=== PATIENT | male | born 1945 | race Asian ===

== ENCOUNTER → 2020-05-06 12:26 | Outpatient (BNVA) | payer MEDICARE, OTHER, SELFPAY | PROVIDERS: PCP Internal Medicine; Referring Provider Internal Medicine; Visit Provider Internal Medicine | DX: I25.10 Atherosclerotic heart disease of native coronary artery without angina pectoris (principal); I65.22 Occlusion and stenosis of left carotid artery; I10 Essential (primary) hypertension; Z45.018 Encounter for adjustment and management of other part of cardiac pacemaker; Z79.899 Other long term (current) drug therapy; Z86.79 Personal history of other diseases of the circulatory system; Z86.73 Personal history of transient ischemic attack (TIA), and cerebral infarction without residual deficits | CPT/HCPCS: 93005; 99212 ==

== ENCOUNTER 2020-05-08 10:26 | Outpatient (REF) | payer MEDICARE, OTHER, SELFPAY ==
--- NOTE | 2020-05-08 | US_ITS ---
EXAMINATION: US EXTRACRANIAL CAROTID DUPLEX, BILATERAL CLINICAL INFORMATION: This is a 74-year-old male with history of hypertension, CVA, left carotid endarterectomy. COMPARISON: Comparison is made to a study dated 09/27/2019 which demonstrated bilateral 0-49% internal carotid artery stenoses. TECHNIQUE: Real-time ultrasound and Doppler techniques (integrating B-mode 2-D vascular images, Doppler spectral analysis and color-flow Doppler imaging) were utilized to interrogate the extracranial carotid arteries, the vertebral arteries and proximal subclavian arteries bilaterally. The degree of stenosis is determined by criteria similar to NASCET. FINDINGS: Right Side: 1. There is minimal atherosclerotic plaque seen in the bifurcation/proximal ICA region. 2. The common carotid artery PSV proximally is 71 cm/s and distally T5 cm/s. 3. The proximal internal carotid artery velocities are 69 cm/s systolic and 25 cm/s diastolic. 4. The proximal external carotid artery PSV is 81 cm/s. 5. The vertebral artery shows antegrade flow. 6. The subclavian artery waveforms are normal. Left Side: 1. There is normal atherosclerotic plaque seen in the bifurcation/proximal ICA region. 2. The common carotid artery PSV proximally is 79 cm/s and distally 79 cm/s. 3. The proximal internal carotid artery velocities are 70 cm/s systolic and 22 cm/s diastolic. 4. The proximal external carotid artery PSV is 83 cm/s. 5. The vertebral artery shows antegrade flow. 6. The subclavian artery waveforms are normal. US/US carotid duplex BI IMPRESSION: 1. RIGHT: Minimal, non-hemodynamically significant stenosis of the proximal right internal carotid artery corresponding to a 0-49% stenosis by velocity criteria. 2. LEFT: Minimal, non-hemodynamically significant stenosis of the proximal left internal carotid artery corresponding to a 0-49% stenosis by velocity criteria. 3. There is no change in the category severity of disease when compared to the previous study dated 09/27/2019. The carotid endarterectomy site appears patent..
== END 2020-05-08 10:27 | disposition home or self-care (01) ==
LOC: HO.US 10:26
PROVIDERS: PCP Internal Medicine; Visit Provider Surgery Vascular Surgery
DX: I63.232 Cerebral infarction due to unspecified occlusion or stenosis of left carotid arteries (principal)
CPT/HCPCS: 93880

== ENCOUNTER → 2020-05-23 08:58 | Outpatient (BNVA) | payer MEDICARE, OTHER, SELFPAY | PROVIDERS: PCP Internal Medicine; Referring Provider Internal Medicine; Visit Provider Surgery Vascular Surgery | DX: I65.23 Occlusion and stenosis of bilateral carotid arteries (principal) | CPT/HCPCS: 99212 ==

== ENCOUNTER → 2020-10-08 14:57 | Outpatient (REF) | payer MEDICARE, OTHER, SELFPAY ==
--- NOTE | 2020-10-08 15:05 | CA_ITS ---
Transthoracic Echocardiogram Patient (Last, First, Middle): Emeka Dalal, Gender: Male Date of : 1945 Age: 74 Procedure Date: 10/08/2020 Procedure Type: Transthoracic Echocardiogram Location: OP Height: 170.18 cm Weight: 65.77 kg BSA: 1.76 m2 Heart Rate: bpm BP: 125 / 80 mmHg Packager Or Packer And Weigher: Referring MD: Zhou Ritter MD Farm Operations Technical Director: Marquez Fagan MD Symptoms: I25.10 - Atherosclerotic heart disease of [place] coronary artery without angina pectoris Study Quality: Good ECG Rhythm: Sinus Conclusions: - 1. Normal LV systolic function with grade 1 diastolic dysfunction 2. Normal cardiac valvular Doppler 3. Normal RV systolic pressure 4. No pericardial effusion Findings Left Ventricle Normal left ventricular size, thickness, and systolic function. The visually estimated ejection fraction is between 60-65%. Spectral Doppler is indicative of an impaired relaxation filling pattern. E/E prime ratio is <8, consistent with normal filling pressures. Evidence suggests grade I (mild) diastolic dysfunction. Right Ventricle Normal right ventricular cavity size and systolic function. There is a pacemaker wire seen in the right ventricle. Atria The left atrium is normal in size. There is no evidence of interatrial shunt. The right atrium is normal in size. A pacemaker wire is identified in the right atrium. Aortic Valve The aortic valve structure and function is likely normal. There is no aortic valve stenosis. There is no aortic valve regurgitation. Mitral Valve Normal mitral valve structure and function. There is trace mitral valve regurgitation. There is no mitral valve stenosis. Pulmonic Valve The pulmonic valve was not well visualized. Tricuspid Valve Likely normal tricuspid valve structure and function. There is trace tricuspid valve regurgitation. The right ventricular systolic pressure is normal. The right ventricular systolic pressure is 21 mmHg. Normal right atrial pressure. There is no evidence of pulmonary hypertension. Great Vessels All visible segments of the aorta are normal in size. The pulmonary artery was not well visualized. Venous The inferior vena cava is normal in size and collapses greater than 50% with inspiration. Pericardium/Pleural There is no evidence of pericardial effusion. Prior Study Comparison No significant change compared to prior study. Measurements 2D Linear Measurements IVSd: 0.80 0.6-0.9/0.6-1.0 cm LVIDd: 3.50 3.9-5.3/4.2-5.9 cm LVIDd Index: 1.99 2.4-3.2/2.2-3.1 cm/m2 LVIDs: 2.33 2.0-3.6 cm LVPWd: 0.78 0.7-1.1 cm Ao Root: 3.40 2.1-3.5 cm LA Diam: 3.20 2.7-3.8/3.0-4.0 cm LAIDs Index: 1.82 1.5-2.3 cm/m2 LV Mass: 181.18 67-162/88-224 g LV Mass Index: 102.94 43-95/49-115 g/m2 LVOT Diam: 2.10 3.0+(-)1.3 cm Mitral Valve MV Pk E: 0.58 MV PK A: 0.73 MV Decel Time: 186.00 E/A: 0.80 E'Lateral: 9.79 E'Medial: 5.66 E/E' Med: 10.30 E/E' Lat: 6.00 PHT: 54.00 MVA PHT: 4.07 Decel Prowers: 3.14 Aortic Valve AoV Pk Andre: 1.18 AoV Mn Andre: 0.70 AoV VTI: 0.27 AoV Pk Grad: 6.00 Aov Mn Grad: 3.00 SHERRY Cont.VTI: 2.50 LVOT LVOT Pk Andre: 0.83 LVOT Mn Andre: 0.48 LVOT VTI: 0.20 LVOT Pk Grad: 3.00 LVOT Mn Grad: 1.00 LVOT Diam: 2.10 LVOT Area: 3.46 Diastolic Function MV Pk E: 0.58 MV Pk A: 0.73 E/A: 0.80 E'Medial: 5.66 E/E' Med: 10.30 E' Laterial: 9.79 E/E' Lat: 6.00 Tricuspid Valve TR Pk Andre: 2.13 TR Pk Grad: 18.00 RA Press: 3.00 RVSP: 21.00 Great Vessels Aorta Ao Root-2D: 3.40 2.0-3.7 cm Ao Asc: 3.50 2.1-3.4 cm Pulmonary Valve PV Pk Andre: 0.90 Peak PV Grad: 3.00 Updated in Other Vendor System with Status of Final Marquez Fagan MD electronically signed on 10/09/2020 2:46:02 PM with status of Final
== END ==
LOC: HO.CARD 14:57
PROVIDERS: Visit Provider Internal Medicine
DX: I25.10 Atherosclerotic heart disease of native coronary artery without angina pectoris (principal)
CPT/HCPCS: 93306

== ENCOUNTER 2021-04-14 11:27 | Outpatient (REF) | payer MEDICARE, OTHER, SELFPAY ==
--- NOTE | ~2021-04-14 | US_ITS ---
EXAMINATION: US EXTRACRANIAL CAROTID DUPLEX, BILATERAL CLINICAL INFORMATION: Carotid stenosis. Left endarterectomy 2019. COMPARISON: 05/08/2020 TECHNIQUE: Real-time ultrasound and Doppler techniques (integrating B-mode 2-D vascular images, Doppler spectral analysis and color-flow Doppler imaging) were utilized to interrogate the extracranial carotid arteries, the vertebral arteries and proximal subclavian arteries bilaterally. The degree of stenosis is determined by criteria similar to NASCET. FINDINGS: Right Side: 1. There is calcified atherosclerotic plaque seen in the bifurcation/proximal ICA region. 2. The common carotid artery PSV proximally is 83 cm/s and distally 55 cm/s. 3. The proximal internal carotid artery velocities are 65 cm/s systolic and 19 cm/s diastolic. 4. The proximal external carotid artery PSV is 51 cm/s. 5. The vertebral artery shows antegrade flow. 6. The subclavian artery waveforms are normal. Left Side: 1. There is minimal atherosclerotic plaque seen in the bifurcation/proximal ICA region. Carotid endarterectomy changes demonstrated. 2. The common carotid artery PSV proximally is 70 cm/s and distally 69 cm/s. 3. The proximal internal carotid artery velocities are 60 cm/s systolic and 14 cm/s diastolic. 4. The proximal external carotid artery PSV is 52 cm/s. 5. The vertebral artery shows antegrade flow. 6. The subclavian artery waveforms are normal. US/US carotid duplex BI IMPRESSION: 1. RIGHT: Minimal, non-hemodynamically significant stenosis of the proximal right internal carotid artery corresponding to a 0-49% stenosis by velocity criteria. 2. LEFT: Carotid endarterectomy. Minimal, non-hemodynamically significant stenosis of the proximal left internal carotid artery corresponding to a 0-49% stenosis by velocity criteria. 3. There is no change in the category severity of disease when compared to the previous study dated 05/08/2020.
== END 2021-04-14 11:28 | disposition home or self-care (01) ==
LOC: HO.US 11:27
PROVIDERS: Visit Provider Surgery Vascular Surgery
DX: I65.23 Occlusion and stenosis of bilateral carotid arteries (principal)
CPT/HCPCS: 93880

== ENCOUNTER → 2021-06-05 09:26 | Outpatient (BNVA) | payer MEDICARE, OTHER, SELFPAY | PROVIDERS: PCP Internal Medicine; Visit Provider Surgery Vascular Surgery | DX: I65.23 Occlusion and stenosis of bilateral carotid arteries (principal) | CPT/HCPCS: 99212 ==

== ENCOUNTER 2022-05-13 10:08 | Outpatient (REF) | payer MEDICARE, OTHER, SELFPAY ==
--- NOTE | ~2022-05-13 | US_ITS ---
EXAMINATION: US EXTRACRANIAL CAROTID DUPLEX, BILATERAL CLINICAL INFORMATION: Carotid artery stenosis COMPARISON: Carotid duplex on 04/14/2021 TECHNIQUE: Real-time ultrasound and Doppler techniques (integrating B-mode 2-D vascular images, Doppler spectral analysis and color-flow Doppler imaging) were utilized to interrogate the extracranial carotid arteries, the vertebral arteries and proximal subclavian arteries bilaterally. The degree of stenosis is determined by criteria similar to NASCET. FINDINGS: Right Side: 1. There is mild atherosclerotic plaque seen in the bifurcation/proximal ICA region. 2. The common carotid artery PSV proximally is 105 cm/s and distally 76 cm/s. 3. The proximal internal carotid artery velocities are 73 cm/s systolic and 20 cm/s diastolic. 4. The proximal external carotid artery PSV is 73 cm/s. 5. The vertebral artery shows antegrade flow. 6. The subclavian artery waveforms are normal. Left Side: 1. There is mild atherosclerotic plaque seen in the bifurcation/proximal ICA region. 2. The common carotid artery PSV proximally is 83 cm/s and distally 83 cm/s. 3. The proximal internal carotid artery velocities are 19 cm/s systolic and 71 cm/s diastolic. 4. The proximal external carotid artery PSV is 71 cm/s. 5. The vertebral artery shows antegrade flow. 6. The subclavian artery waveforms are normal. US/US carotid duplex BI IMPRESSION: 1. RIGHT: Minimal, non-hemodynamically significant stenosis of the proximal right internal carotid artery corresponding to a 0-49% stenosis by velocity criteria. 2. LEFT: Minimal, non-hemodynamically significant stenosis of the proximal left internal carotid artery corresponding to a 0-49% stenosis by velocity criteria.
== END 2022-05-13 10:09 | disposition home or self-care (01) ==
LOC: HO.US 10:08
PROVIDERS: Visit Provider Surgery Vascular Surgery
DX: I65.23 Occlusion and stenosis of bilateral carotid arteries (principal)
CPT/HCPCS: 93880

== ENCOUNTER → 2022-06-23 13:45 | Outpatient (BNVA) | payer MEDICARE, OTHER, SELFPAY | PROVIDERS: PCP Internal Medicine; Visit Provider Surgery Vascular Surgery | DX: I65.23 Occlusion and stenosis of bilateral carotid arteries (principal) | CPT/HCPCS: 99212 ==

== ENCOUNTER 2022-12-29 14:47 | Outpatient (AMB) | payer MEDICARE, OTHER, SELFPAY ==
[2022-12-29 14:47] VITALS: BMI 23.7
--- NOTE | 2022-12-29 14:47 | A.OFFVIS_ITS ---
Intake Vital Signs 12/29/22 14:47 Height 5 ft 6 in Weight 147 lb BMI 23.7 Intake Visit Reasons: Per daughter LE blockage? pt due in jun for f/u Intake Note: pt states bilateral LE tingling and large VV clusters, worried about blood flow due to penis being engorged at all times. Accompanied by: son in law Allergies No Known Allergies [No Known Allergies*] Allergy (Verified 12/29/22 14:53) HPI Per daughter LE blockage? pt due in jun for f/u HPI Details very pleasant 76-year-old gentleman presents for follow-up regarding his lower extremities. He actually follows me for carotid disease that he had undergone nearly 3 years ago with me. He most recently is complaining of numbness and tingling in the lower extremity. An actually of note he is son-in-law pointed out that he has recurrent bouts of pre of his Um as well. He notes that it is a constant tingling of the lower extremities. He does not note any changes with ambulation or rest. He is currently being maintained on a baby aspirin and high-dose statin. Upon further discussion with him he does admit to some lower back pain issues. [facility] Medical History Atherosclerotic cardiovascular disease Essential hypertension Ischemic stroke Normally functioning cardiac pacemaker present Sick sinus syndrome Stenosis of left carotid artery Surgical History History of cardiac catheterization (~2016) History of left-sided carotid endarterectomy (~05/15/19) History of permanent cardiac pacemaker placement (~05/12/19) Family History Father No problems noted. Mother No problems noted. Review of Systems Const All systems reviewed & are unremarkable except as noted in HPI and below Reports no additional complaints ENT Reports Normal hearing present Card Denies chest pain, Denies chest pain at rest, Denies chest pain with activity and Denies pedal edema Resp Denies cough GI Denies abdominal pain Musc Denies abnormal gait, Denies muscle cramps and Denies radiating pain into limb Skin/Breast Denies skin ulcer and Denies wounds Neuro Reports Normal hearing present and Denies abnormal gait Psych Reports no additional complaints Physical Exam Vital Signs: BMI result Body Mass Index 23.7 Const General: cooperative, healthy appearing and comfortable Orientation/consciousness: oriented to person, oriented to place and oriented to time HEENT Head: Yes normal to inspection Neck Neck: Yes normal visual inspection Carotids: no bruits Chest Chest palpation & inspection: normal inspection of the chest Resp Effort & Inspection: normal respiratory effort and able to speak in complete sentences Auscultation: clear to auscultation bilaterally, no crackles, no rales, no rhonchi and no wheezes Cardio Other: Bilateral palpable DP and PT pulses. Rate: regular rate Rhythm: regular rhythm Heart sounds: S1 normal heart sound present and S2 normal heart sound present Bruits: no carotid bruits Peripheral pulses: Peripheral pulses 2+ throughout GI Inspection: Yes normal to inspection Skin Wounds: no wounds Hair: normal Neuro General: oriented to person, oriented to place and oriented to time Cranial nerves: Yes CN's II-XII intact bilaterally and Yes Normal hearing present Cognition (Neuro): normal cognition Motor exam (neuro): 5/5 motor strength present throughout Extrem Other: venous exam: No significant superficial varicosities or spider telangiectasias, minimal edema General: No clubbing, No cyanosis and No edema Psych Appearance: grossly normal Mental Status: mental status grossly normal Speech and movement: Normal speech and movement present Assessment & Plan Assessment & Plan (1) Leg pain, bilateral: Code(s): M79.604 - Pain in right leg; M79.605 - Pain in left leg Plan: in short unclear etiology of lower extremity pain. It does not appear to be vascular in nature as he does have palpable bilateral DP and PT pulses. There may be an neurologic component to this. He does complain of numbness and tingling of the bilateral lower extremities. In addition he does have back pain issues. A bigger concern is these recurrent bouts of preop his Um that have been occurring for him. I will try to reach out to the primary care team. He may benefit from an urgent neurologic evaluation. Once again he will continue to follow us for his carotid disease. Thank you for allowing us to assist in his care. If there are any questions or concerns please do not hesitate to contact us. (2) Carotid stenosis, bilateral: Comment: 05/15/2019 - left carotid endarterectomy Code(s): I65.23 - Occlusion and stenosis of bilateral carotid arteries Coding Level of Care Code Est Pt Level 4 (36888) Diagnoses Leg pain, bilateral M79.604; M79.605 Carotid stenosis, bilateral I65.23
== END 2022-12-29 15:14 | disposition home or self-care (01) ==
PROVIDERS: PCP Internal Medicine; Visit Provider Surgery Vascular Surgery
DX: M79.604 Pain in right leg (principal); M79.605 Pain in left leg; I65.23 Occlusion and stenosis of bilateral carotid arteries; N48.30 Priapism, unspecified
CPT/HCPCS: 99214

== ENCOUNTER → 2022-12-29 14:47 | Outpatient (BNVA) | payer MEDICARE, OTHER, SELFPAY | PROVIDERS: PCP Internal Medicine; Visit Provider Surgery Vascular Surgery | DX: M79.604 Pain in right leg (principal); M79.605 Pain in left leg; I65.23 Occlusion and stenosis of bilateral carotid arteries | CPT/HCPCS: 99212 ==

== ENCOUNTER → 2023-01-05 23:59 | Outpatient (BNV) | payer MEDICARE, OTHER, SELFPAY ==
--- NOTE | 2023-01-07 15:57 | MHC.OFFVIS ---
Intake Intake Visit Reasons: Remote Device Check- [facility] Allergies No Known Allergies [No Known Allergies*] Allergy (Verified 12/29/22 14:53) FOR[facility]LY [facility], [facility]–1983 Medical History Atherosclerotic cardiovascular disease Essential hypertension Ischemic stroke Normally functioning cardiac pacemaker present Sick sinus syndrome Stenosis of left carotid artery Surgical History History of cardiac catheterization (~2016) History of left-sided carotid endarterectomy (~05/15/19) History of permanent cardiac pacemaker placement (~05/12/19) Family History Father No problems noted. Mother No problems noted. Office Procedures Cardiac Device Check Cardiac Device Check Details: Date of service- 01/05/2023 ; Battery life >6 years; normal lead parameters; AP 42%; EXCAVATING SUPERVISOR <1%; no significant arrhythmias. Overall normal device function. [id number] Cardiac Device Interrogation, pacemaker Procedure code (CPT) selection complete Assessment & Plan Assessment & Plan (1) Sick sinus syndrome: Code(s): I49.5 - Sick sinus syndrome Coding Level of Care Code Procedure Only Diagnoses Sick sinus syndrome I49.5 CPT Codes Cardiac Device Check - Cardiac Device 12: [id number] Cardiac Device Interrogation, pacemaker ([id number])
== END ==
PROVIDERS: PCP Internal Medicine; Visit Provider Internal Medicine
DX: I49.5 Sick sinus syndrome (principal); Z95.0 Presence of cardiac pacemaker
CPT/HCPCS: 93294

== ENCOUNTER → 2023-04-06 23:59 | Outpatient (BNV) | payer MEDICARE, OTHER, SELFPAY ==
--- NOTE | 2023-04-10 18:59 | A.OFFVIS_ITS ---
Intake Intake Visit Reasons: Remote Device Check- [facility] Allergies No Known Allergies [No Known Allergies*] Allergy (Verified 12/29/22 14:53) [facility] Medical History Atherosclerotic cardiovascular disease Essential hypertension Ischemic stroke Normally functioning cardiac pacemaker present Sick sinus syndrome Stenosis of left carotid artery Surgical History History of cardiac catheterization (~2016) History of left-sided carotid endarterectomy (~05/15/19) History of permanent cardiac pacemaker placement (~05/12/19) Family History Father No problems noted. Mother No problems noted. Office Procedures Cardiac Device Check Cardiac Device Check Details: Date of service- 04/06/2023 ; Battery life >6 years; normal lead parameters; AP 47%; BILLET EXAMINER <1%; no significant arrhythmias. Overall normal device function. [id number] Cardiac Device Interrogation, pacemaker Procedure code (CPT) selection complete Assessment & Plan Assessment & Plan (1) Sick sinus syndrome: Code(s): I49.5 - Sick sinus syndrome Plan x Coding Level of Care Code Procedure Only Diagnoses Sick sinus syndrome I49.5 CPT Codes Cardiac Device Check - Cardiac Device 12: [id number] Cardiac Device Interrogation, pacemaker ([id number])
== END ==
PROVIDERS: PCP Internal Medicine; Visit Provider Internal Medicine
DX: I49.5 Sick sinus syndrome (principal); Z95.0 Presence of cardiac pacemaker
CPT/HCPCS: 93294

== ENCOUNTER 2023-06-03 09:55 | Outpatient (REF) | payer MEDICARE, OTHER, SELFPAY ==
--- NOTE | ~2023-06-03 | US_ITS ---
EXAMINATION: US EXTRACRANIAL CAROTID DUPLEX, BILATERAL CLINICAL INFORMATION: Carotid stenosis. Former smoker. Hypertension. COMPARISON: Carotid ultrasound 05/13/2022 TECHNIQUE: Real-time ultrasound and Doppler techniques (integrating B-mode 2-D vascular images, Doppler spectral analysis and color-flow Doppler imaging) were utilized to interrogate the extracranial carotid arteries, the vertebral arteries and proximal subclavian arteries bilaterally. The degree of stenosis is determined by criteria similar to NASCET. FINDINGS: Right Side: 1. There is mild atherosclerotic plaque seen in the bifurcation/proximal ICA region. 2. The common carotid artery PSV proximally is 73 cm/s and distally 64 cm/s. 3. The proximal internal carotid artery velocities are 70 cm/s systolic and 24 cm/s diastolic. 4. The proximal external carotid artery PSV is 68 cm/s. 5. The vertebral artery shows antegrade flow. 6. The subclavian artery waveforms are normal. Left Side: 1. There is mild atherosclerotic plaque seen in the bifurcation/proximal ICA region. 2. The common carotid artery PSV proximally is 61 cm/s and distally 60 cm/s. 3. The proximal internal carotid artery velocities are 48 cm/s systolic and 19 cm/s diastolic. 4. The proximal external carotid artery PSV is 63 cm/s. 5. The vertebral artery shows antegrade flow. 6. The subclavian artery waveforms are normal. US/US carotid duplex BI IMPRESSION: 1. RIGHT: Minimal, non-hemodynamically significant stenosis of the proximal right internal carotid artery corresponding to a 0-49% stenosis by velocity criteria. 2. LEFT: Minimal, non-hemodynamically significant stenosis of the proximal left internal carotid artery corresponding to a 0-49% stenosis by velocity criteria. 3. There is no change in the category severity of disease when compared to the previous study dated 05/13/2022.
== END 2023-06-03 09:56 | disposition home or self-care (01) ==
LOC: HO.US 09:55
PROVIDERS: PCP Internal Medicine; Visit Provider Surgery Vascular Surgery
DX: I65.23 Occlusion and stenosis of bilateral carotid arteries (principal)
CPT/HCPCS: 93880

== ENCOUNTER → 2023-07-06 23:59 | Outpatient (BNV) | payer MEDICARE, OTHER, SELFPAY ==
--- NOTE | 2023-07-06 18:45 | MHC.OFFVIS ---
Intake Intake Visit Reasons: Remote Device Check- [facility] Allergies No Known Allergies [No Known Allergies*] Allergy (Verified 12/29/22 14:53) [facility] Medical History Atherosclerotic cardiovascular disease Essential hypertension Ischemic stroke Normally functioning cardiac pacemaker present Sick sinus syndrome Stenosis of left carotid artery Surgical History History of cardiac catheterization (~2016) History of left-sided carotid endarterectomy (~05/15/19) History of permanent cardiac pacemaker placement (~05/12/19) Family History Father No problems noted. Mother No problems noted. Office Procedures Cardiac Device Check Cardiac Device Check Details: Date of service- 07/06/2023 ; Battery life >6 years; normal lead parameters; AP 51%; PATTERN MECHANIC <1%; no significant arrhythmias. Overall normal device function. [id number] Cardiac Device Interrogation, pacemaker Procedure code (CPT) selection complete Assessment & Plan Assessment & Plan (1) Sick sinus syndrome: Code(s): I49.5 - Sick sinus syndrome (2) Ischemic stroke: Code(s): I63.9 - Cerebral infarction, unspecified Plan x Coding Level of Care Code Procedure Only Diagnoses Sick sinus syndrome I49.5 Ischemic stroke I63.9 CPT Codes Cardiac Device Check - Cardiac Device 12: [id number] Cardiac Device Interrogation, pacemaker ([id number])
== END ==
PROVIDERS: PCP Internal Medicine; Visit Provider Internal Medicine
DX: I49.5 Sick sinus syndrome (principal); Z95.0 Presence of cardiac pacemaker
CPT/HCPCS: 93294

== ENCOUNTER 2023-07-07 10:13 | Outpatient (AMB) | payer MEDICARE, OTHER, SELFPAY ==
[2023-07-07 10:20] VITALS: BMI 23.7
--- NOTE | 2023-07-07 10:20 | MHC.OFFVIS ---
Intake Vital Signs 07/07/23 10:20 Height 5 ft 6 in Weight 147 lb BMI 23.7 Intake Visit Reasons: Follow Up 06/03 Carotid US Intake Note: Patient presents for follow up carotid ultrasound on 06/03/23. States he's is having some issues with blurriness but believes it might be due to old age. Has ringing in his ears that he wanted to mention. Patient also mentioned having pain in his legs. He has visible rope like veins on his right leg. Accompanied by: Grand Child Allergies No Known Allergies [No Known Allergies*] Allergy (Verified 07/07/23 10:24) HPI Follow Up 06/03 Carotid US HPI Details Very pleasant 77-year-old gentleman presents for evaluation regarding carotid stenosis. He had undergone carotid endarterectomy with us nearly 4 years prior. He has gone on to retire and has been doing fairly well. Has grandson at bedside who reports that he stays fairly active. He his only complaint is some leg discomfort and some numbness on occasion. He now presents for routine follow-up. [facility] Medical History Essential hypertension Ischemic stroke Stenosis of left carotid artery Atherosclerotic cardiovascular disease Sick sinus syndrome Normally functioning cardiac pacemaker present Surgical History History of permanent cardiac pacemaker placement (~05/12/19) History of left-sided carotid endarterectomy (~05/15/19) History of cardiac catheterization (~2016) Family History Father No problems noted. Mother No problems noted. Review of Systems Const All systems reviewed & are unremarkable except as noted in HPI and below Reports no additional complaints ENT Reports Normal hearing present Card Denies chest pain, Denies chest pain at rest, Denies chest pain with activity and Denies pedal edema Resp Denies cough GI Denies abdominal pain Musc Denies abnormal gait, Denies muscle cramps and Denies radiating pain into limb Skin/Breast Denies skin ulcer and Denies wounds Neuro Reports Normal hearing present and Denies abnormal gait Psych Reports no additional complaints Physical Exam Vital Signs: BMI result Body Mass Index 23.7 Const General: cooperative, healthy appearing and comfortable Orientation/consciousness: oriented to person, oriented to place and oriented to time HEENT Head: Yes normal to inspection Neck Neck: Yes normal visual inspection Carotids: no bruits Chest Chest palpation & inspection: normal inspection of the chest Resp Effort & Inspection: normal respiratory effort and able to speak in complete sentences Auscultation: clear to auscultation bilaterally, no crackles, no rales, no rhonchi and no wheezes Cardio Rate: regular rate Rhythm: regular rhythm Heart sounds: S1 normal heart sound present and S2 normal heart sound present Bruits: no carotid bruits Peripheral pulses: Peripheral pulses 2+ throughout GI Inspection: Yes normal to inspection Skin Wounds: no wounds Hair: normal Neuro General: oriented to person, oriented to place and oriented to time Cranial nerves: Yes CN's II-XII intact bilaterally and Yes Normal hearing present Cognition (Neuro): normal cognition Motor exam (neuro): 5/5 motor strength present throughout Extrem Other: venous exam: No significant superficial varicosities or spider telangiectasias, minimal edema General: No clubbing, No cyanosis and No edema Psych Appearance: grossly normal Mental Status: mental status grossly normal Speech and movement: Normal speech and movement present Results Reviewed Results Reviewed: Carotid testing dated 06/03/2023 demonstrates bilateral 0-49% stenosis. Assessment & Plan Assessment & Plan (1) Carotid stenosis, bilateral: Comment: 05/15/2019 - left carotid endarterectomy Code(s): I65.23 - Occlusion and stenosis of bilateral carotid arteries Plan: In short patient has asymptomatic carotid disease. We have reviewed signs and symptoms of a stroke. We also discussed risk factor modification inclusive a healthy diet low in cholesterol. The patient will follow up with us with surveillance ultrasound of the carotids 1 year. Should there be any changes or signs or symptoms of a stroke we will be happy to see them back sooner. Thank you for allowing us to participate in this patient's care. If there are any questions or concerns please do not hesitate to contact us. (2) Leg pain, bilateral: Code(s): M79.604 - Pain in right leg; M79.605 - Pain in left leg Plan: Patient has some leg discomfort which I believe is more neurogenic in nature. Does have a few varicosities on the right posterior calf which I do believe a relatively asymptomatic. In addition he does have palpable arterial pulses. I did discuss the importance of ambulation and should it worsen possible use of nonsteroidal anti-inflammatories. He did report that it did improve with that on occasion and he has done well with physical therapy in the past. Once again we will follow up with him on a once a year basis regarding his carotids. Thank you for allowing us to assist in his care. Orders: Orders US carotid duplex BI 1 Year I65.23 - Occlusion and stenosis of bilateral carotid arteries Coding Level of Care Code Est Pt Level 4 (90234) Diagnoses Carotid stenosis, bilateral I65.23 Leg pain, bilateral M79.604; M79.605
== END 2023-07-07 10:39 | disposition home or self-care (01) ==
PROVIDERS: PCP Internal Medicine; Visit Provider Surgery Vascular Surgery
DX: I65.23 Occlusion and stenosis of bilateral carotid arteries (principal); M79.604 Pain in right leg; M79.605 Pain in left leg
CPT/HCPCS: 99213

== ENCOUNTER → 2023-07-07 10:13 | Outpatient (BNVA) | payer MEDICARE, OTHER, SELFPAY | PROVIDERS: PCP Internal Medicine; Visit Provider Surgery Vascular Surgery | DX: I65.23 Occlusion and stenosis of bilateral carotid arteries (principal); M79.604 Pain in right leg; M79.605 Pain in left leg | CPT/HCPCS: 99212 ==

== ENCOUNTER → 2023-10-05 23:59 | Outpatient (BNV) | payer MEDICARE, OTHER, SELFPAY ==
--- NOTE | 2023-10-10 10:57 | MHC.OFFVIS ---
Intake Visit Reasons: Remote device check- [facility] Allergies No Known Allergies [No Known Allergies*] Allergy (Verified 07/07/23 10:24) [facility] Medical History Essential hypertension Ischemic stroke Stenosis of left carotid artery Atherosclerotic cardiovascular disease Sick sinus syndrome Normally functioning cardiac pacemaker present Surgical History History of permanent cardiac pacemaker placement (~05/12/19) History of left-sided carotid endarterectomy (~05/15/19) History of cardiac catheterization (~2016) Family History Father No problems noted. Mother No problems noted. Office Procedures Cardiac Device Check Cardiac Device Check Details: Date of service- 10/05/2023 ; Battery life >6 years; normal lead parameters; AP 39%; STOCK PREPARATION OPERATOR <1%; no significant arrhythmias. Overall normal device function. [id number] Cardiac Device Interrogation, pacemaker Procedure code (CPT) selection complete Assessment & Plan Assessment & Plan (1) Sick sinus syndrome: Code(s): I49.5 - Sick sinus syndrome Category: Medical Plan x Coding Level of Care Code Procedure Only Diagnoses Sick sinus syndrome I49.5 CPT Codes Cardiac Device Check - Cardiac Device 12: [id number] Cardiac Device Interrogation, pacemaker ([id number])
== END ==
PROVIDERS: PCP Internal Medicine; Visit Provider Internal Medicine
DX: I49.5 Sick sinus syndrome (principal); Z95.0 Presence of cardiac pacemaker
CPT/HCPCS: 93294

== ENCOUNTER → 2024-01-04 23:59 | Outpatient (BNV) | payer MEDICARE, OTHER, SELFPAY ==
--- NOTE | 2024-01-09 13:42 | MHC.OFFVIS ---
Intake Visit Reasons: Remote device check- [facility] Allergies No Known Allergies [No Known Allergies*] Allergy (Verified 07/07/23 10:24) [facility] Medical History Essential hypertension Ischemic stroke Stenosis of left carotid artery Atherosclerotic cardiovascular disease Sick sinus syndrome Normally functioning cardiac pacemaker present Surgical History History of permanent cardiac pacemaker placement (~05/12/19) History of left-sided carotid endarterectomy (~05/15/19) History of cardiac catheterization (~2016) Family History Father No problems noted. Mother No problems noted. Office Procedures Cardiac Device Check Cardiac Device Check Details: Date of service- 01/04/2024 ; Battery life >6 years; normal lead parameters; AP 39%; DIAMOND SANDER <1%; NSVT, very brief. Overall normal device function. [id number] Cardiac Device Interrogation, pacemaker Procedure code (CPT) selection complete Assessment & Plan Assessment & Plan (1) Sick sinus syndrome: Code(s): I49.5 - Sick sinus syndrome Category: Medical Plan x Coding Level of Care Code Procedure Only Diagnoses Sick sinus syndrome I49.5 CPT Codes Cardiac Device Check - Cardiac Device 12: [id number] Cardiac Device Interrogation, pacemaker ([id number])
== END ==
PROVIDERS: PCP Internal Medicine; Visit Provider Internal Medicine
DX: I49.5 Sick sinus syndrome (principal); Z95.0 Presence of cardiac pacemaker
CPT/HCPCS: 93294

== ENCOUNTER 2024-03-09 14:07 | Outpatient (AMB) | payer MEDICARE, OTHER, SELFPAY ==
[2024-03-09 14:19] VITALS: BMI 23.7
--- NOTE | 2024-03-09 14:19 | A.OFFVIS_ITS ---
Vital Signs 03/09/24 14:19 Height 5 ft 6 in Weight 147 lb BMI 23.7 Intake Visit Reasons: leg swelling Intake Note: follow up for LE issues, normally seen annually for carotid arteries. Pt has concern of bilateral foot/toe numbness. Pt states he has worse numbness when ambulating but still has it when at rest. He has shooting pain and numbness from buttocks to feet. Accompanied by: Daughter Allergies No Known Allergies [No Known Allergies*] Allergy (Verified 03/09/24 14:25) HPI HPI leg swelling: Details: Very pleasant 70-year-old gentleman presents for evaluation regarding lower extremity pain and discomfort. He had originally seen us for carotid stenosis and we had done a carotid endarterectomy on him nearly 4 years prior. He was concerned about lower extremity tone numbness. He was concerned that he had a lack of circulation in his feet. He now presents to us for vascular evaluation regarding that. Upon further discussion it was noted that he is not a diabetic but does have persistent back pain. [facility] Medical History Essential hypertension Ischemic stroke Stenosis of left carotid artery Atherosclerotic cardiovascular disease Sick sinus syndrome Normally functioning cardiac pacemaker present Surgical History History of permanent cardiac pacemaker placement (~05/12/19) History of left-sided carotid endarterectomy (~05/15/19) History of cardiac catheterization (~2016) Family History Father No problems noted. Mother No problems noted. Review of Systems Const All systems reviewed & are unremarkable except as noted in HPI and below Reports no additional complaints ENT Reports Normal hearing present Card Denies chest pain, Denies chest pain at rest, Denies chest pain with activity and Denies pedal edema Resp Denies cough GI Denies abdominal pain Musc Denies abnormal gait, Denies muscle cramps and Denies radiating pain into limb Skin/Breast Denies skin ulcer and Denies wounds Neuro Reports Normal hearing present and Denies abnormal gait Psych Reports no additional complaints Physical Exam Vital Signs: BMI result Body Mass Index 23.7 Const General: cooperative, healthy appearing and comfortable Orientation/consciousness: oriented to person, oriented to place and oriented to time HEENT Head: Yes normal to inspection Neck Neck: Yes normal visual inspection Carotids: no bruits Chest Chest palpation & inspection: normal inspection of the chest Resp Effort & Inspection: normal respiratory effort and able to speak in complete sentences Auscultation: clear to auscultation bilaterally, no crackles, no rales, no rhonchi and no wheezes Cardio Rate: regular rate Rhythm: regular rhythm Heart sounds: S1 normal heart sound present and S2 normal heart sound present Bruits: no carotid bruits Peripheral pulses: Peripheral pulses 2+ throughout GI Inspection: Yes normal to inspection Skin Wounds: no wounds Hair: normal Neuro General: oriented to person, oriented to place and oriented to time Cranial nerves: Yes CN's II-XII intact bilaterally and Yes Normal hearing present Cognition (Neuro): normal cognition Motor exam (neuro): 5/5 motor strength present throughout Extrem Other: venous exam: No significant superficial varicosities or spider itzel ngiectasias, minimal edema General: No clubbing, No cyanosis and No edema Psych Appearance: grossly normal Mental Status: mental status grossly normal Speech and movement: Normal speech and movement present Assessment & Plan Assessment & Plan (1) Carotid stenosis, bilateral: Comment: 05/15/2019 - left carotid endarterectomy Code(s): I65.23 - Occlusion and stenosis of bilateral carotid arteries Category: Medical Plan: Stable in terms of his carotid disease. He will keep his prior follow-up. Please note a longitudinal relationship has been created with the patient and we have been following and surveillance this chronic condition. (2) Leg pain, bilateral: Code(s): M79.604 - Pain in right leg; M79.605 - Pain in left leg Category: Medical Plan: In terms of his leg pain it does not appear to be vascular in nature. I did ensure that he had palpable pulses. He has no significant swelling or tenderness to suggest venous disease. The concern is his lower back pain. Unfortunately he has been unable to get an MRI due to his prior history of a pacemaker. I suggested evaluation by pain management to suggest other imaging modalities and possible treatment. He was in agreement and would like to schedule evaluation with them. We will place the consult. Once again he will follow up with us for his routine carotid follow-up. Thank you for allowing us to assist in his care. Coding Level of Care Code Est Pt Level 4 (79156) Complex EM visit Add On G2211 Diagnoses Carotid stenosis, bilateral I65.23 Leg pain, bilateral M79.604; M79.605
== END 2024-03-09 15:10 | disposition home or self-care (01) ==
LOC: HO.HVS 14:08
PROVIDERS: PCP Internal Medicine; Visit Provider Surgery Vascular Surgery
DX: I65.23 Occlusion and stenosis of bilateral carotid arteries (principal); M79.604 Pain in right leg; M79.605 Pain in left leg
CPT/HCPCS: 99214; G2211

== ENCOUNTER → 2024-03-09 14:07 | Outpatient (BNVA) | payer MEDICARE, OTHER, SELFPAY | PROVIDERS: PCP Internal Medicine; Visit Provider Surgery Vascular Surgery | DX: M79.604 Pain in right leg (principal); M79.605 Pain in left leg; I65.23 Occlusion and stenosis of bilateral carotid arteries | CPT/HCPCS: 99212 ==

== ENCOUNTER 2024-03-17 14:17 | Outpatient (AMB) | payer MEDICARE, OTHER, SELFPAY ==
[2024-03-17 14:24] VITALS: BP 176/84; PULSE 69; O2SAT 96; BMI 22.9
--- NOTE | 2024-03-17 14:24 | MHC.OFFVIS ---
Vital Signs 03/17/24 14:24 Height 5 ft 6 in Weight 142 lb BMI 22.9 BP 176/84 H Blood Pressure Location Lt brachial Position Sitting Pulse 69 Pulse Source Pulse Oximeter Pulse Oximetry (%) 96 Oxygen Delivery Method Room Air Intake Visit Reasons: Bilateral Leg Pain Allergies No Known Allergies [No Known Allergies*] Allergy (Verified 03/17/24 14:25) Medication List - Last Reconciled 03/17/24 by Luz Elena Mayberry aspirin 81 mg PO DAILY atorvastatin 80 mg PO DAILY fluticasone propionate 220 mcg/actuation inhalation fluticasone propionate 50 mcg/actuation sprays intranasal losartan 100 mg PO DAILY metformin 500 mg PO DAILY metoprolol succinate ER 50 mg PO DAILY naproxen 500 mg PO BID tadalafil 20 mg PO DAILY PRN HPI Comments Details: Patient presents the office today for evaluation management of his chronic lower back and bilateral leg pain. Patient was accompanied by his daughter. They were offered a license medical staff specialist via iPad but declined and requested to have his daughter assist. Reports he has been suffering with this pain for greater than 1 year, worsening over the last few months. Endorses midline lower back pain with radiation down both legs to the feet. Positive numbness to both feet. Denies shooting, stabbing, electrical pain down either lower extremity Pain is worse with walking and physical activity. He denies improvement of his pain with forward flexion. Denies any recent imaging Completed physical therapy < 1 year ago without improvement of his symptoms Previously prescribed gabapentin, discontinued September of 2023. They are not aware of why it was discontinued. They can not detail if he had reaction or if it was even beneficial. Currently taking naproxen with minimal improvement Denies red flag symptoms including new loss of bowel, bladder or saddle anesthesia Pain today is rated as a 3/10, constant worse during the day. In terms of muscle damage condition is described as aching, throbbing, numbness Pain is negatively impacting patient's enjoyment of life, general activity, work, mood, walking Denies current use of anticoagulants Patient does have known defibrillator, MRI compatible Denies current use of nicotine, tobacco, alcohol or illicit substances [facility] Medical History Essential hypertension Ischemic stroke Stenosis of left carotid artery Atherosclerotic cardiovascular disease Sick sinus syndrome Normally functioning cardiac pacemaker present Surgical History History of permanent cardiac pacemaker placement (~05/12/19) History of left-sided carotid endarterectomy (~05/15/19) History of cardiac catheterization (~2016) Family History Father No problems noted. Mother No problems noted. Review of Systems Const All systems reviewed & are unremarkable except as noted in HPI and below Physical Exam Vital Signs: Last Vital Signs Pulse 69 03/17/24 14:24 BP 176/84 H 03/17/24 14:24 Pulse Ox 96 03/17/24 14:24 Oxygen Delivery Method Room Air 03/17/24 14:24 BMI result Body Mass Index 22.9 General: awake, alert, oriented. Answers questions appropriately. Fully engaged in examination. Skin: warm, dry, intact HEENT: Normocephalic. Hearing intact. Cardiac: External chest normal in appearance. Respiratory: No cough, audible wheezing or stridor. Abdomen: without gross distension. MS: No obvious swelling or deformities. Able to stand on bilateral tiptoes and bilateral heels.? Able to transition from sit to stand unassisted. Ambulates with bilaterally normal heel strike and toe off SLR negative bilaterally Tenderness over midline lumbar vertebrae and lumbar paraspinal muscles Full lumbar range of motion Bilateral lower extremity strength 5/5 Valsalva negative Neurological: Oriented to person, place, time and situation. Thought process intact. No gait abnormalities appreciated. Psychiatric: Appropriate mood and affect. Good judgment and insight. Assessment & Plan Assessment & Plan (1) Leg pain, bilateral: Code(s): M79.604 - Pain in right leg; M79.605 - Pain in left leg Category: Medical (2) Paresthesia of both feet: Code(s): R20.2 - Paresthesia of skin Category: Medical (3) Lower back pain: Code(s): M54.50 - Low back pain, unspecified Category: Medical (4) Lumbar spondylosis: Code(s): M47.816 - Spondylosis without myelopathy or radiculopathy, lumbar region Category: Medical Plan Patient presented to the office today for evaluation management of his chronic lower back pain History, physical exam and provocative testing consistent with lumbar spondylosis and spinal stenosis with neurogenic claudication MRI ordered for evaluation X-ray ordered for evaluation EMG ordered for evaluation All questions and concerns were answered, patient agrees with the plan. Follow up after testing, sooner if needed Orders: Orders MR lumbar spine wo con Today M48.062 - Spinal stenosis, lumbar region with neurogenic claudication NE electromyogram (EMG) Today R20.2 - Paresthesia of skin XR lumbar spine 4V min Today M54.50 - Low back pain, unspecified Coding Level of Care Code New Pt Level 4 (95998) Complex EM visit Add On G2211 Diagnoses Leg pain, bilateral M79.604; M79.605 Paresthesia of both feet R20.2 Lower back pain M54.50 Lumbar spondylosis M47.816
== END 2024-03-17 14:51 | disposition home or self-care (01) ==
PROVIDERS: PCP Internal Medicine; Referring Provider Surgery Vascular Surgery; Visit Provider Registered Nurse Emergency
DX: M79.604 Pain in right leg (principal); M79.605 Pain in left leg; R20.2 Paresthesia of skin; M54.50 Low back pain, unspecified; M47.816 Spondylosis without myelopathy or radiculopathy, lumbar region
CPT/HCPCS: 99204; G2211

== ENCOUNTER → 2024-03-17 14:17 | Outpatient (BNVA) | payer MEDICARE, OTHER, SELFPAY | PROVIDERS: PCP Internal Medicine; Referring Provider Surgery Vascular Surgery; Visit Provider Registered Nurse Emergency | DX: M79.604 Pain in right leg (principal); M79.605 Pain in left leg; M54.50 Low back pain, unspecified; M47.816 Spondylosis without myelopathy or radiculopathy, lumbar region; R20.2 Paresthesia of skin | CPT/HCPCS: 99202 ==

== ENCOUNTER 2024-03-20 15:19 | Outpatient (AMB) | payer MEDICARE, OTHER, SELFPAY ==
--- NOTE | 2024-03-20 13:23 | A.OFFVIS_ITS ---
Vital Signs 03/20/24 15:23 Height 5 ft 6 in Weight 142 lb 3.17 oz BMI 22.9 BP 150/86 H Blood Pressure Location Lt brachial Position Sitting Pulse 60 Pulse Source Pulse Oximeter Pulse Oximetry (%) 96 Oxygen Delivery Method Room Air Intake Visit Reasons: Cough Director Of Business Development Required: Yes Director Of Business Development Language: Fijian - Traditional Director Of Business Development Name: [id number] [facility]ju Allergies No Known Allergies [No Known Allergies*] Allergy (Verified 03/20/24 15:27) HPI HPI Cough: Details: Emeka is a pleasant 78 year old male, former smoker, with approximately 15 pyh quit 30 years ago with underlying asthma, HTN, DMII and SSS s/p pacer. He was referred by PCP for pulmonary evaluation for chronic cough. He reports dry cough has been present since 2019 and more recently has become productive with whitish yellow sputum. He denies fevers, chills or sick contacts. He denies chest congestion, wheezing, dyspnea or chest tightness. He has trialed OTC nasal sprays as well as antihistamines without effect. He reports previously being diagnosed with asthma, never requiring intubation, with no effect using inhalers. He denies seasonal allergies or any other allergic symptoms. Although he does report persistent throat clearing and post nasal drip. He denies trialing prednisone or antibiotics. He denies any triggering symptoms. He denies changes with eating or drinking. He denies any reflux symptoms. He denies any recent traveling. He denies any occupational exposures. [facility] Medical History Essential hypertension Ischemic stroke Stenosis of left carotid artery Atherosclerotic cardiovascular disease Sick sinus syndrome Normally functioning cardiac pacemaker present Surgical History History of permanent cardiac pacemaker placement (~05/12/19) History of left-sided carotid endarterectomy (~05/15/19) History of cardiac catheterization (~2016) Family History Father No problems noted. Mother No problems noted. Social History (Updated 03/20/24 @ 15:27 by Darby Georges CMA) Patient Tobacco Use Status: Former Tobacco user Tobacco use type: Cigarette Review of Systems Const Denies chills, Denies excessive sweating, Denies fever(s), Denies headache(s) and Denies night sweats Eyes Denies dry eyes, Denies irritation and Denies itchy eyes ENT Reports Normal hearing present and Denies headache(s) Card Denies chest pain, Denies chest pain at rest, Denies chest pain with activity, Denies claudication, Denies leg edema, Denies dyspnea, Denies dyspnea on exertion, Denies orthopnea and Denies paroxysmal nocturnal dyspnea Resp Denies chest congestion, Denies excessive phlegm production, Denies pain on inspiration, Denies pain with cough, Denies dyspnea, Denies dyspnea on exertion, Denies stridor and Denies wheezing Musc Denies myalgias Neuro Reports Normal hearing present and Denies headache(s) Endo Denies excessive sweating Des/Lymph Denies lymphadenopathy Aller/Immun Denies itchy eyes, Denies seasonal rhinorrhea and Denies wheezing Physical Exam Vital Signs: Last Vital Signs Pulse 60 03/20/24 15:23 BP 150/86 H 03/20/24 15:23 Pulse Ox 96 03/20/24 15:23 Oxygen Delivery Method Room Air 03/20/24 15:23 BMI result Body Mass Index 22.9 Const General: cooperative, healthy appearing, comfortable, no acute distress, well developed and alert Orientation/consciousness: patient oriented x3 Limitations: no limitations HEENT Head: Yes normal to inspection, Yes normocephalic and Yes atraumatic Ears: hearing grossly normal bilaterally and external ears normal Eyes General: appearance normal, both eyes and all related structures Eyelids: Yes eyelids normal Sclerae: sclerae normal EOM: EOMs intact bilaterally Neck Neck: Yes normal visual inspection and Yes no lymphadenopathy Lymphatic: no lymphadenopathy noted Chest Chest palpation & inspection: normal inspection of the chest Resp Effort & Inspection: normal respiratory effort, able to speak in complete sentences, no audible wheezes, no cough, no stridor, not tachypneic, no tripod positioning and no use of accessory muscles Auscultation: crackles on the right at the base Cardio Jugular venous distension: no JVD Rate: regular rate Rhythm: regular rhythm Skin Other: warm, dry General skin exam: no rashes or lesions noted Neuro General: patient oriented x3 Cranial nerves: Yes Normal hearing present Cognition (Neuro): normal cognition Gait exam (Neuro): Normal gait present Extrem General: Yes normal to inspection, Yes capillary refill normal, Yes no clubbing, cyanosis or edema and Yes no pedal edema Psych Appearance: grossly normal and well kempt Speech and movement: Normal speech and movement present and Clear speech present Affect: normal affect Attitude: cooperative Thought process: Normal thought process present Thought content: Normal thought content present Insight: Good insight present (Psych) Judgement: Good judgement present (Psych) Assessment & Plan Assessment & Plan (1) Chronic cough: Code(s): R05.3 - Chronic cough Category: Medical (2) Asthma: Code(s): J45.909 - Unspecified asthma, uncomplicated Category: Medical Plan Unclear etiology of underlying cough. Discussed empirical treatment with antibiotics however he would like to hold off until CXR today, given inspiratory RLL crackles. Will send for PFT. All questions were answered and patient is in agreement of plan. Will have close follow up. Orders: Orders XR chest 2V Today R05.3 - Chronic cough Coding Level of Care Code New Pt Level 4 (09594) Diagnoses Chronic cough R05.3 Asthma J45.909
[2024-03-20 15:23] VITALS: BP 150/86; PULSE 60; O2SAT 96; BMI 22.9
== END 2024-03-20 15:59 | disposition home or self-care (01) ==
PROVIDERS: PCP Internal Medicine; Referring Provider Internal Medicine; Visit Provider Nurse Practitioner Family
DX: R05.3 Chronic cough (principal); J45.909 Unspecified asthma, uncomplicated
CPT/HCPCS: 99204

== ENCOUNTER 2024-03-20 15:19 | Outpatient (REF) | payer MEDICARE, OTHER, SELFPAY ==
--- NOTE | ~2024-03-20 | XR_ITS ---
EXAMINATION: XR CHEST CLINICAL INFORMATION: R05.3 - Chronic cough COMPARISON: X-ray 05/12/2019 TECHNIQUE: 2 views of the chest were obtained. FINDINGS: Left pectoral pacemaker with leads extending to the right atrium and right ventricle, stable. Stable cardiomediastinal silhouette. Lungs are symmetrically expanded. No evidence of focal consolidation, effusion. Mild prominence of the central pulmonary arteries without overt pulmonary edema. Overlapping osseous structures limiting evaluation of the medial aspect of bilateral upper lungs. No pneumothorax is seen. No acute osseous abnormality. XR/XR chest 2V IMPRESSION: Mild prominence of the central pulmonary vasculature without overt pulmonary edema.. Study is assigned for dictation on Mar 21, 2024 Electronically signed by: Kieran Bradford MD 03/21/2024 08:59 AM [facility]
== END 2024-03-20 15:20 | disposition home or self-care (01) ==
LOC: HO.XRAY 15:19
PROVIDERS: PCP Internal Medicine; Referring Provider Internal Medicine; Visit Provider Nurse Practitioner Family
DX: R05.3 Chronic cough (principal); J45.909 Unspecified asthma, uncomplicated; Z95.0 Presence of cardiac pacemaker
CPT/HCPCS: 71046; 99202

== ENCOUNTER → 2024-04-04 23:59 | Outpatient (BNV) | payer MEDICARE, OTHER, SELFPAY ==
--- NOTE | 2024-04-05 19:26 | MHC.OFFVIS ---
Intake Visit Reasons: Remote device check- [facility] Allergies No Known Allergies [No Known Allergies*] Allergy (Verified 03/20/24 15:27) [facility] Medical History Essential hypertension Ischemic stroke Stenosis of left carotid artery Atherosclerotic cardiovascular disease Sick sinus syndrome Normally functioning cardiac pacemaker present Surgical History History of permanent cardiac pacemaker placement (~05/12/19) History of left-sided carotid endarterectomy (~05/15/19) History of cardiac catheterization (~2016) Family History Father No problems noted. Mother No problems noted. Social History (Updated 03/20/24 @ 15:27 by Darby Georges [facility]) Patient Tobacco Use Status: Former Tobacco user Tobacco use type: Cigarette Office Procedures Cardiac Device Check Cardiac Device Check Details: Date of service- 04/04/2024 ; Battery life >5 years; normal lead parameters; AP 40%; POST CLOSER <1 %; no significant arrhythmias. Overall normal device function. [id number] Cardiac Device Interrogation, pacemaker Procedure code (CPT) selection complete Assessment & Plan Assessment & Plan (1) Normally functioning cardiac pacemaker present: Code(s): Z95.0 - Presence of cardiac pacemaker Category: Medical (2) Sick sinus syndrome: Code(s): I49.5 - Sick sinus syndrome Category: Medical Plan x Coding Level of Care Code Procedure Only Diagnoses Normally functioning cardiac pacemaker present Z95.0 Sick sinus syndrome I49.5 CPT Codes Cardiac Device Check - Cardiac Device 12: [id number] Cardiac Device Interrogation, pacemaker ([id number])
== END ==
PROVIDERS: PCP Internal Medicine; Visit Provider Internal Medicine
DX: I49.5 Sick sinus syndrome (principal); Z95.0 Presence of cardiac pacemaker
CPT/HCPCS: 93294

== ENCOUNTER 2024-04-10 13:01 | Outpatient (REF) | payer MEDICARE, OTHER, SELFPAY ==
[2024-04-10 13:52] LABS: MANUAL DIFF FLAG NO
[2024-04-10 14:30] LABS: Basophils Absolute Auto 0.1 X10*3/uL (0.0-0.2); Basophils Percent Auto 0.8 % (0-2); Eosinophils Absolute Auto 0.2 X10*3/uL (0.0-0.4); Eosinophils Percent Auto 2.9 % (0-4); Hematocrit 44.3 % (42.0-52.0); Hemoglobin 14.8 g/dl (14.0-18.0); Imm Gran Abs Auto 0.02 X10*3/uL (0.00-0.03); Imm Gran Pct Auto 0.3 % (0.0-0.4); Lymphocytes Absolute Auto 1.8 X10*3/uL (1.2-4.9); Mean Corpuscular HGB Conc 33.4 g/dl (31.0-36.0); Mean Corpuscular Volume 92.9 fL (80.0-98.0); Mean Platelet Volume 10.4 fL (9.4-12.4); Monocytes Absolute Auto 0.8 X10*3/uL (0.1-1.2); Monocytes Percent Auto 11.7 % (2-11); Neutrophils Absolute Auto 4.3 x10*3/uL (2.0-8.3); Neutrophils Percent Auto 59.3 % (45-73); Platelet Count 174 X10*3/uL (160-400); Red Blood Count 4.77 X10*6/uL (4.60-5.80); Red Cell Distribution Width 12.4 % (11.0-16.0); White Blood Count 7.2 X10*3/uL (4.8-10.8)
[2024-04-12 15:22] LABS: Class Alternaria alternata 0; Class Aspergillus fumigatus 0; Class Bermuda Grass 0/1; Class Birch 5; Class Cat Dander 0/1; Class Cladosporium herbarum 0; Class Cockroach 0; Class Common Ragweed 0/1; Class Cottonwood 0; Class Derm. pterony 3; Class Dermatophagoides farinae 3; Class Dog Dander 0/1; Class Elm 0/1; Class Maple Box Elder 0; Class Mountain Cedar 0; Class Mouse Urine Protein 0; Class Mugwort 0; Class Oak 3; Class Penicillium crysogenum 0; Class Rough Pigweed 0; Class Sheep Sorrel 0; Class Sycamore 0/1; Class Timothy Grass 3; Class Walnut Tree 0/1; Class White Ash 0/1; Class White Mulberry 0; D001 IgE D pteronyssinus 3.65 kU/L; D002 - IgE D farinae 5.51 kU/L; E001 - IgE Cat Dander 0.12 kU/L; E005 - IgE Dog Dander 0.21 kU/L; E072-IgE Mouse Urine <0.10 kU/L; G002 IgE Bermuda Grass 0.11 kU/L; I006-IgE Cockroach, German <0.10 kU/L; Immunoglobulin E 539 kU/L (<OR=114); M001 IgE Penicillium chrysogen <0.10 kU/L; M002 - IgE Cladosporium herbar <0.10 kU/L; M003 - IgE Aspergillus fumigat <0.10 kU/L; M006 - IgE Alternaria alternat <0.10 kU/L; T001 IgE Maple/Box Elder <0.10 kU/L; T006 - IgE Cedar, Mountain <0.10 kU/L; T008 IgE Elm, American 0.31 kU/L; T010 - IgE Walnut 0.13 kU/L; T011 - IgE Maple Leaf Sycamore 0.23 kU/L; T014 - IgE Cottonwood <0.10 kU/L; T015 - IgE Ash, White 0.18 kU/L; T070 - IgE White Mulberry <0.10 kU/L; W001 - IgE Ragweed, Short 0.22 kU/L; W006 - IgE Mugwort <0.10 kU/L; W014 IgE Pigweed, Common <0.10 kU/L; W018 IgE Sheep Sorrel <0.10 kU/L
== END 2024-04-10 13:02 | disposition home or self-care (01) ==
LOC: HO.LAB 13:01
PROVIDERS: PCP Internal Medicine; Visit Provider Nurse Practitioner Family
DX: Z91.09 Other allergy status, other than to drugs and biological substances (principal)
CPT/HCPCS: 36415; 82785; 85025; 86003; 99212

== ENCOUNTER 2024-04-10 13:01 | Outpatient (AMB) | payer MEDICARE, OTHER, SELFPAY ==
--- NOTE | 2024-04-10 12:46 | MHC.OFFVIS ---
Vital Signs 04/10/24 13:04 Height 5 ft 6 in Weight 144 lb 6.444 oz BMI 23.3 BP 180/86 H Blood Pressure Location Lt brachial Position Sitting Pulse 60 Pulse Source Pulse Oximeter Pulse Oximetry (%) 96 Oxygen Delivery Method Room Air Intake Visit Reasons: cough Allergies No Known Allergies [No Known Allergies*] Allergy (Verified 04/10/24 13:06) HPI HPI cough: Details: Emeka is a pleasant 78 year old male, former smoker, with approximately 15 pyh quit 30 years ago with underlying asthma, HTN, DMII and SSS s/p pacer. He was initially referred by PCP for pulmonary evaluation for chronic cough. He reports dry cough has been present since 2019 and more recently has become productive with whitish yellow sputum with associated intermittent dyspnea on exertion. He denies fevers, chills or sick contacts. He denies chest congestion. He has trialed OTC nasal sprays as well as antihistamines without effect. He was sent for PFT and chest CT, awaiting these to be scheduled. [facility] Medical History Essential hypertension Ischemic stroke Stenosis of left carotid artery Atherosclerotic cardiovascular disease Sick sinus syndrome Normally functioning cardiac pacemaker present Surgical History History of permanent cardiac pacemaker placement (~05/12/19) History of left-sided carotid endarterectomy (~05/15/19) History of cardiac catheterization (~2016) Family History Father No problems noted. Mother No problems noted. Social History Patient Tobacco Use Status: Former Tobacco user Tobacco use type: Cigarette Review of Systems Const Denies chills, Denies excessive sweating, Denies fever(s), Denies headache(s) and Denies night sweats Eyes Denies dry eyes, Denies irritation and Denies itchy eyes ENT Reports Normal hearing present and Denies headache(s) Card Denies chest pain, Denies chest pain at rest, Denies chest pain with activity, Denies claudication, Denies leg edema, Denies dyspnea, Denies dyspnea on exertion, Denies orthopnea and Denies paroxysmal nocturnal dyspnea Resp Denies chest congestion, Denies excessive phlegm production, Denies pain on inspiration, Denies pain with cough, Denies dyspnea, Denies dyspnea on exertion, Denies stridor and Denies wheezing Musc Denies myalgias Neuro Reports Normal hearing present and Denies headache(s) Endo Denies excessive sweating Des/Lymph Denies lymphadenopathy Aller/Immun Denies itchy eyes, Denies seasonal rhinorrhea and Denies wheezing Physical Exam Vital Signs: Last Vital Signs Pulse 60 04/10/24 13:04 BP 180/86 H 04/10/24 13:04 Pulse Ox 96 04/10/24 13:04 Oxygen Delivery Method Room Air 04/10/24 13:04 BMI result Body Mass Index 23.3 Const General: cooperative, healthy appearing, comfortable, no acute distress, well developed and alert Orientation/consciousness: patient oriented x3 Limitations: no limitations HEENT Head: Yes normal to inspection, Yes normocephalic and Yes atraumatic Ears: hearing grossly normal bilaterally and external ears normal Eyes General: appearance normal, both eyes and all related structures Eyelids: Yes eyelids normal Sclerae: sclerae normal EOM: EOMs intact bilaterally Neck Neck: Yes normal visual inspection and Yes no lymphadenopathy Lymphatic: no lymphadenopathy noted Chest Chest palpation & inspection: normal inspection of the chest Resp Effort & Inspection: normal respiratory effort, able to speak in complete sentences, no audible wheezes, no cough, no stridor, not tachypneic, no tripod positioning and no use of accessory muscles Auscultation: crackles on the right at the base Cardio Jugular venous distension: no JVD Rate: regular rate Rhythm: regular rhythm Skin Other: warm, dry General skin exam: no rashes or lesions noted Neuro General: patient oriented x3 Cranial nerves: Yes Normal hearing present Cognition (Neuro): normal cognition Gait exam (Neuro): Normal gait present Extrem General: Yes normal to inspection, Yes capillary refill normal, Yes no clubbing, cyanosis or edema and Yes no pedal edema Psych Appearance: grossly normal and well kempt Speech and movement: Normal speech and movement present and Clear speech present Affect: normal affect Attitude: cooperative Thought process: Normal thought process present Thought content: Normal thought content present Insight: Good insight present (Psych) Judgement: Good judgement present (Psych) Assessment & Plan Assessment & Plan (1) Chronic cough: Code(s): R05.3 - Chronic cough Category: Medical (2) Asthma: Code(s): J45.909 - Unspecified asthma, uncomplicated Category: Medical Plan Unclear etiology of underlying cough, patient scheduled for PFT, CT and RAST. Discussed empirical treatment with ICS/LABA as he does have a history of asthma. Discussed importance of good oral hygiene to prevent thrush. BP elevated, encouraged to discuss with PCP/cardiology. All questions were answered and patient is in agreement of plan. Will follow up in 6-8 weeks. Orders: Orders Complete Blood Count Auto Diff Today Z91.09 - Other allergy status, other than to drugs and biological substances Immunoglobulin E Today Z91.09 - Other allergy status, other than to drugs and biological substances Resp Allergy Profile Region I Today Z91.09 - Other allergy status, other than to drugs and biological substances Medications: New fluticasone furoate-vilanterol 100-25 mcg/dose (Breo Ellipta) 1 inh inhalation DAILY 60 ea 3RF Coding Level of Care Code Est Pt Level 4 (38283) Diagnoses Chronic cough R05.3 Asthma J45.909
[2024-04-10 13:04] VITALS: BP 180/86; PULSE 60; O2SAT 96; BMI 23.3
== END 2024-04-10 13:35 | disposition home or self-care (01) ==
PROVIDERS: PCP Internal Medicine; Visit Provider Nurse Practitioner Family
DX: R05.3 Chronic cough (principal); J45.909 Unspecified asthma, uncomplicated
CPT/HCPCS: 99214

== ENCOUNTER 2024-04-19 13:58 | Outpatient (REF) | payer MEDICARE, OTHER, SELFPAY ==
--- NOTE | 2024-04-19 14:02 | EMG_ITS ---
Chief complaint: At least 2 years of lower back pain with numbness down his legs, history of pacemaker and diabetes Reason for referral: Evaluate for radiculopathy versus neuropathy Referred by: Danielle Lopez NP Procedure done: Bilateral lower extremity NCS/EMG Precautions and/or limitations: Pacemaker The limb temperature was monitored continuously and remained between 32-36 degrees C during the performance of the NCS. Nerve Conduction Studies Anti Sensory Summary Table ?Stim Site NR Onset (ms) Norm Onset (ms) Peak (ms) Norm Peak (ms) O-P Amp (?V) Norm O-P Amp Site1 Site2 Delta-0 (ms) Dist (cm) Andre (m/s) Norm Andre (m/s) Left Sural Anti Sensory (Lat Mall) Calf ? 1.7 2.8 <4.0 6.5 >5.0 Calf Lat Mall 1.7 14.0 82 Right Sural Anti Sensory (Lat Mall) Calf ? 2.2 3.2 <4.0 7.3 >5.0 Calf Lat Mall 2.2 14.0 64 Motor Summary Table ?Stim Site NR Onset (ms) Norm Onset (ms) O-P Amp (mV) Norm O-P Amp iAmp (mV) Amp (1st) (%) Site1 Site2 Delta-0 (ms) Dist (cm) Andre (m/s) Norm Andre (m/s) Right Peroneal Motor (Ext Dig Brev) Ankle ? 4.0 <4.0 5.9 >2.5 6.6 100.0 Ankle Ext Dig Brev 4.0 0.0 B Fib ? 11.1 5.5 6.3 93.2 B Fib Ankle 7.1 30.0 42 >40 Poplt ? 12.0 5.6 6.5 94.9 Poplt B Fib 0.9 6.0 67 >40 Left Tibial Motor (Abd Manriquez Brev) Ankle ? 4.5 <5 11.5 >2.5 16.5 100.0 Ankle Abd Manriquez Brev 4.5 0.0 Knee ? 14.5 3.9 5.5 33.9 Knee Ankle 10.0 40.0 40 >40 Right Tibial Motor (Abd Manriquez Brev) Ankle ? 4.3 <5 10.4 >2.5 14.8 100.0 Ankle Abd Manriquez Brev 4.3 0.0 Knee ? 12.3 0.7 0.8 6.7 Knee Ankle 8.0 42.0 53 >40 EMG ?Side Muscle Nerve Root Ins Act Fibs Psw Amp Dur Poly Recrt Int Pat Comment Right AbdHallucis MedPlantar S1-2 Nml Nml Nml Nml Nml 0 Nml Complete Right AntTibialis Dp Br Peron L4-5 Nml Nml Nml Incr Incr 0 Reduced Complete Right PostTibialis Tibial L5, S1 Nml Nml Nml Nml Nml 0 Nml Complete Right MedGastroc Tibial S1-2 Incr 1+ 1+ Incr Incr 0 Nml Complete Right VastusMed Femoral L2-4 Nml Nml Nml Nml Nml 0 Nml Complete Left AbdHallucis MedPlantar S1-2 Nml Nml Nml Nml Nml 0 Nml Complete Left AntTibialis Dp Br Peron L4-5 Nml Nml Nml Incr Incr 0 Nml Complete Left PostTibialis Tibial L5, S1 Nml Nml Nml Nml Nml 0 Nml Complete Left MedGastroc Tibial S1-2 Nml Nml Nml Nml Nml 0 Nml Complete Left VastusMed Femoral L2-4 Nml Nml Nml Nml Nml 0 Nml Complete Paraspinal EMG ?Side Muscle Nerve Root Ins Act Fibs Psw Comment Right Lumbar Upper Rami Nml Nml Nml Right Lumbar Mid Rami Nml Nml Nml Right Lumbar Lower Rami Nml Nml Nml Left Lumbar Upper Rami Nml Nml Nml Left Lumbar Mid Rami Nml Nml Nml Left Lumbar Lower Rami Nml Nml Nml FINDINGS: Tibial nerves appear to show a drop in amplitude proximally but it is because I cannot increase stimulation above 50 milliamps due to pacemaker. Otherwise, all nerves tested were within normal. Concentric needle EMG was performed in selected muscles of the bilateral lower extremity and lumbar paraspinals. Study revealed signs of electric abnormalities as shown in the table above. Right medial gastrocnemius showed increased insertional activity, PSWs, fibrillations and increased duration and amplitude. Right tibialis anterior showed increased duration and amplitude, and reduced recruitment. Left tibialis anterior showed increased duration and amplitude. No denervation seen in paraspinals. IMPRESSION: 1. This is an abnormal study. 2. There are electrodiagnostic findings suggestive for L5-S1 radiculopathy, subacute/chronic. 3. There is no electrodiagnostic evidence for peroneal neuropathy, tibial neuropathy. lumbosacral plexopathy, or peripheral neuropathy. Thank you for your kind referral. Jovita Fuchs MD, ARLIN Board Certified, [place] Board [employer] and Rehabilitation (ABPMR) Board Certified, [place] Board of Electrodiagnostic Medicine (ABEM) CODIN [id number] x 2 MTDD
== END 2024-04-19 13:59 | disposition home or self-care (01) ==
LOC: HO.NEURO 13:58
PROVIDERS: PCP Internal Medicine; Visit Provider Registered Nurse Emergency
DX: R20.2 Paresthesia of skin (principal)
CPT/HCPCS: 95886; 95909

== ENCOUNTER → 2024-04-19 14:02 | Outpatient (BNV) | payer MEDICARE, OTHER, SELFPAY | PROVIDERS: PCP Internal Medicine; Visit Provider Physical Medicine & Rehabilitation | DX: M54.16 Radiculopathy, lumbar region (principal) | CPT/HCPCS: 95886; 95909 ==

== ENCOUNTER 2024-04-20 10:06 | Outpatient (REF) | payer MEDICARE, OTHER, SELFPAY | END 2024-04-20 10:07 | disposition home or self-care (01) | LOC: HO.MRI 10:06 | PROVIDERS: PCP Internal Medicine; Visit Provider Registered Nurse Emergency | DX: M48.062 Spinal stenosis, lumbar region with neurogenic claudication (principal) | CPT/HCPCS: 72148 ==

== ENCOUNTER 2024-05-18 10:35 | Outpatient (REF) | payer MEDICARE, OTHER, SELFPAY ==
--- NOTE | 2024-05-18 10:38 | PFT_ITS ---
Flows: FEV1: 57 % of predicted at 1.45 L FVC: 94 % of predicted at 3.20 L FEV1/FVC: 45 % Bronchodilator response: Present Volumes: Unable to perform lung volumes measurements secondary to technical difficulty. Diffusion capacity: Mild decreased Impression: Moderate obstructive ventilatory defect with positive bronchodilator response. Unable to perform lung volumes measurements secondary to technical difficulty. Decreased diffusion capacity suggests emphysema. MTDD
== END 2024-05-18 10:36 | disposition home or self-care (01) ==
LOC: HO.RESP 10:35
PROVIDERS: PCP Internal Medicine; Visit Provider Nurse Practitioner Family
DX: J45.909 Unspecified asthma, uncomplicated (principal)
CPT/HCPCS: 94010; 94640; 94727; 94729

== ENCOUNTER → 2024-05-18 10:38 | Outpatient (BNV) | payer MEDICARE, OTHER, SELFPAY | PROVIDERS: PCP Internal Medicine; Visit Provider Internal Medicine Pulmonary Disease | DX: J45.909 Unspecified asthma, uncomplicated (principal) | CPT/HCPCS: 94060; 94729 ==

== ENCOUNTER 2024-05-19 13:52 | Outpatient (REF) | payer MEDICARE, OTHER, SELFPAY ==
--- NOTE | ~2024-05-19 | CT_ITS ---
EXAMINATION: CT CHEST WITHOUT IV CONTRAST INDICATION: R93.89 - Abnormal findings on diagnostic imaging of other specified body... COMPARISON: Correlation is made with a chest x-ray dated 03/20/2024. TECHNIQUE: Helical CT scan of the chest was performed without intravenous contrast. Coronal and sagittal reformatted images were generated and reviewed. This CT exam was performed with one or more of the following dose reduction techniques: automated exposure control, adjustment of the mA and/or kV according to patient size, use of iterative reconstruction technique. DLP: 144 mGy-cm CHEST: THYROID: The thyroid is unremarkable. LUNGS:There is moderate respiratory motion artifact. There is mild emphysema. No definite pulmonary nodules or airspace opacities are identified. MEDIASTINUM: There are subcentimeter mediastinal lymph nodes. ARSENIO: Evaluation of the hilar regions is limited by lack of intravenous contrast material. CARDIOVASCULATURE: The heart is normal in size. There is no pericardial effusion. The thoracic aorta is normal in caliber. A pacemaker is seen in place. DEGREE OF CORONARY CALCIFICATION: moderate PLEURA: There is no pleural effusion. No pneumothorax. MAIN AIRWAYS: The mainstem bronchi and proximal branches are patent. AXILLA: There is no axillary lymphadenopathy. BONES AND SOFT TISSUES: Unremarkable UPPER ABDOMEN: The visualized portions of the liver, spleen, and adrenals have an unremarkable appearance. CT/CT chest wo IV con IMPRESSION: Moderate respiratory motion artifact. Mild emphysema. No definite pulmonary nodules are identified. Electronically signed by: Magen Redding MD 05/22/2024 07:57 AM [facility]
== END 2024-05-19 13:53 | disposition home or self-care (01) ==
LOC: HO.CT 13:52
PROVIDERS: PCP Internal Medicine; Visit Provider Nurse Practitioner Family
DX: R93.89 Abnormal findings on diagnostic imaging of other specified body structures (principal)
CPT/HCPCS: 71250

== ENCOUNTER → 2024-05-19 13:54 | Outpatient (BNV) | payer MEDICARE, OTHER, SELFPAY | PROVIDERS: PCP Internal Medicine; Visit Provider Radiology Diagnostic Radiology | DX: R93.89 Abnormal findings on diagnostic imaging of other specified body structures (principal) | CPT/HCPCS: 71250 ==

== ENCOUNTER 2024-05-30 10:51 | Outpatient (AMB) | payer MEDICARE, OTHER, SELFPAY ==
--- NOTE | 2024-05-30 11:11 | A.OFFVIS_ITS ---
Vital Signs 05/30/24 11:13 Height 5 ft 6 in Weight 142 lb BMI 22.9 BP 130/62 Blood Pressure Location Rt brachial Position Sitting Pulse 82 Pulse Source Pulse Oximeter Pulse Oximetry (%) 93 Oxygen Delivery Method Room Air Intake Visit Reasons: asthma Medical Coordinator Pesticide Use Required: Yes Medical Coordinator Pesticide Use Services: Medical Coordinator Pesticide Use Offered & Declined Medical Coordinator Pesticide Use Name: Pt daughter interpreted Information Interpreted: non-clinical & clinical Allergies No Known Allergies [No Known Allergies*] Allergy (Verified 05/30/24 11:12) Medication List - Last Reconciled 05/30/24 by Carolina Bailon, [employer]PER albuterol sulfate 90 mcg/actuation 2 puffs inhalation Q6H PRN aspirin 81 mg PO DAILY atorvastatin 80 mg PO DAILY fluticasone furoate-vilanterol 100-25 mcg/dose (Breo Ellipta) 1 inh inhalation DAILY fluticasone propion-salmeterol 115-21 mcg/actuation (Advair HFA) 2 puffs inhalation Q12H fluticasone propionate 50 mcg/actuation sprays intranasal losartan 100 mg PO DAILY metformin 500 mg PO DAILY metoprolol succinate ER 50 mg PO DAILY naproxen 500 mg PO BID tadalafil 20 mg PO DAILY PRN HPI HPI asthma: Details: Emeka is a pleasant 78 year old male, former smoker, with approximately 15 pyh quit 30 years ago with underlying asthma COPD overlap, HTN, DMII and SSS s/p pacer. He was initially referred by PCP for pulmonary evaluation for chronic cough. Today he is accompanied by his daughter. He reports cough has been more productive over the last few days with yellow sputum and worsening dyspnea. He was recently seen at [facility] ED for symptoms and treated with prednisone as well as albuterol MDI. At the last visit, he was started on Breo 100mcg with suboptimal effect. Today he presents to review PFT, chest CT and RAST. [facility], [facility] Medical History Essential hypertension Ischemic stroke Stenosis of left carotid artery Atherosclerotic cardiovascular disease Sick sinus syndrome Normally functioning cardiac pacemaker present Surgical History History of permanent cardiac pacemaker placement (~05/12/19) History of left-sided carotid endarterectomy (~05/15/19) History of cardiac catheterization (~2017) Family History Father No problems noted. Mother No problems noted. Social History Patient Tobacco Use Status: Former Tobacco user Tobacco use type: Cigarette Review of Systems Const Denies chills, Denies excessive sweating, Denies fever(s), Denies headache(s) and Denies night sweats Eyes Denies dry eyes, Denies irritation and Denies itchy eyes ENT Reports Normal hearing present, Denies headache(s), Denies nasal congestion, Denies nasal discharge, Denies post nasal drip and Denies sore throat Card Denies chest pain, Denies chest pain at rest, Denies chest pain with activity, Denies claudication, Denies leg edema, Denies orthopnea and Denies paroxysmal nocturnal dyspnea Resp Denies chest congestion, Denies cough, Denies excessive phlegm production, Denies pain on inspiration, Denies pain with cough and Denies stridor Musc Denies myalgias Neuro Reports Normal hearing present and Denies headache(s) Endo Denies excessive sweating Des/Lymph Denies lymphadenopathy Aller/Immun Denies itchy eyes and Denies seasonal rhinorrhea Physical Exam Vital Signs: Last Vital Signs Pulse 82 05/30/24 11:13 BP 130/62 05/30/24 11:13 Pulse Ox 93 05/30/24 11:13 Oxygen Delivery Method Room Air 05/30/24 11:13 BMI result Body Mass Index 22.9 Neuro Cranial nerves: Yes Normal hearing present Assessment & Plan Assessment & Plan (1) Chronic cough: Code(s): R05.3 - Chronic cough Category: Medical (2) Asthma-COPD overlap syndrome: Code(s): J44.89 - Other specified chronic obstructive pulmonary disease Category: Medical (3) Environmental allergies: Code(s): Z91.09 - Other allergy status, other than to drugs and biological substances Category: Medical Plan Will treat bronchitic symptoms with azithromycin. Reviewed PFT which revealed moderate obstructive ventilatory defect with positive bronchodilator response. Unable to perform lung volumes measurements secondary to technical difficulty. Decreased diffusion capacity suggests emphysema, which is consistent with chest CT. RAST revealed multiple allergens discussed trialing antihistamine. He reports subtoptimal effect with Breo 100 mcg, will increase to 200 mcg. Discussed importance of good oral hygiene to prevent thrush. All questions were answered and patient is in agreement of plan. Will follow up in 6-8 weeks. Medications: New azithromycin For 250 mg dose pack: take 500 mg today (day 1), then 250 mg for 4 days (days 2-5) PO 6 tabs 0RF fluticasone furoate-vilanterol 200-25 mcg/dose (Breo Ellipta) 1 inh inhalation DAILY 60 ea 3RF Discontinued fluticasone furoate-vilanterol 100-25 mcg/dose (Breo Ellipta) Discontinued Reason: Patient Completed Course 1 inh inhalation DAILY 60 ea 3RF fluticasone propion-salmeterol 115-21 mcg/actuation (Advair HFA) Discontinued Reason: Patient Completed Course 2 puffs inhalation Q12H 12 grams 6RF Coding Level of Care Code Est Pt Level 4 (45143) Diagnoses Chronic cough R05.3 Asthma-COPD overlap syndrome J44.89 Environmental allergies Z91.09
[2024-05-30 11:13] VITALS: BP 130/62; PULSE 82; O2SAT 93; BMI 22.9
--- OUTSIDE RECORDS SUMMARY | 2024-05-30 12:00 | XMS_ITS | Continuity of Care Document ---
Demographics Address [address] [place] [address] Home Phone Mobile Phone Preferred Language zh Marital Status Cheondoism Affiliation Unknown Race Ethnic Group Not or Lati no Author Organization [facility], , [facility] [place] Address [address] [place] [address] [place] [address] Care Team Providers Care Powerhouse Electrician Name Role Phone YARELIS HUERTA Primary Care Provider [phone] [facility] OTHER [facility] Orthopedic Surgeon [facility] O rthopedic Surgeon Assessment No assessment recorded. Plan of Treatment Reminders Order Date Submit Date Provider Last Modified By Organization Details Last Modified Time Details Appointments None recorded. Lab influenza virus A + B + SARS-CoV- 2 (COVID19) Ag panel, rapid IA, upper respirato ry specimen 2024 025 [facility], [address] [facility], [place], [address], 5 11:13:07 Referral None recorded. Procedures None recorded. Surgeries None recorded. Imaging None recorded. Medication Orders None recorded. Patient TargetsNo targets recorded. Patient InstructionsNo instructions recorded. Reason for Referral None Reported. Problems Name Problem SNOMED Code Status Onset Date Resolution Date Notes Provider Name and Address Organization Details Recorded Time Mixed hyperlipi demia 331547763 Active per 06/20/12 OV notes Not Available [facility] 2 08:12:09 Benign essential hypertens ion 6344472 Active per 06/20/12 OV notes Not Available [facility] 2 08:12:09 Sinus node dysfuncti on 78021920 Active 2016 PPM 2017, 37 sec pauses with presyncope Not Available [facility] 2 08:12:09 Hyperglyc emia 32029969 Active 2017 Not Available [facility] 2 08:12:09 Type 2 diabetes mellitus without complicat ion 990151791 Active 2017 Not Available [facility] 08:12:09 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 Advised claritin and humidifica tion at night. Not Available [facility] 2 08:12:09 Spinal stenosis of lumbar region 08259015 Active [address] L3 to L5 Yarelis Heurta MD [address] [place] [address], [phone] , [facility] 3 19:49:32 Problem Notes None recorded. Procedures Surgical History Date Name Laterality Status Provider Name and Address Organization Details Recorded Time 02/25/20 24 Medicare Wellness Visit completed Barbara Gamez [facility] 02/25/2024 10:07:42 01/24/20 Wound Care completed Yarelis Huerta MD [address] [place] [address], [phone], [facility] 01/24/2024 10:54:24 04/05/20 23 95625: PT Eval Low Complexity completed Romulo Clarke DPT [address] [place] [address], [phone], [facility] 04/05/2023 13:33:46 04/05/20 Treatment and Advice completed Romulo Clarke DPT [address] [place] [address], [phone], [facility] 04/10/2023 11:22:55 02/23/20 23 Medicare Wellness Visit completed Barbara Gamez [facility] 02/22/2023 15:04:12 07/09/19 23 Knee (Right) Injection completed Yarelis Huerta MD [address] [place] [address], [phone], [facility] 07/08/2022 12:18:19 11/25/19 22 Wound Care completed ISIDRA NIC FIGUEROA DNP [address] [place] [address], [phone], [facility] 11/24/2021 15:34:43 09/13/19 22 Shoulder (Left) Injection completed Yarelis Huerta MD [address] [place] [address], [phone], [facility] 09/12/2021 17:39:07 08/14/19 22 Medicare Wellness Visit completed Barbara Gamez [facility] 08/13/2021 10:07:08 08/14/19 22 Alcohol use screening completed Barbara Gamez [facility] 08/13/2021 10:07:08 03/20/20 20 Medicare Wellness Visit completed Barbara Gamez [facility] 03/20/2020 14:14:00 03/20/20 20 prevention-cardiov ascular risk reduction counseling completed Barbara Gamez [facility] 03/20/2020 14:14:00 03/20/20 20 prevention-annual alcohol misuse screening completed Barbara Gamez [facility] 03/20/2020 14:14:00 04/27/20 19 Transitional care completed MARY Tinoco [address] [place] [address], [phone], [facility] 04/27/2019 12:27:47 11/29/19 16 Corticosteroid Injection completed Kendy Garcia MD [address] [place] [address], [phone], [facility] 11/29/2015 15:56:48 11/29/19 16 Aspiration Major Joint/Bursa completed Kendy Garcia MD [address] [place] [address], [phone], [facility] 11/29/2015 15:54:32 11/13/19 16 Shoulder (Right) Injection completed Kendy Garcia MD [address] [place] [address], [phone], [facility] 11/13/2015 15:56:26 Imaging Results None recorded. Procedure Notes None recorded. Medical Equipment None Reported. Allergies Allergen ID Allergen Name Allergen Category Reaction Reaction Severity Criticality Documentation Date Start Date Code Code System Note Provider Name and Address Organization Details Recorded Time 42517 Product containin g penicilli n and antibioti c (product) medicatio n rash Not available Not available 09/29/2011 07860 05 SNOMED Shiloh Nuñez CMA null, [facility] 3 09:21:20 Medications Name Sig Start Date Stop Date Status Note LastModified by Organization Details LastModified Time losartan 50 mg tablet TAKE 1 TABLET BY MOUTH EVERY DAY 07/02 completed increase d to 100 MG Not Available Not Available Not Available amoxicill in 500 mg capsule 01/23 completed Not Available Not Available Not Available atorvasta tin 40 mg tablet Take 1 tablet every day by oral route. 04/27 completed Not Available Not Available Not Available atorvasta tin 80 mg tablet Take 1 tablet every day by oral route for 90 days. active Not Available Not Available No t Available lisinopri l 20 mg-hydroc hlorothia zide 12.5 mg tablet Take 1 tablet every day by oral route. active Not Available Not Available No t Available azithromy chau 250 mg tablet Take 2 tablets (500 mg) by oral route once daily for 1 day then 1 tablet (250 mg) by oral route once daily for 4 days 03/27 completed Not Available Not Available Not Available metoprolo l succinate ER 50 mg tablet,ex tended release 24 hr Take 1 tablet every day by oral route. 02/06 completed Not Available Not Available Not Available Claritin 10 mg tablet Take 1 tablet every day by oral route for 30 days. 01/21 completed not taken 01/21/21t t Not Available Not Available Not Available lisinopri l 20 mg tablet Take 2 tablets every day by oral route. 10/18 completed Rx by Benson jon MD Cardiolo gist Not Available Not Available Not Available prednison e 20 mg tablet one tablet twice a day for four days then one a day 03/27 completed Not Available Not Available Not Available promethaz ine 6.25 mg-codein e 10 mg/5 mL syrup TAKE ONE TEASPOON FUL BY MOUTH EVERY 6 HOURS FOR 7 DAYS 03/20 completed Not Available Not Available Not Available bacitraci n 500 unit/gram topical ointment Apply 1 g twice a day by topical route as directed for 14 days. 02/22 completed Not Available Not Available Not Available clopidogr el 75 mg tablet Take 1 tablet every day by oral route. 10/29 completed Not Available Not Available Not Available bacitraci n zinc 500 unit/gram topical ointment APPLY ABOUT 1 GRAM TWICE A DAY DIRECTED FOR 14 DAYS 02/06 completed Not Available Not Available Not Available aspirin 81 mg tablet,de layed release Take 1 tablet every day by oral route for 365 days. 2023 active Not Available Not Available Not Avai lable sildenafi l 100 mg tablet Take 1 tablet every day by oral route for 12 days. 02/22 completed Not Available Not Available Not Available triamcino lone acetonide 0.1 % topical cream APPLY A THIN LAYER TO THE AFFECTED AREA(S) BY TOPICAL ROUTE 2 TIMES PER DAY 11/24 completed not using anymore 09/12/21t t Not Available Not Available Not Available simvastat in 40 mg tablet TAKE ONE TABLET BY MOUTH EVERY DAY 2012 active Not Available Not Available Not Avai lable hydrocort isone 2.5 % topical cream with perineal applicato r APPLY SPARINGL Y TO AFFECTED AREA 2 TO 4 TIMES A DAY 02/22 completed Not Available Not Available Not Available lorazepam 0.5 mg tablet 01/23 completed Not Available Not Available Not Available amlodipin e 10 mg tablet Take 1 tablet every day by oral route for 90 days. 2014 active Not Available Not Available Not Avai lable diphenhyd ramine 25 mg capsule Take 1 capsule every 4 hours by oral route as needed. 02/06 completed not taken 5/13/22t t Not Available Not Available Not Available clotrimaz ole-betam ethasone 1 %-0.05 % topical cream Apply to the affected and surround ing areas of skin by topical route 2 times per day morning and evening for 2 weeks 2011 active Not Available Not Available Not Avai lable diclofena c sodium 75 mg tablet,de layed release Take 1 tablet twice a day by oral route for 30 days. 02/22 completed Not Available Not Available Not Available Levaquin 500 mg tablet Take 1 tablet every 24 hours by oral route for 14 days. 05/24 completed Not Available Not Available Not Available gabapenti n 100 mg capsule 01/23 completed Not Available Not Available Not Available ibuprofen 600 mg tablet one tablet 3 times a day as need for low back pain (mandari n please) 01/21 completed Not Available Not Available Not Available losartan 100 mg tablet Take 1 tablet every day by oral route for 90 days. active Not Available Not Available No t Available fluticaso ne propionat e 250 mcg/actua tion blister powder for inhalatio n Inhale 1 puff twice a day by inhalati on route for 30 days. 02/26 completed Not Available Not Available Not Available fluticaso ne propionat e 50 mcg/actua tion nasal spray,siobhan pension Stevenson 2 sprays every day by intranas al route as directed . 02/22 completed Not Available Not Available Not Available naproxen 500 mg tablet Take 1 tablet twice a day by oral route as needed. 02/22 completed Not Available Not Available Not Available amoxicill in 875 mg-potass ium clavulana te 125 mg tablet Take 1 tablet every 12 hours by oral route for 7 days. 02/24 completed Not Available Not Available Not Available metformin ER 750 mg tablet,ex tended release 24 hr Take 1 tablet every day by oral route. active Not Available Not Available No t Available tadalafil 20 mg tablet Take 1 tablet every day by oral route as needed. 2023 active Not Available Not Available Not Avai lable Flovent HFA 220 mcg/actua tion aerosol inhaler Inhale 1 puff twice a day by inhalati on route for 30 days. 04/15 completed not taken 01/21/21t t Not Available Not Available Not Available chlorhexi dine gluconate 0.12 % mouthwash 08/15 completed Not Available Not Available Not Available lisinopri l 40 mg take one tab a day for leg 02/[address] Benson jon Not Available Not Available Not Available ProAir HFA 90 mcg/actua tion aerosol inhaler Inhale 2 puffs every 4 hours by inhalati on route as needed for 30 days. 01/21 completed not using 01/21/21t t Not Available Not Available Not Available Advair HFA 115 mcg-21 mcg/actua tion aerosol inhaler active Not Available Not Available Not Available guaifenes in ER 600 mg tablet, extended release 12 hr Take 1 tablet twice a day by oral route as needed. 02/22 completed Not Available Not Available Not Available baclofen 5 mg tablet 01/23 completed Not Available Not Available Not Available Vitals Date Recorded Body height Provider Name an d Address Organization Details Last Updated DateTime 05/22/2024 167.64 cm Barbara Gamez [facility] 05/22/2024 10:45:19 Date Recorded Body mass index (BMI) Body weight Provider Name and Address Organization Details Last Updated DateTime 05/22/2024 22.3 kg/m2 [address] [facility] 05/22/2024 10:45:25 Date Recorded Heart rate Provider Name an d Address Organization Details Last Updated DateTime 05/22/2024 101 /min Barbara Gamez [facility] 05/22/2024 10:48:50 Date Recorded Oxygen saturation Oxygen saturation in Arterial blood by Pulse oximetry Provider Name and Address Organization Details Last Updated DateTime 05/22/2024 94 % 94 % Barbara Gamez [facility] 05/22/2024 10:48:58 Date Recorded Systolic blood pressure Diastolic blood pressure Provider Name and Address Organization Details Last Updated DateTime 05/22/2024 180 mm[Hg] 110 mm[Hg] Barbara Gamez [facility] 05/22/2024 10:48:47 Social History Question Answer Notes LastModified by Organizat ion Details LastModified Time Tobacco Smoking Status Former Smoker quit 20 years ago; 02/17[facility] 10:05:46 What Is Your Level Of Alcohol Consumption? Moderate 1 Daily 02/17/22 MAYI [email or web address] Information not available 02/17/2022 Do You Wear A Helmet When Biking? Yes Information not available 11/13/2015 What Is Your Level Of Caffeine Consumption? Moderate 1-2 Tea [email or web address] Information not available 03/20/2020 How Much Tobacco Do You Chew? None Information not available 11/13/2015 Are You Currently Employed? No Retired 2021 [email or web address] Information not available 08/13/2021 What Type Of Diet Are You Following? REGULAR Information not available 11/13/2015 Have There Been Any Changes To Your Family Or Social Situation? No [email or web address] Information not available 08/13/2021 How Many Days In The Past Year Have You Had A Heavy Drinking Consumption (4+ Female, 5+ Male)? 0 Information not available 05/10/2012 Are There Any Guns Present In Your Home? No Information not available 11/13/2015 Do You Use Insect Repellent Routinely? No [email or web address] Information not available 08/13/2021 Live Alone Or With Others? With Others Information not available 11/13/2015 Does The Patient Have Difficulty Speaking [place]? Yes Information not available 11/13/2015 Does The Patient Have Difficulty Reading [place]? Yes Information not available 11/13/2015 Patient Has Health Care Proxy Signed And In Chart No Information not available 11/09/2011 CCM Consent Discussion 03/24/2022 [email or web address] Information not available 03/31/2022 Marital Status Informati on not available 11/13/2015 Mosquito Repellent Used Routinely No Information not available 11/13/2015 What Was The Date Of Your Most Recent Tobacco Screening? 02/17/2022 02/17/22 MAYI [email or web address] Information not available 02/17/2022 How Many Children Do You Have? 3 Information not available 08/13/2021 What Is Your Current Pack Years? 10packyears [email or web address] Information not available 11/19/2023 What Is Your Relationship Status? [email or web address] Information not available 08/13/2021 Do You Use Your Seat Belt Or Car Seat Routinely? Yes [email or web address] Information not available 02/25/2024 Seat Belts Used Routinely Yes Information not available 11/13/2015 Are You Sexually Active? Yes Information not available 11/13/2015 Smoke Alarm In Home Yes Information not available 11/13/2015 Do You Have Smoke And Carbon Monoxide Detectors In Your Home? Yes [email or web address] Information not available 08/13/2021 Are You Passively Exposed To Smoke? No [email or web address] Information not available 08/13/2021 General Stress Level Low Information not available 11/13/2015 Do You Use Sunscreen Routinely? No Information not available 11/13/2015 Do You Or Have You Ever Used Any Other Forms Of Tobacco Or Nicotine? No [email or web address] Information not available 02/17/2022 Sex: Male Functional Status Question Answer Note LastModified by Organizat ion Details LastModified Time What is your exercise level? Moderate daily walks [email or web address] Information not available 02/22/2023 Mental Status None recorded. Family History Nothing Reported Notes:M and Father lived to mid 80's. Medical History Condition Response Hyperlipidemia Y Hypertension Y Immunizations Vaccine Type Date Status Note Provider Nam e and Address Organization Details Recorded Time Influenza, split virus, trivalent, preservative 2 completed Not Available [facility] 05/20/2019 02:18:35 Influenza, high-dose, trivalent, PF 5 completed Not Available [facility] 05/20/2019 02:25:04 Influenza, high-dose, trivalent, PF 7 completed Not Available [facility] 05/20/2019 02:32:27 Influenza, high-dose, trivalent, PF 7 completed Not Available [facility] 05/20/2019 02:33:35 Pneumococcal conjugate PCV 13 7 completed Not Available [facility] 05/20/2019 02:22:05 Influenza, high-dose, trivalent, PF 8 completed Not Available [facility] 05/20/2019 02:23:29 Influenza, high-dose, trivalent, PF 9 completed Not Available [facility] 05/20/2019 02:24:34 pneumococcal polysaccharide PPV23 9 completed Not Available [facility] 05/20/2019 02:27:07 Tdap 9 completed Not Available [facility] 05/20/2019 02:26:03 Influenza, high-dose, quadrivalent, PF 1 completed Barbara Gamez CMA null, [facility] 04/15/2021 10:31:20 Influenza, split virus, quadrivalent, preservative 0 completed Thais Johnson DNP [address] [place] [address], [phone], [facility] 03/20/2020 14:39:44 Influenza, high-dose, quadrivalent, PF 2 completed Yarelis Huerta MD [address] [place] [address], [phone], [facility] 02/06/2022 10:43:37 Influenza, high-dose, quadrivalent, PF 3 completed Chaya Small NP [address] [place] [address], [phone], [facility] 03/12/2023 17:07:35 Influenza, high-dose, trivalent, PF 4 completed Yarelis Huerta MD [address] [place] [address], [phone], [facility] 02/25/2024 13:18:10 COVID-19, mRNA, LNP-S, PF, 100 mcg/0.5mL dose or 50 mcg/0.25mL dose 1 completed Barbara Gamez CMA null, [facility] 03/07/2021 14:58:06 COVID-19, mRNA, LNP-S, PF, 100 mcg/0.5mL dose or 50 mcg/0.25mL dose 2 completed Barbara Gamez CMA [facility], [facility] 08/15/2021 08:35:08 Past Encounters Encounter ID Performer Location Encounter Start Date Encounter Closed Date Diagnosis/Indication Diagnosis SNOMED-CT Code Diagnosis ICD10 Code Diagnosis Note [id number] Yarelis Huerta MD , [facility] [place] [address] [place] [address] 05/22/2024 10:31:35 05/22/2024 11:42:12 Dyspnea 466300589 R06.00 c.o chest painin resp distress in office at resthe is working hard to breatherr =20L with rhonchiski n clammy and diaphoreti [facility] called for transport to [facility] 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
--- OUTSIDE RECORDS SUMMARY | 2024-05-30 12:00 | XMS_ITS | Data Portability ---
Demographics Address [address] [place] [address] Home Phone Mobile Phone Preferred Language zh Marital Status Adventist Affiliation Unknown Race Ethnic Group Not or Lati no Author Organization [facility], [facility] Address [address] [place] [address] Care Team Providers Care Pest Control Service Sales Agent Name Role Phone YARELIS HUERTA Primary Care Provider [facility] OTHER [facility] Orthopedic Surgeon [facility] O rthopedic Surgeon Assessment Encounter Date Assessment Date Assessment LastModified by Organization Details LastModified Time 04/05/2023 04/05/2023 A: Pt is a 77 year old M referred to outpatient physical therapy secondary to R hip pain from sustained squat. Pt presents with hip weakness that could have contributed to hip pain from sustained position. Pain has since resolved and PT educated pt and pt's grandson on contributing factors to R hip pain with squatting position. Pt and pt's grandson agreeable to PT Eval only after education and HEP handout. No further skilled PT needed at this time. [email or web address] Not available 04/10/2023 11:25:04 02/25/2024 02/25/2024 We completed your Medicare Wellness exam today. This was an opportunity to assess your overall well being including your ability to care for yourself, your mobility, memory, mental health, as well as your safety. With advancing age, it is important to assign someone in your life as your Health Care Proxy (HCP). This person should know what is important to you and what your wishes are for medical procedures if you cannot communicate your wishes yourself (severe illness, unconsciousness ). Influenza Vaccine : Flu shot yearly. Tetanus Vaccine : Every 10 years. The following vaccines are available from your pharmacy: Pneumonia Vaccine : PCV20: once after age 65. Shingles Vaccine : 2 shots after age 50. Covid Vaccine : Make sure you have received the most up to date covid vaccine. now getting symptoms from his spinal stenosis, right buttocks down to toes PPM may 2019 [place] [facility] [place]ee, who had been following him annually since CEA, but pt wished to excliude vascuar claudication as cause for his tingling cold foot after standing a while. is likely SS but i am compplying with pt and dtr request also to spine center at [facility] at their request as [facility] not addressing his concerns. Begin metformin A1c 7.2 [facility] Not available 02/25/2024 13:21:30 Plan of Treatment Reminders Order Date Submit Date Provider Last Modified By Organization Details Last Modified Time Details Appointments None recorde d. Lab influen za virus A + B + SARS-Co V-2 (COVID1 9) Ag panel, rapid IA, upper respira tory specime n 2024 025 [facility], [address] [place], [address], 5 11:13:07 Referral physica l medicin e and rehabil itation referra l - 08/16/19 24 lumbar pain radiate s down left gluteal areanee ds mandari n interpr etercar di hx of spinal stenosi sknown to PSS for hip injecti on in past l gabriele Bradyica Katlin who speaks indonesian phone [phone] 2023 024 [facility], [address] [place], [address], 4 13:54:28 vascula r surgeon referra l - known to you from Carotid endarte rectomy , last seen 2022run sam sole ses is his numbnes s sensati on of both feet as he walksis due to his documen valery severe sinal stenosi sCould this be vascula rcaroti d doppler s ordered 025 at [facility] with CC to Gerard 2023 024 [email or web address] Garcia Gee MD, [address] [place] [address] Dr,, ZOILA Rodgers, [address], 09:30:59 Procedures None recorde d. Surgeries None recorde d. Imaging None recorde d. Medication Orders atorvas tatin 80 mg tablet 2023 [facility], [address] [place], [address], 15:00:45 aspirin 81 mg tablet, delayed release 2023 [facility], [address] [place], [address], 4 15:00:45 losarta n 100 mg tablet 2023 [facility], [address] [place], [address], 15:00:46 Augment in 875 mg-125 mg tablet 2023 [facility], [address] [place], [address], 10:13:16 tadalaf il 20 mg tablet 2023 [facility], [address] [place], [address], 10:59:51 metform in ER 750 mg tablet, extende d release 24 hr 2023 [facility], [address] [place], [address], 13:24:22 Patient TargetsNo targets recorded. Patient Instructions Encounter Date Encounter Id Patient Instructions Last Modified By Organization Details Last Modified Time 08/16/2023 [id number] high blood pressure: care instructions [email or web address] Not available 08/16/2023 15:00:42 learning about high blood pressure [email or web address] Not available 08/16/2023 15:00:42 02/25/2024 [id number] high blood pressure: care instructions [email or web address] Not available 02/25/2024 13:24:20 learning about high blood pressure [email or web address] Not available 02/25/2024 13:24:20 Reason for Referral Physical Medicine And Rehabi litation Referral for Lumbar radiculopathy 08/16/2023 lumbar pain radiates down left gluteal areaneeds mandarin interpretercarries hx of spinal stenosisknown to PSS for hip injection in pastcall daughter Mily Dalal who speaks englishphone Referring Physician: Yarelis Huerta [facility], Encounter Date: 08/16/2023 Vascular Surgeon Referral fo r Intermittent claudication known to you from Carotid endarterectomy, last seen 2022running hypotheses is his numbness sensation of both feet as he walksis due to his documented severe sinal stenosisCould this be vascularcarotid dopplers ordered 02/24/2025 at [facility] with CC to Gerard Referring Physician: Yarelis Huerta [facility], Encounter Date: 02/25/2024 Results Created Date Observation Date Name Description Value Unit Range Abnormal Flag Note LastModifiedBy Organization Detail LastModifiedTime 08/12/19 24 08/12/2023 HGB A1C hemoglobin A1C 6.9 % 4.8-6. 0 high Goal: <7% in Patie nts with Diabe justin An A1c betwe en 5.7-6 .4% is ident ified as pre-d iabet es and sugge sts risk for progr essio n to diabe justin Two a1c value s of 6.5% or highe r is consi stent with a diagn osis of diabe justin but may need furth er confi rmati on Not Available [address], [address], 08/12/2023 12:48:18 08/12/19 24 08/12/2023 HGB A1C estimated average glucose 151.3 mg/dL Not Available [address], [address], 08/12/2023 12:48:18 08/12/19 24 08/12/2023 BASIC METAB OLIC PANEL glucose 119 mg/dL 70-100 high Not Available [address], [address], 08/12/2023 14:05:17 08/12/19 24 08/12/2023 BASIC METAB OLIC PANEL BUN 22 mg/dL 7-18 high Not Available [address], [address], 08/12/2023 14:05:17 08/12/19 24 08/12/2023 BASIC METAB OLIC PANEL creatinine 1.1 mg/dL 0.8-1. 3 Not Available [address], [address], 08/12/2023 14:05:17 08/12/19 24 08/12/2023 BASIC METAB OLIC PANEL B/C 20.0 ratio Not Available [address], [address], 08/12/2023 14:05:17 08/12/19 24 08/12/2023 BASIC METAB OLIC PANEL GFR >=60ML /MIN mL/mi n normal >=60m L/min - Dorene l or midly reduc ed <60mL /min- Decre ased kidne y funct ion <15mL /min - Kidne y failu re [facility] calcu lates estim ated Glome rular Filtr ation Rate (eGFR ) using the Chron ic Kidne y Disea se Epide miolo gy Colla borat ion (CKD- EPI) Equat ion (Salazar r et. al 2020) as recom lina d by the Natio nal Kidne y Found ation . eGFR is based on age, serum creat inine , and sex. CKD-E PI does not calcu late eGFR by race, does not apply to child teo (age <18 years ), and shoul d not be used in pregn augie. Not Available [address] [place], [address], 08/12/2023 14:05:17 08/12/19 24 08/12/2023 BASIC METAB OLIC PANEL sodium 141 mmol/ L 136-14 5 Not Available [address], [address], 08/12/2023 14:05:17 08/12/19 24 08/12/2023 BASIC METAB OLIC PANEL potassium 4.2 mmol/ L 3.5-5. 1 Not Available [address], [address], 08/12/2023 14:05:17 08/12/19 24 08/12/2023 BASIC METAB OLIC PANEL chloride 104 mmol/ L 96-107 Not Available [address], [address], 08/12/2023 14:05:17 08/12/19 24 08/12/2023 BASIC METAB OLIC PANEL anion gap 13.3 5.0-15 .0 Not Available [address], [address], 08/12/2023 14:05:17 08/12/19 24 08/12/2023 BASIC METAB OLIC PANEL CO2 24 mmol/ L 21-32 Not Available [address], [address], 08/12/2023 14:05:17 08/12/19 24 08/12/2023 BASIC METAB OLIC PANEL calcium 9.1 mg/dL 8.5-10 .3 Not Available [address], [address], 08/12/2023 14:05:17 08/12/19 24 08/12/2023 LIPID PANEL cholesterol 176 mg/dL <200 mg/dl Gisella able 200-2 39 mg/dl Borde rline High >240 mg/dl High Not Available [address], [address], 08/12/2023 14:05:18 08/12/19 24 08/12/2023 LIPID PANEL triglyceride s 159 mg/dL <150 mg/dL Dorene l 150-1 99 mg/dL Borde rline High 200-4 99 mg/dL High >500 mg/dL Very High Not Available [address], [address], 08/12/2023 14:05:18 08/12/19 24 08/12/2023 LIPID PANEL direct HDL 82 mg/dL <40 mg/dl - Major Risk for CHD >60 mg/dl - Negat kyle Risk for CHD Not Available [address], [address], 08/12/2023 14:05:18 08/12/19 24 08/12/2023 LDL - CALCU LATED LDL - calculated 62.2 RISK CATEG ORY LDL GOAL _ CHD or CHD Risk Equiv alent s <100 mg/dl (10-y ear risk >20%) 2+ Risk Facto rs <130 mg/dl (10-y ear risk <= 20%) 0-1 Risk Facto r? <160 mg/dl ? Almos t all peopl e with 0-1 risk facto r have a 10 year risk <10%, thus 10 year risk asses ment in peopl e with 0-1 risk facto r is not nik almeida. Not Available [address], [address], 08/12/2023 14:05:19 08/12/19 24 08/12/2023 MICRO ALBUM IN/CR EATIN INE RATIO PANEL , URINE microalbumin 21.4 mg/L 1.3-20 .0 high Not Available [address], [address], 08/12/2023 14:45:45 08/12/19 24 08/12/2023 MICRO ALBUM IN/CR EATIN INE RATIO PANEL , URINE creatinine urine 68.4 mg/dL 30.0-1 25.0 Not Available [address], [address], 08/12/2023 14:45:45 08/12/1908/12/2023 MICRO ALBUM IN/CR EATIN INE RATIO PANEL , URINE microalb/cre at ratio 31.3 mg/g_ creat 0.0-29 .0 high Not Available [address], [address], 08/12/2023 14:45:45 02/18/2002/18/2024 HGB A1C hemoglobin A1C 7.2 % 4.8-6. 0 high Goal: <7% in Patie nts with Diabe justin An A1c betwe en 5.7-6 .4% is ident ified as pre-d iabet es and sugge sts risk for progr essio n to diabe justin Two a1c value s of 6.5% or highe r is consi stent with a diagn osis of diabe justin but may need furth er confi rmati on Not Available [address], [address], 02/18/2024 12:02:02 02/18/2002/18/2024 HGB A1C estimated average glucose 159.9 mg/dL Not Available [address], [address], 02/18/2024 12:02:02 02/18/2002/21/2024 BASIC METAB OLIC PANEL glucose 135 mg/dL 70-100 high Not Available [address], [address], 02/21/2024 12:12:50 02/18/2002/21/2024 BASIC METAB OLIC PANEL BUN 23 mg/dL 7-18 high Not Available [address], [address], 02/21/2024 12:12:50 02/18/20 24 02/21/2024 BASIC METAB OLIC PANEL creatinine 1.1 mg/dL 0.8-1. 3 Not Available [address], [address], 02/21/2024 12:12:50 02/18/2002/21/2024 BASIC METAB OLIC PANEL B/C 20.9 ratio Not Available [address], [address], 02/21/2024 12:12:50 02/18/20 24 02/21/2024 BASIC METAB OLIC PANEL GFR >=60ML /MIN mL/mi n normal >=60m L/min - Dorene l or midly reduc ed <60mL /min- Decre ased kidne y funct ion <15mL /min - Kidne y failu re [facility] calcu lates estim ated Glome rular Filtr ation Rate (eGFR ) using the Chron ic Kidne y Disea se Epide miolo gy Colla borat ion (CKD- EPI) Equat ion (Salazar r et. al 2020) as recom lina d by the Natio nal Kidne y Found ation . eGFR is based on age, serum creat inine , and sex. CKD-E PI does not calcu late eGFR by race, does not apply to child teo (age <18 years ), and shoul d not be used in pregn augie. Not Available [address], [address], 02/21/2024 12:12:50 02/18/20 24 02/21/2024 BASIC METAB OLIC PANEL sodium 142 mmol/ L 136-14 5 Not Available [address], [address], 02/21/2024 12:12:50 02/18/20 24 02/21/2024 BASIC METAB OLIC PANEL potassium 4.3 mmol/ L 3.5-5. 1 Not Available [address], [address], 02/21/2024 12:12:50 02/18/2002/21/2024 BASIC METAB OLIC PANEL chloride 105 mmol/ L 96-107 Not Available [address], [address], 02/21/2024 12:12:50 02/18/2002/21/2024 BASIC METAB OLIC PANEL anion gap 9.5 5.0-15 .0 Not Available [address], [address], 02/21/2024 12:12:50 02/18/2002/21/2024 BASIC METAB OLIC PANEL CO2 28 mmol/ L 21-32 Not Available [address], [address], 02/21/2024 12:12:50 02/18/2002/21/2024 BASIC METAB OLIC PANEL calcium 9.4 mg/dL 8.5-10 .3 Not Available [address], [address], 02/21/2024 12:12:50 02/18/2002/21/2024 LIPID PANEL cholesterol 200 mg/dL <200 mg/dl Gisella able 200-2 39 mg/dl Borde rline High >240 mg/dl High Not Available [address], [address], 02/21/2024 12:12:52 02/18/2002/21/2024 LIPID PANEL triglyceride s 87 mg/dL <150 mg/dL Dorene l 150-1 99 mg/dL Borde rline High 200-4 99 mg/dL High >500 mg/dL Very High Not Available [address], [address], 02/21/2024 12:12:52 02/18/2002/21/2024 LIPID PANEL direct HDL 84 mg/dL <40 mg/dl - Major Risk for CHD >60 mg/dl - Negat kyle Risk for CHD Not Available [address], [address], 02/21/2024 12:12:52 02/18/20 24 02/21/2024 LDL - CALCU LATED LDL - calculated 99 RISK CATEG ORY LDL GOAL _ CHD or CHD Risk Equiv alent s <100 mg/dl (10-y ear risk >20%) 2+ Risk Facto rs <130 mg/dl (10-y ear risk <= 20%) 0-1 Risk Facto r? <160 mg/dl ? Almos t all peopl e with 0-1 risk facto r have a 10 year risk <10%, thus 10 year risk asses ment in peopl e with 0-1 risk facto r is not nik almeida. Not Available [address], [address], 02/21/2024 12:12:53 05/22/19 25 05/22/2024 POC FLU/S ARS flu A POC NEGATI VE Not Available [facility] [address] [place] [address], [address], 05/22/2024 11:09:14 05/22/19 25 05/22/2024 POC FLU/S ARS flu B POC NEGATI VE Not Available [facility] [address] [place] [address], [address], 05/22/2024 11:09:14 05/22/19 25 05/22/2024 POC FLU/S ARS sars POC NEGATI VE Not Available [facility] [address] [place], [address], 05/22/2024 11:09:14 03/15/20 23 03/15/2023 XR, hip + pelvi s, unila teral , 2 or 3 view CLINIC AL HISTOR Y: Right hip pain for 3 days. TECHNI QUE: Two views of the right hip are obtain ed. An AP view of the pelvis is added. COMPAR NICKOLAS: None. FINDIN GS: No fractu re of the bony pelvis is seen. The sacroi liac joints are unrema rkable . RIGHT HIP: There is no fractu re, sublux ation, or disloc ation. There is preser vation of the hip joint space. There is a faint calcif icatio n adjace nt to the greate r trocha nter. LEFT HIP: There is no fractu re, sublux ation, or disloc ation. There is preser vation of the hip joint space. IMPRES KEELY: No acute bone abnorm ality. No signif icant degene rative diseas e. Possib le right trocha nteric bursit is. Readin g Physic enrike: Regla Edwards ms [facility] ([facility]) [address], [place], [address], 08/16/2023 14:51:11 03/02/20 24 03/01/2024 US carot id duple x (bila teral ) US CAROTI D DUPLEX COMPLE TE (BILAT ERAL) Referr ing clinic enrike's provid ed indica tion for this examin ation in Epic: Outsid e Radiol ogy Order; hx caroti d endart erecto my TECHNI QUE: A duplex ultras ound evalua tion of the common caroti d, operations intern al caroti d, custodian athletic equipment al caroti d, verteb ral, and subcla vian arteri es was perfor med using he scale, color duplex and spectr al Dopple r analys is. COMPAR NICKOLAS: Caroti d ultras ound of 2018 FINDIN GS: Exam Qualit y: Techni neli limite d exam demons trates : RIGHT Common Caroti d Artery (cm/s) : Proxim al Systol ic: 87 Proxim al Diasto lic: 9 Distal Systol ic: 74 Distal Diasto lic: 13 [employer]ed Circuit Boards Beveler al Caroti d Artery (cm/s) : Proxim al Systol ic: 94 Proxim al Diasto lic: 14 Mid Systol ic: 85 Mid Diasto lic: 16 Distal Systol ic: 68 Distal Diasto lic: 15 Pediatric Dental Assistant al Caroti d Artery (cm/s) : Systol ic: 128 Diasto lic: 8 Verteb ral Artery (cm/s) : Systol ic: 47 Diasto lic: 9 Subcla vian Artery (cm/s) : Not done ICA/CC A Ratio: 1.14 ICA Stenos is: Less than 50% ICA Plaque : Calcif ied LEFT Common Caroti d Artery (cm/s) : Proxim al Systol ic: 71 Proxim al Diasto lic: 12 Distal Systol ic: 72 Distal Diasto lic: 11 [employer]ed [employer] Beveler al Caroti d Artery (cm/s) : Proxim al Systol ic: 78 Proxim al Diasto lic: 8 Mid Systol ic: 79 Mid Diasto lic: 13 Distal Systol ic: 76 Distal Diasto lic: 20 Pediatric Dental Assistant al Caroti d Artery (cm/s) : Systol ic: 88 Diasto lic: 6 Verteb ral Artery (cm/s) : Systol ic: 59 Diasto lic: 13 Subcla vian Artery (cm/s) : Not done ICA/CC A Ratio: 1.18 ICA Stenos is: Normal ICA Plaque : None Visual ized Abbrev iation s: CCA = Common Caroti d Artery . ICA = Printed Circuit Boards Beveler al Caroti d Artery . ECA = Pediatric Dental Assistant al Caroti d Artery . Vert = Verteb ral Artery . ICA/CC A Ratio = jaye l ICA PSV divide d by the distal CCA PSV. 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 Right: Dopple r flow veloci ties and wavefo rm contou rs demons trate no hemody namica lly signif icant elevat ion throug hout the operations intern al caroti d artery . No plaque is visual ized in the common caroti d artery . Unrema rkable custodian athletic equipment al caroti d artery . Koffi grade flow is noted in the verteb ral artery . The subcla vian artery was not interr ogated . Left: Dopple r flow veloci ties and wavefo rm contou rs are within normal limits throug hout the operations intern al caroti d artery , no plaque is visual ized. There is mild plaque visual ized in the common caroti d artery . Unrema rkable custodian athletic equipment al caroti d artery . Koffi grade flow is noted in the verteb ral artery . The subcla vian artery was not interr ogated . IMPRES SIONS: Compar ed to the prior caroti d ultras ound of 2018. 1. <50% stenos is noted in the right operations intern al caroti d artery . 2. No stenos is in the left operations intern al caroti d artery . 3. No stenos is is noted in the common caroti d arteri es bilate rally. 4. Unrema rkable custodian athletic equipment al caroti d arteri es bilate rally. 5. Antegr andrew flow in the bilate ral cervic al verteb ral arteri es. 6. The bilate ral subcla vian arteri es were not interr ogated STENOS IS: [employer]ed [employer] Beveler al caroti d artery stenos is by duplex ultras onogra phy has been valida valery by compar ing findin gs with angiog raphic stenos is. NASCET method s were used, where the most severe stenos is repres ents the numera tor, and the normal operations intern al caroti d artery diamet er distal to the stenos is where the chiang are parall el repres ents the denomi nator. Electr onical ly Signed by: Dr. Jacky bazzi on 2023 7:34 PM Interp reted by: Jacky Martinez MD Signed by: Jacky Martinez MD CC Recipi ents: Apolinar Dela Cruz MD - Fax Final result PS. Lt Endart erecto my approx 5 years ago per patien t Rt Caroti d: modera te amount of calcif ied plaque Px ICA. Lt Caroti d: minima l plaque YARELIS VÁZQUEZ MAN YARELIS VÁZQUEZ MAN YARELIS VÁZQUEZ MAN [facility] [address] [place] [address], [address], 05/18/2024 13:31:13 03/02/20 24 03/01/2024 US, jarvis pettit id arter y No observ ation record ed. [address], [address], 05/18/2024 13:31:13 Result Notes None recorded. Problems Name Problem SNOMED Code Status Onset Date Resolution Date Notes Provider Name and Address Organization Details Recorded Time Mixed hyperlipi demia 044547762 Active per 06/20/12 OV notes Not Available [facility] 2 08:12:09 Benign essential hypertens ion 2637936 Active per 06/20/12 OV notes Not Available [facility] 2 08:12:09 Sinus node dysfuncti on 17885184 Active 2016 PPM 2017, 37 sec pauses with presyncope Not Available [facility] 2 08:12:09 Hyperglyc emia 69207930 Active 2017 Not Available [facility] 2 08:12:09 Type 2 diabetes mellitus without complicat ion 500593851 Active 2017 Not Available [facility] 2 08:12:09 Transient cerebral ischemia 035851582 Active 201804/19/19 due to left carptid stenosis Not Available [facility] 2 08:12:09 Carotid endartere ctomy Active [address] Dela Cruz Not Available [facility] 2 08:12:09 Coronary arteriosc lerosis 88698281 Active 2019 [facility] Not Available [facility] 2 08:12:09 Benign prostatic hyperplas ia 717235490 Active 2019 Not Available [facility] 2 08:12:09 Cough 70475930 Active 2019 Chronic, resumed Flonase. Advised claritin and humidifica tion at night. Not Available [facility] 08:12:09 Spinal stenosis of lumbar region 77641381 Active [address] L3 to L5 Yarelis Huerta MD [address] [place] [address], [phone] , [facility] 3 19:49:32 Problem Notes None recorded. Procedures Surgical History Date Name Laterality Status Provider Name and Address Organization Details Recorded Time 02/25/20 Medicare Wellness Visit completed Barbara Gamez [facility] 02/25/2024 10:07:42 01/24/20 Wound Care completed Yarelis Huerta MD [address] [place] [address], [phone], [facility] 01/24/2024 10:54:24 04/05/20 23 [id number]: PT Eval Low Complexity completed Romulo Clarke, REYNAT [address] [place], [address], [facility] 04/05/2023 13:33:46 04/05/20 23 Treatment and Advice completed Romulo Clarke DPT [address] [place], [address], [facility] 04/10/2023 11:22:55 02/23/20 23 Medicare Wellness Visit completed Barbara Gamez [facility] 02/22/2023 15:04:12 07/09/19 23 Knee (Right) Injection completed Yarelis Huerta MD [address] [place] [address], [phone], [facility] 07/08/2022 12:18:19 11/25/19 22 Wound Care completed ISIDRA FIGUEROA DNP [address] [place] [address], [phone], [facility] 11/24/2021 15:34:43 09/13/19 22 Shoulder (Left) Injection completed Yarelis Huerta MD [address] [place] [address], [phone], [facility] 09/12/2021 17:39:07 08/14/19 22 Medicare Wellness Visit completed Barbara Gamez [facility] 08/13/2021 10:07:08 08/14/19 22 Alcohol use screening completed Barbara Gamez [facility] 08/13/2021 10:07:08 03/20/20 20 Medicare Wellness Visit completed Barbara Gamez [facility] 03/20/2020 14:14:00 03/20/20 20 prevention-cardiov ascular risk reduction counseling completed Barbara Gamez [facility] 03/20/2020 14:14:00 03/20/20 20 prevention-annual alcohol misuse screening completed Barbara Gamez [facility] 03/20/2020 14:14:00 04/27/20 19 Transitional care completed MARY Tinoco [address] [place], [address], [facility] 04/27/2019 12:27:47 11/29/19 16 Corticosteroid Injection completed Kendy Garcia MD [address] [place] [address], [phone], [facility] 11/29/2015 15:56:48 11/29/19 16 Aspiration Major Joint/Bursa completed Kendy Garcia MD [address] [place] [address], [phone], [facility] 11/29/2015 15:54:32 11/13/19 16 Shoulder (Right) Injection completed Kendy Garcia MD [address] [place] [address], [phone], [facility] 11/13/2015 15:56:26 Imaging Results Imaging Date Name Status LastModified by Organiz ation Details LastModified Time 03/15/2023 XR, hip + pelvis, unilateral, 2 or 3 view completed [facility]) [address], [place], [address], 08/16/2023 14:51:11 03/01/2024 US carotid duplex (bilateral) completed [facility] [address] [place] [address], [address], 05/18/2024 13:31:13 03/01/2024 US, duplex, carotid artery completed [address], [address], 05/18/2024 13:31:13 Procedure Notes None recorded. Medical Equipment None Reported. Allergies Allergen ID Allergen Name Allergen Category Reaction Reaction Severity Criticality Documentation Date Start Date Code Code System Note Provider Name and Address Organization Details Recorded Time 65515 Product containin g penicilli n and antibioti c (product) medicatio n rash Not available Not available 09/29/2011 00258 05 SNOMED Shiloh Nuñez CMA null, [facility] 3 09:21:20 Medications Name Sig Start [...] PER DAY 11/24 completed not using anymore 09/12/21 t Not Available Not Available Not Available [...] route as needed. 02/06 completed not taken 09/12/21 t Not Available Not Available Not Available [...] day as need for low back pain (mandyazmin mascorro please) 01/21 completed Not Available Not Available [...] e 50 mcg/actua tion nasal spray,siobhan pension [place] 2 sprays every day by intranas al [...] d Address Organization Details Last Updated DateTime 08/16/2023 167.64 cm Barbara Gamez [facility] 08/16/2023 14:26:05 Date Recorded Body mass index (BMI) Body weight Provider Name and Address Organization Details Last Updated DateTime 08/16/2023 22.9 kg/m2 98996.82 g Barbara Gamez [facility] 08/16/2023 14:26:11 Date Recorded Oxygen saturation Oxygen saturation in Arterial blood by Pulse oximetry Provider Name and Address Organization Details Last Updated DateTime 08/16/2023 98 % 98 % Barbara Gamez [facility] 08/16/2023 14:27:49 Date Recorded Heart rate Provider Name an d Address Organization Details Last Updated DateTime 08/16/2023 70 /min Barbara Gamez [facility] 08/16/2023 14:27:53 Date Recorded Body height Provider Name an d Address Organization Details Last Updated DateTime 01/24/2024 167.64 cm Barbara Gamez [facility] 01/24/2024 10:23:24 Date Recorded Body mass index (BMI) Body weight Provider Name and Address Organization Details Last Updated DateTime 01/24/2024 22.5 kg/m2 92406.04 christen Barbara Gamez [facility] 01/24/2024 10:23:35 Date Recorded Body height Provider Name an d Address Organization Details Last Updated DateTime 02/25/2024 167.64 cm Barbara Gamez [facility] 02/25/2024 10:12:46 Date Recorded Body mass index (BMI) Body weight Provider Name and Address Organization Details Last Updated DateTime 02/25/2024 22.9 kg/m2 45188.82 christen Barbara Gamez [facility] 02/25/2024 10:12:51 Date Recorded Heart rate Provider Name an d Address Organization Details Last Updated DateTime 02/25/2024 54 /min Barbara Gamez [facility] 02/25/2024 10:18:45 Date Recorded Oxygen saturation Oxygen saturation in Arterial blood by Pulse oximetry Provider Name and Address Organization Details Last Updated DateTime 02/25/2024 95 % 95 % Barbara Gamez [facility] 02/25/2024 10:18:51 Date Recorded Body height Provider Name an d Address Organization Details Last Updated DateTime 05/22/2024 167.64 cm Barbara Gamez [facility] 05/22/2024 10:45:19 Date Recorded Body mass index (BMI) Body weight Provider Name and Address Organization Details Last Updated DateTime 05/22/2024 22.3 kg/m2 74026.45 g Barbara Gamez [facility] 05/22/2024 10:45:25 Date Recorded Heart rate Provider Name an d Address Organization Details Last Updated DateTime 05/22/2024 101 /min Barbara Gamez [facility] 05/22/2024 10:48:50 Date Recorded Oxygen saturation Oxygen saturation in Arterial blood by Pulse oximetry Provider Name and Address Organization Details Last Updated DateTime 05/22/2024 94 % 94 % Barbara Gamez [facility] 05/22/2024 10:48:58 Date Recorded Systolic blood pressure Diastolic blood pressure Provider Name and Address Organization Details Last Updated DateTime 08/16/2023 124 mm[Hg] 78 mm[Hg] Barbara Gamez [facility] 08/16/2023 14:27:47 Date Recorded Systolic blood pressure Diastolic blood pressure Provider Name and Address Organization Details Last Updated DateTime 01/24/2024 122 mm[Hg] 74 mm[Hg] Barbara Gamez [facility] 01/24/2024 10:28:17 Date Recorded Systolic blood pressure Diastolic blood pressure Provider Name and Address Organization Details Last Updated DateTime 02/25/2024 166 mm[Hg] 94 mm[Hg] Barbara Gamez [facility] 02/25/2024 10:17:35 Date Recorded Systolic blood pressure Diastolic blood pressure Provider Name and Address Organization Details Last Updated DateTime 05/22/2024 180 mm[Hg] 110 mm[Hg] Barbara Gamez [facility] 05/22/2024 10:48:47 Social History Question Answer Notes LastModified by Organizat ion Details LastModified Time Tobacco Smoking Status Former Smoker quit 20 years ago; 02/17/22 ZOILA Smith [facility] 02/17/2022 10:05:46 What Is Your Level Of Alcohol Consumption? Moderate 1 Daily 02/17/22 MAYI [email or web address] Information not available 02/17/2022 Do You Wear A Helmet When Biking? Yes Information not available 11/13/2015 What Is Your Level Of Caffeine Consumption? Moderate 1-2 Tea [email or web address] Information not available 03/20/2020 How Much Tobacco Do You Chew? None Information not available 11/13/2015 Are You Currently Employed? No Retired 2021 [email or web address] Information not available 08/13/2021 What Type Of Diet Are You Following? REGULAR Information not available 11/13/2015 Have There Been Any Changes To Your Family Or Social Situation? No [email or web address] Information not available 08/13/2021 How Many Days In The Past Year Have You Had A Heavy Drinking Consumption (4+ Female, 5+ Male)? 0 Information not available 05/10/2012 Are There Any Guns Present In Your Home? No Information not available 11/13/2015 Do You Use Insect Repellent Routinely? No [email or web address] Information not available 08/13/2021 Live Alone Or With Others? With Others Information not available 11/13/2015 Does The Patient Have Difficulty Speaking Northern Irish? Yes Information not available 11/13/2015 Does The Patient Have Difficulty Reading Northern Irish? Yes Information not available 11/13/2015 Patient Has Health Care Proxy Signed And In Chart No Information not available 11/09/2011 CCM Consent Discussion 03/24/2022 [email or web address] Information not available 03/31/2022 Marital Status Informati on not available 11/13/2015 Mosquito Repellent Used Routinely No Information not available 11/13/2015 What Was The Date Of Your Most Recent Tobacco Screening? 02/17/2022 02/17/22 MAYI [email or web address] Information not available 02/17/2022 How Many Children Do You Have? 3 [email or web address] Information not available 08/13/2021 What Is Your Current Pack Years? 10packyears [email or web address] Information not available 11/19/2023 What Is Your Relationship Status? [email or web address] Information not available 08/13/2021 Do You Use Your Seat Belt Or Car Seat Routinely? Yes [email or web address] Information not available 02/25/2024 Seat Belts Used Routinely Yes Information not available 11/13/2015 Are You Sexually Active? Yes Information not available 11/13/2015 Smoke Alarm In Home Yes Information not available 11/13/2015 Do You Have Smoke And Carbon Monoxide Detectors In Your Home? Yes [email or web address] Information not available 08/13/2021 Are You Passively Exposed To Smoke? No Information not available 08/13/2021 General Stress Level Low Information not available 11/13/2015 Do You Use Sunscreen Routinely? No Information not available 11/13/2015 Do You Or Have You Ever Used Any Other Forms Of Tobacco Or Nicotine? No [email or web address] Information not available 02/17/2022 Sex: Male Functional Status Question Answer Note LastModified by Organizat ion Details LastModified Time What is your exercise level? Moderate daily walks Information not available 02/22/2023 Mental Status None recorded. Family History Nothing Reported Notes:M and Father lived to mid 80's. Medical History Condition Response Hyperlipidemia Y Hypertension Y Immunizations Vaccine Type Date Status Note Provider Nam e and Address Organization Details Recorded Time Influenza, split virus, trivalent, preservative 2 completed Not Available [facility] 05/20/2019 02:18:35 Influenza, high-dose, trivalent, PF 5 completed Not Available [facility] 05/20/2019 02:25:04 Influenza, high-dose, trivalent, PF 7 completed Not Available [facility] 05/20/2019 02:32:27 Influenza, high-dose, trivalent, PF 7 completed Not Available [facility] 05/20/2019 02:33:35 Pneumococcal conjugate PCV 13 7 completed Not Available [facility] 05/20/2019 02:22:05 Influenza, high-dose, trivalent, PF 8 completed Not Available [facility] 05/20/2019 02:23:29 Influenza, high-dose, trivalent, PF 9 completed Not Available [facility] 05/20/2019 02:24:34 pneumococcal polysaccharide PPV23 9 completed Not Available [facility] 05/20/2019 02:27:07 Tdap 9 completed Not Available [facility] 05/20/2019 02:26:03 Influenza, high-dose, quadrivalent, PF 1 completed VERONICA Davalos, [facility] 04/15/2021 10:31:20 Influenza, split virus, quadrivalent, preservative 0 completed Thais Johnson DNP [address] [place] [address], [phone], [facility] 03/20/2020 14:39:44 Influenza, high-dose, quadrivalent, PF 2 completed Yarelis Huerta MD [address] [place] [address], [phone], [facility] 02/06/2022 10:43:37 Influenza, high-dose, quadrivalent, PF 3 completed Chaya Small NP [address] [place] [address], [phone], [facility] 03/12/2023 17:07:35 Influenza, high-dose, trivalent, PF 4 completed Yarelis Huerta MD [address] [place] [address], [phone], [facility] 02/25/2024 13:18:10 COVID-19, mRNA, LNP-S, PF, 100 mcg/0.5mL dose or 50 mcg/0.25mL dose 1 completed Barbara Gamez CMA null, [facility] 03/07/2021 14:58:06 COVID-19, mRNA, LNP-S, PF, 100 mcg/0.5mL dose or 50 mcg/0.25mL dose 2 completed Barbara Gamez CMA [facility], [facility] 08/15/2021 08:35:08 Past Encounters Encounter ID Performer Location Encounter Start Date Encounter Closed Date Diagnosis/Indication Diagnosis SNOMED-CT Code Diagnosis ICD10 Code Diagnosis Note [id number] [facility], OFFICE [address] [place] [address] [place] [id number] 09/29/2011 15:09:24 09/29/2011 16:19:[id number] [place] [address] 11/09/2011 15:08:07 11/10/2011 09:17:32 [id number] Lilly Chand LPN [address] [place] [address] 01/26/2012 14:11:21 01/27/2012 08:05:23 [id number] Yarelis Huerta MD [address] [place] [address] 02/15/2012 08:56:43 02/15/2012 09:36:33 [id number] Nicole Enciso [address] [place] [address] 05/10/2012 13:23:04 05/11/2012 09:33:22 [id number] Yarelis Huerta MD [facility] OFFICE [address] [place] [address] [place] [id number] 06/10/2012 08:37:22 06/10/2012 09:52:12 [id number] Benson Garcia DPM Podiatry, [address] [place] [id number] 07/05/2012 14:39:49 07/06/2012 16:03:00 [id number] Yarelis Huerta MD [facility], OFFICE [address] [place] [address] [place] [id number] 03/13/2015 15:23:42 03/13/2015 16:09:37 Mixed hyperlipidemia 759239516 E78.2 03/2015 at goal below 100 on simvastati n 40. at goal on lipitor 80 pt wishes FLP Benign ess ential hypertension 2219109 I10 03/2015 at goal on lisinopril 20 only. remains at goal (<140/90)o n two medication s HCTZ VICKY. Understand s what meds are for. plan to continue indefinite ly Bp checks twice annually. remains at goal on two medication s HCTZ VICKY Plantar fasciitis 20271203 003 M72.2 due to pes planus has failed home treatment he had purchased a nonsense compressio n bandage i printed out a photo of the VBI Vaccines night splint for him to purchase recommende d podiatry input as well resolved due to pes planus written instructio ns from upto date, verbal translatio n as well as written Dr Hernadez instructio ns to pharmacist given Acute uppe r respiratory infection 69534155 J06.9 bothersome cough with bronchitis Educated patient that URI is a viral illness of the upper airways. It is not bacterial and does not benefit from antibiotic s. Average duration of URI is 7-10 days but in a recent trial, treatment at 7-10 days of illness with antibiotic s, intranasal steroids, or placebo did not alter natural history at 3 weeks. Recommende d symptomati c treatments including NSAIDS, semi-uprig ht sleep position, antihistam viry at HS, limited course of nasal sympathomi metics and/or cough syrups, and nasal saline rinses with soft squeeze bottle or Neti pot. Return for fevers > 101 for 3 days, worsening sinus pain, or failure to resolve in 2-4 weeks. Low back pain 540165870 M54.5 resolved. upper lumbar lower thoracic pain upon arising prob djd. rec iboprofen agreed to check liver enzymes renal fn per pr request, resonabkle as on lipitor high dose. denies h/o liver dz, hepatitis. 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 Dermatophy tosis of the perianal area 984577359 B35.4 resolved w topicals [id number] Candice LUNDY, [facility], OFFICE [address] [place], [place] [id number] 04/09/2015 15:11:16 04/13/2015 09:50:23 Dermatophytosis of the perianal area 082959266 B35.4 resolved w topicals Mixed hyperlipidemia 267 209913 E78.2 03/2015 at goal below 100 on simvastati n 40. at goal on lipitor 80 pt wishes FLP Impotence of organic origin 035551299 N52.9 prior- pt wishes refill viagra presents empty bottle to me. Benign ess ential hypertension 2173965 I10 04/2015 still not at goal, pt frustrated with lisinopril and rather than increase dose, agreed with bed rubber to change to norvasc 10mg rto 2-3 weeks 03/2015 at goal on lisinopril 20 only. remains at goal (<140/90)o n two medication s HCTZ VICKY. Understand s what meds are for. plan to continue indefinite ly Bp checks twice annually. remains at goal on two medication s HCTZ VICKY Low back pain 927080860 M54.5 resolved. upper lumbar lower thoracic pain upon arising prob djd. rec iboprofen agreed to check liver enzymes renal fn per pr request, resonabkle as on lipitor high dose. denies h/o liver dz, hepatitis. Plantar fasciitis 800457 003 M72.2 due to pes planus has failed home treatment he had purchased a nonsense compressio n bandage i printed out a photo of the VBI Vaccines night splint for him to purchase recommende d podiatry input as well resolved due to pes planus written instructio ns from upto date, verbal translatio n as well as written Dr Hernadez instructio ns to pharmacist given Acute uppe r respiratory infection 70032141 J06.9 bothersome cough with bronchitis Educated patient that URI is a viral illness of the upper airways. It is not bacterial and does not benefit from antibiotic s. Average duration of URI is 7-10 days but in a recent trial, treatment at 7-10 days of illness with antibiotic s, intranasal steroids, or placebo did not alter natural history at 3 weeks. Recommende d symptomati c treatments including NSAIDS, semi-uprig ht sleep position, antihistam viry at HS, limited course of nasal sympathomi metics and/or cough syrups, and nasal saline rinses with soft squeeze bottle or Neti pot. Return for fevers > 101 for 3 days, worsening sinus pain, or failure to resolve in 2-4 weeks. Active or passive immunization 521175803 Z23 [id number] , [facility], OFFICE [address] [place] [address] 06/07/2015 11:23:24 06/07/2015 14:53:24 Benign essential hypertension 0229393 I10 Chest pain 39291119 R07. 9 [id number] Yarelis Huerta MD , [facility], OFFICE [address] [place] [address] 07/08/2015 15:07:45 07/08/2015 16:20:01 Skin problem 011356245 R23.9 Benign ess ential hypertension 5806349 I10 07/2015 at goal on VICKY. AT PT'S REQUEST WILL CHANGE BACK TO LISINOPRIL . EKG NL. I THINK AN ETT IS INDICATED. I AM NOT READY TO BLAME AMLODIPINE FOR CHEST PRESSURE. DISCUSSED WITH PT VIA TRANLATOR. MORE THEN 50% OF THIS APPT WAS USED COUNSELING RE: NATURE OF ISSUE AND COORDINATI ON OF CARE. [id number] Kendy Garcia MD , [facility], OFFICE [address] [place] [address] 11/13/2015 15:11:07 11/13/2015 15:50:59 Shoulder joint pain 755091206 M25.519 intractabl e, steroidal intraartic ular injection was performed, see procedure note, FU in two wks Increased blood pressure 71312202 R03.0 w Hx HTN, on meds, after was rechecked by me at the end of the encounter, it was normal, poss pt was in pain and/or was someways anxious , counseled to monitor his BP and report if still elevated [id number] Yarelis Huerta MD , [facility], OFFICE [address] [place] [id number] 11/18/2015 14:21:02 11/18/2015 15:40:33 Adult health examination 538855666 Z00.00 see Risk Assessment and Lifestyle Change Counseling section above Counseling 297526065 Z71 .9 Benign ess ential hypertension 4369020 I10 Blood pressure at goal Screening for malignant neoplasm of colon 335998595 Z12.11 due per pt 2018 Impotence 057041788 N52. 9 Impaired f asting glycemia 288422503 R73.01 below 126 for years [id number] Yarelis Huerta MD , [facility], OFFICE [address] [place] [address] 11/26/2015 08:43:52 11/26/2015 15:55:55 Low blood pressure 82305144 I95.9 symptomaat iciatrogen ic this summeragre ed to DC lisinopril , he has proven intolerant of antihypert ensives and we will merely follow his BP which really has always been within recommende d uopper limit for age group 150/90, 148/90 havinmg been his highest BP recorded. he will f/u if orthostati c symptoms of brief lightheade dness head pressure vision loss upon arising persists. [id number] Kendy Garcia MD , [facility], OFFICE [address] [place] [address] 11/29/2015 11:20:54 12/02/2015 12:00:50 Olecranon bursitis 758431728 M70.21 uncertain etiology, aspiration and then steroidal injection was performed, see procedure note [id number] Yarelis Huerta MD , [facility], OFFICE [address] [place] [address] 12/04/2015 14:10:58 12/04/2015 15:03:15 Headache 42430579 R51 4 times a day gets head gutierrez lasting few seconds.Pt disincline d to believe that this is not significan t. referral printed for pts grandson to be able to schedule appt Cough 63806257 R05 cough x many weeks, unclear if upper or lower mucuswill image and referi believe this is a habitual cough from minor environmen [facility] printed for pts grandson to be able to schedule appt [id number] Naz Lyons , [facility], OFFICE [address] [place] [address] 05/20/2016 08:53:44 05/20/2016 10:01:11 Headache 38911866 R51 historical .4 times a day gets head gutierrez lasting few seconds.Pt disincline d to believe that this is not significan t. referral printed for pts grandson to be able to schedule appt Cough 25252377 R05 pt states he has asthmai will add proair to fluticason e.he is not forthcomin g with symptoms, looking for 'strong medicine'h e will need formal testing .cough x many weeks, unclear if upper or lower mucuswill image and referi believe this is a habitual cough from minor environmen vinod exposurere ferral printed for pts grandson to be able to schedule appt Olecranon bursitis 02337 0002 M70.21 nearly resolved. summer 2015.uncer tain etiology, aspiration and then steroidal injection was performed, see procedure note Low blood pressure 95008 003 I95.9 summer 2015.sympt omaticiatr ogenic this summeragre ed to DC lisinopril , he has proven intolerant of antihypert ensives and we will merely follow his BP which really has always been within recommende d uopper limit for age group 150/90, 148/90 havinmg been his highest BP recorded. he will f/u if orthostati c symptoms of brief lightheade dness head pressure vision loss upon arising persists. Benign ess ential hypertension 6519977 I10 usually at goal off medstoday 05/20/15 it is aberrantly elevatedhe blows out a rapid excuse, got poor sleepagree d to rto 2 weeks recheckhe has been a frustratin g case and i am reluctant to restart med Impotence 290599350 N52. 9 Impaired f asting glycemia 120441978 R73.01 below 126 for years Active or passive immunization 010212795 Z23 [id number] Yarelis Huerta MD , [facility], OFFICE [address] [place], [place] [address] 06/03/2016 07:45:10 06/03/2016 08:22:32 Headache 12054168 R51 historical .4 times a day gets head gutierrez lasting few seconds.Pt disincline d to believe that this is not significan t. referral printed for pts grandson to be able to schedule appt 12/2015 [facility] Cough 80868838 R05 pt states he has asthma, likely RADi will add proair to fluticason e.he is not forthcomin g with symptoms, looking for 'strong medicine'h e will need formal testing .cough x many weeks, unclear if upper or lower mucuswill image and referi believe this is a habitual cough from minor environmen vinod exposurere ferral printed for pts grandson to be able to schedule appt Olecranon bursitis 56359 0002 M70.21 nearly resolved. summer 2015.uncer tain etiology, aspiration and then steroidal injection was performed, see procedure note Low blood pressure 83145 003 I95.9 summer 2015.sympt omaticiatr ogenic this summeragre ed to DC lisinopril , he has proven intolerant of antihypert ensives and we will merely follow his BP which lies within new within upper limit for age group 150/90, 148/90 havinmg been his highest BP recorded. he will f/u if orthostati c symptoms of brief lightheade dness head pressure vision loss upon arising persists. Benign ess ential hypertension 4432170 I10 06/03/16 remains at goal off any antihypert ensive, which he had not tolerated in the past, granted that he may run elevated at times, overall he is better off Treatment. usually at goal off medstoday 05/20/16 it is aberrantly elevatedhe blows out a rapid excuse, got poor sleepagree d to rto 2 weeks recheckhe has been a frustratin g case and i am reluctant to restart med Benign essential hypertensi on - 11/2015 at goal on lisinopril . Plan routine followup. 04/2015 still not at goal, pt frustrated with lisinopril and rather than increase dose, agreed with bed rubber to change to norvasc 10mg rto 2-3 weeks 03/2015 at goal on lisinopril 20 only. 2014 remains at goal (<140/90)o n two medication s HCTZ VICKY. Understand s what meds are for. plan to continue indefinite ly Bp checks twice annually. remains at goal on two medication s HCTZ VICKY Impotence 611231289 N52. 9 Impaired f asting glycemia 813668890 R73.01 below 126 for years Mixed hyperlipidemia 267 360277 E78.2 lipidemia - 11/2015 LDL is just fine 128, at goal, off medication which he is disincline d to take.. Diet only. 03/2015 at goal below 100 on simvastati n 40. at goal below LDL 100, on lipitor 80 pt wishes FLP [id number] RABIA Calero, [facility], OFFICE [address] [place] [address] 12/08/2016 16:10:52 12/08/2016 17:00:47 Syncope and collapse 588616811 R55 5 days ago arose from chair, got up to grab door and passed out.has been generally feeling unwell.he is bradycardi c, PPM?(had negative nuclear 09/2015)rep orts sub sequent presyncope , has to lean on wall to prevent collapse during these events Headache 04226616 R51 historical .4 times a day gets head gutierrez lasting few seconds.Pt disincline d to believe that this is not significan t. referral printed for pts grandson to be able to schedule appt Cough 12289419 R05 05/2016 pt states he has asthmai will add proair to fluticason e.he is not forthcomin g with symptoms, looking for 'strong medicine'h e will need formal testing .cough x many weeks, unclear if upper or lower mucuswill image and referi believe this is a habitual cough from minor environmen vinod exposurere ferral printed for pts grandson to be able to schedule appt Olecranon bursitis 33566 0002 M70.21 nearly resolved. summer 2015.uncer tain etiology, aspiration and then steroidal injection was performed, see procedure note Low blood pressure 48785 003 I95.9 summer 2015.sympt omaticiatr ogenic this summeragre ed to DC lisinopril , he has proven intolerant of antihypert ensives and we will merely follow his BP which really has always been within recommende d uopper limit for age group 150/90, 148/90 havinmg been his highest BP recorded. he will f/u if orthostati c symptoms of brief lightheade dness head pressure vision loss upon arising persists. Benign ess ential hypertension 2470094 I10 usually at goal off medstoday 05/20/15 it is aberrantly elevatedhe blows out a rapid excuse, got poor sleepagree d to rto 2 weeks recheckhe has been a frustratin g case and i am reluctant to restart med Impotence [id number] N52. 9 Impaired f asting glycemia 150903583 R73.01 below 126 for years [id number] Yarelis Huerta MD , [facility] [place], OFFICE [address] [place] [address] 02/26/2017 09:46:39 02/26/2017 11:23:21 Adult health examination 949068175 Z00.00 see Risk Assessment and Lifestyle Change Counseling section above Counseling [id number] Z71 .9 Active or passive immunization 886240505 Z23 Headache 63406606 R51 historical .4 times a day gets head gutierrez lasting few seconds.Pt disincline d to believe that this is not significan t. referral printed for pts ct to be able to schedule appt Cough 67539029 R05 05/2016 pt states he has asthmai will add proair to fluticason e.he is not forthcomin g with symptoms, looking for 'strong medicine'h e will need formal testing .cough x many weeks, unclear if upper or lower mucuswill image and referi believe this is a habitual cough from minor environmen [facility] printed for pts grandson to be able to schedule appt Olecranon bursitis 83778 0002 M70.21 nearly resolved. summer 2015.uncmiladis palomo etiology, aspiration and then steroidal injection was performed, see procedure note Benign ess ential hypertension 5294861 I10 appears his intoleranc e of BP med was likely sinus pausescard iology restarted lisinopril 02/10/2017 .... meds again stopped , see low BP (abpve). Benign essential hypertensi on - 11/2015 at goal on lisinopril . Plan routine followup. usually at goal off meds today 05/20/15 it is aberrantly elevated he blows out a rapid excuse, got poor sleep agreed to rto 2 weeks recheck he has been a frustratin g case and i am reluctant to restart med 04/2015 still not at goal, pt frustrated with lisinopril and rather than increase dose, agreed with bed rubber to change to norvasc 10mg rto 2-3 weeks 03/2015 at goal on lisinopril 20 only. remains at goal (<140/90)o n two medication s HCTZ VICKY. Understand s what meds are for. plan to continue indefinite ly Bp checks twice annually. remains at goal on two medication s HCTZ VICKY Impotence 859401244 N52. 9 Impaired f asting glycemia 540027876 R73.01 below 126 for years Mixed hyperlipidemia 267 741133 E78.2 lipidemia - 11/2015 LDL is just fine 128, at goal, off medication which he is disincline d to take.. Diet only. 03/2015 at goal below 100 on simvastati n 40. at goal below LDL 100, on lipitor 80 pt wishes FLP Sick sinus syndrome 3608 3008 I49.5 02/26/17.fatimah mcclure and his dtr phoned cardiology to decline PPM.with bed rubber i showed him the 30 day event monitor tracings-e xplaining each of the 7 documented near 4 second pausesInfo rming him of his risk of or injury to another if he drives, crosses street or anything dangerous. He again declined pacemaker. 30 minutes spent face to face with pt 5 days ago arose from chair, got up to grab door and passed out.has been generally feeling unwell.he is bradycardi c, PPM?(had negative nuclear 09/2015)rep orts sub sequent presyncope , has to lean on wall to prevent collapse during these events Lightheadedness 70535025 8 R42 summer 2015.sympt omaticiatr ogenic this summeragre ed to DC lisinopril , he has proven intolerant of antihypert ensives and we will merely follow his BP which really has always been within recommende d uopper limit for age group 150/90, 148/90 havinmg been his highest BP recorded. he will f/u if orthostati c symptoms of brief lightheade dness head pressure vision loss upon arising persists. Coronary arteriosclerosis in red devil artery 4599868945 107 I25.10 cath by AYE JAUREGUI and hamp [id number] showed 50% ladappropr iate meds added [id number] Yarelis Huerta MD , [facility], OFFICE [address] [place] [address] 04/27/2017 09:21:10 04/27/2017 09:48:03 Scrotal mass 63437278 N50.9 appears to be indirect LIHwill UShe is told thru bed rubber that surgery may be necessary. told name of hamilton verdugo.see n with [id number] Yarelis Huerta MD , [facility], OFFICE [address] [place] [address] 05/24/2017 07:39:15 05/24/2017 08:30:35 Headache 85520941 R51 historical .4 times a day gets head gutierrez lasting few seconds.Pt disincline d to believe that this is not significan t. referral printed for pts grandson to be able to schedule appt Cough 75888138 R05 resolved. 05/2016 pt states he has asthmai will add proair to fluticason e.he is not forthcomin g with symptoms, looking for 'strong medicine'h e will need formal testing .cough x many weeks, unclear if upper or lower mucuswill image and referi believe this is a habitual cough from minor environmen [facility] f[facility] printed for pts grandson to be able to schedule appt Olecranon bursitis 07512 0002 M70.21 nearly resolved. summer 2015.uncmiladis palomo etiology, aspiration and then steroidal injection was performed, see procedure note Benign ess ential hypertension 7480268 I10 BP at goal off med. [employer]. appears his intoleranc e of BP med was likely sinus pausescard iology restarted lisinopril 02/10/2017 .... meds again stopped , see low BP (abpve). Benign essential hypertensi on - 11/2015 at goal on lisinopril . Plan routine followup. usually at goal off meds today 05/20/15 it is aberrantly elevated he blows out a rapid excuse, got poor sleep agreed to rto 2 weeks recheck he has been a frustratin g case and i am reluctant to restart med 04/2015 still not at goal, pt frustrated with lisinopril and rather than increase dose, agreed with bed rubber to change to norvasc 10mg rto 2-3 weeks 03/2015 at goal on lisinopril 20 only. remains at goal (<140/90)o n two medication s HCTZ VICKY. Understand s what meds are for. plan to continue indefinite ly Bp checks twice annually. remains at goal on two medication s HCTZ VICKY Impotence 905480882 N52. 9 Impaired f asting glycemia 268095960 R73.01 below 126 for years Mixed hyperlipidemia 267 818741 E78.2 lipidemia - 11/2015 LDL is just fine 128, at goal, off medication which he is disincline d to take.. Diet only. 03/2015 at goal below 100 on simvastati n 40. at goal below LDL 100, on lipitor 80 pt wishes FLP Sick sinus syndrome 3608 3008 I49.5 declines symptoms.1 /2018. 02/26/17.h e and his dtr phoned cardiology to decline PPM.with bed rubber i showed him the 30 day event monitor tracings-e xplaining each of the 7 documented near 4 second pausesInfo rming him of his risk of or injury to another if he drives, crosses street or anything dangerous. He again declined pacemaker. 30 minutes spent face to face with pt 5 days ago arose from chair, got up to grab door and passed out.has been generally feeling unwell.he is bradycardi c, PPM?(had negative nuclear 09/2015)rep orts sub sequent presyncope , has to lean on wall to prevent collapse during these events Lightheadedness 97452369 8 R42 see above.summ er 2016.sympt omaticiatr ogenic this summeragre ed to DC lisinopril , he has proven intolerant of antihypert ensives and we will merely follow his BP which really has always been within recommende d uopper limit for age group 150/90, 148/90 havinmg been his highest BP recorded. he will f/u if orthostati c symptoms of brief lightheade dness head pressure vision loss upon arising persists. Coronary arteriosclerosis in red devil artery 4146283067 107 I25.10 cath by AYE JAUREGUI and hamp [id number] showed 50% ladappropr iate meds added Hyperglycemia 47850210 R 73.9 A1c of 7.his diet is low sugarwill recheck labs today 05/2017DM discussed with pt. [id number] , [facility], OFFICE [address] [place] [address] 10/18/2017 08:03:46 10/18/2017 09:04:24 Headache 53682322 R51 historical .4 times a day gets head gutierrez lasting few seconds.Pt disincline d to believe that this is not significan t. referral printed for pts ct to be able to schedule appt Cough 37180065 R05 resolved. 05/2016 pt states he has asthmai will add proair to fluticason e.he is not forthcomin g with symptoms, looking for 'strong medicine'h e will need formal testing .cough x many weeks, unclear if upper or lower mucuswill image and referi believe this is a habitual cough from minor environmen [facility] ferrtn printed for pts grandson to be able to schedule appt Olecranon bursitis 87009 0002 M70.21 nearly resolved. summer 2015.lizett palomo etiology, aspiration and then steroidal injection was performed, see procedure note Benign ess ential hypertension 5336974 I10 BP at goal, based on home reported pressureso ff med on own., none since 2017again mentions usual excuse of poor sleep last night as cause for initial high BP here monitor twice a year appears his intoleranc e of BP med was likely sinus pausescard iology restarted lisinopril 02/10/2017 .... meds again stopped , see low BP (abpve). Benign essential hypertensi on - 11/2015 at goal on lisinopril . Plan routine followup. usually at goal off meds today 05/20/15 it is aberrantly elevated he blows out a rapid excuse, got poor sleep agreed to rto 2 weeks recheck he has been a frustratin g case and i am reluctant to restart med 04/2015 still not at goal, pt frustrated with lisinopril and rather than increase dose, agreed with bed rubber to change to norvasc 10mg rto 2-3 weeks 03/2015 at goal on lisinopril 20 only. remains at goal (<140/90)o n two medication s HCTZ VICKY. Understand s what meds are for. plan to continue indefinite ly Bp checks twice annually. remains at goal on two medication s HCTZ VICKY Impotence 353077049 N52. 9 Mixed hyperlipidemia 267 736605 E78.2 LDL is at goal and he is following guideline of being on high dose statin (ator 40). lipidemia - 11/2015 LDL is just fine 128, at goal, off medication which he is disincline d to take.. Diet only. 03/2015 at goal below 100 on simvastati n 40. at goal below LDL 100, on lipitor 80 pt wishes FLP Sick sinus syndrome 3608 3008 I49.5 through bed rubber (video) declines symptoms..ther e is nothing more we can do for his safety- due to cultural fixed notions he has 02/26/17.h e and his dtr phoned cardiology to decline PPM.with bed rubber i showed him the 30 day event monitor tracings-e xplaining each of the 7 documented near 4 second pausesInfo rming him of his risk of or injury to another if he drives, crosses street or anything dangerous. He again declined pacemaker. 30 minutes spent face to face with pt Effie. 02/12/17 event monitor- 3 to 3.7 second apuses, PPM planned 5 days ago arose from chair, got up to grab door and passed out.has been generally feeling unwell.he is bradycardi c, PPM?(had negative nuclear 09/2015)rep orts sub sequent presyncope , has to lean on wall to prevent collapse during these events Lightheadedness 13526775 8 R42 pt through bed rubber denies symptoms, 10/2017. see above.summ er 2015.sympt omaticiatr ogenic this summeragre ed to DC lisinopril , he has proven intolerant of antihypert ensives and we will merely follow his BP which really has always been within recommende d uopper limit for age group 150/90, 148/90 havinmg been his highest BP recorded. he will f/u if orthostati c symptoms of brief lightheade dness head pressure vision loss upon arising persists. Coronary arteriosclerosis in red devil artery 6181620281 107 I25.10 assymptoma ticmed management is maximized with high dose statin (ator 40) and baby ASA cath by AYE JAUREGUI and hamp [id number] showed 50% ladappropr iate meds added Hyperglycemia 37287102 R 73.9 see dm below Type 2 alanis betes mellitus without complication 999951041 E11.9 10/2017 NEEDS EYE EXAM DM well controlled with diet only. Diabetes duscussed with pt through video bed rubber , who offers that patients feeling that if he is not given a pill he doesnt have illness. Reguardles s of his understand ing it makes no difference in applicatio n as he is on proper diet and A1c is at goal. A1c of 7., fell to 6.7 his diet is low sugar will recheck labs today 05/2017 DM discussed with pt. had shown only IFG max 113 for years [id number] Sabine Ventura MD , [facility], OFFICE [address] [place], [place] [address] 11/04/2017 09:51:08 11/04/2017 12:13:23 Sacroiliac joint pain 228143550 M53.3 This man bent over to pick something up 3 days ago and had back pain. He continues to have pain at the sacroiliac joints. He says both sides are just as bad but when I examined him I think the left side is worse. Usually this condition is not a serious problem and it goes away after time.Plan: acetaminop hen 500 mg, take 2 pills 3 times a day. this is the top dose.Walki ng often helps this, including walking slight inclines (hills).Wo rk-no work next 2 days ( out all this week) Essential hypertension 38548187 I10 Elevated blood pressure not well controlled . Quite a few of his readings have been over 140/90. I did not notice this until he was gone.Plan: I will have staff notify him that we need to keep an eye on his blood pressure and schedule him for BP clinic. [id number] Yarelis Huerta MD , [facility], OFFICE [address] [place] [address] 11/08/2017 11:12:16 11/08/2017 12:25:25 Sacroiliac joint pain 310013042 M53.3 here with grandson wong rizvipain locus has shifted to L5 S1 area he ambulates fine but reasonably is asking for few more days off. cont nsaids and we will reassess wednesday the . U mass restrictio ns completed no lift 10 bend squat etc. This man bent over to pick something up 3 days ago and had back pain. He continues to have pain at the sacroiliac joints. He says both sides are just as bad but when I examined him I think the left side is worse. Usually this condition is not a serious problem and it goes away after time.Plan: acetaminop hen 500 mg, take 2 pills 3 times a day. this is the top dose.Walki ng often helps this, including walking slight inclines (hills).Wo rk-no work next 2 days ( out all this week) Essential hypertension 41486817 I10 Elevated blood pressure not well controlled . Quite a few of his readings have been over 140/90. I did not notice this until he was gone.Plan: I will have staff notify him that we need to keep an eye on his blood pressure and schedule him for BP clinic. [id number] MD NIKKIE Daniel, [facility], OFFICE [address] [place] [address] 11/15/2017 07:45:47 11/15/2017 09:18:15 Sacroiliac joint pain 892006691 M53.3 11/15/2017 he has returned to full activity at homeRTW note written , august RW11/16/ with grandson wong rizvipain locus has shifted to L5 S1 area he ambulates fine but reasonably is asking for few more days off. cont nsaids and we will reassess wednesday the . U mass restrictio ns completed no lift 10 bend squat etc. This man bent over to pick something up 3 days ago and had back pain. He continues to have pain at the sacroiliac joints. He says both sides are just as bad but when I examined him I think the left side is worse. Usually this condition is not a serious problem and it goes away after time.Plan: acetaminop hen 500 mg, take 2 pills 3 times a day. this is the top dose.Walki ng often helps this, including walking slight inclines (hills).Wo rk-no work next 2 days ( out all this week) Essential hypertension 12629072 I10 11/15/20172 mildly elevated blood pressures, out of last 3 performed, past month.we discussed with pt and . dietary modificati on. she admits she may be putting too much salt in food. etoh appears minimal.fo llow Elevated blood pressure not well controlled . Quite a few of his readings have been over 140/90. I did not notice this until he was gone.Plan: I will have staff notify him that we need to keep an eye on his blood pressure and schedule him for BP clinic. [id number] Yarelis Huerta MD , [facility], OFFICE [address] [place] [address] 03/16/2018 10:21:42 03/16/2018 11:25:13 Active or passive immunization 735922836 Z23 Sacroiliac joint pain 6992321 M53.3 here with grandson wong velásquez.pain locus has shifted to L5 S1 area he ambulates fine but reasonably is asking for few more days off. cont nsaids and we will reassess wednesday the . U mass restrictio ns completed no lift 10 bend squat etc. This man bent over to pick something up 3 days ago and had back pain. He continues to have pain at the sacroiliac joints. He says both sides are just as bad but when I examined him I think the left side is worse. Usually this condition is not a serious problem and it goes away after time.Plan: acetaminop hen 500 mg, take 2 pills 3 times a day. this is the top dose.Walki ng often helps this, including walking slight inclines (hills).Wo rk-no work next 2 days ( out all this week) Headache 59223768 R51 historical .4 times a day gets head gutierrez lasting few seconds.Pt disincline d to believe that this is not significan t. referral printed for pts grandson to be able to schedule appt Cough 64452258 R05 resolved. 05/2016 pt states he has asthmai will add proair to fluticason e.he is not forthcomin g with symptoms, looking for 'strong medicine'h e will need formal testing .cough x many weeks, unclear if upper or lower mucuswill image and referi believe this is a habitual cough from minor environmen [facility] ferral printed for pts grandson to be able to schedule appt Olecranon bursitis 60220 0002 M70.21 resolved. summer 2015.lizett palomo etiology, aspiration and then steroidal injection was performed, see procedure note Benign ess ential hypertension 5465824 I10 BP at goal, w/o Rx Elevated blood pressure not well controlled . Quite a few of his readings have been over 140/90. I did not notice this until he was gone. at goal based on home reported pressureso ff med on own., none since 2017again mentions usual excuse of poor sleep last night as cause for initial high BP here monitor twice a year appears his intoleranc e of BP med was likely sinus pausescard iology restarted lisinopril 02/10/2017 .... meds again stopped , see low BP (abpve). Benign essential hypertensi on - 11/2015 at goal on lisinopril . Plan routine followup. usually at goal off meds today 05/20/15 it is aberrantly elevated he blows out a rapid excuse, got poor sleep agreed to rto 2 weeks recheck he has been a frustratin g case and i am reluctant to restart med 04/2015 still not at goal, pt frustrated with lisinopril and rather than increase dose, agreed with bed rubber to change to norvasc 10mg rto 2-3 weeks 03/2015 at goal on lisinopril 20 only. remains at goal (<140/90)o n two medication s HCTZ VICKY. Understand s what meds are for. plan to continue indefinite ly Bp checks twice annually. remains at goal on two medication s HCTZ VICKY Impotence 267266651 N52. 9 Mixed hyperlipidemia 267 394212 E78.2 LDL is at goal and he is following guideline of being on high dose statin (ator 40). lipidemia - 11/2015 LDL is just fine 128, at goal, off medication which he is disincline d to take.. Diet only. 03/2015 at goal below 100 on simvastati n 40. at goal below LDL 100, on lipitor 80 pt wishes FLP Sick sinus syndrome 3608 3008 I49.5 not clinically evident 03/2018. 07/2017 through bed rubber (video) declines symptoms..ther e is nothing more we can do for his safety- due to cultural fixed notions he has 02/26/17.h e and his dtr phoned cardiology to decline PPM.with bed rubber i showed him the 30 day event monitor tracings-e xplaining each of the 7 documented near 4 second pausesInfo rming him of his risk of or injury to another if he drives, crosses street or anything dangerous. He again declined pacemaker. 30 minutes spent face to face with pt Effie. 02/12/17 event monitor- 3 to 3.7 second apuses, PPM planned 5 days ago arose from chair, got up to grab door and passed out.has been generally feeling unwell.he is bradycardi c, PPM?(had negative nuclear 09/2015)rep orts sub sequent presyncope , has to lean on wall to prevent collapse during these events Lightheadedness 70714635 8 R42 pt through bed rubber denies symptoms, 10/2017, 03/2018 see above.summ er 2015.sympt omaticiatr ogenic this summeragre ed to DC lisinopril , he has proven intolerant of antihypert ensives and we will merely follow his BP which really has always been within recommende d uopper limit for age group 150/90, 148/90 havinmg been his highest BP recorded. he will f/u if orthostati c symptoms of brief lightheade dness head pressure vision loss upon arising persists. Coronary arteriosclerosis in red devil artery 7707187718 107 I25.10 assymptoma ticmed management is maximized with high dose statin (ator 40) and baby [id number] showed 50% ladappropr iate meds added Type 2 alanis betes mellitus without complication 986330844 E11.9 03/2018 order labs for august 2017.no labs this 6 month period although is standing q 6 mo 10/2017 NEEDS EYE EXAM DM well controlled with diet only. Diabetes duscussed with pt through video bed rubber , who offers that patient feels that if he is not given a pill he doesnt have illness. Reguardles s of his understand ing it makes no difference in applicatio n as he is on proper diet and A1c is at goal. A1c of 7., fell to 6.7 his diet is low sugar will recheck labs today 05/2017 DM discussed with pt. 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 [id number] Yarelis Huerta MD , [facility], OFFICE [address] [place], [place] [address] 05/31/2018 15:57:07 05/31/2018 18:00:35 Active or passive immunization 661751328 Z23 Benign ess ential hypertension 8924170 I10 slt high here very elevated at home, will resart BP med , change from lisinopril to losartan 50 90 x 3.BP at goal, w/o Rx Elevated blood pressure not well controlled . Quite a few of his readings have been over 140/90. I did not notice this until he was gone. at goal based on home reported pressureso ff med on own., none since 2017again mentions usual excuse of poor sleep last night as cause for initial high BP here monitor twice a year appears his intoleranc e of BP med was likely sinus pausescard iology restarted lisinopril 02/10/2017 .... meds again stopped , see low BP (abpve). Benign essential hypertensi on - 11/2015 at goal on lisinopril . Plan routine followup. usually at goal off meds today 05/20/15 it is aberrantly elevated he blows out a rapid excuse, got poor sleep agreed to rto 2 weeks recheck he has been a ángela g case and i am reluctant to restart med 04/2015 still not at goal, pt frustrated with lisinopril and rather than increase dose, agreed with bed rubber to change to norvasc 10mg rto 2-3 weeks 03/2015 at goal on lisinopril 20 only. remains at goal (<140/90)o n two medication s HCTZ VICKY. Understand s what meds are for. plan to continue indefinite ly Bp checks twice annually. remains at goal on two medication s HCTZ VICKY Type 2 alanis betes mellitus without complication 942776890 E11.9 03/2018 order labs for august 2017.no labs this 6 month period although is standing q 6 mo 10/2017 NEEDS EYE EXAM DM well controlled with diet only. Diabetes duscussed with pt through video bed rubber , who offers that patient feels that if he is not given a pill he doesnt have illness. [employer] s of his understand ing it makes no difference in applicatio n as he is on proper diet and A1c is at goal. A1c of 7., fell to 6.7 his diet is low sugar will recheck labs today 05/2017 DM discussed with pt. had shown only IFG max 113 for years Sacroiliac joint pain 20 4108822 M53.3 here with grandson wong velásquez.pain locus has shifted to L5 S1 area he ambulates fine but reasonably is asking for few more days off. cont nsaids and we will reassess wednesday the . U mass restrictio ns completed no lift 10 bend squat etc. This man bent over to pick something up 3 days ago and had back pain. He continues to have pain at the sacroiliac joints. He says both sides are just as bad but when I examined him I think the left side is worse. Usually this condition is not a serious problem and it goes away after time.Plan: acetaminop hen 500 mg, take 2 pills 3 times a day. this is the top dose.Walki ng often helps this, including walking slight inclines (hills).Wo rk-no work next 2 days ( out all this week) Headache [id number] R51 historical .4 times a day gets head gutierrez lasting few seconds.Pt disincline d to believe that this is not significan t. referral printed for pts grandson to be able to schedule appt Cough 05503594 R05 resolved. 05/2016 pt states he has asthmai will add proair to fluticason e.he is not forthcomin g with symptoms, looking for 'strong medicine'h e will need formal testing .cough x many weeks, unclear if upper or lower mucuswill image and referi believe this is a habitual cough from minor environmen vinod exposurere ferral printed for pts grandson to be able to schedule appt Olecranon bursitis 45930 0002 M70.21 resolved. summer 2015.uncmiladis palomo etiology, aspiration and then steroidal injection was performed, see procedure note Impotence [id number] N52. 9 Mixed hyperlipidemia 267 295478 E78.2 LDL is at goal and he is following guideline of being on high dose statin (ator 40). lipidemia - 11/2015 LDL is just fine 128, at goal, off medication which he is disincline d to take.. Diet only. 03/2015 at goal below 100 on simvastati n 40. at goal below LDL 100, on lipitor 80 pt wishes FLP Sick sinus syndrome 3608 3008 I49.5 not clinically evident 03/2018. 07/2017 through bed rubber (video) declines symptoms..ther e is nothing more we can do for his safety- due to cultural fixed notions he has 02/26/17.h ren and his dtr phoned cardiology to decline PPM.with bed rubber i showed him the 30 day event monitor tracings-e xplaining each of the 7 documented near 4 second pausesInfo rming him of his risk of or injury to another if he drives, crosses street or anything dangerous. He again declined pacemaker. 30 minutes spent face to face with pt Effie. 02/12/17 event monitor- 3 to 3.7 second apuses, PPM planned 5 days ago arose from chair, got up to grab door and passed out.has been generally feeling unwell.he is bradycardi c, PPM?(had negative nuclear 09/2015)rep orts sub sequent presyncope , has to lean on wall to prevent collapse during these events Lightheadedness 71043915 8 R42 pt through bed rubber denies symptoms, 10/2017, 03/2018 see above.summ er 2016.sympt omaticiatr ogenic this summeragre ed to DC lisinopril , he has proven intolerant of antihypert ensives and we will merely follow his BP which really has always been within recommende d uopper limit for age group 150/90, 148/90 havinmg been his highest BP recorded. he will f/u if orthostati c symptoms of brief lightheade dness head pressure vision loss upon arising persists. 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 [id number] Yarelis Huerta MD , [facility] [place], OFFICE [address] [place] [address] 07/01/2018 11:52:28 07/04/2018 12:00:31 Cough 72676820 R05 resolved. 05/2016 pt states he has asthmai will add proair to fluticason e.he is not forthcomin g with symptoms, looking for 'strong medicine'h e will need formal testing .cough x many weeks, unclear if upper or lower mucuswill image and referi believe this is a habitual cough from minor environmen [facility] printed for pts grandson to be able to schedule appt [id number] Yarelis Huerta MD , [facility], OFFICE [address] [place] [address] 09/14/2018 08:39:56 09/14/2018 16:40:06 Cough 71206445 R05 09/14/2018 past 2 dayscough and runny nosebegan as allergic sneeze r/w otc antihistam inehe ran out flovent, reminded to pickup refill from recent rxdue to loss BS LLL i am requesting cxr, adding pred and z pack.cough syrup per usual request, as is provoking chest wall paintransl ator helpful, used throughout labs reviewedth is is his usual pattern, seasonally off work 09/15, 09/16 note writtenthi s is his usual asthmatic bronchitis . 07/2018 pt states he has asthmai will add proair to fluticason e.he is not forthcomin g with symptoms, looking for 'strong medicine'h e will need formal testing .cough x many weeks, unclear if upper or lower mucuswill image and referi believe this is a habitual cough from minor environmen vinod exposurere ferral printed for pts grandson to be able to schedule appt [id number] Barbara Gamez, G[employer]ERY [employer]OST , [facility], OFFICE [address] [place], [place] [address] 03/27/2019 15:21:40 03/27/2019 16:26:59 Cough 25630065 R05 09/14/2018 past 2 dayscough and runny nosebegan as allergic sneeze r/w otc antihistam inehe ran out flovent, reminded to pickup refill from recent rxdue to loss BS LLL i am requesting cxr, adding pred and z pack.cough syrup per usual request, as is provoking chest wall paintransl ator helpful, used throughout labs reviewedth is is his usual pattern, seasonally off work 09/15, 09/16 note writtenthi s is his usual asthmatic bronchitis . 07/2018 pt states he has asthmai will add proair to fluticason e.he is not forthcomin g with symptoms, looking for 'strong medicine'h e will need formal testing .cough x many weeks, unclear if upper or lower mucuswill image and referi believe this is a habitual cough from minor environmen vinod exposurere ferral printed for pts grandson to be able to schedule appt Active or passive immunization [id number] Z23 Benign ess ential hypertension 7970790 I10 slt high here very elevated at home, will resart BP med , change from lisinopril to losartan 50 90 x 3.BP at goal, w/o Rx Elevated blood pressure not well controlled . Quite a few of his readings have been over 140/90. I did not notice this until he was gone. at goal based on home reported pressureso ff med on own., none since 2017again mentions usual excuse of poor sleep last night as cause for initial high BP here monitor twice a year appears his intoleranc e of BP med was likely sinus pausescard iology restarted lisinopril 02/10/2017 .... meds again stopped , see low BP (abpve). Benign essential hypertensi on - 11/2015 at goal on lisinopril . Plan routine followup. usually at goal off meds today 05/20/15 it is aberrantly elevated he blows out a rapid excuse, got poor sleep agreed to rto 2 weeks recheck he has been a ángela g case and i am reluctant to restart med 04/2015 still not at goal, pt frustrated with lisinopril and rather than increase dose, agreed with bed rubber to change to norvasc 10mg rto 2-3 weeks 03/2015 at goal on lisinopril 20 only. remains at goal (<140/90)o n two medication s HCTZ VICKY. Understand s what meds are for. plan to continue indefinite ly Bp checks twice annually. remains at goal on two medication s HCTZ VICKY Type 2 alanis betes mellitus without complication 585734857 E11.9 2 a1c's for 2019 are at goal* 03/2018 order labs for august 2017.no labs this 6 month period although is standing q 6 mo 10/2017 NEEDS EYE EXAM DM well controlled with diet only. Diabetes duscussed with pt through video bed rubber , who offers that patient feels that if he is not given a pill he doesnt have illness. Reguardles s of his understand ing it makes no difference in applicatio n as he is on proper diet and A1c is at goal. A1c of 7., fell to 6.7 his diet is low sugar will recheck labs today 05/2017 DM discussed with pt. had shown only IFG max 113 for years Sacroiliac joint pain 20 9853615 M53.3 here with grandson ashleycain velásquez.pain locus has shifted to L5 S1 area he ambulates fine but reasonably is asking for few more days off. cont nsaids and we will reassess wednesday the . U mass restrictio ns completed no lift 10 bend squat etc. This man bent over to pick something up 3 days ago and had back pain. He continues to have pain at the sacroiliac joints. He says both sides are just as bad but when I examined him I think the left side is worse. Usually this condition is not a serious problem and it goes away after time.Plan: acetaminop hen 500 mg, take 2 pills 3 times a day. this is the top dose.Walki ng often helps this, including walking slight inclines (hills).Wo rk-no work next 2 days ( out all this week) Headache 19293072 R51 historical .4 times a day gets head gutierrez lasting few seconds.Pt disincline d to believe that this is not significan t. referral printed for pts grandson to be able to schedule appt Olecranon bursitis 06985 0002 M70.21 resolved. summer 2015.lizett palomo etiology, aspiration and then steroidal injection was performed, see procedure note Impotence 698638310 N52. 9 Mixed hyperlipidemia 267 916920 E78.2 LDL he is following guideline of being on high dose statin (ator 40). lipidemia - 11/2015 LDL is just fine 128, at goal, off medication which he is disincline d to take.. Diet only. 03/2015 at goal below 100 on simvastati n 40. at goal below LDL 100, on lipitor 80 pt wishes FLP Sick sinus syndrome 3608 3008 I49.5 not clinically evident 03/2018. 07/2017 through bed rubber (video) declines symptoms..ther e is nothing more we can do for his safety- due to cultural fixed notions he has 02/26/17.h ren and his dtr phoned cardiology to decline PPM.with bed rubber i showed him the 30 day event monitor tracings-e xplaining each of the 7 documented near 4 second pausesInfo rming him of his risk of or injury to another if he drives, crosses street or anything dangerous. He again declined pacemaker. 30 minutes spent face to face with pt Effie. 02/12/17 event monitor- 3 to 3.7 second apuses, PPM planned 5 days ago arose from chair, got up to grab door and passed out.has been generally feeling unwell.he is bradycardi c, PPM?(had negative nuclear 09/2015)rep orts sub sequent presyncope , has to lean on wall to prevent collapse during these events Lightheadedness 13134413 8 R42 pt through bed rubber denies symptoms, 10/2017, 03/2018 see above.summ er 2015.sympt omaticiatr ogenic this summeragre ed to DC lisinopril , he has proven intolerant of antihypert ensives and we will merely follow his BP which really has always been within recommende d uopper limit for age group 150/90, 148/90 havinmg been his highest BP recorded. he will f/u if orthostati c symptoms of brief lightheade dness head pressure vision loss upon arising persists. Coronary arteriosclerosis in red devil artery 1330900748 107 I25.10 assymptoma ticmed management is maximized with high dose statin (ator 40) and baby ASA cath by AYE JAUREGUI and hamp [id number] showed 50% ladappropr iate meds added Impotence of organic origin 601287057 N52.9 03/2018 refilled.p rior- pt wishes refill viagra presents empty bottle to me. Low back pain 044601044 M54.5 resolved. upper lumbar lower thoracic pain upon arising prob djd. rec iboprofen agreed to check liver enzymes renal fn per pr request, resonabkle as on lipitor high dose. denies h/o liver dz, hepatitis. Plantar fasciitis 703535 003 M72.2 due to pes planus has failed home treatment he had purchased a nonsense compressio n bandage i printed out a photo of the [employer] night splint for him to purchase recommende d podiatry input as well resolved due to pes planus written instructio ns from upto date, verbal translatio n as well as written Dr Hernadez instructio ns to pharmacist given Dermatophytosis 59311367 B35.9 . Dermatophy tosis of the perianal area - resolved w topicals B35.4: Tinea corporis [id number] MARY Tinoco FP, [facility], OFFICE [address] [place] [address] 04/27/2019 08:46:15 04/27/2019 09:47:47 Benign essential hypertension 5478382 I10 Pt has not taken his BP medication since [facility] discharge. Pt will start as soon as he gets home. Informed Pt, Pt' daughter, Pt's grandson that BP goal is below 140/90. Pt's daughter and grandson will report they will monitor at home after he takes his medication and if above 140/90, they will schedule an appointmen t with BP clinic to follow-up or with PCP to follow-up. All questions were addressed. Pt understand s and agrees with treatment plan Active or passive immunization 722918115 Z23 Sinus node dysfunction 79252821 I49.8 Pt was discharged with 30 day monitor to look for asymptomat ic PAF. Discussed with Pt, Pt's daughter and grandson to schedule a follow-up with cardiologi st Dr. Zamarripa . All questions were addressed. Pt understand s and agrees with treatment plan Left carot id artery stenosis [id number] 39537 I65.22 Pt's son reports Pt has a CT scan tomorrow for the neck to determine how much it is blocked. MRA of neck showed an internal carotid narrowing of 50% eccentric plaque and pseudoaneu rysm. Pt's daughter and grandson and reports they already have an appointmen t with Dr. Dela Cruz for consultati on of left internal carotid endarterec tonya. History of cerebrovascular accident 824343065 Z86.73 physical examinatio n today was unremarkab le. MRI/MRA during hospitaliz ation showed a left parietal acute stroke. Based on the discharge note, the cause of the stroke could be due to the left carotid stenosis. Pt's son reports Pt has a CT scan tomorrow for the neck to determine how much it is blocked. MRA of neck showed an internal carotid narrowing of 50% eccentric plaque and pseudoaneu rysm. Pt's daughter and grandson and reports they already have an appointmen t with Dr. Dela Cruz for consultati on of left internal carotid endarterec tonya. Pt was started on clopidogre l in addition to aspirin and atorvastat in was increased to 80mg. Will continue both medication s. [id number] Yarelis Huerta MD , [facility], OFFICE [address] [place] [address] 03/20/2020 14:12:33 03/22/2020 11:14:55 Adult health examination 052377874 Z00.00 USPSTF guidelines reviewed and discussed with patient.FO B testImmuni zations UTD Counseling 355939061 Z71 .9 including cardiovasc ular risk reduction counseling Diet and exercise reviewed. Family and social interactio ns reviewed. Safety and injury prevention reviewed. Stress management reviewed. Depression screening 171 927363 Z13.89 depression screening tool administer ed, entered into emr, scored and discussed, time greater than 7.5 minutes Negatove depression screen Screening for alcohol abuse 347968317 Z13.39 An audit alcohol screening test was performed and scored. Patient was asked about alcohol use, advised about risks of alcohol, and personal risk was assessed. Discussed alcohol in moderatioo n Discussion including screening and scoring greater than 7.5 minutes Benign ess ential hypertension 6689264 I10 Continue Losartan as ordered. Pateint is compliant with medication sDiscussed healthy diet and exercise. Coronary arteriosclerosis 79328908 I25.10 Mixed hyperlipidemia 267 780541 E78.2 Heart healthy diet discussedE ncourgaed daily exercise. Transient cerebral ischemia 985454900 G45.9 Continue on AspirinPat ient no longer taking Plavix per most recent cardiology note Type 2 alanis betes mellitus without complication 522661774 E11.9 Discussed at length carbohydra te intake with patient. Doet and exercise controlled .Patient's A1c is 7.0No microalbum inuria. Sick sinus syndrome 3608 3008 I49.5 SP pacemaker Cough 42730256 R05 HydrationR inse mouth after inhaler use.Add claritin, follow up in one month for further evaluation [id number] Yasmin Chambers . MD LUNDY, [facility], OFFICE [address] [place] [address] 04/19/2020 09:28:00 04/19/2020 15:14:46 Mixed hyperlipidemia 584893767 E78.2 Heart healthy diet discussed Encouraged daily exercise. LDL 59. Continue Atorvastat in. Check LFT's Type 2 alanis betes mellitus without complication 319373696 E11.9 Discussed at length carbohydra te intake with patient. Diet and exercise controlled . Patient's A1c is 7.0 No microalbum inuria. Benign pro static hyperplasia 546442596 N40.1 Check PSA level. If elevated refer to urology. Follow up in one week to consider starting Flomax. Adequate fluid intake. Cough 01240326 R05 Pt presents with complaint of cough for several days. Pt doesn't have asthma and has no wheezing or signs of respirator y distress. Symptoms are most likely related to post nasal drip. Supportive measures reviewed including nasal saline and staying hydrated. Pt will follow up if symptoms worsen or if develops fever, increased sob, or increased sputum. [id number] Yarelis Huerta MD , [facility], OFFICE [address] [place] [address] 04/24/2020 08:49:26 04/25/2020 10:11:03 Insomnia 701614839 G47.00 asleep at 8, awakens at 2 and unable to return to sleep declines long acting sleep aid rec exercise 1 hr pre sleep Slowing of urinary stream 10579798 R39.12 04/2020 stop and start urine needs to void only 1-2 times at night no incontinen ce bph is mild, follow he reasonably declined medication Cough 33128130 R05 09/14/2018 past 2 dayscough and runny nosebegan as allergic sneeze r/w otc antihistam inehe ran out flovent, reminded to pickup refill from recent rxdue to loss BS LLL i am requesting cxr, adding pred and z pack.cough syrup per usual request, as is provoking chest wall paintransl ator helpful, used throughout labs reviewedth is is his usual pattern, seasonally off work 09/15, 09/16 note writtenthi s is his usual asthmatic bronchitis . 07/2018 pt states he has asthmai will add proair to fluticason e.he is not forthcomin g with symptoms, looking for 'strong medicine'h e will need formal testing .cough x many weeks, unclear if upper or lower mucuswill image and referi believe this is a habitual cough from minor environmen [facility] for pts grandson to be able to schedule appt Benign ess ential hypertension 3600776 I10 04/24/2020 pt very concerned that his home cuff reads high , as it usually does. Son states it is reading 200 mmHg They should not even use the innacurate home cuff. I am asking then to come in today to see any provider, to confirm the ongoing innacuracy of their cuff in hopes they will discard it. continue losartan 50 untill he comes in. . slt high here very elevated at home, will resart BP med , change from lisinopril to losartan 50 90 x 3. BP at goal, w/o Rx Elevated blood pressure not well controlled . Quite a few of his readings have been over 140/90. I did not notice this until he was gone. at goal based on home reported pressures off med on own., none since 2017 again mentions usual excuse of poor sleep last night as cause for initial high BP here monitor twice a year appears his intoleranc e of BP med was likely sinus pauses cardiology restarted lisinopril 02/10/2017 .... meds again stopped , see low BP (abpve) . Benign essential hypertensi on - 11/2015 at goal on lisinopril . Plan routine followup. usually at goal off meds today 05/20/15 it is aberrantly elevated he blows out a rapid excuse, got poor sleep agreed to rto 2 weeks recheck he has been a frustratin g case and i am reluctant to restart med 04/2015 still not at goal, pt frustrated with lisinopril and rather than increase dose, agreed with bed rubber to change to norvasc 10mg rto 2-3 weeks 03/2015 at goal on lisinopril 20 only. remains at goal (<140/90)o n two medication s HCTZ VICKY. Understand s what meds are for. plan to continue indefinite ly Bp checks twice annually. remains at goal on two medication s HCTZ VICKY Type 2 alanis betes mellitus without complication 393308967 E11.9 04/2020 at goal diet only 10/2017 NEEDS EYE EXAM DM well controlled with diet only. Diabetes discussed with pt through video bed rubber , who offers that patient feels that if he is not given a pill he doesnt have illness. Reguardles s of his understand ing it makes no difference in applicatio n as he is on proper diet and A1c is at goal. A1c of 7., fell to 6.7 his diet is low sugar will recheck labs today 05/2017 DM discussed with pt. had shown only IFG max 113 for years Sacroiliac joint pain 20 4528689 M53.3 historical ; here with grandson wong velásquez. pain locus has shifted to L5 S1 area he ambulates fine but reasonably is asking for few more days off. cont nsaids and we will reassess wednesday the . U mass restrictio ns completed no lift 10 bend squat etc. This man bent over to pick something up 3 days ago and had back pain. He continues to have pain at the sacroiliac joints. He says both sides are just as bad but when I examined him I think the left side is worse. Usually this condition is not a serious problem and it goes away after time. Plan: acetaminop hen 500 mg, take 2 pills 3 times a day. this is the top dose. Walking often helps this, including walking slight inclines (hills). Work-no work next 2 days ( out all this week) Headache 88132270 R51.9 historical .4 times a day gets head gutierrez lasting few seconds.Pt disincline d to believe that this is not significan t. referral printed for pts grandson to be able to schedule appt Olecranon bursitis 12844 0002 M70.21 resolved. summer 2015.uncmiladis palomo etiology, aspiration and then steroidal injection was performed, see procedure note Impotence 921073206 N52. 9 Mixed hyperlipidemia 267 272721 E78.2 LDL is at goal for diabetic. he is following guideline of being on high dose statin (ator 40). lipidemia - 11/2015 LDL is just fine 128, at goal, off medication which he is disincline d to take. . Diet only. 03/2015 at goal below 100 on simvastati n 40. at goal below LDL 100, on lipitor 80 pt wishes FLP Sick sinus syndrome 3608 3008 I49.5 not clinically evident 03/2018. 07/2017 through bed rubber (video) declines symptoms..ther e is nothing more we can do for his safety- due to cultural fixed notions he has 02/26/17.h e and his dtr phoned cardiology to decline PPM.with bed rubber i showed him the 30 day event monitor tracings-e xplaining each of the 7 documented near 4 second pausesInfo rming him of his risk of or injury to another if he drives, crosses street or anything dangerous. He again declined pacemaker. 30 minutes spent face to face with pt Effie. 02/12/17 event monitor- 3 to 3.7 second apuses, PPM planned 5 days ago arose from chair, got up to grab door and passed out.has been generally feeling unwell.he is bradycardi c, PPM?(had negative nuclear 09/2015)rep orts sub sequent presyncope , has to lean on wall to prevent collapse during these events Lightheadedness 46462337 8 R42 pt through bed rubber denies symptoms, 10/2017, 03/2018 see above.summ er 2015.sympt omaticiatr ogenic this summeragre ed to DC lisinopril , he has proven intolerant of antihypert ensives and we will merely follow his BP which really has always been within recommende d uopper limit for age group 150/90, 148/90 havinmg been his highest BP recorded. he will f/u if orthostati c symptoms of brief lightheade dness head pressure vision loss upon arising persists. Coronary arteriosclerosis in red devil artery 2280068464 107 I25.10 assymptoma ticmed management is maximized with high dose statin (ator 40) and baby ASA cath by AYE JAUREGUI and hamp [id number] showed 50% ladappropr iate meds added Impotence of organic origin 172523447 N52.9 03/2018 refilled.p rior- pt wishes refill viagra presents empty bottle to me. Low back pain 245675026 M54.5 resolved. upper lumbar lower thoracic pain upon arising prob djd. rec iboprofen agreed to check liver enzymes renal fn per pr request, resonabkle as on lipitor high dose. denies h/o liver dz, hepatitis. Plantar fasciitis 417478 003 M72.2 due to pes planus has failed home treatment he had purchased a nonsense compressio n bandage i printed out a photo of the [employer] night splint for him to purchase recommende d podiatry input as well resolved due to pes planus written instructio ns from upto date, verbal translatio n as well as written Dr Hernadez instructio ns to pharmacist given Dermatophytosis [id number] B35.9 . Dermatophy tosis of the perianal area - resolved w topicals B35.4: Tinea corporis Screening for malignant neoplasm of prostate 457455953 Z12.5 1.32 at age 74 is very low risk indeed [id number] Lilly Serrano LPN , [facility] [place], OFFICE [address] [place] [address] 04/24/2020 10:57:55 04/25/2020 10:11:37 [id number] Yarelis Huerta MD , [facility], OFFICE [address] [place] [address] 10/29/2020 13:20:10 10/29/2020 14:01:07 Benign essential hypertension 5452442 I10 BP at goal on current regimen, below 130continu e losartan 100 indefinite ly with routine monitoring * 04/24/2020 pt very concerned that his home cuff reads high , as it usually does. Son states it is reading 200 mmHg They should not even use the innacurate home cuff. I am asking then to come in today to see any provider, to confirm the ongoing innacuracy of their cuff in hopes they will discard it. continue losartan 50 untill he comes in. . slt high here very elevated at home, will restart BP med , change from lisinopril to losartan 50 90 x 3. BP at goal, w/o Rx Elevated blood pressure not well controlled . Quite a few of his readings have been over 140/90. I did not notice this until he was gone. mildly elevated blood pressures, out of last 3 performed, past month.we discussed with pt and . dietary modificati on. she admits she may be putting too much salt in food. etoh appears minimal.fo llow Elevated blood pressure not well controlled . Quite a few of his readings have been over 140/90. I did not notice this until he was gone.Plan: I will have staff notify him that we need to keep an eye on his blood pressure and schedule him for BP clinic.* at goal based on home reported pressures off med on own., none since 2017 again mentions usual excuse of poor sleep last night as cause for initial high BP here monitor twice a year appears his intoleranc e of BP med was likely sinus pauses cardiology restarted lisinopril 02/10/2017 .... meds again stopped , see low BP (abpve) . Benign essential hypertensi on - 11/2015 at goal on lisinopril . Plan routine followup. usually at goal off meds today 05/20/15 it is aberrantly elevated he blows out a rapid excuse, got poor sleep agreed to rto 2 weeks recheck he has been a frustratin g case and i am reluctant to restart med 04/2015 still not at goal, pt frustrated with lisinopril and rather than increase dose, agreed with bed rubber to change to norvasc 10mg rto 2-3 weeks 03/2015 at goal on lisinopril 20 only. remains at goal (<140/90)o n two medication s HCTZ VICKY. Understand s what meds are for. plan to continue indefinite ly Bp checks twice annually. remains at goal on two medication s HCTZ VICKY Mixed hyperlipidemia 267 967951 E78.2 LDL is at goal for diabetic. on high dose statin (ator 40).LDL 56 lipidemia - 11/2015 LDL is just fine 128, at goal, off medication which he is disincline d to take. . Diet only. 03/2015 at goal below 100 on simvastati n 40. at goal below LDL 100, on lipitor 80 pt wishes FLP Insomnia 885634764 G47.0 0 asleep at 8, awakens at 2 and unable to return to sleep declines long acting sleep aid rec exercise 1 hr pre sleep Slowing of urinary stream 78464973 R39.12 04/2020 stop and start urine needs to void only 1-2 times at night no incontinen ce bph is mild, follow he reasonably declined medication Cough 48276286 R05 09/14/2018 past 2 dayscough and runny nosebegan as allergic sneeze r/w otc antihistam inehe ran out flovent, reminded to pickup refill from recent rxdue to loss BS LLL i am requesting cxr, adding pred and z pack.cough syrup per usual request, as is provoking chest wall paintransl ator helpful, used throughout labs reviewedth is is his usual pattern, seasonally off work 09/15, 09/16 note writtenthi s is his usual asthmatic bronchitis . 07/2018 pt states he has asthmai will add proair to fluticason e.he is not forthcomin g with symptoms, looking for 'strong medicine'h e will need formal testing .cough x many weeks, unclear if upper or lower mucuswill image and referi believe this is a habitual cough from minor environmen [facility] printed for pts grandson to be able to schedule appt Type 2 alanis samuel mellitus without complication [id number] E11.9 04/2020 at goal diet only6.8 =A1c 10/2017 NEEDS EYE EXAM DM well controlled with diet only. Diabetes discussed with pt through video bed rubber , who offers that patient feels that if he is not given a pill he doesnt have illness. Reguardles s of his understand ing it makes no difference in applicatio n as he is on proper diet and A1c is at goal. A1c of 7., fell to 6.7 his diet is low sugar will recheck labs today 05/2017 DM discussed with pt. had shown only IFG max 113 for years Sacroiliac joint pain 20 1500997 M53.3 historical ; here with grandson wong rizvi pain locus has shifted to L5 S1 area he ambulates fine but reasonably is asking for few more days off. cont nsaids and we will reassess wednesday the . U mass restrictio ns completed no lift 10 bend squat etc. This man bent over to pick something up 3 days ago and had back pain. He continues to have pain at the sacroiliac joints. He says both sides are just as bad but when I examined him I think the left side is worse. Usually this condition is not a serious problem and it goes away after time. Plan: acetaminop hen 500 mg, take 2 pills 3 times a day. this is the top dose. Walking often helps this, including walking slight inclines (hills). Work-no work next 2 days ( out all this week) Headache 90846785 R51.9 historical .4 times a day gets head gutierrez lasting few seconds.Pt disincline d to believe that this is not significan t. referral printed for pts grandson to be able to schedule appt Olecranon bursitis 72512 0002 M70.21 resolved. summer 2015.lizett palomo etiology, aspiration and then steroidal injection was performed, see procedure note Impotence 976589617 N52. 9 Sick sinus syndrome 3608 3008 I49.5 not clinically evident 03/2018. 07/2017 through bed rubber (video) declines symptoms..ther e is nothing more we can do for his safety- due to cultural fixed notions he has 02/26/17.h e and his dtr phoned cardiology to decline PPM.with bed rubber i showed him the 30 day event monitor tracings-e xplaining each of the 7 documented near 4 second pausesInfo rming him of his risk of or injury to another if he drives, crosses street or anything dangerous. He again declined pacemaker. 30 minutes spent face to face with pt Effie. 02/12/17 event monitor- 3 to 3.7 second apuses, PPM planned 5 days ago arose from chair, got up to grab door and passed out.has been generally feeling unwell.he is bradycardi c, PPM?(had negative nuclear 09/2015)rep orts sub sequent presyncope , has to lean on wall to prevent collapse during these events Lightheadedness 54023056 8 R42 pt through bed rubber denies symptoms, 10/2017, 03/2018 see above.summ er 2015.sympt omaticiatr ogenic this summeragre ed to DC lisinopril , he has proven intolerant of antihypert ensives and we will merely follow his BP which really has always been within recommende d uopper limit for age group 150/90, 148/90 havinmg been his highest BP recorded. he will f/u if orthostati c symptoms of brief lightheade dness head pressure vision loss upon arising persists. Coronary arteriosclerosis in red devil artery [id number] 107 I25.10 assymptoma ticmed management is maximized with high dose statin (ator 40) and baby ASA cath by AYE JAUREGUI and hamp [id number] showed 50% ladappropr iate meds added Impotence of organic origin 691446584 N52.9 03/2018 refilled.p rior- pt wishes refill viagra presents empty bottle to me. Low back pain 563359462 M54.5 resolved. upper lumbar lower thoracic pain upon arising prob djd. rec iboprofen agreed to check liver enzymes renal fn per pr request, resonabkle as on lipitor high dose. denies h/o liver dz, hepatitis. Plantar fasciitis 20271203 003 M72.2 due to pes planus has failed home treatment he had purchased a nonsense compressio n bandage i printed out a photo of the VBI Vaccines night splint for him to purchase recommende d podiatry input as well resolved due to pes planus written instructio ns from upto date, verbal translatio n as well as written Dr Hernadez instructio ns to pharmacist given Dermatophytosis 40984751 B35.9 . Dermatophy tosis of the perianal area - resolved w topicals B35.4: Tinea corporis Screening for malignant neoplasm of prostate 131011389 Z12.5 1.32 at age 74 is very low risk indeed [id number] ROCCO Humphreys , [facility], OFFICE [address] [place] [address] 01/21/2021 16:19:31 01/21/2021 16:59:33 Contact dermatitis due to plants, except food 16659925 L25.5 Patient with contact dermatitis from unknown plant, he suspects from pine tree brush he was removing, although cannot rule out poison mike or poison sumacThe rash is itchy. Will prescribe topical triamcinol one - apply thin layer twice daily for 2 weeks.Will also prescribe benadryl to be taken as needed for the itchFollow -up if needed for new/worsen ing symptomsIf no improvemen t with topical steroid, consider oral prednisone taper. Does not currently appearing to be spreading elsewhere on his body, but encouraged to follow-up if this occurs. Pain in right knee 39549 23917 82134 M25.561 Refill as-needed naproxen for right knee painStates no longer taking ibuprofen, removed from medication list Benign ess ential hypertension 5959424 I10 On losartan 100 mg dailyBP not at goal today <130/80In visible discomfort from his rash as aboveWill have him return to the office in 3-4 days for BP check with nursingLim it NSAIDs i.e. naproxen, ibuprofenC ontinue to limit caffeine. [id number] Fina Duncan NP , [facility], OFFICE [address] [place] [address] 04/02/2021 13:30:01 04/02/2021 14:15:29 Benign essential hypertension 4997031 I10 very highasympt omatichx if cvawill start amlodipine 5 mg in addition to losartan 100 mgclose f/u with RV next week Transient cerebral ischemia 308922858 G45.9 nd to carotid stenosis Cough 82582591 R05.9 x 10 yearsnever used flonase- has used flovent in pastwill try flonase, mucinexkee p well hydrated [id number] Yarelis Huerta MD , [facility], OFFICE [address] [place] [address] 04/15/2021 10:01:40 04/22/2021 20:21:24 Essential hypertension 73537624 I10 04/2021 add metop . SBP 200 then audible pulsations stop and restart at 145. RTO 2 weeks mildly elevated blood pressures, out of last 3 performed, past month.we discussed with pt and . dietary modificati on. she admits she may be putting too much salt in food. etoh appears minimal.fo llow Elevated blood pressure not well controlled . Quite a few of his readings have been over 140/90. I did not notice this until he was gone.Plan: I will have staff notify him that we need to keep an eye on his blood pressure and schedule him for BP clinic. Active or passive immunization 756158433 Z23 [id number] Yarelis Huerta MD , [facility], OFFICE [address] [place] [address] 08/13/2021 10:00:40 08/23/2021 12:34:34 Sinus node dysfunction 40650651 I49.8 Type 2 alanis betes mellitus without complication 829239901 E11.9 Remains at goal diet eayuW1f=9. 9 10/2017 NEEDS EYE EXAM DM well controlled with diet only. Diabetes discussed with pt through video bed rubber , who offers that patient feels that if he is not given a pill he doesnt have illness. Reguardles s of his understand ing it makes no difference in applicatio n as he is on proper diet and A1c is at goal. A1c of 7., fell to 6.7 his diet is low sugar will recheck labs today 05/2017 DM discussed with pt. had shown only IFG max 113 for years Adult heal th examination 855652734 Z00.00 well examsee Risk Assessment and Lifestyle Change Counseling section above Counseling 947627254 Z71 .9 including cardiovasc ular risk reduction counseling Depression screening 171 621301 Z13.31 depression screening tool administer ed, entered into emr, scored and discussed, time greater than 7.5 minutes Screening for alcohol abuse 328756305 Z13.39 Essential hypertension 17715961 I10 08/2021 unclear compliance with metop yet BP atgoal. metop ER 50 and losartan 1407204/2021 add metop . SBP 200 then audible pulsations stop and restart at 145. RTO 2 weeks mildly elevated blood pressures, out of last 3 performed, past month.we discussed with pt and . dietary modificati on. she admits she may be putting too much salt in food. etoh appears minimal.fo llow Elevated blood pressure not well controlled . Quite a few of his readings have been over 140/90. I did not notice this until he was gone.Plan: I will have staff notify him that we need to keep an eye on his blood pressure and schedule him for BP clinic. Insomnia 772880368 G47.0 0 asleep at 8, awakens at 2 and unable to return to sleep declines long acting sleep aid rec exercise 1 hr pre sleep Slowing of urinary stream 18616446 R39.12 04/2020 stop and start urine needs to void only 1-2 times at night no incontinen ce bph is mild, follow he reasonably declined medication Cough 59425548 R05.9 09/14/2018 past 2 dayscough and runny nosebegan as allergic sneeze r/w otc antihistam inehe ran out flovent, reminded to pickup refill from recent rxdue to loss BS LLL i am requesting cxr, adding pred and z pack.cough syrup per usual request, as is provoking chest wall paintransl ator helpful, used throughout labs reviewedth is is his usual pattern, seasonally off work 09/15, 09/16 note writtenthi s is his usual asthmatic bronchitis . 07/2018 pt states he has asthmai will add proair to fluticason e.he is not forthcomin g with symptoms, looking for 'strong medicine'h e will need formal testing .cough x many weeks, unclear if upper or lower mucuswill image and referi believe this is a habitual cough from minor environmen vinod exposurere ferral printed for pts grandson to be able to schedule appt Benign ess ential hypertension 0727402 I10 04/24/2020 pt very concerned that his home cuff reads high , as it usually does. Son states it is reading 200 mmHg They should not even use the innacurate home cuff. I am asking then to come in today to see any provider, to confirm the ongoing innacuracy of their cuff in hopes they will discard it. continue losartan 50 untill he comes in. . slt high here very elevated at home, will resart BP med , change from lisinopril to losartan 50 90 x 3. BP at goal, w/o Rx Elevated blood pressure not well controlled . Quite a few of his readings have been over 140/90. I did not notice this until he was gone. at goal based on home reported pressures off med on own., none since 2017 again mentions usual excuse of poor sleep last night as cause for initial high BP here monitor twice a year appears his intoleranc e of BP med was likely sinus pauses cardiology restarted lisinopril 02/10/2017 .... meds again stopped , see low BP (abpve) . Benign essential hypertensi on - 11/2015 at goal on lisinopril . Plan routine followup. usually at goal off meds today 05/20/15 it is aberrantly elevated he blows out a rapid excuse, got poor sleep agreed to rto 2 weeks recheck he has been a frustratin g case and i am reluctant to restart med 04/2015 still not at goal, pt frustrated with lisinopril and rather than increase dose, agreed with bed rubber to change to norvasc 10mg rto 2-3 weeks 03/2015 at goal on lisinopril 20 only. remains at goal (<140/90)o n two medication s HCTZ VICKY. Understand s what meds are for. plan to continue indefinite ly Bp checks twice annually. remains at goal on two medication s HCTZ VICKY Sacroiliac joint pain 20 1234020 M53.3 historical ; here with grandson ashleycain velásquez. pain locus has shifted to L5 S1 area he ambulates fine but reasonably is asking for few more days off. cont nsaids and we will reassess wednesday the . U mass restrictio ns completed no lift 10 bend squat etc. This man bent over to pick something up 3 days ago and had back pain. He continues to have pain at the sacroiliac joints. He says both sides are just as bad but when I examined him I think the left side is worse. Usually this condition is not a serious problem and it goes away after time. Plan: acetaminop hen 500 mg, take 2 pills 3 times a day. this is the top dose. Walking often helps this, including walking slight inclines (hills). Work-no work next 2 days ( out all this week) Headache 39951104 R51.9 historical .4 times a day gets head gutierrez lasting few seconds.Pt disincline d to believe that this is not significan t. referral printed for pts grandson to be able to schedule appt Olecranon bursitis 60695 0002 M70.21 resolved. summer 2015.uncer stacia etiology, aspiration and then steroidal injection was performed, see procedure note Impotence 806711941 N52. 9 Mixed hyperlipidemia 267 130143 E78.2 LDL is at goal for diabetic. he is following guideline of being on high dose statin (ator 40). lipidemia - 11/2015 LDL is just fine 128, at goal, off medication which he is disincline d to take. . Diet only. 03/2015 at goal below 100 on simvastati n 40. at goal below LDL 100, on lipitor 80 pt wishes FLP Sick sinus syndrome 3608 3008 I49.5 not clinically evident 03/2018. 07/2017 through bed rubber (video) declines symptoms..ther e is nothing more we can do for his safety- due to cultural fixed notions he has 02/26/17.h e and his dtr phoned cardiology to decline PPM.with bed rubber i showed him the 30 day event monitor tracings-e xplaining each of the 7 documented near 4 second pausesInfo rming him of his risk of or injury to another if he drives, crosses street or anything dangerous. He again declined pacemaker. 30 minutes spent face to face with pt Effie. 02/12/17 event monitor- 3 to 3.7 second apuses, PPM planned 5 days ago arose from chair, got up to grab door and passed out.has been generally feeling unwell.he is bradycardi c, PPM?(had negative nuclear 09/2015)rep orts sub sequent presyncope , has to lean on wall to prevent collapse during these events Lightheadedness 27771294 8 R42 pt through bed rubber denies symptoms, 10/2017, 03/2018 see above.summ er 2016.sympt omaticiatr ogenic this summeragre ed to DC lisinopril , he has proven intolerant of antihypert ensives and we will merely follow his BP which really has always been within recommende d uopper limit for age group 150/90, 148/90 havinmg been his highest BP recorded. he will f/u if orthostati c symptoms of brief lightheade dness head pressure vision loss upon arising persists. Coronary arteriosclerosis in red devil artery 4686371519 107 I25.10 assymptoma ticmed management is maximized with high dose statin (ator 40) and baby ASA cath by AYE JAUREGUI and hamp [id number] showed 50% ladappropr iate meds added Impotence of organic origin 769182009 N52.9 03/2018 refilled.p rior- pt wishes refill viagra presents empty bottle to me. Low back pain 796175609 M54.51 resolved. upper lumbar lower thoracic pain upon arising prob djd. rec iboprofen agreed to check liver enzymes renal fn per pr request, resonabkle as on lipitor high dose. denies h/o liver dz, hepatitis. Plantar fasciitis 20271203 003 M72.2 due to pes planus has failed home treatment he had purchased a nonsense compressio n bandage i printed out a photo of the VBI Vaccines night splint for him to purchase recommende d podiatry input as well resolved due to pes planus written instructio ns from upto date, verbal translatio n as well as written Dr Hernadez instructio ns to pharmacist given Dermatophytosis 96422561 B35.9 . Dermatophy tosis of the perianal area - resolved w topicals B35.4: Tinea corporis Screening for malignant neoplasm of prostate 416594843 Z12.5 1.32 at age 74 is very low risk indeed Urinary incontinence 165 348033 R32 he reports recent onset of urinary urgencynot responsive to my suggestion of chronic treatment for prostatism agreed to initial workup- wishes to be tested for uti, so ordered [id number] Yarelis Huerta MD , [facility], OFFICE [address] [place] [address] 09/12/2021 17:08:31 10/28/2021 07:43:39 Disorder of rotator cuff 634990321 M75.82 see recent intake noteinject ed today as plannedtol erated karolina to anticipate 4 day until relief so that he will then be able to RTW Benign ess ential hypertension 5349620 I10 volatile BP,states i didnt take my bp med toady.. it is 530PM 04/24/2020 pt very concerned that his home cuff reads high , as it usually does. Son states it is reading 200 mmHg They should not even use the innacurate home cuff. I am asking then to come in today to see any provider, to confirm the ongoing innacuracy of their cuff in hopes they will discard it. continue losartan 50 untill he comes in. . slt high here very elevated at home, will resart BP med , change from lisinopril to losartan 50 90 x 3. BP at goal, w/o Rx Elevated blood pressure not well controlled . Quite a few of his readings have been over 140/90. I did not notice this until he was gone. at goal based on home reported pressures off med on own., none since 2017 again mentions usual excuse of poor sleep last night as cause for initial high BP here monitor twice a year appears his intoleranc e of BP med was likely sinus pauses cardiology restarted lisinopril 02/10/2017 .... meds again stopped , see low BP (abpve) . Benign essential hypertensi on - 11/2015 at goal on lisinopril . Plan routine followup. usually at goal off meds today 05/20/15 it is aberrantly elevated he blows out a rapid excuse, got poor sleep agreed to rto 2 weeks recheck he has been a frustratin g case and i am reluctant to restart med 04/2015 still not at goal, pt frustrated with lisinopril and rather than increase dose, agreed with bed rubber to change to norvasc 10mg rto 2-3 weeks 03/2015 at goal on lisinopril 20 only. remains at goal (<140/90)o n two medication s HCTZ VICKY. Understand s what meds are for. plan to continue indefinite ly Bp checks twice annually. remains at goal on two medication s HCTZ VICKY [id number] AUGUST TOM PÉREZ DNP FP, [facility], OFFICE [address] [place] [address] [place] [address] 11/24/2021 14:47:18 11/24/2021 16:40:07 Animal bite of hand 410116794 S61.451A no concerns for infection- advised supportive care and watchful waiting- clean twice/kristian y, apply bacitracin and keep covered-re viewed signs concerning for infection and when to follow up-tetanus vaccine UTDdiscuss ed case with NS Benign ess ential hypertension 4167365 I10 BP not at goal-marija nue with losartan and metoprolol Sick sinus syndrome 3608 3008 I49.5 advised need for pacemakerh as declined this with CARDS [id number] Yarelis Huerta MD , [facility], OFFICE [address] [place], [place] [address] 02/06/2022 09:58:31 02/06/2022 10:54:40 Active or passive immunization 312480587 Z23 Disorder o f rotator cuff 464077097 M75.82 see recent intake noteinject ed today as plannedtol erated welltold to anticipate 4 day until relief so that he will then be able to RTW Benign ess ential hypertension 3554141 I10 128/72 here. at goal on losartan 100routine monitoring volatile BP,states i didnt take my bp med toady.. it is 530PM 08/2021 unclear compliance with metop yet BP atgoal. metop ER 50 and losartan 100 Elevated blood pressure not well controlled . Quite a few of his readings have been over 140/90. I did not notice this until he was gone.Plan: I will have staff notify him that we need to keep an eye on his blood pressure and schedule him for BP clinic. 04/2021 add metop . SBP 200 then audible pulsations stop and restart at 145. RTO 2 weeks 04/24/2020 pt very concerned that his home cuff reads high , as it usually does. Son states it is reading 200 mmHg They should not even use the innacurate home cuff. I am asking then to come in today to see any provider, to confirm the ongoing innacuracy of their cuff in hopes they will discard it. continue losartan 50 untill he comes in. mildly elevated blood pressures, out of last 3 performed, past month.we discussed with pt and . dietary modificati on. she admits she may be putting too much salt in food. etoh appears minimal.fo llow . slt high here very elevated at home, will resart BP med , change from lisinopril to losartan 50 90 x 3. BP at goal, w/o Rx Elevated blood pressure not well controlled . Quite a few of his readings have been over 140/90. I did not notice this until he was gone. at goal based on home reported pressures off med on own., none since 2017 again mentions usual excuse of poor sleep last night as cause for initial high BP here monitor twice a year appears his intoleranc e of BP med was likely sinus pauses cardiology restarted lisinopril 02/10/2017 .... meds again stopped , see low BP (abpve) . Benign essential hypertensi on - 11/2015 at goal on lisinopril . Plan routine followup. usually at goal off meds today 05/20/15 it is aberrantly elevated he blows out a rapid excuse, got poor sleep agreed to rto 2 weeks recheck he has been a frustratin g case and i am reluctant to restart med 04/2015 still not at goal, pt frustrated with lisinopril and rather than increase dose, agreed with bed rubber to change to norvasc 10mg rto 2-3 weeks 03/2015 at goal on lisinopril 20 only. remains at goal (<140/90)o n two medication s HCTZ VICKY. Understand s what meds are for. plan to continue indefinite ly Bp checks twice annually. remains at goal on two medication s HCTZ VICKY Sinus node dysfunction 15742489 I49.8 Type 2 alanis betes mellitus without complication 796973729 E11.9 Remains at goal diet vizvP2c=7. 9, 6.8 10/2017 NEEDS EYE EXAM DM well controlled with diet only. Diabetes discussed with pt through video bed rubber , who offers that patient feels that if he is not given a pill he doesnt have illness. Reguardles s of his understand ing it makes no difference in applicatio n as he is on proper diet and A1c is at goal. A1c of 7., fell to 6.7 his diet is low sugar will recheck labs today 05/2017 DM discussed with pt. had shown only IFG max 113 for years Counseling [id number] Z71 .9 including cardiovasc ular risk reduction counseling Insomnia 032072763 G47.0 0 asleep at 8, awakens at 2 and unable to return to sleep declines long acting sleep aid rec exercise 1 hr pre sleep Slowing of urinary stream 95346817 R39.12 04/2020 stop and start urine needs to void only 1-2 times at night no incontinen ce bph is mild, follow he reasonably declined medication Cough 00395283 R05.9 09/14/2018 past 2 dayscough and runny nosebegan as allergic sneeze r/w otc antihistam inehe ran out flovent, reminded to pickup refill from recent rxdue to loss BS LLL i am requesting cxr, adding pred and z pack.cough syrup per usual request, as is provoking chest wall paintransl ator helpful, used throughout labs reviewedth is is his usual pattern, seasonally off work 09/15, 09/16 note writtenthi s is his usual asthmatic bronchitis . 07/2018 pt states he has asthmai will add proair to fluticason e.he is not forthcomin g with symptoms, looking for 'strong medicine'h e will need formal testing .cough x many weeks, unclear if upper or lower mucuswill image and referi believe this is a habitual cough from minor environmen [facility] express ferrtn printed for pts grandson to be able to schedule appt Sacroiliac joint pain 20 5116667 M53.3 historical ; here with grandson wong velásquez. pain locus has shifted to L5 S1 area he ambulates fine but reasonably is asking for few more days off. cont nsaids and we will reassess wednesday the . U mass restrictio ns completed no lift 10 bend squat etc. This man bent over to pick something up 3 days ago and had back pain. He continues to have pain at the sacroiliac joints. He says both sides are just as bad but when I examined him I think the left side is worse. Usually this condition is not a serious problem and it goes away after time. Plan: acetaminop hen 500 mg, take 2 pills 3 times a day. this is the top dose. Walking often helps this, including walking slight inclines (hills). Work-no work next 2 days ( out all this week) Headache 77576921 R51.9 historical .4 times a day gets head gutierrez lasting few seconds.Pt disincline d to believe that this is not significan t. referral printed for pts grandson to be able to schedule appt Olecranon bursitis 18930 0002 M70.21 resolved. summer 2015.lizett palomo etiology, aspiration and then steroidal injection was performed, see procedure note Impotence [id number] N52. 9 Mixed hyperlipidemia 267 081612 E78.2 LDL is at goal for diabetic. he is following guideline of being on high dose statin (ator 40). lipidemia - 11/2015 LDL is just fine 128, at goal, off medication which he is disincline d to take. . Diet only. 03/2015 at goal below 100 on simvastati n 40. at goal below LDL 100, on lipitor 80 pt wishes FLP Sick sinus syndrome 3608 3008 I49.5 not clinically evident 03/2018. 07/2017 through bed rubber (video) declines symptoms..ther e is nothing more we can do for his safety- due to cultural fixed notions he has 02/26/17.h e and his dtr phoned cardiology to decline PPM.with bed rubber i showed him the 30 day event monitor tracings-e xplaining each of the 7 documented near 4 second pausesInfo rming him of his risk of or injury to another if he drives, crosses street or anything dangerous. He again declined pacemaker. 30 minutes spent face to face with pt Effie. 02/12/17 event monitor- 3 to 3.7 second apuses, PPM planned 5 days ago arose from chair, got up to grab door and passed out.has been generally feeling unwell.he is bradycardi c, PPM?(had negative nuclear 09/2015)rep orts sub sequent presyncope , has to lean on wall to prevent collapse during these events Lightheadedness [id number] 8 R42 pt through bed rubber denies symptoms, 10/2017, 03/2018 see above.summ er 2015.sympt omaticiatr ogenic this summeragre ed to DC lisinopril , he has proven intolerant of antihypert ensives and we will merely follow his BP which really has always been within recommende d uopper limit for age group 150/90, 148/90 havinmg been his highest BP recorded. he will f/u if orthostati c symptoms of brief lightheade dness head pressure vision loss upon arising persists. 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 Low back pain 749096183 M54.51 resolved. upper lumbar lower thoracic pain upon arising prob djd. rec iboprofen agreed to check liver enzymes renal fn per pr request, resonabkle as on lipitor high dose. denies h/o liver dz, hepatitis. Plantar fasciitis 20271203 003 M72.2 due to pes planus has failed home treatment he had purchased a nonsense compressio n bandage i printed out a photo of the VBI Vaccines night splint for him to purchase recommende d podiatry input as well resolved due to pes planus written instructio ns from upto date, verbal translatio n as well as written Dr Hernadez instructio ns to pharmacist given Dermatophytosis 71313401 B35.9 . Dermatophy tosis of the perianal area - resolved w topicals B35.4: Tinea corporis Screening for malignant neoplasm of prostate 390093188 Z12.5 1.32 at age 74 is very low risk indeed Urinary incontinence 165 051432 R32 by Hx Sciatica 94802033 M54.32 02/06/2022h e points to lower gluteal area bilaterall y left side and states through a bed rubber that it hurts there sitting and radiates at times (unclear) down left leg Choking ca used by phlegm in larynx 39747670 T17.390S 01/2022 guaifenesi n ER 600told through bed rubber that there is no cure , just mitigation Pain in right knee 23556 95513 38686 M25.561 01/2022 naproxen renewed for knee pain, to be taken prn [id number] AUGUST TOM PÉREZ DNP FP, [facility] [place], OFFICE [address] [place], [place] [address] 02/17/2022 09:51:29 02/17/2022 10:36:38 Benign essential hypertension 0385397 I10 BP not at goal < 130/80did take his medication s this morning-on losartan 100mg dailyBMP UTD NL-will have him f/u with PCP in next month for BP Hemorrhoids 38110962 K64 .9 1 external hemorrhoid to 11 o'clock position-- discussed treatment with hydorcorti sone topically 2-4x/day, reviewed R/B/A-- increase dietary fiber--flor id strainingR TO within 24 hours for worsening symptoms [id number] Yarelis Huerta MD , [facility] [place], OFFICE [address] [place], [place] [phone] 03/24/2022 10:11:32 03/24/2022 10:42:18 Disorder of rotator cuff 982244134 M75.82 see recent intake noteinject ed today as plannedtol erated welltold to anticipate 4 day until relief so that he will then be able to RTW Benign ess ential hypertension 4688824 I10 128/72 here. at goal on losartan 100routine monitoring volatile BP,states i didnt take my bp med toady.. it is 530PM 08/2021 unclear compliance with metop yet BP atgoal. metop ER 50 and losartan 100 Elevated blood pressure not well controlled . Quite a few of his readings have been over 140/90. I did not notice this until he was gone.Plan: I will have staff notify him that we need to keep an eye on his blood pressure and schedule him for BP clinic. 04/2021 add metop . SBP 200 then audible pulsations stop and restart at 145. RTO 2 weeks 04/24/2020 pt very concerned that his home cuff reads high , as it usually does. Son states it is reading 200 mmHg They should not even use the innacurate home cuff. I am asking then to come in today to see any provider, to confirm the ongoing innacuracy of their cuff in hopes they will discard it. continue losartan 50 untill he comes in. mildly elevated blood pressures, out of last 3 performed, past month.we discussed with pt and . dietary modificati on. she admits she may be putting too much salt in food. etoh appears minimal.fo llow . slt high here very elevated at home, will resart BP med , change from lisinopril to losartan 50 90 x 3. BP at goal, w/o Rx Elevated blood pressure not well controlled . Quite a few of his readings have been over 140/90. I did not notice this until he was gone. at goal based on home reported pressures off med on own., none since 2017 again mentions usual excuse of poor sleep last night as cause for initial high BP here monitor twice a year appears his intoleranc e of BP med was likely sinus pauses cardiology restarted lisinopril 02/10/2017 .... meds again stopped , see low BP (abpve) . Benign essential hypertensi on - 11/2015 at goal on lisinopril . Plan routine followup. usually at goal off meds today 05/20/15 it is aberrantly elevated he blows out a rapid excuse, got poor sleep agreed to rto 2 weeks recheck he has been a frustratin g case and i am reluctant to restart med 04/2015 still not at goal, pt frustrated with lisinopril and rather than increase dose, agreed with bed rubber to change to norvasc 10mg rto 2-3 weeks 03/2015 at goal on lisinopril 20 only. remains at goal (<140/90)o n two medication s HCTZ VICKY. Understand s what meds are for. plan to continue indefinite ly Bp checks twice annually. remains at goal on two medication s HCTZ VICKY Urinary incontinence 165 418227 R32 by Hx Sinus node dysfunction 70447585 I49.8 Type 2 alanis betes mellitus without complication 820324000 E11.9 Remains at goal diet wjnrL4i=2. 9, 6.8 10/2017 NEEDS EYE EXAM DM well controlled with diet only. Diabetes discussed with pt through video bed rubber , who offers that patient feels that if he is not given a pill he doesnt have illness. Reguardles s of his understand ing it makes no difference in applicatio n as he is on proper diet and A1c is at goal. A1c of 7., fell to 6.7 his diet is low sugar will recheck labs today 05/2017 DM discussed with pt. had shown only IFG max 113 for years Insomnia 565628383 G47.0 0 asleep at 8, awakens at 2 and unable to return to sleep declines long acting sleep aid rec exercise 1 hr pre sleep Slowing of urinary stream 49811021 R39.12 04/2020 stop and start urine needs to void only 1-2 times at night no incontinen ce bph is mild, follow he reasonably declined medication Sacroiliac joint pain 20 1785850 M53.3 historical ; here with grandson wong rizvi pain locus has shifted to L5 S1 area he ambulates fine but reasonably is asking for few more days off. cont nsaids and we will reassess wednesday the . U mass restrictio ns completed no lift 10 bend squat etc. This man bent over to pick something up 3 days ago and had back pain. He continues to have pain at the sacroiliac joints. He says both sides are just as bad but when I examined him I think the left side is worse. Usually this condition is not a serious problem and it goes away after time. Plan: acetaminop hen 500 mg, take 2 pills 3 times a day. this is the top dose. Walking often helps this, including walking slight inclines (hills). Work-no work next 2 days ( out all this week) Headache 45061605 R51.9 historical .4 times a day gets head gutierrez lasting few seconds.Pt disincline d to believe that this is not significan t. referral printed for pts grandson to be able to schedule appt Olecranon bursitis 51437 0002 M70.21 resolved. summer 2015.lizett palomo etiology, aspiration and then steroidal injection was performed, see procedure note Impotence 928693283 N52. 9 Mixed hyperlipidemia 267 169260 E78.2 LDL is at goal for diabetic. he is following guideline of being on high dose statin (ator 40). lipidemia - 11/2015 LDL is just fine 128, at goal, off medication which he is disincline d to take. . Diet only. 03/2015 at goal below 100 on simvastati n 40. at goal below LDL 100, on lipitor 80 pt wishes FLP Sick sinus syndrome 3608 3008 I49.5 not clinically evident 03/2018. 07/2017 through bed rubber (video) declines symptoms..ther e is nothing more we can do for his safety- due to cultural fixed notions he has 10/27/17.h ren and his dtr phoned cardiology to decline PPM.with bed rubber i showed him the 30 day event monitor tracings-e xplaining each of the 7 documented near 4 second pausesInfo rming him of his risk of or injury to another if he drives, crosses street or anything dangerous. He again declined pacemaker. 30 minutes spent face to face with pt Effie. 02/12/17 event monitor- 3 to 3.7 second apuses, PPM planned 5 days ago arose from chair, got up to grab door and passed out.has been generally feeling unwell.he is bradycardi c, PPM?(had negative nuclear 09/2015)rep orts sub sequent presyncope , has to lean on wall to prevent collapse during these events Lightheadedness 17559425 8 R42 pt through bed rubber denies symptoms, 10/2017, 03/2018 see above.summ er 2015.sympt omaticiatr ogenic this summeragre ed to DC lisinopril , he has proven intolerant of antihypert ensives and we will merely follow his BP which really has always been within recommende d uopper limit for age group 150/90, 148/90 havinmg been his highest BP recorded. he will f/u if orthostati c symptoms of brief lightheade dness head pressure vision loss upon arising persists. Coronary arteriosclerosis in red devil artery 2744321482 107 I25.10 assymptoma ticmed management is maximized with high dose statin (ator 40) and baby ASA cath by AYE JAUREGUI and hamp [id number] showed 50% ladappropr iate meds added Impotence of organic origin 398443731 N52.9 03/2018 refilled.p rior- pt wishes refill viagra presents empty bottle to me. Low back pain 703376697 M54.51 resolved. upper lumbar lower thoracic pain upon arising prob djd. rec iboprofen agreed to check liver enzymes renal fn per pr request, resonabkle as on lipitor high dose. denies h/o liver dz, hepatitis. Plantar fasciitis 20271203 003 M72.2 due to pes planus has failed home treatment he had purchased a nonsense compressio n bandage i printed out a photo of the VBI Vaccines night splint for him to purchase recommende d podiatry input as well resolved due to pes planus written instructio ns from upto date, verbal translatio n as well as written Dr Hernadez instructio ns to pharmacist given Dermatophytosis 12787759 B35.9 . Dermatophy tosis of the perianal area - resolved w topicals B35.4: Tinea corporis Screening for malignant neoplasm of prostate 935988722 Z12.5 1.32 at age 74 is very low risk indeed Sciatica 57412105 M54.32 02/06/2022h e points to lower gluteal area bilaterall y left side and states through a bed rubber that it hurts there sitting and radiates at times (unclear) down left leg Choking ca used by phlegm in larynx 89681599 T17.390S 01/2022 guaifenesi n ER 600told through bed rubber that there is no cure , just mitigation Pain in right knee 11651 92808 91110 M25.561 01/2022 naproxen renewed for knee pain, to be taken prn Gluteal tendinitis 31676 003 M76.02 ft er ambulating distances he feels a baseball size artea of pain in left gluteal areait is non radiatingn o othert triggers of this painrefer PSS Hemorrhoids 48930377 K64 .9 03/2022 bothersome despite topoical steroidher e with who tells me that he had surgery for his hemorrhoid in [place] 30 years ago and wants this againrefer francisco Santos Ricardo , told is in [facility] and they state so long as they have an address they will go by GPS [id number] Yarelis Huerta MD , [facility], OFFICE [address] [place] [address] 07/06/2022 14:09:20 07/07/2022 08:35:40 Pain of right knee joint 8178706267 30128 M25.561 seen with present and assistance of phone bed rubber past weekunable to walk due to painwarm and swollen no loss or painful RM, no fluid will image todaylikel y inject tomorrow- gout, oa flare or pseudogout [id number] Yarelis Huerta MD , [facility], [address] [place] [address] 07/08/2022 11:49:57 07/09/2022 09:04:20 Impotence of organic origin 594839469 N52.9 requesting BLUE pill 100 mg, points to penis, ths viagra renewed 07/2022*2017 refilled.p rior-pt wishes refill viagrapres ents empty bottle to me. 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 Patellofem oral osteoarthritis 749391508 M17.11 08/04/2022 refer ortho for recurrence - though less red warm and swollen reamains so to a much lesser degree and is a little painful and stiff barber in AM. Seen with benefit of Mandarin bed rubber 07/08/2022 diagnosed by imaging:De generative changes that are most pronounced in the patellofem oral compartmen t he has a modest peripatell ar effusion and some warmthinje cted today usual manner split dose medial and high lateralfol low expectantl y Mixed hyperlipidemia 267 971244 E78.2 LDL is at goal for diabetic. he is following guideline of being on high dose statin (ator 40). lipidemia - 11/2015 LDL is just fine 128, at goal, off medication which he is disincline d to take. . Diet only. 03/2015 at goal below 100 on simvastati n 40. at goal below LDL 100, on lipitor 80 pt wishes FLP Coronary arteriosclerosis in red devil artery 7069183089 107 I25.10 assymptoma ticmed management is maximized with high dose statin (ator 40) and baby ASA cath by AYE JAUREGUI and hamp [id number] showed 50% ladappropr iate meds added Sciatica 94984043 M54.32 02/06/2022h e points to lower gluteal area bilaterall y left side and states through a bed rubber that it hurts there sitting and radiates at times (unclear) down left leg diclofenac Benign ess ential hypertension 9388288 I10 128/72 here. at goal on losartan 100routine monitoring volatile BP,states i didnt take my bp med toady.. it is 530PM 08/2021 unclear compliance with metop yet BP atgoal. metop ER 50 and losartan 100 Elevated blood pressure not well controlled . Quite a few of his readings have been over 140/90. I did not notice this until he was gone.Plan: I will have staff notify him that we need to keep an eye on his blood pressure and schedule him for BP clinic. 04/2021 add metop . SBP 200 then audible pulsations stop and restart at 145. RTO 2 weeks 04/24/2020 pt very concerned that his home cuff reads high , as it usually does. Son states it is reading 200 mmHg They should not even use the innacurate home cuff. I am asking then to come in today to see any provider, to confirm the ongoing innacuracy of their cuff in hopes they will discard it. continue losartan 50 untill he comes in. mildly elevated blood pressures, out of last 3 performed, past month.we discussed with pt and . dietary modificati on. she admits she may be putting too much salt in food. etoh appears minimal.fo llow . slt high here very elevated at home, will resart BP med , change from lisinopril to losartan 50 90 x 3. BP at goal, w/o Rx Elevated blood pressure not well controlled . Quite a few of his readings have been over 140/90. I did not notice this until he was gone. at goal based on home reported pressures off med on own., none since 2017 again mentions usual excuse of poor sleep last night as cause for initial high BP here monitor twice a year appears his intoleranc e of BP med was likely sinus pauses cardiology restarted lisinopril 02/10/2017 .... meds again stopped , see low BP (abpve) . Benign essential hypertensi on - 11/2015 at goal on lisinopril . Plan routine followup. usually at goal off meds today 05/20/15 it is aberrantly elevated he blows out a rapid excuse, got poor sleep agreed to rto 2 weeks recheck he has been a frustratin g case and i am reluctant to restart med 04/2015 still not at goal, pt frustrated with lisinopril and rather than increase dose, agreed with bed rubber to change to norvasc 10mg rto 2-3 weeks 03/2015 at goal on lisinopril 20 only. remains at goal (<140/90)o n two medication s HCTZ VICKY. Understand s what meds are for. plan to continue indefinite ly Bp checks twice annually. remains at goal on two medication s HCTZ VICKY Pain in right knee 29384 17623 75022 M25.561 01/2022 naproxen renewed for knee pain, to be taken prn [id number] Yarelis Huerta MD , [facility] [place], OFFICE [address] [place] [address] 08/26/2022 10:45:00 08/28/2022 09:30:44 Impotence of organic origin 423948371 N52.9 requesting BLUE pill 100 mg, points to penis, ths viagra renewed 07/2022*2017 refilled.p jefry-pt wishes refill viagrapres ents empty bottle to me. Patellofem oral osteoarthritis 510543574 M17.11 08/26/2022 plans Hyaluronat e if approved, through Ortho *08/04/2022 refer ortho for recurrence - though less red warm and swollen reamains so to a much lesser degree and is a little painful and stiff barber in AM. Seen with benefit of Peter bed rubber 07/08/2022 diagnosed by imaging:De generative changes that are most pronounced in the patellofem oral compartmen t he has a modest peripatell ar effusion and some warmthinje cted today usual manner split dose medial and high lateralfol low expectantl y Mixed hyperlipidemia 267 090822 E78.2 LDL is at goal for diabetic. he is following guideline of being on high dose statin (ator 40). lipidemia - 11/2015 LDL is just fine 128, at goal, off medication which he is disincline d to take. . Diet only. 03/2015 at goal below 100 on simvastati n 40. at goal below LDL 100, on lipitor 80 pt wishes FLP Coronary arteriosclerosis in red devil artery 1215106432 107 I25.10 assymptoma ticmed management is maximized with high dose statin (ator 40) and baby ASA cath by AYE JAUREGUI and hamp [id number] showed 50% ladappropr iate meds added Sciatica 26496044 M54.32 plans epidural at PSS 08/2022walk ing has been limited by choice due to feared and induced painHad CT due to PPM presence*1 he points to lower gluteal area bilaterall y left side and states through a bed rubber that it hurts there sitting and radiates at times (unclear) down left leg diclofenac Benign ess ential hypertension [id number] I10 08/26/2022 140/86, follow * 128/72 here. at goal on losartan 100routine monitoring volatile BP,states i didnt take my bp med toady.. it is 530PM 08/2021 unclear compliance with metop yet BP atgoal. metop ER 50 and losartan 100 Elevated blood pressure not well controlled . Quite a few of his readings have been over 140/90. I did not notice this until he was gone.Plan: I will have staff notify him that we need to keep an eye on his blood pressure and schedule him for BP clinic. 04/2021 add metop . SBP 200 then audible pulsations stop and restart at 145. RTO 2 weeks 04/24/2020 pt very concerned that his home cuff reads high , as it usually does. Son states it is reading 200 mmHg They should not even use the innacurate home cuff. I am asking then to come in today to see any provider, to confirm the ongoing innacuracy of their cuff in hopes they will discard it. continue losartan 50 untill he comes in. mildly elevated blood pressures, out of last 3 performed, past month.we discussed with pt and . dietary modificati on. she admits she may be putting too much salt in food. etoh appears minimal.fo llow . slt high here very elevated at home, will resart BP med , change from lisinopril to losartan 50 90 x 3. BP at goal, w/o Rx Elevated blood pressure not well controlled . Quite a few of his readings have been over 140/90. I did not notice this until he was gone. at goal based on home reported pressures off med on own., none since 2017 again mentions usual excuse of poor sleep last night as cause for initial high BP here monitor twice a year appears his intoleranc e of BP med was likely sinus pauses cardiology restarted lisinopril 02/10/2017 .... meds again stopped , see low BP (abpve) . Benign essential hypertensi on - 11/2015 at goal on lisinopril . Plan routine followup. usually at goal off meds today 05/20/15 it is aberrantly elevated he blows out a rapid excuse, got poor sleep agreed to rto 2 weeks recheck he has been a frustratin g case and i am reluctant to restart med 04/2015 still not at goal, pt frustrated with lisinopril and rather than increase dose, agreed with bed rubber to change to norvasc 10mg rto 2-3 weeks 03/2015 at goal on lisinopril 20 only. remains at goal (<140/90)o n two medication s HCTZ VICKY. Understand s what meds are for. plan to continue indefinite ly Bp checks twice annually. remains at goal on two medication s HCTZ VICKY Pain in right knee 63488 41891 15178 M25.561 01/2022 naproxen renewed for knee pain, to be taken prn Choking ca used by phlegm in larynx [id number] T17.390S renewed at dtrs request 3dtr told that there is no cure , just mitigation *01/2022 guaifenesi n ER 600told through bed rubber that there is no cure , just mitigation Primary er ectile dysfunction 455207739 N52.9 Type 2 alanis betes mellitus without complication 165236424 E11.9 Remains at goal diet yqwyZ5s=2. 9, 6.8 10/2017 NEEDS EYE EXAM DM well controlled with diet only. Diabetes discussed with pt through video bed rubber , who offers that patient feels that if he is not given a pill he doesnt have illness. Reguanadir s of his understand ing it makes no difference in applicatio n as he is on proper diet and A1c is at goal. A1c of 7., fell to 6.7 his diet is low sugar will recheck labs today 05/2017 DM discussed with pt. had shown only IFG max 113 for years Sick sinus syndrome 3608 3008 I49.5 not clinically evident 03/2018. 07/2017 through bed rubber (video) declines symptoms..ther e is nothing more we can do for his safety- due to cultural fixed notions he has 02/26/17.h e and his dtr phoned cardiology to decline PPM.with bed rubber i showed him the 30 day event monitor tracings-e xplaining each of the 7 documented near 4 second pausesInfo rming him of his risk of or injury to another if he drives, crosses street or anything dangerous. He again declined pacemaker. 30 minutes spent face to face with pt Effie. 02/12/17 event monitor- 3 to 3.7 second apuses, PPM planned 5 days ago arose from chair, got up to grab door and passed out.has been generally feeling unwell.he is bradycardi c, PPM?(had negative nuclear 09/2015)rep orts sub sequent presyncope , has to lean on wall to prevent collapse during these events [id number] Yarelis Huerta MD , [facility], OFFICE [address] [place] [address] 02/22/2023 14:56:29 02/22/2023 16:30:00 Adult health examination [id number] Z00.00 well examsee Risk Assessment and Lifestyle Change Counseling section above Depression screening 171 653225 Z13.31 depression screening tool administer ed Screening for alcohol abuse 150900192 Z13.39 Alcohol use screening tool administer ed 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 he states it hurts all of the time, and barber if he touches it*08/27/19 plans Hyaluronat e if approved, through Ortho *08/04/2022 refer ortho for recurrence - though less red warm and swollen reamains so to a much lesser degree and is a little painful and stiff barber in AM. Seen with benefit of Mandarin bed rubber 07/08/2022 diagnosed by imaging:De generative changes that are most pronounced in the patellofem oral compartmen t he has a modest peripatell ar effusion and some warmthinje cted today usual manner split dose medial and high lateralfol low expectantl y Mixed hyperlipidemia 267 651688 E78.2 LDL is at goal for diabetic. he is following guideline of being on high dose statin (ator 40). lipidemia - 11/2015 LDL is just fine 128, at goal, off medication which he is disincline d to take. . Diet only. 03/2015 at goal below 100 on simvastati n 40. at goal below LDL 100, on lipitor 80 pt wishes FLP Coronary arteriosclerosis in red devil artery 0915398772 107 I25.10 assymptoma ticmed management is maximized with high dose statin (ator 40) and baby ASA cath by AYE JAUREGUI and hamp [id number] showed 50% ladappropr iate meds added Benign ess ential hypertension 5320778 I10 126/74 here. at goal on losartan 100 * 08/26/2022 140/86, follow * 128/72 here. at goal on losartan 100routine monitoring volatile BP,states i didnt take my bp med toady.. it is 530PM 08/2021 unclear compliance with metop yet BP atgoal. metop ER 50 and losartan 100 Elevated blood pressure not well controlled . Quite a few of his readings have been over 140/90. I did not notice this until he was gone.Plan: I will have staff notify him that we need to keep an eye on his blood pressure and schedule him for BP clinic. 04/2021 add metop . SBP 200 then audible pulsations stop and restart at 145. RTO 2 weeks 04/24/2020 pt very concerned that his home cuff reads high , as it usually does. Son states it is reading 200 mmHg They should not even use the innacurate home cuff. I am asking then to come in today to see any provider, to confirm the ongoing innacuracy of their cuff in hopes they will discard it. continue losartan 50 until he comes in. mildly elevated blood pressures, out of last 3 performed, past month.we discussed with pt and . dietary modificati on. she admits she may be putting too much salt in food. etoh appears minimal.fo llow . slt high here very elevated at home, will resart BP med , change from lisinopril to losartan 50 90 x 3. BP at goal, w/o Rx Elevated blood pressure not well controlled . Quite a few of his readings have been over 140/90. I did not notice this until he was gone. at goal based on home reported pressures off med on own., none since 2017 again mentions usual excuse of poor sleep last night as cause for initial high BP here monitor twice a year appears his intoleranc e of BP med was likely sinus pauses cardiology restarted lisinopril 02/10/2017 .... meds again stopped , see low BP (abpve) . Benign essential hypertensi on - 11/2015 at goal on lisinopril . Plan routine followup. usually at goal off meds today 05/20/15 it is aberrantly elevated he blows out a rapid excuse, got poor sleep agreed to rto 2 weeks recheck he has been a frustratin g case and i am reluctant to restart med 04/2015 still not at goal, pt frustrated with lisinopril and rather than increase dose, agreed with bed rubber to change to norvasc 10mg rto 2-3 weeks 03/2015 at goal on lisinopril 20 only. remains at goal (<140/90)o n two medication s Sciatica 56370425 M54.32 epidural at 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 Primary er ectile dysfunction 550016919 N52.9 Type 2 alanis samuel mellitus without complication 134841989 E11.9 Remains at goal diet only, follow 7.1 (jan 2023)A1c=6 .9, 6.8, 7.1 (above his prior 7.0 max) 10/2017 NEEDS EYE EXAM DM well controlled with diet only. Diabetes discussed with pt through video bed rubber , who offers that patient feels that if he is not given a pill he doesnt have illness. Reguardles s of his understand ing it makes no difference in applicatio n as he is on proper diet and A1c is at goal. A1c of 7., fell to 6.7 his diet is low sugar will recheck labs today 05/2017 DM discussed with pt. had shown only IFG max 113 for years Sick sinus syndrome 3608 3008 I49.5 PPM checks in [facility] nnot clinically evident 03/2018. 07/2017 through bed rubber (video) declines symptoms..ther e is nothing more we can do for his safety- due to cultural fixed notions he has 02/26/17.h ren and his dtr phoned cardiology to decline PPM.with bed rubber i showed him the 30 day event monitor tracings-e xplaining each of the 7 documented near 4 second pausesInfo rming him of his risk of or injury to another if he drives, crosses street or anything dangerous. He again declined pacemaker. 30 minutes spent face to face with pt Effie. 02/12/17 event monitor- 3 to 3.7 second apuses, PPM planned 5 days ago arose from chair, got up to grab door and passed out.has been generally feeling unwell.he is bradycardi c, PPM?(had negative nuclear 09/2015)rep orts sub sequent presyncope , has to lean on wall to prevent collapse during these events Screening for malignant neoplasm of prostate 244175748 Z12.5 1.32 at age 74 is very low risk indeed Diabetic r etinal eye exam not done 3864785001 103 Z53.9 [id number] Chaya Pineda er, [employer], [facility], [address]ICE [address] [place] [address] 03/12/2023 14:55:43 03/12/2023 17:15:55 Active or passive immunization 042798865 Z23 Pain in ri ght hip joint 3840533910 87918 M25.551 Acute pain to right hip while bending down hammering nails in a squatting position. Pain centralize d to that location, denies radiation, or palliative factors. Pain exacerbate d with walking, gait affected due to pain. Denies red flag symptoms. Pt does have spinal stenosis of lumbar with associated sciatica, pt endorses this is a new pain. No pain elicited to palpation, no pain with active/pas sive ROM, no crepitus noted, atalgic gait noted on exam. Pt stating he did not want to do PT as previously it had not helped with his other conditions .--X-ray of right hip to look for OA, or other etiology for pt's pain.--Aft er extensive discussion regarding the benefits of PT, pt agreeable to doing PT.--Sport s medicine referral for evaluation and possible injection. -- continue naproxen and tylenol for pain Spinal pranay nosis of lumbar region 46853142 M48.061 severe spinal stenosis L3 to L5 per CT 07/23/22-- referred to [facility]SS [id number] Romulo Clarke DPT Physical Therapy, [facility] [address] [facility] [place] [address] 04/05/2023 08:45:41 04/12/2023 16:56:26 Hip pain 46154787 M25.441 [id number] Yarelis Huerta MD , [facility], OFFICE [address] [place] [address] 08/16/2023 14:09:35 08/16/2023 15:20:29 Type 2 diabetes mellitus without complication 903994059 E11.9 Remains at goal diet only, stable at 7 for ahngyN0k=0 .9, 6.8, 7.1 (above his prior 7.0 max) 10/2017 NEEDS EYE EXAM DM well controlled with diet only. Diabetes discussed with pt through video bed rubber , who offers that patient feels that if he is not given a pill he doesnt have illness. Reguardles s of his understand ing it makes no difference in applicatio n as he is on proper diet and A1c is at goal. A1c of 7., fell to 6.7 his diet is low sugar will recheck labs today 05/2017 DM discussed with pt. had shown only IFG max 113 for years Transient cerebral ischemia 546852035 G45.9 Spinal pranay nosis of lumbar region 73846017 M48.061 Sinus node dysfunction 13236447 I49.8 Mixed hyperlipidemia 267 080881 E78.2 LDL is at goal for diabetic. he is following guideline of being on high dose statin (ator 40). lipidemia - 11/2015 LDL is just fine 128, at goal, off medication which he is disincline d to take. . Diet only. 03/2015 at goal below 100 on simvastati n 40. at goal below LDL 100, on lipitor 80 pt wishes FLP Coronary arteriosclerosis 98105580 I25.10 Benign pro static hyperplasia 573408167 N40.1 Benign ess ential hypertension 6835889 I10 126/74 here. at goal on losartan 100 * 08/26/2022 140/86, follow * 128/72 here. at goal on losartan 100routine monitoring volatile BP,states i didnt take my bp med toady.. it is 530PM 08/2021 unclear compliance with metop yet BP atgoal. metop ER 50 and losartan 100 Elevated blood pressure not well controlled . Quite a few of his readings have been over 140/90. I did not notice this until he was gone.Plan: I will have staff notify him that we need to keep an eye on his blood pressure and schedule him for BP clinic. 04/2021 add metop . SBP 200 then audible pulsations stop and restart at 145. RTO 2 weeks 04/24/2020 pt very concerned that his home cuff reads high , as it usually does. Son states it is reading 200 mmHg They should not even use the innacurate home cuff. I am asking then to come in today to see any provider, to confirm the ongoing innacuracy of their cuff in hopes they will discard it. continue losartan 50 until he comes in. mildly elevated blood pressures, out of last 3 performed, past month.we discussed with pt and . dietary modificati on. she admits she may be putting too much salt in food. etoh appears minimal.fo llow . slt high here very elevated at home, will resart BP med , change from lisinopril to losartan 50 90 x 3. BP at goal, w/o Rx Elevated blood pressure not well controlled . Quite a few of his readings have been over 140/90. I did not notice this until he was gone. at goal based on home reported pressures off med on own., none since 2017 again mentions usual excuse of poor sleep last night as cause for initial high BP here monitor twice a year appears his intoleranc e of BP med was likely sinus pauses cardiology restarted lisinopril 02/10/2017 .... meds again stopped , see low BP (abpve) . Benign essential hypertensi on - 11/2015 at goal on lisinopril . Plan routine followup. usually at goal off meds today 05/20/15 it is aberrantly elevated he blows out a rapid excuse, got poor sleep agreed to rto 2 weeks recheck he has been a frustratin g case and i am reluctant to restart med 04/2015 still not at goal, pt frustrated with lisinopril and rather than increase dose, agreed with bed rubber to change to norvasc 10mg rto 2-3 weeks 03/2015 at goal on lisinopril 20 only. 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 there is subtle blue stage hemorrhagc discolorat ion at the adjacent pulmlavage d by Vicki masc[facility] ounselled to observe for signs of infection, redness swelling discharge or pain and return to office should any of these occur [id number] Yarelis Huerta MD , [facility], OFFICE [address] [place] [address] 02/25/2024 10:02:37 02/25/2024 13:51:09 Adult health examination 193035637 Z00.00 well examsee Risk Assessment and Lifestyle Change Counseling section above Depression screening 171 140910 Z13.31 depression screening tool administer ed Screening for alcohol abuse 333133459 Z13.39 Alcohol use screening tool administer ed Active or passive immunization 910600631 Z23 Spinal pranay nosis of lumbar region 73094246 M48.061 at end of work day feel rle symptomsfo llowed [place] [facility], pt and d[facility] wish non surgical interventi on Intermitte nt claudication 59776266 I73.9 running hypotheses is his numbness sensation of both feet as he walksis due to his documented severe sinal stenosisCo uld this be vascular Primary er ectile dysfunction 274237152 N52.9 Sick sinus syndrome 3608 3008 I49.5 PPM May 2019- checks in [place], later [facility] 07/2017 through bed rubber (video) declines symptoms..ther e is nothing more we can do for his safety- due to cultural fixed notions he has 02/26/17.h e and his dtr phoned cardiology to decline PPM.with bed rubber i showed him the 30 day event monitor tracings-e xplaining each of the 7 documented near 4 second pausesInfo rming him of his risk of or injury to another if he drives, crosses street or anything dangerous. He again declined pacemaker. 30 minutes spent face to face with pt Effie. 02/12/17 event monitor- 3 to 3.7 second apuses, PPM planned 5 days ago arose from chair, got up to grab door and passed out.has been generally feeling unwell.he is bradycardi c, PPM?(had negative nuclear 09/2015)rep orts sub sequent presyncope , has to lean on wall to prevent collapse during these events Type 2 alanis bettaurus mellitus without complication 841420923 E11.9 02/25/24 trended above 7.0 Begin Metformin pre dinner. D/W daughter at time of visit'*Rem ains at goal diet only, stable at 7 for fqaabW0l=2 .9, 6.8, 7.1 (above his prior 7.0 max) 10/2017 NEEDS EYE EXAM DM well controlled with diet only. Diabetes discussed with pt through video bed rubber , who offers that patient feels that if he is not given a pill he doesnt have illness. Cornell s of his understand ing it makes no difference in applicatio n as he is on proper diet and A1c is at goal. A1c of 7., fell to 6.7 his diet is low sugar will recheck labs today 05/2017 DM discussed with pt. had shown only IFG max 113 for years Transient cerebral ischemia 698183114 G45.9 Sinus node dysfunction 70017278 I49.8 s/p PPM 2019 Coronary arteriosclerosis 03034716 I25.10 Benign ess ential hypertension 9924910 I10 126/74 here. at goal on losartan 100 * 08/26/2022 140/86, follow * 128/72 here. at goal on losartan 100routine monitoring volatile BP,states i didnt take my bp med toady.. it is 530PM 08/2021 unclear compliance with metop yet BP atgoal. metop ER 50 and losartan 100 Elevated blood pressure not well controlled . Quite a few of his readings have been over 140/90. I did not notice this until he was gone.Plan: I will have staff notify him that we need to keep an eye on his blood pressure and schedule him for BP clinic. 04/2021 add metop . SBP 200 then audible pulsations stop and restart at 145. RTO 2 weeks 04/24/2020 pt very concerned that his home cuff reads high , as it usually does. Son states it is reading 200 mmHg They should not even use the innacurate home cuff. I am asking then to come in today to see any provider, to confirm the ongoing innacuracy of their cuff in hopes they will discard it. continue losartan 50 until he comes in. mildly elevated blood pressures, out of last 3 performed, past month.we discussed with pt and . dietary modificati on. she admits she may be putting too much salt in food. etoh appears minimal.fo llow . slt high here very elevated at home, will resart BP med , change from lisinopril to losartan 50 90 x 3. BP at goal, w/o Rx Elevated blood pressure not well controlled . Quite a few of his readings have been over 140/90. I did not notice this until he was gone. at goal based on home reported pressures off med on own., none since 2017 again mentions usual excuse of poor sleep last night as cause for initial high BP here monitor twice a year appears his intoleranc e of BP med was likely sinus pauses cardiology restarted lisinopril 02/10/2017 .... meds again stopped , see low BP (abpve) . Benign essential hypertensi on - 11/2015 at goal on lisinopril . Plan routine followup. usually at goal off meds today 05/20/15 it is aberrantly elevated he blows out a rapid excuse, got poor sleep agreed to rto 2 weeks recheck he has been a frustratin g case and i am reluctant to restart med 04/2015 still not at goal, pt frustrated with lisinopril and rather than increase dose, agreed with bed rubber to change to norvasc 10mg rto 2-3 weeks 03/2015 at goal on lisinopril 20 only. remains at goal (<140/90)o n two medication s Benign pro static hyperplasia 621649708 N40.1 [id number] Yarelis Huerta MD , [facility], OFFICE [address] [place] [address] 05/22/2024 10:31:35 05/22/2024 11:42:12 Dyspnea 824898634 R06.00 c.o chest painin resp distress in office at resthe is working hard to breatherr =20L with rhonchiski n clammy and diaphoreti [facility] called for transport to [facility] with benefit of mandarin bed rubber .RN notified for [facility] expect note Health Concerns Section Related Observation LastModified by Organization Detai ls LastModified Time None Recorded Concern Status LastModified by Organization Details LastModified Time None Recorded Advance Directives Directive None Recorded Payers Encounter Date Sequence Insurance Name Policy Number Policy Landry Covered Member ID Landry Member ID Guarantor Name 04/05/2023 2 [facility] [id number] 01 Sunday C C Katlin [id number] Chuncheng Katlin 04/05/2023 1 [place] [employer] Chuncheng Katlin [id number] Chuncheng Katlin 08/16/2023 2 [facility] [id number] Sunday C C Katlin [id number] Chuncheng Katlin 08/16/2023 1 [place] [employer] Chuncheng Katlin [id number] Chuncheng Katlin 01/24/2024 2 [facility] [id number] Sunday C C Katlin [id number] Chuncheng Katlin 01/24/2024 1 [place]ATIONAL GOVERNMENT SERVICES Chuncheng Katlin [id number] Chuncheng Katlin 02/25/2024 2 [facility] [id number] Sunday C C Katlin [id number] Chuncheng Katlin 02/25/2024 1 [place] [employer] Chuncheng Katlin [id number] Chuncheng Katlin 05/22/2024 2 [facility] [id number] Sunday C C Katlin [id number] Chuncheng Katlin 05/22/2024 1 [place] [employer] Chuncheng [place] [id number] [place] Notes Date Note Type Note Provider Name and Address Organization Details Recorded Time 3 text/html Patient grandson is present as police service technician. Pt partially speaks indonesian and able to understand PT. Pt's grandson reports R hip pain beginning early March after performing nailing of deck boards in sustained squatting position. Pt's grandson this is the first physically demanding task the pt has done in a long time. Pt reports that pain has significantly reduced sine initial injury after abou4 days of walking. Pt and pt's grandson present for PT eval to learn methods to prevent re-injury. XR 03/15/23 hip: IMPRESSION: No acute bone abnormality. No significant degenerative disease. Possible right trochanteric bursitis.Patient Specific Functional Score:{{10* 20 30 40 50 60 70 80 90 100}} Percent limitation in walking.{{10* 20 30 40 50 6 0 70 80 90 100}} Percent limitation in being on floor. Romulo Clarke, DPT [address] [place] [address], [phone], [facility] 04/10/2023 11:25:28 4 text/html Physical Exam/MaleReported bypatient.PHAPatient is here for a Wellness Visit. He describes his health status as good. Patient's health is the same as last year.Risk Assessment and Lifestyle Change Counseling (Medicare)Reported bypatient.Coronary Artery Disease Risk Assessment:Personal history of diabetes;Personal history coronary artery disease Cognitive/Behavioral Risk Assessment:No personal history of mental illness; Do you or anyone else have concerns about your memory? no; Alcohol use counseled greater than 7.5 minutes; Tobacco use Safety Risk Assessment:Has grab bars in bathroom; Has rails on steps; No falls; No evidence of abuse/neglect; Do you feel safe in your current relationship?YES Functional Status:Patient does not have trouble hearing the television or radio when others do not.; Patient does not have to strain or struggle to hear/understand conversations; Patient does not need help with preparing meals, transportation, shopping, taking medicine, managing finances, or other activities of daily living.; Patient does not have visual loss that interferes with daily activities; Does not live alone; Patient was not unsteady and did not take longer than 30 seconds during the timed get up and go test.; Patient reports no falls in the past 6 months. Diet:Counseled about appropriate portion size; Counseled about eating a diet low in trans and saturated fats and high in fiber, fruits and vegetables; Counseled about appropriate calcium intake and good dietary sources of calcium.; Counseled about the importance of maintaining a positive calcium balance and taking 1000 iu Vitamin D daily.; Counseled about decreasing carbohydrates; Discussed the value of a Mediterranean diet , and eating more fruits and vegetables Exercise counseling:Discussed the importance of daily physical activity; Discussed the importance of weight bearing exercise Safety:Counseled about avoiding excessive and unsafe alcohol intake; Counseled about home safety including use of smoke detectors, CO detectors, keeping home water temperature less than 120; Counseled about use of seat belts; Counseled about fall risk from throw rugs and the need for hand rails on steps and in bathVMG HyperlipidemiaReported bypatient.Duration:chronic Control:well controlled; improved since last visit; LDL has been <100, goal is ; treated with diet; treated with medications; Patient understands medications are to lower cholesterol; simva 40 Compliance:compliant with diet;noncompliant with medications;noncompliant with follow-up visits Barriers to Careabsence of motivation; unseen 2012- 2014 Context:Nonsmoker; No ischemic heart disease; No peripheral vascular disease ([id number]); No diabetes; No carotid artery stenosis Associated Symptoms:normal liver function test; no muscle pain; no fatigue; no chest discomfort; no dyspnea; no change in exercise capacity Ability to Manage Self CareOn how confident the patient feels in ability to self manage condition the patient selects 10 with 10 being very confident and 1 being very low confidence; Patient feels very confident in ability to self manage conditionVMG HypertensionReported bypatient.Context:No ischemic heart disease; No kidney disease; No history of CVA; No congestive heart failure; No history of transient ischemic attacks; No peripheral vascular disease; No history of diabetes Control:BP Goal less than; Treated with diet and exercise; Treated with medications; Patient understands medications are to lower blood pressure Compliance:Compliant with diet; Compliant with exercise;Noncompliant with medications;Noncompliant with follow-up visits Barriers to Careabsence of motivation; unseen 2012- 2014 Self Care:not doing home bp monitoring Associated Symptoms:No chest pain; No shortness of breath; No edema; No fatigue; No palpitations; No decline in exercise capacity; No snoring Ability to Manage Self CareOn how confident the patient feels in ability to self manage condition the patient selects 10 with 10 being very confident and 1 being very low confidence; Patient feels very confident in ability to self manage condition 74 year old for annual wellness visit.Patient feels well except for persistant cough. He is not taking his Flovent.Daughter assists with translation during visit.Patient has well controlled hyperlipidemiaReviewed labs with patient On 11/01 he bent down to pick something up and felt a pull in his back. No real relief from Tylenol or Advil. This episode occurred at home. He said he had a back pain similar to this about a year ago but generally no back trouble.He points to the sacral area as the location of his pain. He denies any radiation of the pain into the buttock or lower extremities.This feels worse when he bends over or with prolonged sitting. He tried Tylenol and Advil, without much help and also both bothered his stomach. . On 11/01 he bent down to pick something up and felt a pull in his back. No real relief from Tylenol or Advil. This episode occurred at home. He said he had a back pain similar to this about a year ago but generally no back trouble.He points to the sacral area as the location of his pain. He denies any radiation of the pain into the buttock or lower extremities.This feels worse when he bends over or with prolonged sitting. He tried Tylenol and Advil, without much help and also both bothered his stomach. Yarelis Huerta MD [address] [place] [address], [phone], [facility] 08/16/2023 15:07:33 4 text/html Physical Exam/MaleReported bypatient.PHAPatient is here for a Wellness Visit. He describes his health status as good. Patient's health is the same as last year.Risk Assessment and Lifestyle Change Counseling (Medicare)Reported bypatient.Coronary Artery Disease Risk Assessment:Personal history of diabetes;Personal history coronary artery disease Cognitive/Behavioral Risk Assessment:No personal history of mental illness; Do you or anyone else have concerns about your memory? no; Alcohol use counseled greater than 7.5 minutes; Tobacco use Safety Risk Assessment:Has grab bars in bathroom; Has rails on steps; No falls; No evidence of abuse/neglect; Do you feel safe in your current relationship?YES Functional Status:Patient does not have trouble hearing the television or radio when others do not.; Patient does not have to strain or struggle to hear/understand conversations; Patient does not need help with preparing meals, transportation, shopping, taking medicine, managing finances, or other activities of daily living.; Patient does not have visual loss that interferes with daily activities; Does not live alone; Patient was not unsteady and did not take longer than 30 seconds during the timed get up and go test.; Patient reports no falls in the past 6 months. Diet:Counseled about appropriate portion size; Counseled about eating a diet low in trans and saturated fats and high in fiber, fruits and vegetables; Counseled about appropriate calcium intake and good dietary sources of calcium.; Counseled about the importance of maintaining a positive calcium balance and taking 1000 iu Vitamin D daily.; Counseled about decreasing carbohydrates; Discussed the value of a Mediterranean diet , and eating more fruits and vegetables Exercise counseling:Discussed the importance of daily physical activity; Discussed the importance of weight bearing exercise Safety:Counseled about avoiding excessive and unsafe alcohol intake; Counseled about home safety including use of smoke detectors, CO detectors, keeping home water temperature less than 120; Counseled about use of seat belts; Counseled about fall risk from throw rugs and the need for hand rails on steps and in bathVMG HyperlipidemiaReported bypatient.Duration:chronic Control:well controlled; improved since last visit; LDL has been <100, goal is ; treated with diet; treated with medications; Patient understands medications are to lower cholesterol; simva 40 Compliance:compliant with diet;noncompliant with medications;noncompliant with follow-up visits Barriers to Careabsence of motivation; unseen 2012- 2014 Context:Nonsmoker; No ischemic heart disease; No peripheral vascular disease ([id number]); No diabetes; No carotid artery stenosis Associated Symptoms:normal liver function test; no muscle pain; no fatigue; no chest discomfort; no dyspnea; no change in exercise capacity Ability to Manage Self CareOn how confident the patient feels in ability to self manage condition the patient selects 10 with 10 being very confident and 1 being very low confidence; Patient feels very confident in ability to self manage conditionVMG HypertensionReported bypatient.Context:No ischemic heart disease; No kidney disease; No history of CVA; No congestive heart failure; No history of transient ischemic attacks; No peripheral vascular disease; No history of diabetes Control:BP Goal less than; Treated with diet and exercise; Treated with medications; Patient understands medications are to lower blood pressure Compliance:Compliant with diet; Compliant with exercise;Noncompliant with medications;Noncompliant with follow-up visits Barriers to Careabsence of motivation; unseen 2012- 2014 Self Care:not doing home bp monitoring Associated Symptoms:No chest pain; No shortness of breath; No edema; No fatigue; No palpitations; No decline in exercise capacity; No snoring Ability to Manage Self CareOn how confident the patient feels in ability to self manage condition the patient selects 10 with 10 being very confident and 1 being very low confidence; Patient feels very confident in ability to self manage condition 74 year old for annual wellness visit.Patient feels well except for persistant cough. He is not taking his Flovent.Daughter assists with translation during visit.Patient has well controlled hyperlipidemiaReviewed labs with patient On 11/01 he bent down to pick something up and felt a pull in his back. No real relief from Tylenol or Advil. This episode occurred at home. He said he had a back pain similar to this about a year ago but generally no back trouble.He points to the sacral area as the location of his pain. He denies any radiation of the pain into the buttock or lower extremities.This feels worse when he bends over or with prolonged sitting. He tried Tylenol and Advil, without much help and also both bothered his stomach. . On 11/01 he bent down to pick something up and felt a pull in his back. No real relief from Tylenol or Advil. This episode occurred at home. He said he had a back pain similar to this about a year ago but generally no back trouble.He points to the sacral area as the location of his pain. He denies any radiation of the pain into the buttock or lower extremities.This feels worse when he bends over or with prolonged sitting. He tried Tylenol and Advil, without much help and also both bothered his stomach. Yarelis Huerta MD [address] [place] [address], [phone], [facility] 02/25/2024 13:24:40
== END 2024-05-30 12:03 | disposition home or self-care (01) ==
PROVIDERS: PCP Internal Medicine; Visit Provider Nurse Practitioner Family
DX: R05.3 Chronic cough (principal); J44.89 Other specified chronic obstructive pulmonary disease; Z91.09 Other allergy status, other than to drugs and biological substances
CPT/HCPCS: 99214

== ENCOUNTER → 2024-05-30 10:51 | Outpatient (BNVA) | payer MEDICARE, OTHER, SELFPAY | PROVIDERS: PCP Internal Medicine; Visit Provider Nurse Practitioner Family | DX: J44.89 Other specified chronic obstructive pulmonary disease (principal); R05.3 Chronic cough; Z91.09 Other allergy status, other than to drugs and biological substances; Z87.891 Personal history of nicotine dependence; Z95.0 Presence of cardiac pacemaker | CPT/HCPCS: 94640; 99212 ==

== ENCOUNTER 2024-06-27 10:01 | Outpatient (REF) | payer MEDICARE, OTHER, SELFPAY ==
--- NOTE | ~2024-06-27 | US_ITS ---
EXAMINATION: BILATERAL CAROTID ULTRASOUND WITH DOPPLER HISTORY: I65.23 - Occlusion and stenosis of bilateral carotid arteries COMPARISON: Comparison is made with the prior examination dated 06/03/2023. TECHNIQUE: Real time and Color and Spectral doppler ultrasonography of the carotid and vertebral arteries was performed in multiple planes. FINDINGS: There is a small amount of plaque at both carotid bifurcations. VERTEBRAL FLOW DIRECTION: Antegrade bilaterally. PEAK SYSTOLIC VELOCITIES (in cm/sec): RIGHT: CCA: Prox: 66.7 Dist: 67.6 ICA: Prox: 98.8 Mid: 90.0 Dist: 99.9 ICA/CCA Ratio: 1.48 ECA: 91.9 Peak ICA EDV: 30.2 LEFT: CCA: Prox: 74.2 Dist: 67.3 ICA: Prox: 65.0 Mid: 66.3 Dist: 91.1 ICA/CCA Ratio: 1.23 ECA: 90.0 Peak ICA EDV: 34.0 US/US carotid duplex BI IMPRESSION: Unremarkable carotid ultrasound. No significant stenosis. Electronically signed by: Magen Redding MD 06/27/2024 02:41 PM [facility]
--- OUTSIDE RECORDS SUMMARY | 2024-06-27 11:38 | XMS_ITS | Data Portability ---
Demographics Address [address] [place] [address] Home Phone Mobile Phone Preferred Language zh Marital Status Oriental Orthodox Affiliation Unknown Race Ethnic Group Not or Lati no Author Organization [facility], [facility] Address [address] [place] [address] Care Team Providers Care Er Manager Name Role Phone YARELIS HUERTA Primary Care Provider [phone] [facility] Orthopedic [...] to toes PPM may [address] [facility] Gee, who had been following him annually since [facility], but pt wished to excliude vascuar claudication as cause for his tingling cold foot after standing a while. is likely SS but i am compplying with pt and dtr request also to spine center at [facility] at their request as [facility] not addressing his concerns. Begin metformin A1c 7.2 [facility] Not available 02/25/2024 13:21:30 Plan of Treatment Reminders Order Date Submit Date Provider Last Modified By Organization Details Last Modified Time Details Appointments None recorde d. Lab influen za virus A + B + SARS-Co V-2 (COVID1 9) Ag panel, rapid IA, upper respira tory specime n 2024 [facility], [address] [facility], [place], [address], 5 11:13:07 Referral vascula r surgeon referra l - known to you from Carotid endarte rectomy , last seen 2022run sam sole ses is his numbnes s sensati on of both feet as he walksis due to his documen valery severe sinal stenosi sCould this be vascula rcaroti d doppler s ordered 025 at [facility] with CC to Gerard 2023 024 [email or web address] Garcia Gee MD, [address] [place] [address] Dr,, [place], [address], 4 09:30:59 physica l medicin e and rehabil itation refer l - 08/16/19 24 lumbar pain radiate s down left gluteal areanee ds mandari n interpr etercar di hx of spinal stenosi sknown to PSS for hip injecti on in past l gabriele Dalal who speaks nauruan phone [phone] 2023 024 [email or web address] [facility], [address] [place], [address], 13:54:28 Procedures None recorde d. Surgeries None recorde d. Imaging None recorde d. Medication Orders tadalaf il 20 mg tablet 2023 024 [facility], [address] [place], [address], 4 10:59:51 metform in ER 750 mg tablet, extende d release 24 hr 2023 024 [facility], [address] [place], [address], 13:24:22 Augment in 875 mg-125 mg tablet 2023 024 [facility], [address] [facility] [place], [address], 4 10:13:16 atorvas tatin 80 mg tablet 2023 024 [facility], [address] [place], [address], 4 15:00:45 aspirin 81 mg tablet, delayed release 2023 024 [facility], [address] [place], [address], 4 15:00:45 losarta n 100 mg tablet 2023 024 [facility], [address] [facility] [place], [address], 4 15:00:46 Patient TargetsNo targets recorded. Patient Instructions Encounter Date Encounter Id Patient Instructions Last Modified By Organization Details Last Modified Time 08/16/2023 [id number] high blood pressure: care instructions [email or web address] Not available 08/16/2023 15:00:42 learning about high blood pressure [email or web address] Not available 08/16/2023 15:00:42 02/25/2024 [id number] high blood pressure: care instructions [email or web address] Not available 02/25/2024 13:24:20 learning about high blood pressure rvigderman Not available 02/25/2024 13:24:20 Reason for Referral Physical Medicine And Rehabi litation Referral for Lumbar radiculopathy 08/16/2023 lumbar pain radiates down left gluteal areaneeds mandarin interpretercarries hx of spinal stenosisknown to PSS for hip injection in pastcall daughter Mily Dalal who speaks englishphone Referring Physician: Yarelis Huerta [facility], Encounter Date: 08/16/2023 Vascular Surgeon Referral fo r Intermittent claudication known to you from Carotid endarterectomy, last seen 2022running hypotheses is his numbness sensation of both feet as he walksis due to his documented severe sinal stenosisCould this be vascularcarotid dopplers ordered 02/24/2025 at [facility] with CC to Gerard Referring Physician: Yarelis Huerta [facility], Encounter Date: 02/25/2024 Results Created Date Observation [...] furth er confi rmati on Not Available [address], [address], 08/12/2023 12:48:18 08/12/19 24 08/12/2023 HGB A1C estimated average glucose 151.3 mg/dL Not Available [address], [address], 08/12/2023 12:48:18 08/12/19 24 08/12/2023 BASIC METAB OLIC PANEL glucose 119 mg/dL 70-100 high Not Available [address], [address], 08/12/2023 14:05:17 08/12/19 24 08/12/2023 BASIC METAB OLIC PANEL BUN 22 mg/dL 7-18 high Not Available [address], [address], 08/12/2023 14:05:17 08/12/19 24 08/12/2023 BASIC METAB OLIC PANEL creatinine 1.1 mg/dL 0.8-1. 3 Not Available [address], [address], 08/12/2023 14:05:17 08/12/19 24 08/12/2023 BASIC METAB OLIC PANEL B/C 20.0 ratio Not Available [address], [address], 08/12/2023 14:05:17 08/12/19 24 08/12/2023 BASIC METAB [...] be used in pregn augie. Not Available [address] [place], [address], 08/12/2023 14:05:17 08/12/19 24 08/12/2023 BASIC METAB OLIC PANEL sodium 141 mmol/ L 136-14 5 Not Available [address], [address], 08/12/2023 14:05:17 08/12/19 24 08/12/2023 BASIC METAB OLIC PANEL potassium 4.2 mmol/ L 3.5-5. 1 Not Available [address], [address], 08/12/2023 14:05:17 08/12/19 24 08/12/2023 BASIC METAB OLIC PANEL chloride 104 mmol/ L 96-107 Not Available [address], [address], 08/12/2023 14:05:17 08/12/19 24 08/12/2023 BASIC METAB OLIC PANEL anion gap 13.3 5.0-15 .0 Not Available [address], [address], 08/12/2023 14:05:17 08/12/19 24 08/12/2023 BASIC METAB OLIC PANEL CO2 24 mmol/ L 21-32 Not Available [address], [address], 08/12/2023 14:05:17 08/12/19 24 08/12/2023 BASIC METAB OLIC PANEL calcium 9.1 mg/dL 8.5-10 .3 Not Available [address], [address], 08/12/2023 14:05:17 08/12/19 24 08/12/2023 LIPID PANEL cholesterol 176 mg/dL <200 mg/dl Gisella able 200-2 39 mg/dl Borde rline High >240 mg/dl High Not Available [address], [address], 08/12/2023 14:05:18 08/12/19 24 08/12/2023 LIPID PANEL triglyceride s 159 mg/dL <150 mg/dL Dorene l 150-1 99 mg/dL Borde rline High 200-4 99 mg/dL High >500 mg/dL Very High Not Available [address], [address], 08/12/2023 14:05:18 08/12/19 24 08/12/2023 LIPID PANEL direct HDL 82 mg/dL <40 mg/dl - Major Risk for CHD >60 mg/dl - Negat kyle Risk for CHD Not Available [address], [address], 08/12/2023 14:05:18 08/12/19 24 08/12/2023 LDL - [...] r is not nik almeida. Not Available [address], [address], 08/12/2023 14:05:19 08/12/19 24 08/12/2023 MICRO ALBUM IN/CR EATIN INE RATIO PANEL , URINE microalbumin 21.4 mg/L 1.3-20 .0 high Not Available [address], [address], 08/12/2023 14:45:45 08/12/19 24 08/12/2023 MICRO ALBUM IN/CR EATIN INE RATIO PANEL , URINE creatinine urine 68.4 mg/dL 30.0-1 25.0 Not Available [address], [address], 08/12/2023 14:45:45 08/12/1908/12/2023 MICRO ALBUM IN/CR EATIN INE RATIO PANEL , URINE microalb/cre at ratio 31.3 mg/g_ creat 0.0-29 .0 high Not Available [address], [address], 08/12/2023 14:45:45 02/18/2002/18/2024 HGB A1C hemoglobin A1C [...] furth er confi rmati on Not Available [address], [address], 02/18/2024 12:02:02 02/18/2002/18/2024 HGB A1C estimated average glucose 159.9 mg/dL Not Available [address], [address], 02/18/2024 12:02:02 02/18/2002/21/2024 BASIC METAB OLIC PANEL glucose 135 mg/dL 70-100 high Not Available [address], [address], 02/21/2024 12:12:50 02/18/2002/21/2024 BASIC METAB OLIC PANEL BUN 23 mg/dL 7-18 high Not Available [address], [address], 02/21/2024 12:12:50 02/18/20 24 02/21/2024 BASIC METAB OLIC PANEL creatinine 1.1 mg/dL 0.8-1. 3 Not Available [address], [address], 02/21/2024 12:12:50 02/18/2002/21/2024 BASIC METAB OLIC PANEL B/C 20.9 ratio Not Available [address], [address], 02/21/2024 12:12:50 02/18/20 24 02/21/2024 BASIC METAB [...] be used in pregn augie. Not Available [address], [address], 02/21/2024 12:12:50 02/18/20 24 02/21/2024 BASIC METAB OLIC PANEL sodium 142 mmol/ L 136-14 5 Not Available [address], [address], 02/21/2024 12:12:50 02/18/20 24 02/21/2024 BASIC METAB OLIC PANEL potassium 4.3 mmol/ L 3.5-5. 1 Not Available [address], [address], 02/21/2024 12:12:50 02/18/2002/21/2024 BASIC METAB OLIC PANEL chloride 105 mmol/ L 96-107 Not Available [address], [address], 02/21/2024 12:12:50 02/18/2002/21/2024 BASIC METAB OLIC PANEL anion gap 9.5 5.0-15 .0 Not Available [address], [address], 02/21/2024 12:12:50 02/18/2002/21/2024 BASIC METAB OLIC PANEL CO2 28 mmol/ L 21-32 Not Available [address], [address], 02/21/2024 12:12:50 02/18/2002/21/2024 BASIC METAB OLIC PANEL calcium 9.4 mg/dL 8.5-10 .3 Not Available [address], [address], 02/21/2024 12:12:50 02/18/2002/21/2024 LIPID PANEL cholesterol 200 mg/dL <200 mg/dl Gieslla able 200-2 39 mg/dl Borde rline High >240 mg/dl High Not Available [address], [address], 02/21/2024 12:12:52 02/18/2002/21/2024 LIPID PANEL triglyceride s 87 mg/dL <150 mg/dL Dorene l 150-1 99 mg/dL Borde rline High 200-4 99 mg/dL High >500 mg/dL Very High Not Available [address], [address], 02/21/2024 12:12:52 02/18/2002/21/2024 LIPID PANEL direct HDL 84 mg/dL <40 mg/dl - Major Risk for CHD >60 mg/dl - Negat kyle Risk for CHD Not Available [address], [address], 02/21/2024 12:12:52 02/18/20 24 02/21/2024 LDL - [...] r is not nik almeida. Not Available [address], [address], 02/21/2024 12:12:53 05/22/19 25 05/22/2024 POC FLU/S ARS flu A POC NEGATI VE Not Available [facility] [address] [place] [address], [address], 05/22/2024 11:09:14 05/22/19 25 05/22/2024 POC FLU/S ARS flu B POC NEGATI VE Not Available [facility] [address] [place] [address], [address], 05/22/2024 11:09:14 05/22/19 25 05/22/2024 POC FLU/S ARS sars POC NEGATI VE Not Available [facility] [address] [place], [address], 05/22/2024 11:09:14 03/15/20 23 03/15/2023 XR, hip [...] Readin g Physic enrike: Regla Edwards ms [facility] ([facility]aging) [address], [place], [address], 08/16/2023 14:51:11 03/02/20 24 03/01/2024 US carot id duple x (bila teral ) US CAROTI D DUPLEX COMPLE TE (BILAT ERAL) Referr ing clinic enrike's provid ed indica tion for this examin ation in Epic: Outsid e Radiol ogy Order; hx caroti d endart erecto my TECHNI QUE: A duplex ultras ound evalua tion of the common caroti d, internet marketing executive al caroti d, certified optician al caroti d, verteb ral, and subcla [...] Systol ic: 74 Distal Diasto lic: 13 Glost Placer al Caroti d Artery (cm/s) : Proxim al Systol ic: 94 Proxim al Diasto lic: 14 Mid Systol ic: 85 Mid Diasto lic: 16 Distal Systol ic: 68 Distal Diasto lic: 15 Solar Mechanical Engineer al Caroti d Artery (cm/s) : Systol [...] Systol ic: 72 Distal Diasto lic: 11 Glost Placer al Caroti d Artery (cm/s) : Proxim al Systol ic: 78 Proxim al Diasto lic: 8 Mid Systol ic: 79 Mid Diasto lic: 13 Distal Systol ic: 76 Distal Diasto lic: 20 Solar Mechanical Engineer al Caroti d Artery (cm/s) : Systol ic: 88 Diasto lic: 6 Verteb ral Artery (cm/s) : Systol ic: 59 Diasto lic: 13 Subcla vian Artery (cm/s) : Not done ICA/CC A Ratio: 1.18 ICA Stenos is: Normal ICA Plaque : None Visual ized Abbrev iation s: CCA = Common Caroti d Artery . ICA = Glost Placer al Caroti d Artery . ECA = Solar Mechanical Engineer al Caroti d Artery . Vert = [...] signif icant elevat ion throug hout the internet marketing executive al caroti d artery . No plaque is visual ized in the common caroti d artery . Unrema rkable certified optician al caroti d artery . Koffi grade flow is noted in the verteb ral artery . The subcla vian artery was not interr ogated . Left: Dopple r flow veloci ties and wavefo rm contou rs are within normal limits throug hout the internet marketing executive al caroti d artery , no plaque is visual ized. There is mild plaque visual ized in the common caroti d artery . Unrema rkable certified optician al caroti d artery . Koffi grade flow is noted in the verteb ral artery . The subcla vian artery was not interr ogated . IMPRES SIONS: Compar ed to the prior caroti d ultras ound of 2018. 1. <50% stenos is noted in the right internet marketing executive al caroti d artery . 2. No stenos is in the left internet marketing executive al caroti d artery . 3. No stenos is is noted in the common caroti d arteri es bilate rally. 4. Unrema rkable certified optician al caroti d arteri es bilate rally. 5. Antegr andrew flow in the bilate ral cervic al verteb ral arteri es. 6. The bilate ral subcla vian arteri es were not interr ogated STENOS IS: Glost Placer al caroti d artery stenos is by duplex ultras onogra phy has been valida valery by compar ing findin gs with angiog raphic stenos is. NASCET method s were used, where the most severe stenos is repres ents the numera tor, and the normal internet marketing executive al caroti d artery diamet er distal [...] MAN YARELIS VÁZQUEZ MAN YARELIS VÁZQUEZ MAN [facility] [address] [place] [address], [address], 05/18/2024 13:31:13 03/02/20 24 03/01/2024 US, jarvis pettit id arter y No observ ation record ed. [address], [address], 05/18/2024 13:31:13 Result Notes None recorded. Problems Name Problem SNOMED Code Status Onset Date Resolution Date Notes Provider Name and Address Organization Details Recorded Time Mixed hyperlipi demia 023109899 Active per 06/20/12 OV notes Not Available [facility] 2 08:12:09 Benign essential hypertens ion 1772730 Active per 06/20/12 OV notes Not Available [facility] 2 08:12:09 Sinus node dysfuncti on 83752866 Active 2016 PPM 2017, 37 sec pauses with presyncope Not Available [facility] 2 08:12:09 Hyperglyc emia 60123681 Active 2017 Not Available [facility] 2 08:12:09 Type 2 diabetes mellitus without complicat ion 535518817 Active 2017 Not Available [facility] 2 08:12:09 Transient cerebral ischemia 926647027 Active 201804/19/19 due to left carptid stenosis Not Available [facility] 2 08:12:09 Carotid endartere ctomy Active [address] Dela Cruz Not Available [facility] 2 08:12:09 Coronary arteriosc lerosis 82896257 Active 2019 by cath [facility] Not Available [facility] 2 08:12:09 Benign prostatic hyperplas ia 657473793 Active 2019 Not Available [facility] 2 08:12:09 Cough 66005865 Active 2019 Chronic, resumed Flonase. Advised claritin and humidifica tion at night. Not Available [facility] 2 08:12:09 Spinal stenosis of lumbar region 62159837 Active [address] L3 to L5 Yarelis Huerta MD [address] [place] [address], [phone] , [facility] 3 19:49:32 Problem Notes None recorded. Procedures Surgical History Date Name Laterality Status Provider Name and Address Organization Details Recorded Time 02/25/20 Medicare Wellness Visit completed Barbara Gamez [facility] 02/25/2024 10:07:42 01/24/20 Wound Care completed Yarelis Huerta MD [address] [place] [address], [phone], [facility] 01/24/2024 10:54:24 04/05/20 23 [address]: PT Eval Low Complexity completed Romulo Clarke, REYNAT [address] [place], [address], [facility] 04/05/2023 13:33:46 04/05/20 23 Treatment and Advice completed Romulo Clarke DPT [address] [place], [address], [facility] 04/10/2023 11:22:55 02/23/20 23 Medicare Wellness Visit completed Barbara Gamez [facility] 02/22/2023 15:04:12 07/09/19 23 Knee (Right) Injection completed Yarelis Huerta MD [address] [place] [address], [phone], [facility] 07/08/2022 12:18:19 11/25/19 22 Wound Care completed ISIDRA FIGUEROA DNP [address] [place] [address], [phone], [facility] 11/24/2021 15:34:43 09/13/19 22 Shoulder (Left) Injection completed Yarelis Huerta MD [address] [place] [address], [phone], [facility] 09/12/2021 17:39:07 08/14/19 22 Medicare Wellness Visit completed Barbara Gamez [facility] 08/13/2021 10:07:08 08/14/19 22 Alcohol use screening completed Barbara Gamez [facility] 08/13/2021 10:07:08 03/20/20 20 Medicare Wellness Visit completed Barbara Gamez [facility] 03/20/2020 14:14:00 03/20/20 20 prevention-cardiov ascular risk reduction counseling completed Barbara Gamez [facility] 03/20/2020 14:14:00 03/20/20 20 prevention-annual alcohol misuse screening completed Barbara Gamez [facility] 03/20/2020 14:14:00 04/27/20 19 Transitional care completed MARY Tinoco [address] [place], [address], [facility] 04/27/2019 12:27:47 11/29/19 16 Corticosteroid Injection completed Kendy Garcia MD [address] [place] [address], [phone], [facility] 11/29/2015 15:56:48 11/29/19 16 Aspiration Major Joint/Bursa completed Kendy Garcia MD [address] [place] [address], [phone], [facility] 11/29/2015 15:54:32 11/13/19 16 Shoulder (Right) Injection completed Kendy Garcia MD [address] [place] [address], [phone], [facility] 11/13/2015 15:56:26 Imaging Results Imaging Date Name Status LastModified by Organiz ation Details LastModified Time 03/15/2023 XR, hip + pelvis, unilateral, [address] [facility]) [address], [place], [address], 08/16/2023 14:51:11 03/01/2024 US carotid duplex (bilateral) completed [facility] [address] [place] [address], [address], 05/18/2024 13:31:13 03/01/2024 US, duplex, carotid artery completed [address], [address], 05/18/2024 13:31:13 Procedure Notes None recorded. Medical Equipment None Reported. Allergies Allergen ID Allergen Name Allergen Category Reaction Reaction Severity Criticality Documentation Date Start Date Code Code System Note Provider Name and Address Organization Details Recorded Time 24291 Product containin g penicilli n (product) medicatio n rash Not available Not available 09/29/2011 59087 8001 SNOMED VERONICA Ashton, [facility] 3 09:21:20 Medications Name Sig Start [...] e 50 mcg/actua tion nasal spray,siobhan pension [place] 2 sprays every day by intranas al [...] Not Available Vitals Date Recorded Body height Body mass index (BMI) Body weight Oxygen saturation Oxygen saturation in Arterial blood by Pulse oximetry Heart rate Systolic blood pressure Diastolic blood pressure Provider Name and Address Organization Details Last Updated DateTime 4 167.64 cm 22.9 kg/m2 61473.8 2 g 98 % 98 % 70 /min 124 mm[Hg] 78 mm[Hg] Barbara Gamez [facility] 4 14:27:47 Date Recorded Body height Body mass index (BMI) Body weight Systolic blood pressure Diastolic blood pressure Provider Name and Address Organization Details Last Updated DateTime 01/24/2024 167.64 cm 22.5 kg/m2 01442.04 g 122 mm[Hg] 74 mm[Hg] Barbara Gamez [facility] 4 10:28:17 Date Recorded Body height Body mass index (BMI) Body weight Heart rate Oxygen saturation Oxygen saturation in Arterial blood by Pulse oximetry Systolic blood pressure Diastolic blood pressure Provider Name and Address Organization Details Last Updated DateTime 4 167.64 cm 22.9 kg/m2 50695.8 2 g 54 /min 95 % 95 % 166 mm[Hg] 94 mm[Hg] Barbara Gamez [facility] 4 10:17:35 Date Recorded Body height Body mass index (BMI) Body weight Heart rate Oxygen saturation Oxygen saturation in Arterial blood by Pulse oximetry Systolic blood pressure Diastolic blood pressure Provider Name and Address Organization Details Last Updated DateTime 5 167.64 cm 22.3 kg/m2 50297.4 5 g 101 /min 94 % 94 % 180 mm[Hg] 110 mm[Hg] Barbara Gamez [facility] 5 10:48:47 Social History Question Answer Notes LastModified by Organizat ion Details LastModified Time Tobacco Smoking Status Former Smoker quit 20 years ago; 02/17/22 MAYI Drew [facility] 02/17/2022 10:05:46 What Is Your Level Of Alcohol Consumption? Moderate 1 Daily 02/17/22 MAYI [email or web address] Information not available 02/17/2022 Do You Wear A Helmet When Biking? Yes Information not available 11/13/2015 What Is Your Level Of Caffeine Consumption? Moderate 1-2 Tea [email or web address] Information not available 03/20/2020 How Much Tobacco Do You Chew? None Information not available 11/13/2015 Are You Currently Employed? No Retired 2021 [email or web address] Information not available 08/13/2021 What Type Of Diet Are You Following? REGULAR Information not available 11/13/2015 Have There Been Any Changes To Your Family Or Social Situation? No [email or web address] Information not available 08/13/2021 How Many Days In The Past Year Have You Had A Heavy Drinking Consumption (4+ Female, 5+ Male)? 0 Information not available 05/10/2012 Are There Any Guns Present In Your Home? No Information not available 11/13/2015 Do You Use Insect Repellent Routinely? No [email or web address] Information not available 08/13/2021 Live Alone Or With Others? With Others Information not available 11/13/2015 Patient Has Health Care Proxy Signed And In Chart No Information not available 11/09/2011 CCM Consent Discussion 03/24/2022 [email or web address] Information not available 03/31/2022 Marital Status Informati on not available 11/13/2015 Mosquito Repellent Used Routinely No Information not available 11/13/2015 What Was The Date Of Your Most Recent Tobacco Screening? 02/17/2022 02/17/22 MAYI [email or web address] Information not available 02/17/2022 How Many Children Do You Have? 3 [email or web address] Information not available 08/13/2021 What Is Your Current Pack Years? 10packyears [email or web address] Information not available 11/19/2023 What Is Your Relationship Status? [email or web address] Information not available 08/13/2021 Do You Use Your Seat Belt Or Car Seat Routinely? Yes [email or web address] Information not available 02/25/2024 Seat Belts Used Routinely Yes Information not available 11/13/2015 Are You Sexually Active? Yes Information not available 11/13/2015 Smoke Alarm In Home Yes Information not available 11/13/2015 Do You Have Smoke And Carbon Monoxide Detectors In Your Home? Yes [email or web address] Information not available 08/13/2021 Are You Passively Exposed To Smoke? No [email or web address] Information not available 08/13/2021 General Stress Level Low Information not available 11/13/2015 Do You Use Sunscreen Routinely? No Information not available 11/13/2015 Do You Or Have You Ever Used Any Other Forms Of Tobacco Or Nicotine? No [email or web address] Information not available 02/17/2022 Sex: Male Functional Status Question Answer Note LastModified by Organizat ion Details LastModified Time What is your exercise level? Moderate daily walks [email or web address] Information not available 02/22/2023 Mental Status None recorded. Family History Nothing Reported Notes:M and Father lived to mid 80's. Medical History Condition Response Hyperlipidemia Y Hypertension Y Immunizations Vaccine Type Date Status Note Provider Nam e and Address Organization Details Recorded Time Influenza, split virus, trivalent, preservative 2 completed Not Available [facility] 05/20/2019 02:18:35 Influenza, high-dose, trivalent, PF 5 completed Not Available [facility] 05/20/2019 02:25:04 Influenza, high-dose, trivalent, PF 7 completed Not Available [facility] 05/20/2019 02:32:27 Influenza, high-dose, trivalent, PF 7 completed Not Available [facility] 05/20/2019 02:33:35 Pneumococcal conjugate PCV 13 7 completed Not Available [facility] 05/20/2019 02:22:05 Influenza, high-dose, trivalent, PF 8 completed Not Available [facility] 05/20/2019 02:23:29 Influenza, high-dose, trivalent, PF 9 completed Not Available [facility] 05/20/2019 02:24:34 pneumococcal polysaccharide PPV23 9 completed Not Available [facility] 05/20/2019 02:27:07 Tdap 9 completed Not Available [facility] 05/20/2019 02:26:03 Influenza, high-dose, quadrivalent, PF 1 completed VERONICA Davalos, [facility] 04/15/2021 10:31:20 Influenza, split virus, quadrivalent, preservative 0 completed Thais Johnson DNP [address] [place] [address], [phone], [facility] 03/20/2020 14:39:44 Influenza, high-dose, quadrivalent, PF 2 completed Yarelis Huerta MD [address] [place] [address], [phone], [facility] 02/06/2022 10:43:37 Influenza, high-dose, quadrivalent, PF 3 completed Chaya Small NP [address] [place] [address], [phone], [facility] 03/12/2023 17:07:35 Influenza, high-dose, trivalent, PF 4 completed Yarelis Huerta MD [address] [place] [address], [phone], [facility] 02/25/2024 13:18:10 COVID-19, mRNA, LNP-S, PF, 100 mcg/0.5mL dose or 50 mcg/0.25mL dose 1 completed VERONICA Davalos, [facility] 03/07/2021 14:58:06 COVID-19, mRNA, LNP-S, PF, 100 mcg/0.5mL dose or 50 mcg/0.25mL dose 2 completed Barbara Gamez CMA null, [facility] 08/15/2021 08:35:08 Past Encounters Encounter ID Performer Location Encounter Start Date Encounter Closed Date Diagnosis/Indication Diagnosis SNOMED-CT Code Diagnosis ICD10 Code Diagnosis Note [id number] [facility], OFFICE [address] [place] [address] 09/29/2011 15:09:24 09/29/2011 16:19:[id number] [facility], OFFICE [address] [place] [address] 11/09/2011 15:08:07 11/10/2011 09:17:32 [id number] Lilly Chand LPN , [facility], OFFICE [address] [place] [address] 01/26/2012 14:11:21 01/27/2012 08:05:23 [id number] Yarelis Huerta MD , [facility], OFFICE [address] [place] [address] [address] [place] [id number] 02/15/2012 08:56:43 02/15/2012 09:36:33 [id number] Nicole Enciso , [facility], OFFICE [address] [place] [address] 05/10/2012 13:23:04 05/11/2012 09:33:22 [id number] Yarelis Huerta MD , [facility], OFFICE [address] [place] [address] [address] [place] [id number] 06/10/2012 08:37:22 06/10/2012 09:52:12 [id number] Benson Garcia DPM Podiatry, [address] [place] [id number] 07/05/2012 14:39:49 07/06/2012 16:03:00 [id number] Yarelis Huerta MD , [facility], OFFICE [address] [place] [address] [address] [place] [id number] 03/13/2015 15:23:42 03/13/2015 16:09:37 Mixed hyperlipidemia 564185850 E78.2 03/2015 at goal below 100 on simvastati n 40. at goal on lipitor 80 pt wishes FLP Benign ess ential hypertension 5362293 I10 03/2015 at goal on lisinopril 20 only. remains at goal (<140/90)o n two medication s HCTZ VICKY. Understand s what meds are for. plan to continue indefinite ly Bp checks twice annually. remains at goal on two medication s HCTZ VICKY Plantar fasciitis 064743 003 M72.2 due to pes planus has failed home treatment he had purchased a nonsense compressio n bandage i printed out a photo of the B[place] night splint for him to purchase recommende d podiatry input as well resolved due to pes planus written instructio ns from upto date, verbal translatio n as well as written Dr Hernadez instructio ns to pharmacist given Acute uppe r respiratory infection 54530298 J06.9 bothersome cough with bronchitis Educated patient [...] resolve in 2-4 weeks. Low back pain 062746287 M54.5 resolved. upper lumbar lower thoracic pain upon arising prob djd. rec iboprofen agreed to check liver enzymes renal fn per pr request, resonabkle as on lipitor high dose. denies h/o liver dz, hepatitis. 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 Dermatophy tosis of the perianal area 305918695 B35.4 resolved w topicals [id number] Candice LUNDY, [facility], OFFICE [address] [place] [id number] 04/09/2015 15:11:16 04/13/2015 09:50:23 Dermatophytosis of the perianal area 566617071 B35.4 resolved w topicals Mixed hyperlipidemia 267 075063 E78.2 03/2015 at goal below 100 on simvastati n 40. at goal on lipitor 80 pt wishes FLP Impotence of organic origin 064279536 N52.9 prior- pt wishes refill viagra presents empty bottle to me. Benign ess ential hypertension 8564854 I10 04/2015 still not at goal, pt frustrated with lisinopril and rather than increase dose, agreed with plate keeper to change to norvasc 10mg rto 2-3 weeks 03/2015 at goal on lisinopril 20 only. remains at goal (<140/90)o n two medication s HCTZ VICKY. Understand s what meds are for. plan to continue indefinite ly Bp checks twice annually. remains at goal on two medication s HCTZ VICKY Low back pain 756002695 M54.5 resolved. upper lumbar lower thoracic pain upon arising prob djd. rec iboprofen agreed to check liver enzymes renal fn per pr request, resonabkle as on lipitor high dose. denies h/o liver dz, hepatitis. Plantar fasciitis 167851 003 M72.2 due to pes planus has failed home treatment he had purchased a nonsense compressio n bandage i printed out a photo of the B[place] night splint for him to purchase recommende d podiatry input as well resolved due to pes planus written instructio ns from upto date, verbal translatio n as well as written Dr Hernadez instructio ns to pharmacist given Acute uppe r respiratory infection 56437542 J06.9 bothersome cough with bronchitis Educated patient [...] in 2-4 weeks. Active or passive immunization 271692740 Z23 [id number] , [facility], OFFICE [address] [place] [address] 06/07/2015 11:23:24 06/07/2015 14:53:24 Benign essential hypertension 6912636 I10 Chest pain 40107598 R07. 9 [id number] Yarelis Huerta MD , [facility], OFFICE [address] [place] [address] 07/08/2015 15:07:45 07/08/2015 16:20:01 Skin problem 259440142 R23.9 Benign ess ential hypertension 9592678 I10 07/2015 at goal on VICKY. AT PT'S REQUEST WILL CHANGE BACK TO LISINOPRIL . EKG NL. I THINK AN ETT IS INDICATED. I AM NOT READY TO BLAME AMLODIPINE FOR CHEST PRESSURE. DISCUSSED WITH PT VIA TRANLATOR. MORE THEN 50% OF THIS APPT WAS USED COUNSELING RE: NATURE OF ISSUE AND COORDINATI ON OF CARE. [id number] Kendy Garcia MD , [facility], OFFICE [address] [place] [address] 11/13/2015 15:11:07 11/13/2015 15:50:59 Shoulder joint pain 135598395 M25.519 intractabl e, steroidal intraartic ular injection was performed, see procedure note, FU in two wks Increased blood pressure 72398718 R03.0 w Hx HTN, on meds, after was rechecked by me at the end of the encounter, it was normal, poss pt was in pain and/or was someways anxious , counseled to monitor his BP and report if still elevated [id number] Yarelis Huerta MD , [facility], OFFICE [address] [place] [id number] 11/18/2015 14:21:02 11/18/2015 15:40:33 Adult health examination 816617155 Z00.00 see Risk Assessment and Lifestyle Change Counseling section above Counseling 553765514 Z71 .9 Benign ess ential hypertension 9916938 I10 Blood pressure at goal Screening for malignant neoplasm of colon 793773484 Z12.11 due per pt 2018 Impotence 277508154 N52. 9 Impaired f asting glycemia 545566764 R73.01 below 126 for years [id number] Yarelis Huerta MD , [facility], OFFICE [address] [place] [address] 11/26/2015 08:43:52 11/26/2015 15:55:55 Low blood pressure 87349514 I95.9 symptomaat iciatrogen ic this summeragre ed to [place] lisinopril , he has proven intolerant of antihypert ensives and we will merely follow his BP which really has always been within recommende d uopper limit for age group 150/90, 148/90 havinmg been his highest BP recorded. he will f/u if orthostati c symptoms of brief lightheade dness head pressure vision loss upon arising persists. [id number] Kendy Garcia MD , [facility], OFFICE [address] [place] [address] 11/29/2015 11:20:54 12/02/2015 12:00:50 Olecranon bursitis 187637630 M70.21 uncertain etiology, aspiration and then steroidal injection was performed, see procedure note [id number] Yarelis Huerta MD , [facility], OFFICE [address] [place] [address] 12/04/2015 14:10:58 12/04/2015 15:03:15 Headache 96332170 R51 4 times a day gets head gutierrez lasting few seconds.Pt disincline d to believe that this is not significan t. referral printed for pts grandson to be able to schedule appt Cough 70656459 R05 cough x many weeks, unclear if upper or lower mucuswill image and referi believe this is a habitual cough from minor environmen vinod exposurere ferral printed for pts grandson to be able to schedule appt [id number] Naz Lyons , [facility], OFFICE [address] [place] [address] 05/20/2016 08:53:44 05/20/2016 10:01:11 Headache 37341940 R51 historical .4 times a day gets head gutierrez lasting few seconds.Pt disincline d to believe that this is not significan t. referral printed for pts grandson to be able to schedule appt Cough 07057091 R05 pt states he has asthmai will [...] be able to schedule appt Olecranon bursitis 75908 0002 M70.21 nearly resolved. summer 2015.uncer tain etiology, aspiration and then steroidal injection was performed, see procedure note Low blood pressure 77925 003 I95.9 summer 2015.sympt omaticiatr ogenic this [...] upon arising persists. Benign ess ential hypertension 8565623 I10 usually at goal off medstoday 05/20/15 it is aberrantly elevatedhe blows out a rapid excuse, got poor sleepagree d to rto 2 weeks recheckhe has been a frustratin g case and i am reluctant to restart med Impotence 207355317 N52. 9 Impaired f asting glycemia 383651617 R73.01 below 126 for years Active or passive immunization 759225553 Z23 [id number] Yarelis Huerta MD , [facility], OFFICE [address] [place], [place] [address] 06/03/2016 07:45:10 06/03/2016 08:22:32 Headache 12234098 R51 historical .4 times a day gets head gutierrez lasting few seconds.Pt disincline d to believe that this is not significan t. referral printed for pts grandson to be able to schedule appt 12/2015 [facility] neurolog[facility] Cough 06995361 R05 pt states he has asthma, likely RADi will add proair to fluticason e.he is not forthcomin g with symptoms, looking for 'strong medicine'h e will need formal testing .cough x many weeks, unclear if upper or lower mucuswill image and referi believe this is a habitual cough from minor environmen [facility] ferrmd printed for pts grandson to be able to schedule appt Olecranon bursitis 94373 0002 M70.21 nearly resolved. summer 2015.uncer tain etiology, aspiration and then steroidal injection was performed, see procedure note Low blood pressure 94107 003 I95.9 summer 2015.sympt omaticiatr ogenic this summeragre ed to [place] lisinopril , he has proven intolerant of antihypert ensives and we will merely follow his BP which lies within new within upper limit for age group 150/90, 148/90 havinmg been his highest BP recorded. he will f/u if orthostati c symptoms of brief lightheade dness head pressure vision loss upon arising persists. Benign ess ential hypertension 2422412 I10 06/03/16 remains at goal off any [...] and rather than increase dose, agreed with plate keeper to change to norvasc 10mg rto 2-3 weeks 03/2015 at goal on lisinopril 20 only. 2014 remains at goal (<140/90)o n two medication s HCTZ VICKY. Understand s what meds are for. plan to continue indefinite ly Bp checks twice annually. remains at goal on two medication s HCTZ VICKY Impotence 933592779 N52. 9 Impaired f asting glycemia 780373465 R73.01 below 126 for years Mixed hyperlipidemia 267 512034 E78.2 lipidemia - 11/2015 LDL is just fine 128, at goal, off medication which he is disincline d to take.. Diet only. 03/2015 at goal below 100 on simvastati n 40. at goal below LDL 100, on lipitor 80 pt wishes FLP [id number] RABIA Calero , [facility], OFFICE [address] [place], [place] [address] 12/08/2016 16:10:52 12/08/2016 17:00:47 Syncope and collapse 032961326 R55 5 days ago arose from chair, got up to grab door and passed out.has been generally feeling unwell.he is bradycardi c, PPM?(had negative nuclear 09/2015)rep orts sub sequent presyncope , has to lean on wall to prevent collapse during these events Headache 98023009 R51 historical .4 times a day gets head gutierrez lasting few seconds.Pt disincline d to believe that this is not significan t. referral printed for pts grandson to be able to schedule appt Cough 15359660 R05 05/2016 pt states he has asthmai [...] be able to schedule appt Olecranon bursitis 07763 0002 M70.21 nearly resolved. summer 2015.uncer tain etiology, aspiration and then steroidal injection was performed, see procedure note Low blood pressure 61845 003 I95.9 summer 2015.sympt omaticiatr ogenic this [...] upon arising persists. Benign ess ential hypertension 3301158 I10 usually at goal off medstoday 05/20/15 it is aberrantly elevatedhe blows out a rapid excuse, got poor sleepagree d to rto 2 weeks recheckhe has been a frustratin g case and i am reluctant to restart med Impotence 771563630 N52. 9 Impaired f asting glycemia 446612204 R73.01 below 126 for years [id number] Yarelis Huerta MD , [facility], OFFICE [address] [place] [address] 02/26/2017 09:46:39 02/26/2017 11:23:21 Adult health examination 621085576 Z00.00 see Risk Assessment and Lifestyle Change Counseling section above Counseling 542557688 Z71 .9 Active or passive immunization 534512151 Z23 Headache 91981313 R51 historical .4 times a day gets head gutierrez lasting few seconds.Pt disincline d to believe that this is not significan t. referral printed for pts grandson to be able to schedule appt Cough 36294904 R05 05/2016 pt states he has asthmai will add proair to fluticason e.he is not forthcomin g with symptoms, looking for 'strong medicine'h e will need formal testing .cough x many weeks, unclear if upper or lower mucuswill image and referi believe this is a habitual cough from minor environmen [facility] zak printed for pts grandson to be able to schedule appt Olecranon bursitis 42214 0002 M70.21 nearly resolved. summer 2015.uncer stacia etiology, aspiration and then steroidal injection was performed, see procedure note Benign ess ential hypertension 7402672 I10 appears his intoleranc e of BP [...] and rather than increase dose, agreed with plate keeper to change to norvasc 10mg rto 2-3 weeks 03/2015 at goal on lisinopril 20 only. remains at goal (<140/90)o n two medication s HCTZ VICKY. Understand s what meds are for. plan to continue indefinite ly Bp checks twice annually. remains at goal on two medication s HCTZ VICKY Impotence 529739152 N52. 9 Impaired f asting glycemia 169499598 R73.01 below 126 for years Mixed hyperlipidemia 267 369700 E78.2 lipidemia - 11/2015 LDL is just fine 128, at goal, off medication which he is disincline d to take.. Diet only. 03/2015 at goal below 100 on simvastati n 40. at goal below LDL 100, on lipitor 80 pt wishes FLP Sick sinus syndrome 3608 3008 I49.5 02/26/17.h e and his dtr phoned cardiology to decline PPM.with plate keeper i showed him the 30 day event [...] to prevent collapse during these events Lightheadedness 97304670 8 R42 summer 2015.sympt omaticiatr ogenic this [...] loss upon arising persists. 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 told name of hamilton verdugo.see n with [id number] Yarelis Huerta MD , [facility], OFFICE [address] [place] [address] 05/24/2017 07:39:15 05/24/2017 08:30:35 Headache 17780593 R51 historical .4 times a day gets head gutierrez lasting few seconds.Pt disincline d to believe that this is not significan t. referral printed for pts grandson to be able to schedule appt Cough 54173972 R05 resolved. 05/2016 pt states he has asthmai will add proair to fluticason e.he is not forthcomin g with symptoms, looking for 'strong medicine'h e will need formal testing .cough x many weeks, unclear if upper or lower mucuswill image and referi believe this is a habitual cough from minor environmen [facility] ferrmd printed for pts grandson to be able to schedule appt Olecranon bursitis 66497 0002 M70.21 nearly resolved. 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 remains at goal (<140/90)o n two medication s HCTZ VICKY. Understand s what meds are for. plan to continue indefinite ly Bp checks twice annually. remains at goal on two medication s HCTZ VICKY Impotence 604162937 N52. 9 Impaired f asting glycemia 043131580 R73.01 below 126 for years Mixed hyperlipidemia 267 217204 E78.2 lipidemia - 11/2015 LDL is just fine 128, at goal, off medication which he is disincline d to take.. Diet only. 03/2015 at goal below 100 on simvastati n 40. at goal below LDL 100, on lipitor 80 pt wishes FLP Sick sinus syndrome 3608 3008 I49.5 declines symptoms.. 02/26/17.h ren and his dtr phoned cardiology to decline PPM.with plate keeper i showed him the 30 day event [...] to prevent collapse during these events Lightheadedness 20003110 8 R42 see above.summ er 2016.sympt omaticiatr [...] loss upon arising persists. Coronary arteriosclerosis in [place] artery 8673299744 107 I25.10 cath by AYE JAUREGUI and hamp [id number] showed 50% ladappropr iate meds added Hyperglycemia 35213410 R 73.9 A1c of 7.his diet is low sugarwill recheck labs today 05/2017DM discussed with pt. [id number] , [facility], OFFICE [address] [place] [address] 10/18/2017 08:03:46 10/18/2017 09:04:24 Headache 35149049 R51 historical .4 times a day gets head gutierrez lasting few seconds.Pt disincline d to believe that this is not significan t. referral printed for pts grandson to be able to schedule appt Cough 19159069 R05 resolved. 05/2016 pt states he has [...] be able to schedule appt Olecranon bursitis 04688 0002 M70.21 nearly resolved. summer 2015.uncer tain etiology, aspiration and then steroidal injection was performed, see procedure note Benign ess ential hypertension 4715176 I10 BP at goal, based on home [...] and rather than increase dose, agreed with plate keeper to change to norvasc 10mg rto 2-3 weeks 03/2015 at goal on lisinopril 20 only. remains at goal (<140/90)o n two medication s HCTZ VICKY. Understand s what meds are for. plan to continue indefinite ly Bp checks twice annually. remains at goal on two medication s HCTZ VICKY Impotence 887492453 N52. 9 Mixed hyperlipidemia 267 015575 E78.2 LDL is at goal and he [...] Sick sinus syndrome 3608 3008 I49.5 through plate keeper (video) declines symptoms..ther e is nothing more we can do for his safety- due to cultural fixed notions he has 02/26/17.h e and his dtr phoned cardiology to decline PPM.with plate keeper i showed him the 30 day event [...] to prevent collapse during these events Lightheadedness 01617631 8 R42 pt through plate keeper denies symptoms, 10/2017. see above.summ er 2016.sympt omaticiatr ogenic this [...] loss upon arising persists. Coronary arteriosclerosis in [place] artery 1765484348 107 I25.10 assymptoma ticmed management is maximized with high dose statin (ator 40) and baby ASA cath by AYE JAUREGUI and hamp [id number] showed 50% ladappropr iate meds added Hyperglycemia 46612507 R 73.9 see dm below Type 2 alanis betes mellitus without complication 427090984 E11.9 10/2017 NEEDS EYE EXAM DM well controlled with diet only. Diabetes duscussed with pt through video plate keeper , who offers that patients feeling that [...] shown only IFG max 113 for years [id number] Sabine Ventura MD , [facility], OFFICE [address] [place], [place] [address] 11/04/2017 09:51:08 11/04/2017 12:13:23 Sacroiliac joint pain 465292162 M53.3 This man bent over to pick [...] ( out all this week) Essential hypertension 26584398 I10 Elevated blood pressure not well controlled . Quite a few of his readings have been over 140/90. I did not notice this until he was gone.Plan: I will have staff notify him that we need to keep an eye on his blood pressure and schedule him for BP clinic. [id number] Yarelis Huerta MD , [facility], OFFICE [address] [place] [address] 11/08/2017 11:12:16 11/08/2017 12:25:25 Sacroiliac joint pain 253433014 M53.3 here with grandson wong rizvipain locus [...] ( out all this week) Essential hypertension 15331948 I10 Elevated blood pressure not well controlled . Quite a few of his readings have been over 140/90. I did not notice this until he was gone.Plan: I will have staff notify him that we need to keep an eye on his blood pressure and schedule him for BP clinic. [id number] Yarelis Huerta MD , [facility], OFFICE [address] [place] [address] 11/15/2017 07:45:47 11/15/2017 09:18:15 Sacroiliac joint pain 783406667 M53.3 11/15/2017 he has returned to full activity at homeRTW note written , august RW11/16/ with ct rizvipain locus has shifted to L5 S1 [...] ( out all this week) Essential hypertension 59741185 I10 11/15/20172 mildly elevated blood pressures, out of last 3 performed, past month.we discussed with pt and . dietary modificati on. she admits she may be putting too much salt in food. etoh appears minimal.fo nikko Elevated blood pressure not well controlled . Quite a few of his readings have been over 140/90. I did not notice this until he was gone.Plan: I will have staff notify him that we need to keep an eye on his blood pressure and schedule him for BP clinic. [id number] Yarelis Huerta MD , [facility], OFFICE [address] [place], [place] [address] 03/16/2018 10:21:42 03/16/2018 11:25:13 Active or passive immunization 273329176 Z23 Sacroiliac joint pain 20 9165208 M53.3 here with grandson wong rizvipain locus [...] days ( out all this week) Headache 12806875 R51 historical .4 times a day gets head gutierrez lasting few seconds.Pt disincline d to believe that this is not significan t. referral printed for pts grandson to be able to schedule appt Cough 33209332 R05 resolved. 05/2016 pt states he has [...] be able to schedule appt Olecranon bursitis 94647 0002 M70.21 resolved. summer 2015.lizett palomo etiology, aspiration and then steroidal injection was performed, see procedure note Benign ess ential hypertension 1459420 I10 BP at goal, w/o Rx Elevated [...] and rather than increase dose, agreed with plate keeper to change to norvasc 10mg rto 2-3 weeks 03/2015 at goal on lisinopril 20 only. remains at goal (<140/90)o n two medication s HCTZ VICKY. Understand s what meds are for. plan to continue indefinite ly Bp checks twice annually. remains at goal on two medication s HCTZ VICKY Impotence 457946183 N52. 9 Mixed hyperlipidemia 267 835208 E78.2 LDL is at goal and he [...] I49.5 not clinically evident 03/2018. 07/2017 through plate keeper (video) declines symptoms..ther e is nothing more we can do for his safety- due to cultural fixed notions he has 02/26/17.h e and his dtr phoned cardiology to decline PPM.with plate keeper i showed him the 30 day event [...] to prevent collapse during these events Lightheadedness [id number] 8 R42 pt through plate keeper denies symptoms, 10/2017, 03/2018 see above.summ er [...] loss upon arising persists. Coronary arteriosclerosis in [place] artery 5481498682 107 I25.10 assymptoma ticmed management is maximized with high dose statin (ator 40) and baby ASA cath by AYE JAUREGUI and hamp [id number] showed 50% ladappropr iate meds added Type 2 alanis betes mellitus without complication 616094029 E11.9 03/2018 order labs for august 2017.no labs this 6 month period although is standing q 6 mo 10/2017 NEEDS EYE EXAM DM well controlled with diet only. Diabetes duscussed with pt through video plate keeper , who offers that patient feels that [...] 113 for years Impotence of organic origin 290951421 N52.9 03/2018 refilled.funmi capps- pt wishes refill viagra presents empty bottle to me. [id number] Yarelis Huerta MD , [facility], OFFICE [address] [place] [address] 05/31/2018 15:57:07 05/31/2018 18:00:35 Active or passive immunization 796304001 Z23 Benign ess ential hypertension 8489492 I10 slt high here very elevated at [...] and rather than increase dose, agreed with plate keeper to change to norvasc 10mg rto 2-3 weeks 03/2015 at goal on lisinopril 20 only. remains at goal (<140/90)o n two medication s HCTZ VICKY. Understand s what meds are for. plan to continue indefinite ly Bp checks twice annually. remains at goal on two medication s HCTZ VICKY Type 2 alanis samuel mellitus without complication 432263076 E11.9 03/2018 order labs for august 2017.no labs this 6 month period although is standing q 6 mo 10/2017 NEEDS EYE EXAM DM well controlled with diet only. Diabetes duscussed with pt through video plate keeper , who offers that patient feels that [...] 113 for years Sacroiliac joint pain 20 5514289 M53.3 here with grandson wong velásquez.pain locus [...] days ( out all this week) Headache 18145901 R51 historical .4 times a day gets head gutierrez lasting few seconds.Pt disincline d to believe that this is not significan t. referral printed for pts grandson to be able to schedule appt Cough 28145757 R05 resolved. 05/2016 pt states he has asthmai will add proair to fluticason e.he is not forthcomin g with symptoms, looking for 'strong medicine'h e will need formal testing .cough x many weeks, unclear if upper or lower mucuswill image and referi believe this is a habitual cough from minor environmen vinod elena zak printed for pts grandson to be able to schedule appt Olecranon bursitis 13679 0002 M70.21 resolved. summer 2015.uncmiladis palomo etiology, aspiration and then steroidal injection was performed, see procedure note Impotence 958576572 N52. 9 Mixed hyperlipidemia 267 456439 E78.2 LDL is at goal and he [...] I49.5 not clinically evident 03/2018. 07/2017 through plate keeper (video) declines symptoms..ther e is nothing more we can do for his safety- due to cultural fixed notions he has 02/26/17.h e and his dtr phoned cardiology to decline PPM.with plate keeper i showed him the 30 day event [...] to prevent collapse during these events Lightheadedness 80982443 8 R42 pt through plate keeper denies symptoms, 10/2017, 03/2018 see above.summ er [...] loss upon arising persists. 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 [id number] Yarelis Huerta MD , [facility], [address] [place] [address] 07/01/2018 11:52:28 07/04/2018 12:00:31 Cough 00617920 R05 resolved. 05/2016 pt states he has asthmai will add proair to fluticason e.he is not forthcomin g with symptoms, looking for 'strong medicine'h e will need formal testing .cough x many weeks, unclear if upper or lower mucuswill image and referi believe this is a habitual cough from minor environmen vinod [facility] ferral printed for pts grandson to be able to schedule appt [id number] Yarelis Huerta MD , [facility], [address]ICE [address] [place] [address] 09/14/2018 08:39:56 09/14/2018 16:40:06 Cough 24196821 R05 09/14/2018 past 2 dayscough and runny [...] grandson to be able to schedule appt [id number] Barbara Gamez CMA , [facility], OFFICE [address] [place], [place] [address] 03/27/2019 15:21:40 03/27/2019 16:26:59 Cough 70849476 R05 09/14/2018 past 2 dayscough and runny [...] to schedule appt Active or passive immunization 801380285 Z23 Benign ess ential hypertension 9851974 I10 slt high here very elevated at [...] and rather than increase dose, agreed with plate keeper to change to norvasc 10mg rto 2-3 weeks 03/2015 at goal on lisinopril 20 only. remains at goal (<140/90)o n two medication s HCTZ VICKY. Understand s what meds are for. plan to continue indefinite ly Bp checks twice annually. remains at goal on two medication s HCTZ VICKY Type 2 alanis betes mellitus without complication 369757876 E11.9 2 a1c's for 2019 are at goal* 03/2018 order labs for august 2017.no labs this 6 month period although is standing q 6 mo 10/2017 NEEDS EYE EXAM DM well controlled with diet only. Diabetes duscussed with pt through video plate keeper , who offers that patient feels that [...] 113 for years Sacroiliac joint pain 20 4504217 M53.3 here with grandson wong velásquez.pain locus [...] days ( out all this week) Headache 02282703 R51 historical .4 times a day gets head gutierrez lasting few seconds.Pt disincline d to believe that this is not significan t. referral printed for pts grandson to be able to schedule appt Olecranon bursitis 37828 0002 M70.21 resolved. summer 2015.lizett palomo etiology, aspiration and then steroidal injection was performed, see procedure note Impotence 993369017 N52. 9 Mixed hyperlipidemia 267 671191 E78.2 LDL he is following guideline of [...] I49.5 not clinically evident 03/2018. 07/2017 through plate keeper (video) declines symptoms..ther e is nothing more we can do for his safety- due to cultural fixed notions he has 02/26/17.fatimah mcclure and his dtr phoned cardiology to decline PPM.with plate keeper i showed him the 30 day event [...] to prevent collapse during these events Lightheadedness 00531730 8 R42 pt through plate keeper denies symptoms, 10/2017, 03/2018 see above.summ er [...] loss upon arising persists. Coronary arteriosclerosis in [place] artery 7901390540 107 I25.10 assymptoma ticmed management is maximized with high dose statin (ator 40) and baby ASA cath by AYE JAUREGUI and hamp [id number] showed 50% ladappropr iate meds added Impotence of organic origin 537844214 N52.9 03/2018 refilled.p rior- pt wishes refill viagra presents empty bottle to me. Low back pain 804092859 M54.5 resolved. upper lumbar lower thoracic pain upon arising prob djd. rec iboprofen agreed to check liver enzymes renal fn per pr request, resonabkle as on lipitor high dose. denies h/o liver dz, hepatitis. Plantar fasciitis 905950 003 M72.2 due to pes planus has failed home treatment he had purchased a nonsense compressio n bandage i printed out a photo of the Bizen night splint for him to purchase recommende d podiatry input as well resolved due to pes planus written instructio ns from upto date, verbal translatio n as well as written Dr Hernadez instructio ns to pharmacist given Dermatophytosis 50031704 B35.9 . Dermatophy tosis of the perianal area - resolved w topicals B35.4: Tinea corporis [id number] MARY Tinoco , [facility], OFFICE [address] [place] [address] 04/27/2019 08:46:15 04/27/2019 09:47:47 Benign essential hypertension 4040058 I10 Pt has not taken his BP [...] with treatment plan Active or passive immunization 005201493 Z23 Sinus node dysfunction 02260082 I49.8 Pt was discharged with 30 day monitor to look for asymptomat ic PAF. Discussed with Pt, Pt's daughter and grandson to schedule a follow-up with cardiologi st Dr. Zamarripa . All questions were addressed. Pt understand s and agrees with treatment plan Left carot id artery stenosis [id number] 65848 I65.22 Pt's son reports Pt has a [...] carotid endarterec tonya. History of cerebrovascular accident 322456618 Z86.73 physical examinatio n today was unremarkab [...] to 80mg. Will continue both medication s. [id number] Yarelis Huerta MD , [facility], OFFICE [address] [place], [place] [address] 03/20/2020 14:12:33 03/22/2020 11:14:55 Adult health examination 171455925 Z00.00 USPSTF guidelines reviewed and discussed with patient.FO B testImmuni zations UTD Counseling 818614302 Z71 .9 including cardiovasc ular risk reduction counseling Diet and exercise reviewed. Family and social interactio ns reviewed. Safety and injury prevention reviewed. Stress management reviewed. Depression screening 171 543123 Z13.89 depression screening tool administer ed, entered into emr, scored and discussed, time greater than 7.5 minutes Negatove depression screen Screening for alcohol abuse 167236241 Z13.39 An audit alcohol screening test was performed and scored. Patient was asked about alcohol use, advised about risks of alcohol, and personal risk was assessed. Discussed alcohol in moderatioo n Discussion including screening and scoring greater than 7.5 minutes Benign ess ential hypertension 0661463 I10 Continue Losartan as ordered. Pateint is compliant with medication sDiscussed healthy diet and exercise. Coronary arteriosclerosis 98012637 I25.10 Mixed hyperlipidemia 267 295132 E78.2 Heart healthy diet discussedE ncourgaed daily exercise. Transient cerebral ischemia 264820658 G45.9 Continue on AspirinPat ient no longer taking Plavix per most recent cardiology note Type 2 alanis betes mellitus without complication 898974742 E11.9 Discussed at length carbohydra te intake with patient. Doet and exercise controlled .Patient's A1c is 7.0No microalbum inuria. Sick sinus syndrome 3608 3008 I49.5 SP pacemaker Cough 48309819 R05 HydrationR inse mouth after inhaler use.Add claritin, follow up in one month for further evaluation [id number] Yasmin Chambers . , [facility], [address] [place] [address] 04/19/2020 09:28:00 04/19/2020 15:14:46 Mixed hyperlipidemia 122878964 E78.2 Heart healthy diet discussed Encouraged daily exercise. LDL 59. Continue Atorvastat in. Check LFT's Type 2 alanis betes mellitus without complication 931252206 E11.9 Discussed at length carbohydra te intake with patient. Diet and exercise controlled . Patient's A1c is 7.0 No microalbum inuria. Benign pro static hyperplasia 072909332 N40.1 Check PSA level. If elevated refer to urology. Follow up in one week to consider starting Flomax. Adequate fluid intake. Cough 75965172 R05 Pt presents with complaint of cough for several days. Pt doesn't have asthma and has no wheezing or signs of respirator y distress. Symptoms are most likely related to post nasal drip. Supportive measures reviewed including nasal saline and staying hydrated. Pt will follow up if symptoms worsen or if develops fever, increased sob, or increased sputum. [id number] Yarelis Huerta MD , [facility], [address]ICE [address] [place] [address] 04/24/2020 08:49:26 04/25/2020 10:11:03 Insomnia 582140579 G47.00 asleep at 8, awakens at 2 and unable to return to sleep declines long acting sleep aid rec exercise 1 hr pre sleep Slowing of urinary stream 19384376 R39.12 04/2020 stop and start urine needs to void only 1-2 times at night no incontinen ce bph is mild, follow he reasonably declined medication Cough 25846372 R05 09/14/2018 past 2 dayscough and runny nosebegan as allergic sneeze r/w otc antihistam kim ran out flovent, reminded to pickup refill [...] a habitual cough from minor environmen [facility] printed for pts grandson to be able to schedule appt Benign ess ential hypertension 7969039 I10 04/24/2020 pt very concerned that his [...] weeks recheck he has been a ángela velásquez case and i am reluctant to restart med 04/2015 still not at goal, pt frustrated with lisinopril and rather than increase dose, agreed with plate keeper to change to norvasc 10mg rto 2-3 weeks 03/2015 at goal on lisinopril 20 only. remains at goal (<140/90)o n two medication s HCTZ VICKY. Understand s what meds are for. plan to continue indefinite ly Bp checks twice annually. remains at goal on two medication s HCTZ VICKY Type 2 alanis betes mellitus without complication 316017120 E11.9 04/2020 at goal diet only 10/2017 NEEDS EYE EXAM DM well controlled with diet only. Diabetes discussed with pt through video plate keeper , who offers that patient feels that if he is not given a pill he doesnt have illness. Regdonaldles s of his understand ing it makes no difference in applicatio n as he is on proper diet and A1c is at goal. A1c of 7., fell to 6.7 his diet is low sugar will recheck labs today 05/2017 DM discussed with pt. had shown only IFG max 113 for years Sacroiliac joint pain 20 9459262 M53.3 historical ; here with grandson wong [...] days ( out all this week) Headache 48806725 R51.9 historical .4 times a day gets head gutierrez lasting few seconds.Pt disincline d to believe that this is not significan t. referral printed for pts grandson to be able to schedule appt Olecranon bursitis 31051 0002 M70.21 resolved. summer 2015.lizett palomo etiology, aspiration and then steroidal injection was performed, see procedure note Impotence 504661605 N52. 9 Mixed hyperlipidemia 267 549592 E78.2 LDL is at goal for diabetic. [...] I49.5 not clinically evident 03/2018. 07/2017 through plate keeper (video) declines symptoms..ther e is nothing more we can do for his safety- due to cultural fixed notions he has 02/26/17.h e and his dtr phoned cardiology to decline PPM.with plate keeper i showed him the 30 day event [...] to prevent collapse during these events Lightheadedness 29377476 8 R42 pt through plate keeper denies symptoms, 10/2017, 03/2018 see above.summ er [...] loss upon arising persists. Coronary arteriosclerosis in [place] artery 7005911922 107 I25.10 assymptoma ticmed management is maximized with high dose statin (ator 40) and baby ASA cath by AYE JAUREGUI and hamp [id number] showed 50% ladappropr iate meds added Impotence of organic origin 264572963 N52.9 03/2018 refilled.p rior- pt wishes refill viagra presents empty bottle to me. Low back pain 144309787 M54.5 resolved. upper lumbar lower thoracic pain upon arising prob djd. rec iboprofen agreed to check liver enzymes renal fn per pr request, resonabkle as on lipitor high dose. denies h/o liver dz, hepatitis. Plantar fasciitis 529652 003 M72.2 due to pes planus has failed home treatment he had purchased a nonsense compressio n bandage i printed out a photo of the Bizen night splint for him to purchase recommende d podiatry input as well resolved due to pes planus written instructio ns from upto date, verbal translatio n as well as written Dr Hernadez instructio ns to pharmacist given Dermatophytosis 86829662 B35.9 . Dermatophy tosis of the perianal area - resolved w topicals B35.4: Tinea corporis Screening for malignant neoplasm of prostate 815559350 Z12.5 1.32 at age 74 is very low risk indeed [id number] Lilly Serrano LPN , [facility], [address]ICE [address] [place] [address] 04/24/2020 10:57:55 04/25/2020 10:11:37 [id number] Yarelis Huerta MD , [facility], [address]ICE [address] [place] [address] 10/29/2020 13:20:10 10/29/2020 14:01:07 Benign essential hypertension 1125461 I10 BP at goal on current regimen, [...] and rather than increase dose, agreed with plate keeper to change to norvasc 10mg rto 2-3 weeks 03/2015 at goal on lisinopril 20 only. remains at goal (<140/90)o n two medication s HCTZ VICKY. Understand s what meds are for. plan to continue indefinite ly Bp checks twice annually. remains at goal on two medication s HCTZ VICKY Mixed hyperlipidemia 267 478332 E78.2 LDL is at goal for diabetic. on high dose statin (ator 40).LDL 56 lipidemia - 11/2015 LDL is just fine 128, at goal, off medication which he is disincline d to take. . Diet only. 03/2015 at goal below 100 on simvastati n 40. at goal below LDL 100, on lipitor 80 pt wishes FLP Insomnia 109515648 G47.0 0 asleep at 8, awakens at 2 and unable to return to sleep declines long acting sleep aid rec exercise 1 hr pre sleep Slowing of urinary stream 05423863 R39.12 04/2020 stop and start urine needs to void only 1-2 times at night no incontinen ce bph is mild, follow he reasonably declined medication Cough 09058258 R05 09/14/2018 past 2 dayscough and runny [...] is a habitual cough from minor environmen [facility] printed for pts grandson to be able to schedule appt Type 2 alanis betes mellitus without complication 413633916 E11.9 04/2020 at goal diet only6.8 =A1c 10/2017 NEEDS EYE EXAM DM well controlled with diet only. Diabetes discussed with pt through video plate keeper , who offers that patient feels that [...] 113 for years Sacroiliac joint pain 20 8177854 M53.3 historical ; here with grandson wong [...] days ( out all this week) Headache 07413838 R51.9 historical .4 times a day gets head gutierrez lasting few seconds.Pt disincline d to believe that this is not significan t. referral printed for pts grandson to be able to schedule appt Olecranon bursitis 82463 0002 M70.21 resolved. summer 2015.uncer stacia etiology, aspiration and then steroidal injection was performed, see procedure note Impotence 085342589 N52. 9 Sick sinus syndrome 3608 3008 I49.5 not clinically evident 03/2018. 07/2017 through plate keeper (video) declines symptoms..ther e is nothing more we can do for his safety- due to cultural fixed notions he has 02/26/17.h ren and his dtr phoned cardiology to decline PPM.with plate keeper i showed him the 30 day event [...] to prevent collapse during these events Lightheadedness 78890805 8 R42 pt through plate keeper denies symptoms, 10/2017, 03/2018 see above.summ er [...] loss upon arising persists. Coronary arteriosclerosis in [place] artery 0520636603 107 I25.10 assymptoma ticmed management is maximized with high dose statin (ator 40) and baby ASA cath by AYE JAUREGUI and hamp [id number] showed 50% ladappropr iate meds added Impotence of organic origin 188940580 N52.9 03/2018 refilled.p rior- pt wishes refill viagra presents empty bottle to me. Low back pain 449516239 M54.5 resolved. upper lumbar lower thoracic pain upon arising prob djd. rec iboprofen agreed to check liver enzymes renal fn per pr request, resonabkle as on lipitor high dose. denies h/o liver dz, hepatitis. Plantar fasciitis 20271203 003 M72.2 due to pes planus has failed home treatment he had purchased a nonsense compressio n bandage i printed out a photo of the Bizen night splint for him to purchase recommende d podiatry input as well resolved due to pes planus written instructio ns from upto date, verbal translatio n as well as written Dr Hernadez instructio ns to pharmacist given Dermatophytosis 16635109 B35.9 . Dermatophy tosis of the perianal area - resolved w topicals B35.4: Tinea corporis Screening for malignant neoplasm of prostate 173050473 Z12.5 1.32 at age 74 is very low risk indeed [id number] Ana Luisa Anand, ROCCO FP, [facility], OFFICE [address] [place], [place] [address] 01/21/2021 16:19:31 01/21/2021 16:59:33 Contact dermatitis due to plants, except food 75776922 L25.5 Patient with contact dermatitis from unknown [...] if this occurs. Pain in right knee 19036 44686 49289 M25.561 Refill as-needed naproxen for right knee painStates no longer taking ibuprofen, removed from medication list Benign ess ential hypertension 1088765 I10 On losartan 100 mg dailyBP not at goal today <130/80In visible discomfort from his rash as aboveWill have him return to the office in 3-4 days for BP check with nursingLim it NSAIDs i.e. naproxen, ibuprofenC ontinue to limit caffeine. [id number] Fina Duncan NP , [facility], [address] [place] [address] 04/02/2021 13:30:01 04/02/2021 14:15:29 Benign essential hypertension 2655060 I10 very highasympt omatichx if cvawill start amlodipine 5 mg in addition to losartan 100 mgclose f/u with RV next week Transient cerebral ischemia 922652845 G45.9 nd to carotid stenosis Cough 18113475 R05.9 x 10 yearsnever used flonase- has used flovent in pastwill try flonase, mucinexkee p well hydrated [id number] Yarelis Huerta MD , [facility], [address] [place] [address] 04/15/2021 10:01:40 04/22/2021 20:21:24 Essential hypertension 51639881 I10 04/2021 add metop . SBP 200 [...] for BP clinic. Active or passive immunization 628560286 Z23 [id number] Yarelis Huerta MD , [facility], OFFICE [address] [place] [address] 08/13/2021 10:00:40 08/23/2021 12:34:34 Sinus node dysfunction 31127261 I49.8 Type 2 alanis betes mellitus without complication 290233741 E11.9 Remains at goal diet [id number]=8. 9 10/2017 NEEDS EYE EXAM DM well controlled with diet only. Diabetes discussed with pt through video plate keeper , who offers that patient feels that [...] 113 for years Adult heal th examination 282935485 Z00.00 well examsee Risk Assessment and Lifestyle Change Counseling section above Counseling 408166873 Z71 .9 including cardiovasc ular risk reduction counseling Depression screening 171 434806 Z13.31 depression screening tool administer ed, entered into emr, scored and discussed, time greater than 7.5 minutes Screening for alcohol abuse 777995682 Z13.39 Essential hypertension 77291328 I10 08/2021 unclear compliance with metop yet BP atgoal. metop ER 50 and losartan 0829104/2021 add metop . SBP 200 then audible [...] and schedule him for BP clinic. Insomnia 324273691 G47.0 0 asleep at 8, awakens at 2 and unable to return to sleep declines long acting sleep aid rec exercise 1 hr pre sleep Slowing of urinary stream 89958793 R39.12 04/2020 stop and start urine needs to void only 1-2 times at night no incontinen ce bph is mild, follow he reasonably declined medication Cough 69975061 R05.9 09/14/2018 past 2 dayscough and runny [...] a habitual cough from minor environmen vinod [facility] ferral printed for pts grandson to be able to schedule appt Benign ess ential hypertension 4137307 I10 04/24/2020 pt very concerned that his [...] 2 weeks recheck he has been a silviaatin g case and i am reluctant to restart med 04/2015 still not at goal, pt frustrated with lisinopril and rather than increase dose, agreed with plate keeper to change to norvasc 10mg rto 2-3 weeks 03/2015 at goal on lisinopril 20 only. remains at goal (<140/90)o n two medication s HCTZ VICKY. Understand s what meds are for. plan to continue indefinite ly Bp checks twice annually. remains at goal on two medication s HCTZ VICKY Sacroiliac joint pain 20 2503542 M53.3 historical ; here with grandson wong [...] days ( out all this week) Headache 41544179 R51.9 historical .4 times a day gets head gutierrez lasting few seconds.Pt disincline d to believe that this is not significan t. referral printed for pts grandson to be able to schedule appt Olecranon bursitis 08133 0002 M70.21 resolved. summer 2015.lizett palomo etiology, aspiration and then steroidal injection was performed, see procedure note Impotence 614837665 N52. 9 Mixed hyperlipidemia 267 425830 E78.2 LDL is at goal for diabetic. [...] I49.5 not clinically evident 03/2018. 07/2017 through plate keeper (video) declines symptoms..ther e is nothing more we can do for his safety- due to cultural fixed notions he has 02/26/17.h ren and his dtr phoned cardiology to decline PPM.with plate keeper i showed him the 30 day event [...] to prevent collapse during these events Lightheadedness [id number] 8 R42 pt through plate keeper denies symptoms, 10/2017, 03/2018 see above.summ er [...] loss upon arising persists. Coronary arteriosclerosis in [place] artery 2408919432 107 I25.10 assymptoma ticmed management is maximized with high dose statin (ator 40) and baby [id number] showed 50% ladappropr iate meds added Impotence of organic origin 835675381 N52.9 03/2018 refilled.p rior- pt wishes refill viagra presents empty bottle to me. Low back pain 237499287 M54.51 resolved. upper lumbar lower thoracic pain upon arising prob djd. rec iboprofen agreed to check liver enzymes renal fn per pr request, resonabkle as on lipitor high dose. denies h/o liver dz, hepatitis. Plantar fasciitis 20271203 003 M72.2 due to pes planus has failed home treatment he had purchased a nonsense compressio n bandage i printed out a photo of the B[place] night splint for him to purchase recommende d podiatry input as well resolved due to pes planus written instructio ns from upto date, verbal translatio n as well as written Dr Hernadez instructio ns to pharmacist given Dermatophytosis 94688074 B35.9 . Dermatophy tosis of the perianal area - resolved w topicals B35.4: Tinea corporis Screening for malignant neoplasm of prostate 400934785 Z12.5 1.32 at age 74 is very low risk indeed Urinary incontinence 165 463292 R32 he reports recent onset of urinary urgencynot responsive to my suggestion of chronic treatment for prostatism agreed to initial workup- wishes to be tested for uti, so ordered [id number] Yarelis Huerta MD , [facility], OFFICE [address] [place] [address] [place] [address] 09/12/2021 17:08:31 10/28/2021 07:43:39 Disorder of rotator cuff 534949315 M75.82 see recent intake noteinject ed today as plannedtol erated welltold to anticipate 4 day until relief so that he will then be able to RTW Benign ess ential hypertension 9074084 I10 volatile BP,states i didnt take my [...] and rather than increase dose, agreed with plate keeper to change to norvasc 10mg rto 2-3 weeks 03/2015 at goal on lisinopril 20 only. remains at goal (<140/90)o n two medication s HCTZ VICKY. Understand s what meds are for. plan to continue indefinite ly Bp checks twice annually. remains at goal on two medication s HCTZ VICKY [id number] AUGUST TOM PÉREZ DNP , [facility], OFFICE [address] [place] [address] 11/24/2021 14:47:18 11/24/2021 16:40:07 Animal bite of hand 734621557 S61.451A no concerns for infection- advised supportive care and watchful waiting- clean twice/kristian y, apply bacitracin and keep covered-re viewed signs concerning for infection and when to follow up-tetanus vaccine UTDdiscuss ed case with NS Benign ess ential hypertension 0836873 I10 BP not at goal-marija nue with losartan and metoprolol Sick sinus syndrome 3608 3008 I49.5 advised need for pacemakerh as declined this with CARDS [id number] Yarelis Huerta MD , [facility], OFFICE [address] [place] [address] 02/06/2022 09:58:31 02/06/2022 10:54:40 Active or passive immunization 931529985 Z23 Disorder o f rotator cuff 201212384 M75.82 see recent intake noteinject ed today as plannedtol erated welltold to anticipate 4 day until relief so that he will then be able to RTW Benign ess ential hypertension 7548236 I10 128/72 here. at goal on losartan [...] and rather than increase dose, agreed with plate keeper to change to norvasc 10mg rto 2-3 weeks 03/2015 at goal on lisinopril 20 only. remains at goal (<140/90)o n two medication s HCTZ VICKY. Understand s what meds are for. plan to continue indefinite ly Bp checks twice annually. remains at goal on two medication s HCTZ VICKY Sinus node dysfunction 44560679 I49.8 Type 2 alanis betes mellitus without complication 694057133 E11.9 Remains at goal diet gwkiZ3n=7. 9, 6.8 10/2017 NEEDS EYE EXAM DM well controlled with diet only. Diabetes discussed with pt through video plate keeper , who offers that patient feels that [...] only IFG max 113 for years Counseling 473136327 Z71 .9 including cardiovasc ular risk reduction counseling Insomnia 538529623 G47.0 0 asleep at 8, awakens at 2 and unable to return to sleep declines long acting sleep aid rec exercise 1 hr pre sleep Slowing of urinary stream 10925561 R39.12 04/2020 stop and start urine needs to void only 1-2 times at night no incontinen ce bph is mild, follow he reasonably declined medication Cough 51279613 R05.9 09/14/2018 past 2 dayscough and runny [...] a habitual cough from minor environmen [facility] f[facility] printed for pts grandson to be able to schedule appt Sacroiliac joint pain 20 3044117 M53.3 historical ; here with grandson wong [...] days ( out all this week) Headache 55870551 R51.9 historical .4 times a day gets head gutierrez lasting few seconds.Pt disincline d to believe that this is not significan t. referral printed for pts grandson to be able to schedule appt Olecranon bursitis 66580 0002 M70.21 resolved. summer 2015.lizett palomo etiology, aspiration and then steroidal injection was performed, see procedure note Impotence 927615351 N52. 9 Mixed hyperlipidemia 267 358803 E78.2 LDL is at goal for diabetic. [...] I49.5 not clinically evident 03/2018. 07/2017 through plate keeper (video) declines symptoms..ther e is nothing more we can do for his safety- due to cultural fixed notions he has 02/26/17.h ren and his dtr phoned cardiology to decline PPM.with plate keeper i showed him the 30 day event [...] to prevent collapse during these events Lightheadedness 19360235 8 R42 pt through plate keeper denies symptoms, 10/2017, 03/2018 see above.summ er [...] loss upon arising persists. 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 Low back pain 417251137 M54.51 resolved. upper lumbar lower thoracic pain upon arising prob djd. rec iboprofen agreed to check liver enzymes renal fn per pr request, resonabkle as on lipitor high dose. denies h/o liver dz, hepatitis. Plantar fasciitis 20271203 003 M72.2 due to pes planus has failed home treatment he had purchased a nonsense compressio n bandage i printed out a photo of the Bizen night splint for him to purchase recommende d podiatry input as well resolved due to pes planus written instructio ns from upto date, verbal translatio n as well as written Dr Hernadez instructio ns to pharmacist given Dermatophytosis 11330377 B35.9 . Dermatophy tosis of the perianal area - resolved w topicals B35.4: Tinea corporis Screening for malignant neoplasm of prostate 003821004 Z12.5 1.32 at age 74 is very low risk indeed Urinary incontinence 165 933906 R32 by Hx Sciatica 45581240 M54.32 02/06/2022h e points to lower gluteal area bilaterall y left side and states through a plate keeper that it hurts there sitting and radiates at times (unclear) down left leg Choking ca used by phlegm in larynx 75934787 T17.390S 01/2022 guaifenesi n ER 600told through plate keeper that there is no cure , just mitigation Pain in right knee 23355 42631 45595 M25.561 01/2022 naproxen renewed for knee pain, to be taken prn [id number] AUGUST TOM PÉREZ DNP FP, [facility], OFFICE [address] [place] [address] 02/17/2022 09:51:29 02/17/2022 10:36:38 Benign essential hypertension 8607114 I10 BP not at goal < 130/80did take his medication s this morning-on losartan 100mg dailyBMP UTD NL-will have him f/u with PCP in next month for BP Hemorrhoids 00042689 K64 .9 1 external hemorrhoid to 11 o'clock position-- discussed treatment with hydorcorti sone topically 2-4x/day, reviewed R/B/A-- increase dietary fiber--flor id strainingR TO within 24 hours for worsening symptoms [id number] Yarelis Huerta MD , [facility], OFFICE [address] [place] [address] 03/24/2022 10:11:32 03/24/2022 10:42:18 Disorder of rotator cuff 974761943 M75.82 see recent intake noteinject ed today as plannedtol erated welltold to anticipate 4 day until relief so that he will then be able to RTW Benign ess ential hypertension 9400035 I10 128/72 here. at goal on losartan [...] 2 weeks recheck he has been a silviaatin g case and i am reluctant to restart med 04/2015 still not at goal, pt frustrated with lisinopril and rather than increase dose, agreed with plate keeper to change to norvasc 10mg rto 2-3 weeks 03/2015 at goal on lisinopril 20 only. remains at goal (<140/90)o n two medication s HCTZ VICKY. Understand s what meds are for. plan to continue indefinite ly Bp checks twice annually. remains at goal on two medication s HCTZ VICKY Urinary incontinence 165 086266 R32 by Hx Sinus node dysfunction 76586530 I49.8 Type 2 alanis betes mellitus without complication 103237479 E11.9 Remains at goal diet kgmwM8d=1. 9, 6.8 10/2017 NEEDS EYE EXAM DM well controlled with diet only. Diabetes discussed with pt through video plate keeper , who offers that patient feels that [...] only IFG max 113 for years Insomnia 188184990 G47.0 0 asleep at 8, awakens at 2 and unable to return to sleep declines long acting sleep aid rec exercise 1 hr pre sleep Slowing of urinary stream 12918431 R39.12 04/2020 stop and start urine needs to void only 1-2 times at night no incontinen ce bph is mild, follow he reasonably declined medication Sacroiliac joint pain 20 0360381 M53.3 historical ; here with grandson wong [...] days ( out all this week) Headache 60130976 R51.9 historical .4 times a day gets head gutierrez lasting few seconds.Pt disincline d to believe that this is not significan t. referral printed for pts grandson to be able to schedule appt Olecranon bursitis 84407 0002 M70.21 resolved. summer 2015.uncer tsacia etiology, aspiration and then steroidal injection was performed, see procedure note Impotence 132365164 N52. 9 Mixed hyperlipidemia 267 015659 E78.2 LDL is at goal for diabetic. [...] I49.5 not clinically evident 03/2018. 07/2017 through plate keeper (video) declines symptoms..ther e is nothing more we can do for his safety- due to cultural fixed notions he has 02/26/17.h e and his dtr phoned cardiology to decline PPM.with plate keeper i showed him the 30 day event [...] to prevent collapse during these events Lightheadedness 18273455 8 R42 pt through plate keeper denies symptoms, 10/2017, 03/2018 see above.summ er [...] loss upon arising persists. Coronary arteriosclerosis in [place] artery 9743634865 107 I25.10 assymptoma ticmed management is maximized with high dose statin (ator 40) and baby ASA cath by AYE JAUREGUI and hamp [id number] showed 50% ladappropr iate meds added Impotence of organic origin 348895708 N52.9 03/2018 refilled.p rior- pt wishes refill viagra presents empty bottle to me. Low back pain 857918231 M54.51 resolved. upper lumbar lower thoracic pain upon arising prob djd. rec iboprofen agreed to check liver enzymes renal fn per pr request, resonabkle as on lipitor high dose. denies h/o liver dz, hepatitis. Plantar fasciitis 572881 003 M72.2 due to pes planus has failed home treatment he had purchased a nonsense compressio n bandage i printed out a photo of the Bizen night splint for him to purchase recommende d podiatry input as well resolved due to pes planus written instructio ns from upto date, verbal translatio n as well as written Dr Hernadez instructio ns to pharmacist given Dermatophytosis 81755755 B35.9 . Dermatophy tosis of the perianal area - resolved w topicals B35.4: Tinea corporis Screening for malignant neoplasm of prostate 278473691 Z12.5 1.32 at age 74 is very low risk indeed Sciatica 43751881 M54.32 02/06/2022h e points to lower gluteal area bilaterall y left side and states through a plate keeper that it hurts there sitting and radiates at times (unclear) down left leg Choking ca used by phlegm in larynx 40188346 T17.390S 01/2022 guaifenesi n ER 600told through plate keeper that there is no cure , just mitigation Pain in right knee 47842 57183 94695 M25.561 01/2022 naproxen renewed for knee pain, to be taken prn Gluteal tendinitis 11355 003 M76.02 ft er ambulating distances he feels a baseball size artea of pain in left gluteal areait is non radiatingn o othert triggers of this painrefer PSS Hemorrhoids 99651604 K64 .9 03/2022 bothersome despite topoical steroidher e with who tells me that he had surgery for his hemorrhoid in [place] 30 years ago and wants this againrefer francisco Danielle Silva , told is in [facility] and they state so long as they have an address they will go [place] GPS [id number] Yarelis Huerta MD , [facility], OFFICE [address] [place] [address] 07/06/2022 14:09:20 07/07/2022 08:35:40 Pain of right knee joint 0634881031 99212 M25.561 seen with present and assistance of phone plate keeper past weekunable to walk due to painwarm and swollen no loss or painful RM, no fluid will image todaylikel y inject tomorrow- gout, oa flare or pseudogout [id number] Yarelis Huerta MD , [facility], OFFICE [address] [place] [address] 07/08/2022 11:49:57 07/09/2022 09:04:20 Impotence of organic origin 329030613 N52.9 requesting BLUE pill 100 mg, points to penis, ths viagra renewed 07/2022*2017 refilled.p rior-pt wishes refill viagrapres ents empty bottle to me. 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 Patellofem oral osteoarthritis 113343358 M17.11 08/04/2022 refer ortho for recurrence - though less red warm and swollen reamains so to a much lesser degree and is a little painful and stiff barber in AM. Seen with benefit of Mandarin plate keeper 07/08/2022 diagnosed by imaging:De generative changes that are most pronounced in the patellofem oral compartmen t he has a modest peripatell ar effusion and some warmthinje cted today usual manner split dose medial and high lateralfol low expectantl y Mixed hyperlipidemia 267 802527 E78.2 LDL is at goal for diabetic. [...] 80 pt wishes FLP Coronary arteriosclerosis in [place] artery 5937055665 107 I25.10 assymptoma ticmed management is maximized with high dose statin (ator 40) and baby ASA cath by AYE JAUREGUI and hamp [id number] showed 50% ladappropr iate meds added Sciatica 57654136 M54.32 02/06/2022h e points to lower gluteal area bilaterall y left side and states through a plate keeper that it hurts there sitting and radiates at times (unclear) down left leg diclofenac Benign ess ential hypertension 2373530 I10 128/72 here. at goal on losartan [...] and rather than increase dose, agreed with plate keeper to change to norvasc 10mg rto 2-3 weeks 03/2015 at goal on lisinopril 20 only. remains at goal (<140/90)o n two medication s HCTZ VICKY. Understand s what meds are for. plan to continue indefinite ly Bp checks twice annually. remains at goal on two medication s HCTZ VICKY Pain in right knee 80251 79336 38200 M25.561 01/2022 naproxen renewed for knee pain, to be taken prn [id number] Yarelis Huerta MD , [facility], OFFICE [address] [place] [address] 08/26/2022 10:45:00 08/28/2022 09:30:44 Impotence of organic origin 947878378 N52.9 requesting BLUE pill 100 mg, points to penis, ths viagra renewed 07/2022*2017 refilled.p rior-pt wishes refill viagrapres ents empty bottle to me. Patellofem oral osteoarthritis 178057543 M17.11 08/26/2022 plans Hyaluronat e if approved, through Ortho *08/04/2022 refer ortho for recurrence - though less red warm and swollen reamains so to a much lesser degree and is a little painful and stiff barber in AM. Seen with benefit of Mandarin plate keeper 07/08/2022 diagnosed by imaging:De generative changes that are most pronounced in the patellofem oral compartmen t he has a modest peripatell ar effusion and some warmthinje cted today usual manner split dose medial and high lateralfol low expectantl y Mixed hyperlipidemia 267 482333 E78.2 LDL is at goal for diabetic. [...] 80 pt wishes FLP Coronary arteriosclerosis in [place] artery 1184111549 107 I25.10 assymptoma ticmed management is maximized with high dose statin (ator 40) and baby ASA cath by AYE JAUREGUI and hamp [id number] showed 50% ladappropr iate meds added Sciatica 10716267 M54.32 plans epidural at [facility] 08/2022walk ing has been limited by choice due to feared and induced painHad CT due to PPM presence*1 he points to lower gluteal area bilaterall y left side and states through a plate keeper that it hurts there sitting and radiates at times (unclear) down left leg diclofenac Benign ess ential hypertension 8757382 I10 08/26/2022 140/86, follow * 128/72 here. [...] and rather than increase dose, agreed with plate keeper to change to norvasc 10mg rto 2-3 weeks 03/2015 at goal on lisinopril 20 only. remains at goal (<140/90)o n two medication s HCTZ VICKY. Understand s what meds are for. plan to continue indefinite ly Bp checks twice annually. remains at goal on two medication s HCTZ VICKY Pain in right knee 20737 84335 95916 M25.561 01/2022 naproxen renewed for knee pain, to be taken prn Choking ca used by phlegm in larynx 00385771 T17.390S renewed at dtrs request 3dtr told that there is no cure , just mitigation *01/2022 guaifenesi n ER 600told through plate keeper that there is no cure , just mitigation Primary er ectile dysfunction 704596699 N52.9 Type 2 alanis betes mellitus without complication 663968923 E11.9 Remains at goal diet rkvuT3w=0. 9, 6.8 10/2017 NEEDS EYE EXAM DM well controlled with diet only. Diabetes discussed with pt through video plate keeper , who offers that patient feels that [...] I49.5 not clinically evident 03/2018. 07/2017 through plate keeper (video) declines symptoms..ther e is nothing more we can do for his safety- due to cultural fixed notions he has 02/26/17.h e and his dtr phoned cardiology to decline PPM.with plate keeper i showed him the 30 day event [...] wall to prevent collapse during these events [id number] Yarelis Huerta MD , [facility], [address]ICE [address] [place] [address] 02/22/2023 14:56:29 02/22/2023 16:30:00 Adult health examination 836405727 Z00.00 well examsee Risk Assessment and Lifestyle Change Counseling section above Depression screening 171 310066 Z13.31 depression screening tool administer ed Screening for alcohol abuse 640332765 Z13.39 Alcohol use screening tool administer ed Patellofem oral osteoarthritis 129973834 M17.11 Helped a little he has a [...] in AM. Seen with benefit of Peter plate keeper 07/08/2022 diagnosed by imaging:De generative changes that are most pronounced in the patellofem oral compartmen t he has a modest peripatell ar effusion and some warmthinje cted today usual manner split dose medial and high lateralfol low expectantl y Mixed hyperlipidemia 267 243074 E78.2 LDL is at goal for diabetic. [...] 80 pt wishes FLP Coronary arteriosclerosis in [place] artery 8952653140 107 I25.10 assymptoma ticmed management is maximized with high dose statin (ator 40) and baby ASA cath by AYE JAUREGUI and hamp [id number] showed 50% ladappropr iate meds added Benign ess ential hypertension 2403338 I10 126/74 here. at goal on losartan [...] and rather than increase dose, agreed with plate keeper to change to norvasc 10mg rto 2-3 weeks 03/2015 at goal on lisinopril 20 only. remains at goal (<140/90)o n two medication s Sciatica 47046276 M54.32 epidural at [facility] 08/2022 [place] Helped a little walking has been limited by choice due to feared and induced painHad CT due to PPM presence*1 he points to lower gluteal area bilaterall y left side and states through a plate keeper that it hurts there sitting and radiates at times (unclear) down left leg diclofenac Pain in right knee 25511 51489 03092 M25.561 sanchez injected Euflexxa summer 2022*[facility] naproxen renewed for knee pain, to be taken prn Choking ca used by phlegm in larynx 46476398 T17.390S guaifenesi n ER 600 BID renewed at dtrs request tr told that there is no cure , just mitigation *01/2022 guaifenesi n ER 600told through plate keeper that there is no cure , just mitigation Impotence of organic origin 023988174 N52.9 requesting BLUE pill 100 mg, points to penis, ths viagra renewed 07/2022*2017 refilled.p rior-pt wishes refill viagrapres ents empty bottle to me. Primary er ectile dysfunction 249774476 N52.9 Type 2 alanis betes mellitus without complication 861823795 E11.9 Remains at goal diet only, follow 7.1 (jan 2023)A1c=6 .9, 6.8, 7.1 (above his prior 7.0 max) 10/2017 NEEDS EYE EXAM DM well controlled with diet only. Diabetes discussed with pt through video plate keeper , who offers that patient feels that if he is not given a pill he doesnt have illness. Reguardleonard s of his understand ing it makes no difference in applicatio n as he is on proper diet and A1c is at goal. A1c of 7., fell to 6.7 his diet is low sugar will recheck labs today 05/2017 DM discussed with pt. had shown only IFG max 113 for years Sick sinus syndrome 3608 3008 I49.5 PPM checks in [facility] nnot clinically evident 03/2018. 07/2017 through plate keeper (video) declines symptoms..ther e is nothing more we can do for his safety- due to cultural fixed notions he has 02/26/17.h ren and his dtr phoned cardiology to decline PPM.with plate keeper i showed him the 30 day event [...] events Screening for malignant neoplasm of prostate 066649446 Z12.5 1.32 at age 74 is very low risk indeed Diabetic r etinal eye exam not done 2705316070 103 Z53.9 [id number] Chaya Pineda er, C SOFTWARE ENGINEER FP, [facility], OFFICE [address] [place], [place] [address] 03/12/2023 14:55:43 03/12/2023 17:15:55 Active or passive immunization 504276339 Z23 Pain in ri ght hip joint 1342388949 23604 M25.551 Acute pain to right hip while [...] pain Spinal pranay nosis of lumbar region 82047373 M48.061 severe spinal stenosis L3 to L5 per CT 07/23/22-- referred to [facility] [id number] Romulo Clarke DPT Physical Therapy, [facility] [address] [place] [address] 04/05/2023 08:45:41 04/12/2023 16:56:26 Hip pain 91491146 M25.380 [id number] Yarelis Huerta MD , [facility], OFFICE [address] [place] [address] 08/16/2023 14:09:35 08/16/2023 15:20:29 Type 2 diabetes mellitus without complication 368721015 E11.9 Remains at goal diet only, stable at 7 for kwgizK2n=6 .9, 6.8, 7.1 (above his prior 7.0 max) 10/2017 NEEDS EYE EXAM DM well controlled with diet only. Diabetes discussed with pt through video plate keeper , who offers that patient feels that [...] max 113 for years Transient cerebral ischemia 196390756 G45.9 Spinal pranay nosis of lumbar region 67529519 M48.061 Sinus node dysfunction 07436793 I49.8 Mixed hyperlipidemia 267 888942 E78.2 LDL is at goal for diabetic. he is following guideline of being on high dose statin (ator 40). lipidemia - 11/2015 LDL is just fine 128, at goal, off medication which he is disincline d to take. . Diet only. 03/2015 at goal below 100 on simvastati n 40. at goal below LDL 100, on lipitor 80 pt wishes FLP Coronary arteriosclerosis 98738971 I25.10 Benign pro static hyperplasia 225011111 N40.1 Benign ess ential hypertension 9794322 I10 126/74 here. at goal on losartan [...] and rather than increase dose, agreed with plate keeper to change to norvasc 10mg rto 2-3 weeks 03/2015 at goal on lisinopril 20 only. remains at goal (<140/90)o n two medication s Lumbar radiculopathy [id number] M54.16 08/16/2023l umbar pain radiates down left gluteal areaneeds mandarin interprete rcarries hx of spinal stenosiskn own to PSS for hip injection in past call daughter Mily Dalal who speaks englishpho ne Coronary arteriosclerosis in [place] artery [id number] 107 I25.10 assymptoma ticmed management is maximized with high dose statin (ator 40) and baby ASA [id number] showed 50% ladappropr iate meds added Microalbum inuric diabetic nephropathy [id number] E11.21 appropriat yanni on lsratan 714[address] on 2 occasions [id number] Yarelis Huerta MD , [facility], OFFICE [address] [place] [address] 01/24/2024 09:52:27 01/24/2024 11:19:19 Puncture wound of hand [id number] S61.431A left thumb, small bleeding puncture wound visible to the observer when holding palm up- liws between IP joint and nailno signs of infection. there is subtle blue stage hemorrhagc discolorat ion at the adjacent pulmlavage d by RNaugmenti n discussedc ounselled to observe for signs of infection, redness swelling discharge or pain and return to office should any of these occur [id number] Yarelis Huerta MD , [facility], OFFICE [address] [place] [address] 02/25/2024 10:02:37 02/25/2024 13:51:09 Adult health examination [id number] Z00.00 well examsee Risk Assessment and Lifestyle Change Counseling section above Depression screening 171 105519 Z13.31 depression screening tool administer ed Screening for alcohol abuse [id number] Z13.39 Alcohol use screening tool administer ed Active or passive immunization [id number] Z23 Spinal pranay nosis of lumbar region 26897357 M48.061 at end of work day feel rle symptomsfo llowed [place] [facility], pt and dtr unsatisfie [facility]ref[facility] - they wish non surgical interventi on Intermitte nt claudication 20968664 I73.9 running hypotheses is his numbness sensation of both feet as he walksis due to his documented severe sinal stenosisCo uld this be vascular Primary er ectile dysfunction [id number] N52.9 Sick sinus syndrome 3608 3008 I49.5 PPM May 2019- checks in [place] Rodgers, later Sukumar 07/2017 through plate keeper (video) declines symptoms..ther e is nothing more we can do for his safety- due to cultural fixed notions he has 02/26/17.h ren and his dtr phoned cardiology to decline PPM.with plate keeper i showed him the 30 day event [...] collapse during these events Type 2 alanis betes mellitus without complication [id number] E11.9 02/25/24 trended above 7.0 Begin Metformin pre dinner. D/W daughter at time of visit'*Rem ains at goal diet only, stable at 7 for ouvbfO6x=7 .9, 6.8, 7.1 (above his prior 7.0 max) 10/2017 NEEDS EYE EXAM DM well controlled with diet only. Diabetes discussed with pt through video plate keeper , who offers that patient feels that [...] max 113 for years Transient cerebral ischemia 447603470 G45.9 Sinus node dysfunction 19476725 I49.8 s/p PPM 2019 Coronary arteriosclerosis 52878329 I25.10 Benign ess ential hypertension 0917317 I10 126/74 here. at goal on losartan [...] and rather than increase dose, agreed with plate keeper to change to norvasc 10mg rto 2-3 weeks 03/2015 at goal on lisinopril 20 only. remains at goal (<140/90)o n two medication s Benign pro static hyperplasia 461056080 N40.1 [id number] Yarelis Huerta MD , [facility], OFFICE [address] [place] [address] 05/22/2024 10:31:35 05/22/2024 11:42:12 Dyspnea 210192469 R06.00 c.o chest painin resp distress in office at resthe is working hard to breatherr =20L with rhonchiski n clammy and diaphoreti [facility] called for transport to [facility] with benefit of [employer] plate keeper .RN notified for Becka lanza note Health Concerns Section Related Observation LastModified by Organization Detai ls LastModified Time None Recorded Concern Status LastModified by Organization Details LastModified Time None Recorded Advance Directives Directive None Recorded Payers Encounter Date Sequence Insurance Name Policy Number Policy Landry Covered Member ID Landry Member ID Guarantor Name 04/05/2023 2 [facility] [id number] 01 Sunday Dalal [id number] [facility] 04/05/2023 1 MEDICARE B-PR: [facility] [id number] [facility] 08/16/2023 2 [facility] [id number] Sunday C C Kat[place] [id number] Emeka Katlin 08/16/2023 1 MEDICARE B-[place]: [facility] Emeka Katlin [id number] Emeka Katlin 01/24/2024 2 [facility] [id number] 01 Sunday C C Katlin [id number] Emeka Katlin 01/24/2024 1 MEDICARE B-PR: [facility] Lanreg Katlin [id number] Lanreg Katlin 02/25/2024 2 [facility] [id number] Sunday C C Katlin [id number] Raghavhenchristen Katlin 02/25/2024 1 MEDICARE B-PR: [facility] Emeka Katlin [id number] Emeka Katlin 05/22/2024 2 [facility] [id number] Sunday C C Katlin [id number] Emeka Katlin 05/22/2024 1 MEDICARE B-PR: [facility] Emeka Katlin [id number] [facility] [place] Notes Date Note Type Note Provider Name and Address Organization Details Recorded Time 3 text/html Patient grandson is present as statistical machine servicer. Pt partially speaks nauruan and able to understand PT. Pt's grandson [...] in being on floor. Romulo Clarke, DPT [address] [place] [address], [phone], [facility] 04/10/2023 11:25:28 4 text/html Physical Exam/MaleReported bypatient.PHAPatient [...] ischemic heart disease; No peripheral vascular disease (76383); No diabetes; No carotid artery stenosis Associated [...] both bothered his stomach. Yarelis Huerta MD [address] [place] [address], [phone], [facility] 08/16/2023 15:07:33 4 text/html Physical Exam/MaleReported bypatient.PHAPatient [...] ischemic heart disease; No peripheral vascular disease (79525); No diabetes; No carotid artery stenosis Associated [...] both bothered his stomach. Yarelis Huerta MD [address] [place] [address], [phone], [facility] 02/25/2024 13:24:40
== END 2024-06-27 10:02 | disposition home or self-care (01) ==
LOC: HO.US 10:01
PROVIDERS: PCP Internal Medicine; Visit Provider Surgery Vascular Surgery
DX: I65.23 Occlusion and stenosis of bilateral carotid arteries (principal)
CPT/HCPCS: 93880

== ENCOUNTER → 2024-06-27 10:03 | Outpatient (BNV) | payer MEDICARE, OTHER, SELFPAY | PROVIDERS: PCP Internal Medicine; Visit Provider Radiology Diagnostic Radiology | DX: I65.23 Occlusion and stenosis of bilateral carotid arteries (principal) | CPT/HCPCS: 93880 ==

== ENCOUNTER 2024-07-04 10:50 | Outpatient (AMB) | payer MEDICARE, OTHER, SELFPAY ==
[2024-07-04 11:00] VITALS: BMI 22.9
--- NOTE | 2024-07-04 11:00 | MHC.OFFVIS ---
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 He remains asymptomatic. He denies any concerns of dizziness, lightheadedness, or headaches. He states he continues with numbness in his feet but has no other concerns today. [facility] Medical History Essential hypertension Ischemic stroke Stenosis of left carotid artery Atherosclerotic cardiovascular disease Sick sinus syndrome Normally functioning cardiac pacemaker present Surgical History History of permanent cardiac pacemaker placement (~05/12/19) History of left-sided carotid endarterectomy (~05/15/19) History of cardiac catheterization (~2016) Family History Father No problems noted. Mother No problems noted. Social History Patient Tobacco Use Status: Former Tobacco user Tobacco use type: Cigarette Review of Systems Const Reports as per HPI and Denies weakness ENT Reports Normal hearing present and Denies dizziness Card Reports as per HPI, Denies chest pain, Denies chest pain at rest, Denies chest pain with activity, Denies dyspnea and Denies dyspnea on exertion Resp Reports as per HPI, Denies cough, Denies dyspnea and Denies dyspnea on exertion GI Reports as per HPI, Denies abdominal pain, Denies nausea and Denies vomiting Musc Denies numbness Skin/Breast Reports as per HPI, Denies erythema and Denies wounds Neuro Reports Normal hearing present, Denies dizziness, Denies numbness, Denies Sensory deficit (Neuro) and Denies weakness Psych Reports no additional complaints Endo Reports no additional complaints Physical Exam Vital Signs: BMI result Body Mass Index 22.9 Const General: healthy appearing and no acute distress Orientation/consciousness: patient oriented x3 HEENT Head: Yes normal to inspection Ears: hearing grossly normal bilaterally Mouth: Normal oral and palatal mucosa present Resp Effort & Inspection: normal respiratory effort and able to speak in complete sentences Auscultation: clear to auscultation bilaterally Cardio Jugular venous distension: no JVD Rate: regular rate Rhythm: regular rhythm Heart sounds: S1 normal heart sound present and S2 normal heart sound present Bruits: no abdominal aortic bruits, no carotid bruits, no femoral bruits and no renal bruits Peripheral pulses: Peripheral pulses 2+ throughout GI Inspection: Yes normal to inspection Palpation (GI): No Abdominal aortic bruit present Skin General skin exam: no rashes or lesions noted Wounds: no wounds Hair: normal Neuro General: patient oriented x3 Cranial nerves: Yes Normal hearing present Cognition (Neuro): normal cognition Gait exam (Neuro): Normal gait present Motor exam (neuro): 5/5 motor strength present throughout Sensory Exam: No Sensory deficit (Neuro) Extrem General: Yes normal to inspection, Yes full ROM, Yes capillary refill normal and Yes normal gait Results Reviewed Results Reviewed: Bilateral carotid ultrasound: Small amount of plaque noted at carotid bifurcations. Unremarkable carotid ultrasound. No significant stenosis. Assessment & Plan Assessment & Plan (1) Carotid stenosis, bilateral: Comment: 05/15/2019 - left carotid endarterectomy Code(s): I65.23 - Occlusion and stenosis of bilateral carotid arteries Category: Medical Plan: Emeka is presenting today as a follow up to bilateral carotid ultrasound, performed on 06/27/2024. We utilized his daughter as an translator interpreter. He remains asymptomatic with no complaints of dizziness, lightheadedness, or headaches. He is status post left CEA in 2019. We will continue to monitor on carotid ultrasound surveillance yearly. I did discuss with them the symptoms of a stroke and to get to the ER if he had those symptoms. If he gets any dizziness, lightheadedness, or headaches, to reach out to our office. We will have him follow up with routine carotid follow up in 1 year. Thank you for allowing us to participate in the pt's care. If there are any questions or concerns, please do not hesitate to reach out to us. Orders: Orders US carotid duplex BI 1 Year I65.23 - Occlusion and stenosis of bilateral carotid arteries Coding Level of Care Code Est Pt Level 4 (57269) Diagnoses Carotid stenosis, bilateral I65.23 Comment Review of carotid ultrasound
== END 2024-07-04 11:15 | disposition home or self-care (01) ==
PROVIDERS: PCP Internal Medicine; Visit Provider Physician Assistant Surgical
DX: I65.23 Occlusion and stenosis of bilateral carotid arteries (principal)
CPT/HCPCS: 99214

== ENCOUNTER → 2024-07-04 10:50 | Outpatient (BNVA) | payer MEDICARE, OTHER, SELFPAY | PROVIDERS: PCP Internal Medicine; Visit Provider Physician Assistant Surgical | DX: I65.23 Occlusion and stenosis of bilateral carotid arteries (principal) | CPT/HCPCS: 99212 ==

== ENCOUNTER → 2024-07-04 23:59 | Outpatient (BNV) | payer MEDICARE, OTHER, SELFPAY ==
--- NOTE | 2024-07-06 12:35 | A.OFFVIS_ITS ---
Intake Visit Reasons: Remote device check- [facility] Allergies No Known Allergies [No Known Allergies*] Allergy (Verified 07/04/24 11:04) [facility] Medical History Essential hypertension Ischemic stroke Stenosis of left carotid artery Atherosclerotic cardiovascular disease Sick sinus syndrome Normally functioning cardiac pacemaker present Surgical History History of permanent cardiac pacemaker placement (~05/12/19) History of left-sided carotid endarterectomy (~05/15/19) History of cardiac catheterization (~2016) Family History Father No problems noted. Mother No problems noted. 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 Overall normal device function. [id number] Cardiac Device Interrogation, pacemaker Procedure code (CPT) selection complete Assessment & Plan Assessment & Plan (1) Normally functioning cardiac pacemaker present: Code(s): Z95.0 - Presence of cardiac pacemaker Category: Medical (2) Sick sinus syndrome: Code(s): I49.5 - Sick sinus syndrome Category: Medical Plan x Coding Level of Care Code Procedure Only Diagnoses Normally functioning cardiac pacemaker present Z95.0 Sick sinus syndrome I49.5 CPT Codes Cardiac Device Check - Cardiac Device 12: [id number] Cardiac Device Interrogation, pacemaker ([id number])
== END ==
PROVIDERS: PCP Internal Medicine; Visit Provider Internal Medicine
DX: I49.5 Sick sinus syndrome (principal); Z95.0 Presence of cardiac pacemaker
CPT/HCPCS: 93294

== ENCOUNTER 2024-08-14 14:36 | Outpatient (AMB) | payer MEDICARE, OTHER, SELFPAY ==
--- NOTE | 2024-08-14 12:48 | A.OFFVIS_ITS ---
Vital Signs 08/14/24 14:40 Height 5 ft 6 in Weight 139 lb 15.896 oz BMI 22.6 BP 160/70 H Blood Pressure Location Lt brachial Position Sitting Pulse 70 Pulse Source Pulse Oximeter Pulse Oximetry (%) 97 Oxygen Delivery Method Room Air Intake Visit Reasons: Asthma Sap Project Manager Required: No Concrete Building Assembler: Concrete Building Assembler offered & declined Accompanied by: grandson Allergies No Known Allergies [No Known Allergies*] Allergy (Verified 08/14/24 14:45) Medication List - Last Reconciled 08/14/24 by Cher Velazquez LPN albuterol sulfate 90 mcg/actuation 2 puffs inhalation Q6H PRN aspirin 81 mg PO DAILY atorvastatin 80 mg PO DAILY fluticasone furoate-vilanterol 200-25 mcg/dose (Breo Ellipta) 1 inh inhalation DAILY fluticasone propionate 50 mcg/actuation sprays intranasal losartan 100 mg PO DAILY metformin 500 mg PO DAILY metoprolol succinate ER 50 mg PO DAILY naproxen 500 mg PO BID tadalafil 20 mg PO DAILY PRN HPI HPI Asthma: Details: Emeka is a pleasant 78 year old male, former smoker, with approximately 15 pyh quit 30 years ago with underlying asthma COPD overlap syndrome, HTN, DMII and SSS s/p pacer. Today he is accompanied by his grandson. At the last visit, he reported bronchitic symptoms and was treated with azithromycin. He reports cough no longer with yellow sputum, however continues with dry cough and dyspnea, however mild. Prior RAST revealed multiple environmental allergens and PFT revealed moderate obstructive defect with significant response to bronchodilators. He was started on Breo 100 mcg with suboptimal effect and increased to Breo 200mcg. He reports infrequent use, using albuterol MDI daily in place of Breo with moderate effect. Overall, he feels he has been using inhalers off and on for the past ten years with minimal change in symptoms. He denies any visits to urgent care or hospitalizations related to respiratory distress. [facility] Medical History Essential hypertension Ischemic stroke Stenosis of left carotid artery Atherosclerotic cardiovascular disease Sick sinus syndrome Normally functioning cardiac pacemaker present Surgical History History of permanent cardiac pacemaker placement (~05/12/19) History of left-sided carotid endarterectomy (~05/15/19) History of cardiac catheterization (~2017) Family History Father No problems noted. Mother No problems noted. Social History Patient Tobacco Use Status: Former Tobacco user Tobacco use type: Cigarette Review of Systems Const Denies chills, Denies excessive sweating, Denies fever(s), Denies headache(s) and Denies night sweats Eyes Denies dry eyes, Denies irritation and Denies itchy eyes ENT Reports Normal hearing present, Denies headache(s), Denies nasal congestion, Denies nasal discharge, Denies post nasal drip and Denies sore throat Card Denies chest pain, Denies chest pain at rest, Denies chest pain with activity, Denies claudication, Denies leg edema, Denies orthopnea and Denies paroxysmal nocturnal dyspnea Resp Denies chest congestion, Denies excessive phlegm production, Denies pain on inspiration, Denies pain with cough and Denies stridor Musc Denies myalgias Neuro Reports Normal hearing present and Denies headache(s) Endo Denies excessive sweating Des/Lymph Denies lymphadenopathy Aller/Immun Denies itchy eyes and Denies seasonal rhinorrhea Physical Exam Vital Signs: Last Vital Signs Pulse 70 08/14/24 14:40 BP 160/70 H 08/14/24 14:40 Pulse Ox 97 08/14/24 14:40 Oxygen Delivery Method Room Air 08/14/24 14:40 BMI result Body Mass Index 22.6 Const General: cooperative, healthy appearing, comfortable, no acute distress, well developed and alert Orientation/consciousness: patient oriented x3 Limitations: no limitations HEENT Head: Yes normal to inspection, Yes normocephalic and Yes atraumatic Ears: hearing grossly normal bilaterally and external ears normal Eyes General: appearance normal, both eyes and all related structures Eyelids: Yes eyelids normal Sclerae: sclerae normal EOM: EOMs intact bilaterally Neck Neck: Yes normal visual inspection and Yes no lymphadenopathy Lymphatic: no lymphadenopathy noted Chest Chest palpation & inspection: normal inspection of the chest Resp Effort & Inspection: normal respiratory effort, able to speak in complete sentences, no audible wheezes, no cough, no stridor, not tachypneic, no tripod positioning and no use of accessory muscles Auscultation: diminished lung sounds Cardio Jugular venous distension: no JVD Rate: regular rate Rhythm: regular rhythm Skin Other: warm, dry General skin exam: no rashes or lesions noted Neuro General: patient oriented x3 Cranial nerves: Yes Normal hearing present Cognition (Neuro): normal cognition Gait exam (Neuro): Normal gait present Extrem General: Yes normal to inspection, Yes capillary refill normal, Yes no clubbing, cyanosis or edema and Yes no pedal edema Psych Appearance: grossly normal and well kempt Speech and movement: Normal speech and movement present and Clear speech present Affect: normal affect Attitude: cooperative Thought process: Normal thought process present Thought content: Normal thought content present Insight: Good insight present (Psych) Judgement: Good judgement present (Psych) Assessment & Plan Assessment & Plan (1) Chronic cough: Code(s): R05.3 - Chronic cough Category: Medical (2) Asthma-COPD overlap syndrome: Code(s): J44.89 - Other specified chronic obstructive pulmonary disease Category: Medical (3) Environmental allergies: Code(s): Z91.09 - Other allergy status, other than to drugs and biological substances Category: Medical Plan At this time, Shantanumurali reports suboptimal control using Breo and albuterol MDI. Will attempt to trial nebulized therapy QD. Will send order for nebulizer to be used at home. All questions were answered and patient is in agreement of plan. Will follow up in 2-3 months or sooner if needed. Medications: New albuterol sulfate 90 mcg/actuation 2 puffs inhalation Q6H PRN 1 ea 6RF shortness of breath or wheezing ipratropium-albuterol 0.5 mg-3 mg(2.5 mg base)/3 mL 3 mL inhalation Q6H PRN 90 mL 0RF wheezing Coding Level of Care Code Est Pt Level 4 (26001) Diagnoses Chronic cough R05.3 Asthma-COPD overlap syndrome J44.89 Environmental allergies Z91.09
[2024-08-14 14:40] VITALS: BP 160/70; PULSE 70; O2SAT 97; BMI 22.6
--- OUTSIDE RECORDS SUMMARY | 2024-08-14 17:03 | XMS_ITS | Data Portability ---
Demographics Address [address] [place] [address] Home Phone Mobile Phone Preferred Language zh Marital Status Taoism Affiliation Unknown Race Ethnic Group Not or Lati no Author Organization [facility], [facility] Address [address] [place] [address] Care Team Providers Care Assessment Manager Name Role Phone YARELIS HUERTA Primary Care Provider [facility] OTHER [facility] Orthopedic [...] to toes PPM may 2019 referred to [facility] vasc[facility] Dr Gee, who had been following him annually since CEA, but pt wished to excliude vascuar claudication as cause for his tingling cold foot after standing a while. is likely SS but i am compplying with pt and dtr request also to spine center at [facility] at their request as [facility] not addressing his concerns. Begin metformin A1c 7.2 [facility] Not available 02/25/2024 13:21:30 Plan of Treatment Reminders Order Date Submit Date Provider Last Modified By Organization Details Last Modified Time Details Appointments None recorde d. Lab influen za virus A + B + SARS-Co V-2 (COVID1 9) Ag panel, rapid IA, upper respira tory specime n 2024 [facility], [address] [facility], [place], [address], 5 11:13:07 Referral vascula r surgeon referra l - known to you from Carotid endarte rectomy , last seen 2022run sam sole ses is his numbnes s sensati on of both feet as he walksis due to his documen valery severe sinal stenosi sCould this be vascula rcaroti d doppler s ordered 025 at [facility] with CC to Gerard 2023 024 RAQUEL Gee MD, [address] [place] [address] Dr,, [place], [address], 5 15:24:06 physica l medicin e and rehabil itation referra l - 08/16/19 24 lumbar pain radiate s down left gluteal areanee ds mandari n interpr etercar di hx of spinal stenosi sknown to PSS for hip injecti on in past l gabriele Dalal who speaks lithuanian phone [phone] 2023 024 mmastroberti [facility], [address] [place], [address], 13:54:28 Procedures None recorde d. Surgeries None recorde d. Imaging None recorde d. Medication Orders tadalaf il 20 mg tablet 2023 [facility], [address] [place], [address], 4 10:59:51 metform in ER 750 mg tablet, extende d release 24 hr 2023 [facility], [address] [place], [address], 13:24:22 Augment in 875 mg-125 mg tablet 2023 024 [facility], [address] [facility] [place], [address], 4 10:13:16 atorvas tatin 80 mg tablet 2023 024 [facility], [address] [facility] [place], [address], 4 15:00:45 aspirin 81 mg tablet, delayed release 2023 024 [facility], [address] [place], [address], 4 15:00:45 losarta n 100 mg tablet 2023 024 [facility], [address] [facility] [place], [address], 4 15:00:46 Patient TargetsNo targets recorded. Patient Instructions Encounter Date Encounter Id Patient Instructions Last Modified By Organization Details Last Modified Time 08/16/2023 [id number] high blood pressure: care instructions [email or web address] Not available 08/16/2023 15:00:42 learning about high blood pressure [email or web address] Not available 08/16/2023 15:00:42 02/25/2024 [id number] high blood pressure: care instructions [email or web address] Not available 02/25/2024 13:24:20 learning about high blood pressure [email or web address] Not available 02/25/2024 13:24:20 Reason for Referral Physical Medicine And Rehabi litation Referral for Lumbar radiculopathy 08/16/2023 lumbar pain radiates down left gluteal areaneeds mandarin interpretercarries hx of spinal stenosisknown to PSS for hip injection in pastcall daughter Mily Dalal who speaks englishphone Referring Physician: Yarelis Huerta [facility], Encounter Date: 08/16/2023 Vascular Surgeon Referral fo r Intermittent claudication known to you from Carotid endarterectomy, last seen 2022running hypotheses is his numbness sensation of both feet as he walksis due to his documented severe sinal stenosisCould this be vascularcarotid dopplers ordered 02/24/2025 at [facility] with CC to Gerard Referring Physician: Yarelis Huerta [facility], Encounter Date: 02/25/2024 Results Created Date Observation [...] furth er confi rmati on Not Available [address], [address], 08/12/2023 12:48:18 08/12/19 24 08/12/2023 HGB A1C estimated average glucose 151.3 mg/dL Not Available [address], [address], 08/12/2023 12:48:18 08/12/19 24 08/12/2023 BASIC METAB OLIC PANEL glucose 119 mg/dL 70-100 high Not Available [address], [address], 08/12/2023 14:05:17 08/12/19 24 08/12/2023 BASIC METAB OLIC PANEL BUN 22 mg/dL 7-18 high Not Available [address], [address], 08/12/2023 14:05:17 08/12/19 24 08/12/2023 BASIC METAB OLIC PANEL creatinine 1.1 mg/dL 0.8-1. 3 Not Available [address], [address], 08/12/2023 14:05:17 08/12/19 24 08/12/2023 BASIC METAB OLIC PANEL B/C 20.0 ratio Not Available [address], [address], 08/12/2023 14:05:17 08/12/19 24 08/12/2023 BASIC METAB [...] be used in pregn augie. Not Available [address], [address], 08/12/2023 14:05:17 08/12/19 24 08/12/2023 BASIC METAB OLIC PANEL sodium 141 mmol/ L 136-14 5 Not Available [address], [address], 08/12/2023 14:05:17 08/12/19 24 08/12/2023 BASIC METAB OLIC PANEL potassium 4.2 mmol/ L 3.5-5. 1 Not Available [address], [address], 08/12/2023 14:05:17 08/12/19 24 08/12/2023 BASIC METAB OLIC PANEL chloride 104 mmol/ L 96-107 Not Available [address], [address], 08/12/2023 14:05:17 08/12/19 24 08/12/2023 BASIC METAB OLIC PANEL anion gap 13.3 5.0-15 .0 Not Available [address], [address], 08/12/2023 14:05:17 08/12/19 24 08/12/2023 BASIC METAB OLIC PANEL CO2 24 mmol/ L 21-32 Not Available [address], [address], 08/12/2023 14:05:17 08/12/19 24 08/12/2023 BASIC METAB OLIC PANEL calcium 9.1 mg/dL 8.5-10 .3 Not Available [address], [address], 08/12/2023 14:05:17 08/12/19 24 08/12/2023 LIPID PANEL cholesterol 176 mg/dL <200 mg/dl Gisella able 200-2 39 mg/dl Borde rline High >240 mg/dl High Not Available [address], [address], 08/12/2023 14:05:18 08/12/19 24 08/12/2023 LIPID PANEL triglyceride s 159 mg/dL <150 mg/dL Dorene l 150-1 99 mg/dL Borde rline High 200-4 99 mg/dL High >500 mg/dL Very High Not Available [address], [address], 08/12/2023 14:05:18 08/12/19 24 08/12/2023 LIPID PANEL direct HDL 82 mg/dL <40 mg/dl - Major Risk for CHD >60 mg/dl - Negat kyle Risk for CHD Not Available [address], [address], 08/12/2023 14:05:18 08/12/19 24 08/12/2023 LDL - [...] r is not nik almeida. Not Available [address], [address], 08/12/2023 14:05:19 08/12/19 24 08/12/2023 MICRO ALBUM IN/CR EATIN INE RATIO PANEL , URINE microalbumin 21.4 mg/L 1.3-20 .0 high Not Available [address], [address], 08/12/2023 14:45:45 08/12/19 24 08/12/2023 MICRO ALBUM IN/CR EATIN INE RATIO PANEL , URINE creatinine urine 68.4 mg/dL 30.0-1 25.0 Not Available [address], [address], 08/12/2023 14:45:45 08/12/19 24 08/12/2023 MICRO ALBUM IN/CR EATIN INE RATIO PANEL , URINE microalb/cre at ratio 31.3 mg/g_ creat 0.0-29 .0 high Not Available [address], [address], 08/12/2023 14:45:45 02/18/2002/18/2024 HGB A1C hemoglobin A1C [...] furth er confi rmati on Not Available [address], [address], 02/18/2024 12:02:02 02/18/2002/18/2024 HGB A1C estimated average glucose 159.9 mg/dL Not Available [address], [address], 02/18/2024 12:02:02 02/18/2002/21/2024 BASIC METAB OLIC PANEL glucose 135 mg/dL 70-100 high Not Available [address], [address], 02/21/2024 12:12:50 02/18/2002/21/2024 BASIC METAB OLIC PANEL BUN 23 mg/dL 7-18 high Not Available [address], [address], 02/21/2024 12:12:50 02/18/20 24 02/21/2024 BASIC METAB OLIC PANEL creatinine 1.1 mg/dL 0.8-1. 3 Not Available [address], [address], 02/21/2024 12:12:50 02/18/2002/21/2024 BASIC METAB OLIC PANEL B/C 20.9 ratio Not Available [address], [address], 02/21/2024 12:12:50 02/18/2002/21/2024 BASIC METAB OLIC PANEL GFR >=60ML /MIN [...] be used in pregn augie. Not Available [address], [address], 02/21/2024 12:12:50 02/18/2002/21/2024 BASIC METAB OLIC PANEL sodium 142 mmol/ L 136-14 5 Not Available [address], [address], 02/21/2024 12:12:50 02/18/20 24 02/21/2024 BASIC METAB OLIC PANEL potassium 4.3 mmol/ L 3.5-5. 1 Not Available [address], [address], 02/21/2024 12:12:50 02/18/2002/21/2024 BASIC METAB OLIC PANEL chloride 105 mmol/ L 96-107 Not Available [address], [address], 02/21/2024 12:12:50 02/18/2002/21/2024 BASIC METAB OLIC PANEL anion gap 9.5 5.0-15 .0 Not Available [address], [address], 02/21/2024 12:12:50 02/18/2002/21/2024 BASIC METAB OLIC PANEL CO2 28 mmol/ L 21-32 Not Available [address], [address], 02/21/2024 12:12:50 02/18/2002/21/2024 BASIC METAB OLIC PANEL calcium 9.4 mg/dL 8.5-10 .3 Not Available [address], [address], 02/21/2024 12:12:50 02/18/2002/21/2024 LIPID PANEL cholesterol 200 mg/dL <200 mg/dl Gisella able 200-2 39 mg/dl Borde rline High >240 mg/dl High Not Available [address], [address], 02/21/2024 12:12:52 02/18/2002/21/2024 LIPID PANEL triglyceride s 87 mg/dL <150 mg/dL Dorene l 150-1 99 mg/dL Borde rline High 200-4 99 mg/dL High >500 mg/dL Very High Not Available [address], [address], 02/21/2024 12:12:52 02/18/2002/21/2024 LIPID PANEL direct HDL 84 mg/dL <40 mg/dl - Major Risk for CHD >60 mg/dl - Negat kyle Risk for CHD Not Available [address], [address], 02/21/2024 12:12:52 02/18/20 24 02/21/2024 LDL - [...] r is not nik almeida. Not Available [address], [address], 02/21/2024 12:12:53 05/22/19 25 05/22/2024 POC FLU/S ARS flu A POC NEGATI VE Not Available [facility] [address] [place] [address], [address], 05/22/2024 11:09:14 05/22/19 25 05/22/2024 POC FLU/S ARS flu B POC NEGATI VE Not Available [facility] [address] [place] [address], [address], 05/22/2024 11:09:14 05/22/19 25 05/22/2024 POC FLU/S ARS sars POC NEGATI VE Not Available [facility] [address] [place] [address], [address], 05/22/2024 11:09:14 03/15/20 23 03/15/2023 XR, hip [...] Readin g Physic enrike: Regla Edwards ms [facility]) [address], [place], [address], 08/16/2023 14:51:11 03/02/20 24 03/01/2024 US carot id duple x (bila teral ) US CAROTI D DUPLEX COMPLE TE (BILAT ERAL) Referr ing clinic enrike's provid ed indica tion for this examin ation in Epic: Outsid e Radiol ogy Order; hx caroti d endart erecto my TECHNI QUE: A duplex ultras ound evalua tion of the common caroti d, strategy intern al caroti d, dairy consultant al caroti d, verteb ral, and subcla [...] Systol ic: 74 Distal Diasto lic: 13 Sprinkler Fitter al Caroti d Artery (cm/s) : Proxim al Systol ic: 94 Proxim al Diasto lic: 14 Mid Systol ic: 85 Mid Diasto lic: 16 Distal Systol ic: 68 Distal Diasto lic: 15 Cloth Feeder al Caroti d Artery (cm/s) : Systol [...] Systol ic: 72 Distal Diasto lic: 11 Sprinkler Fitter al Caroti d Artery (cm/s) : Proxim al Systol ic: 78 Proxim al Diasto lic: 8 Mid Systol ic: 79 Mid Diasto lic: 13 Distal Systol ic: 76 Distal Diasto lic: 20 Cloth Feeder al Caroti d Artery (cm/s) : Systol ic: 88 Diasto lic: 6 Verteb ral Artery (cm/s) : Systol ic: 59 Diasto lic: 13 Subcla vian Artery (cm/s) : Not done ICA/CC A Ratio: 1.18 ICA Stenos is: Normal ICA Plaque : None Visual ized Abbrev iation s: CCA = Common Caroti d Artery . ICA = Sprinkler Fitter al Caroti d Artery . ECA = Cloth Feeder al Caroti d Artery . Vert = [...] signif icant elevat ion throug hout the strategy intern al caroti d artery . No plaque is visual ized in the common caroti d artery . Unrema rkable dairy consultant al caroti d artery . Koffi grade flow is noted in the verteb ral artery . The subcla vian artery was not interr ogated . Left: Dopple r flow veloci ties and wavefo rm contou rs are within normal limits throug hout the strategy intern al caroti d artery , no plaque is visual ized. There is mild plaque visual ized in the common caroti d artery . Unrema rkable dairy consultant al caroti d artery . Koffi grade flow is noted in the verteb ral artery . The subcla vian artery was not interr ogated . IMPRES SIONS: Compar ed to the prior caroti d ultras ound of 2018. 1. <50% stenos is noted in the right strategy intern al caroti d artery . 2. No stenos is in the left strategy intern al caroti d artery . 3. No stenos is is noted in the common caroti d arteri es bilate rally. 4. Unrema rkable dairy consultant al caroti d arteri es bilate rally. 5. Antegr andrew flow in the bilate ral cervic al verteb ral arteri es. 6. The bilate ral subcla vian arteri es were not interr ogated STENOS IS: Sprinkler Fitter al caroti d artery stenos is by duplex ultras onogra phy has been valida valery by compar ing findin gs with angiog raphic stenos is. NASCET method s were used, where the most severe stenos is repres ents the numera tor, and the normal strategy intern al caroti d artery diamet er [...] erecto my approx 5 years ago per oracio t Rt Caroti d: modera te amount of calcif ied plaque Px ICA. Lt Caroti d: minima l plaque YARELIS VÁZQUEZ MAN YARELIS HERNANDEZ [facility] [address] [place] [address], [address], 05/18/2024 13:31:13 03/02/20 24 03/01/2024 nikolai MORRIS carot id arter y No observ ation record ed. [address], [address], 05/18/2024 13:31:13 06/27/19 25 06/27/2024 nikolai MORRIS carot id arter y No observ ation record ed. [facility] [address] [facility], [place], [address], 06/27/2024 17:27:00 Result Notes None recorded. Problems Name Problem SNOMED Code Status Onset Date Resolution Date Notes Provider Name and Address Organization Details Recorded Time Mixed hyperlipi demia 499371314 Active per 06/20/12 OV notes Not Available [facility] 2 08:12:09 Benign essential hypertens ion 9224800 Active per 06/20/12 OV notes Not Available [facility] 2 08:12:09 Sinus node dysfuncti on 14852760 Active 2016 PPM 2017, 37 sec pauses with presyncope Not Available [facility] 2 08:12:09 Hyperglyc emia 75575960 Active 2017 Not Available [facility] 2 08:12:09 Type 2 diabetes mellitus without complicat ion 964620465 Active 2017 Not Available [facility] 2 08:12:09 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 Advised claritin and humidifica tion at night. Not Available [facility] 2 08:12:09 Spinal stenosis of lumbar region 27950804 Active [address] L3 to L5 Yarelis Huerta MD [address] [place] [address], [phone] , [facility] 3 19:49:32 Problem Notes None recorded. Procedures Surgical History Date Name Laterality Status Provider Name and Address Organization Details Recorded Time 02/25/20 Medicare Wellness Visit completed Barbara Gamez [facility] 02/25/2024 10:07:42 01/24/20 Wound Care completed Yarelis Huerta MD [address] [place] [address], [phone], [facility] 01/24/2024 10:54:24 04/05/20 [address]: PT Eval Low Complexity completed Romulo Clarke DPT [address] [place] [address], [phone], [facility] 04/05/2023 13:33:46 04/05/20 Treatment and Advice completed Romulo Clarke DPT [address] [place] [address], [phone], [facility] 04/10/2023 11:22:55 02/23/20 Medicare Wellness Visit completed Barbara Gamez [facility] 02/22/2023 15:04:12 07/09/19 23 Knee (Right) Injection completed Yarelis Huerta MD [address] [place] [address], [phone], [facility] 07/08/2022 12:18:19 11/25/19 22 Wound Care completed ISIDRA FIGUEROA DNP [address] [place] [address], [phone], [facility] 11/24/2021 15:34:43 09/13/19 22 Shoulder (Left) Injection completed Yarelis Huerta MD [address] [place] [address], [phone], [facility] 09/12/2021 17:39:07 08/14/19 22 Medicare Wellness Visit completed Barbara Gamez [facility] 08/13/2021 10:07:08 08/14/19 22 Alcohol use screening completed Barbara Gamez [facility] 08/13/2021 10:07:08 03/20/20 20 Medicare Wellness Visit completed Barbara Gamez [facility] 03/20/2020 14:14:00 03/20/20 20 prevention-cardiov ascular risk reduction counseling completed Barbara Gamez [facility] 03/20/2020 14:14:00 03/20/20 20 prevention-annual alcohol misuse screening completed Barbara Gamez [facility] 03/20/2020 14:14:00 04/27/20 19 Transitional care completed MARY Tinoco [address] [place] [address], [phone], [facility] 04/27/2019 12:27:47 11/29/19 16 Corticosteroid Injection completed Kendy Garcia MD [address] [place] [address], [phone], [facility] 11/29/2015 15:56:48 11/29/19 16 Aspiration Major Joint/Bursa completed Kendy Garcia MD [address] [place] [address], [phone], [facility] 11/29/2015 15:54:32 11/13/19 16 Shoulder (Right) Injection completed Kendy Garcia MD [address] [place] [address], [phone], [facility] 11/13/2015 15:56:26 Imaging Results Imaging Date Name Status LastModified by Organiz ation Details LastModified Time 03/15/2023 XR, hip + pelvis, unilateral, 2 or 3 view completed [facility] [address], [place], [address], 08/16/2023 14:51:11 03/01/2024 US carotid duplex (bilateral) completed [facility] [address] [place] [address], [address], 05/18/2024 13:31:13 03/01/2024 US, duplex, carotid artery completed [address], [address], 05/18/2024 13:31:13 06/27/2024 US, duplex, carotid artery completed [address], [address], 06/27/2024 17:27:00 Procedure Notes None recorded. Medical Equipment None Reported. Allergies Allergen ID Allergen Name Allergen Category Reaction Reaction Severity Criticality Documentation Date Start Date Code Code System Note Provider Name and Address Organization Details Recorded Time 29932 Product containin g penicilli n (product) medicatio n rash Not available Not available 09/29/2011 52808 8001 SNOMED Shiloh Nuñez, LEGAL ADMINISTRATIVE SECRETARY [facility], [facility] 3 09:21:20 Medications Name Sig Start Date [...] route as needed. 02/06 completed not taken 09/12/21t t Not Available Not Available Not [...] e 50 mcg/actua tion nasal spray,siobhan pension [place] 2 sprays every day by intranas al [...] Updated DateTime 4 167.64 cm 22.9 kg/m2 67782.8 2 g 98 % 98 % 70 /min 124 mm[Hg] 78 mm[Hg] Barbara Gamez [facility] 4 14:27:47 Date Recorded Body height Body mass index (BMI) Body weight Systolic blood pressure Diastolic blood pressure Provider Name and Address Organization Details Last Updated DateTime 01/24/2024 167.64 cm 22.5 kg/m2 02771.04 g 122 mm[Hg] 74 mm[Hg] Barbara Gamez [facility] 4 10:28:17 Date Recorded Body height Body mass index (BMI) Body weight Heart rate Oxygen saturation Oxygen saturation in Arterial blood by Pulse oximetry Systolic blood pressure Diastolic blood pressure Provider Name and Address Organization Details Last Updated DateTime 4 167.64 cm 22.9 kg/m2 42188.8 2 g 54 /min 95 % 95 % 166 mm[Hg] 94 mm[Hg] Barbara Gamez [facility] 4 10:17:35 Date Recorded Body height Body mass index (BMI) Body weight Heart rate Oxygen saturation Oxygen saturation in Arterial blood by Pulse oximetry Systolic blood pressure Diastolic blood pressure Provider Name and Address Organization Details Last Updated DateTime 5 167.64 cm 22.3 kg/m2 69138.4 5 g 101 /min 94 % 94 % 180 mm[Hg] 110 mm[Hg] Barbara Gamez CMA [facility] 5 10:48:47 Social History Question Answer Notes LastModified by Organizat ion Details LastModified Time Tobacco Smoking Status Former Smoker quit 20 years ago; 02/17/22 ZOILA Smith, [facility] 02/17/2022 10:05:46 What Is Your Level Of Alcohol Consumption? Moderate 1 Daily 02/17/22 MAYI [email or web address] Information not available 02/17/2022 Do You Wear A Helmet When Biking? Yes Information not available 11/13/2015 What Is Your Level Of Caffeine Consumption? Moderate 1-2 Tea [email or web address] Information not available 03/20/2020 How Much Tobacco Do You Chew? None Information not available 11/13/2015 Are You Currently Employed? No Retired 2021 [email or web address] Information not available 08/13/2021 What Type Of Diet Are You Following? REGULAR Information not available 11/13/2015 Have There Been Any Changes To Your Family Or Social Situation? No [email or web address] Information not available 08/13/2021 How Many Days In The Past Year Have You Had A Heavy Drinking Consumption (4+ Female, 5+ Male)? 0 Information not available 05/10/2012 Are There Any Guns Present In Your Home? No Information not available 11/13/2015 Do You Use Insect Repellent Routinely? No [email or web address] Information not available 08/13/2021 Live Alone Or [...] Most Recent Tobacco Screening? 02/17/2022 02/17/22 MAYI [email or web address] Information not available 02/17/2022 How Many Children Do You Have? 3 [email or web address] Information not available 08/13/2021 What Is Your Current Pack Years? 10packyears [email or web address] Information not available 11/19/2023 What Is Your Relationship Status? [email or web address] Information not available 08/13/2021 Do You Use Your Seat Belt Or Car Seat Routinely? Yes [email or web address] Information not available 02/25/2024 Seat Belts Used Routinely Yes Information not available 11/13/2015 Are You Sexually Active? Yes Information not available 11/13/2015 Smoke Alarm In Home Yes Information not available 11/13/2015 Do You Have Smoke And Carbon Monoxide Detectors In Your Home? Yes [email or web address] Information not available 08/13/2021 Are You Passively Exposed To Smoke? No [email or web address] Information not available 08/13/2021 General Stress Level Low Information not available 11/13/2015 Do You Use Sunscreen Routinely? No Information not available 11/13/2015 Do You Or Have You Ever Used Any Other Forms Of Tobacco Or Nicotine? No [email or web address] Information not available 02/17/2022 Sex: Male Functional Status Question Answer Note LastModified by Organizat ion Details LastModified Time What is your exercise level? Moderate daily walks [email or web address] Information not available 02/22/2023 Mental Status None recorded. Family History Nothing Reported Notes:M and Father lived to mid 80's. Medical History Condition Response Hyperlipidemia Y Hypertension Y Immunizations Vaccine Type Date Status Note Provider Nam e and Address Organization Details Recorded Time Influenza, split virus, trivalent, preservative 2 completed Not Available [facility] 05/20/2019 02:18:35 Influenza, high-dose, trivalent, PF 5 completed Not Available [facility] 05/20/2019 02:25:04 Influenza, high-dose, trivalent, PF 7 completed Not Available [facility] 05/20/2019 02:32:27 Influenza, high-dose, trivalent, PF 7 completed Not Available [facility] 05/20/2019 02:33:35 Pneumococcal conjugate PCV 13 7 completed Not Available [facility] 05/20/2019 02:22:05 Influenza, high-dose, trivalent, PF 8 completed Not Available [facility] 05/20/2019 02:23:29 Influenza, high-dose, trivalent, PF 9 completed Not Available [facility] 05/20/2019 02:24:34 pneumococcal polysaccharide PPV23 9 completed Not Available [facility] 05/20/2019 02:27:07 Tdap 9 completed Not Available [facility] 05/20/2019 02:26:03 Influenza, high-dose, quadrivalent, PF 1 completed VERONICA Davalos, [facility] 04/15/2021 10:31:20 Influenza, split virus, quadrivalent, preservative 0 completed Thais Johnson DNP [address] [place] [address], [phone], [facility] [place] 03/20/2020 14:39:44 Influenza, high-dose, quadrivalent, PF 2 completed Yarelis Huerta MD [address] [place] [address], [phone], [facility] [place] 02/06/2022 10:43:37 Influenza, high-dose, quadrivalent, PF 3 completed Chaya Small NP [address] [place] [address], [phone], [facility] [place] 03/12/2023 17:07:35 Influenza, high-dose, trivalent, PF 4 completed Yarelis Huerta MD [address] [place] [address], [phone], [facility] [place] 02/25/2024 13:18:10 COVID-19, mRNA, LNP-S, PF, 100 mcg/0.5mL dose or 50 mcg/0.25mL dose 1 completed Barbara Gamez CMA null, [facility] 03/07/2021 14:58:06 COVID-19, mRNA, LNP-S, PF, 100 mcg/0.5mL dose or 50 mcg/0.25mL dose 2 completed Barbara Gamez CMA [facility], [facility] 08/15/2021 08:35:08 Past Encounters Encounter ID Performer Location Encounter Start Date Encounter Closed Date Diagnosis/Indication Diagnosis SNOMED-CT Code Diagnosis ICD10 Code Diagnosis Note [id number] [facility], OFFICE [address] [place] [address] [place] [address] 09/29/2011 15:09:24 09/29/2011 16:19:[id number] [place] [address] 11/09/2011 15:08:07 11/10/2011 09:17:32 [id number] Lilly Chand LPN [address] [place] [address] 01/26/2012 14:11:21 01/27/2012 08:05:23 [id number] Yarelis Huerta MD [address] [place] [address] 02/15/2012 08:56:43 02/15/2012 09:36:33 [id number] Nicole Enciso [address] [place] [address] 05/10/2012 13:23:04 05/11/2012 09:33:22 [id number] Yarelis Huerta MD [facility] OFFICE [address] [place] [address] [place] [address] 06/10/2012 08:37:22 06/10/2012 09:52:12 [id number] Benson Garcia DPM Podiatry, [address] [place] [address] 07/05/2012 14:39:49 07/06/2012 16:03:00 [id number] Yarelis Huerta MD [facility], OFFICE [address] [place] [address] [place] [address] 03/13/2015 15:23:42 03/13/2015 16:09:37 Mixed hyperlipidemia 164137465 E78.2 03/2015 at goal below 100 on simvastati n 40. at goal on lipitor 80 pt wishes FLP Benign ess ential hypertension 7998332 I10 03/2015 at goal on lisinopril 20 [...] i printed out a photo of the [employer] night splint for him to purchase recommende d podiatry input as well resolved due to pes planus written instructio ns from upto date, verbal translatio n as well as written Dr Hernadez instructio ns to pharmacist given Acute uppe r respiratory infection 73996541 J06.9 bothersome cough with bronchitis Educated patient [...] resolve in 2-4 weeks. Low back pain 195570925 M54.5 resolved. upper lumbar lower thoracic pain upon arising prob djd. rec iboprofen agreed to check liver enzymes renal fn per pr request, resonabkle as on lipitor high dose. denies h/o liver dz, hepatitis. 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 Dermatophy tosis of the perianal area 445815222 B35.4 resolved w topicals [id number] Candice LUNDY, [facility], OFFICE [address] [place], [place] [address] 04/09/2015 15:11:16 04/13/2015 09:50:23 Dermatophytosis of the perianal area 130094932 B35.4 resolved w topicals Mixed hyperlipidemia 267 938149 E78.2 03/2015 at goal below 100 on simvastati n 40. at goal on lipitor 80 pt wishes FLP Impotence of organic origin 767489253 N52.9 prior- pt wishes refill viagra presents empty bottle to me. Benign ess ential hypertension 0045628 I10 04/2015 still not at goal, pt frustrated with lisinopril and rather than increase dose, agreed with bleacher operator to change to norvasc 10mg rto 2-3 weeks 03/2015 at goal on lisinopril 20 only. remains at goal (<140/90)o n two medication s HCTZ VICKY. Understand s what meds are for. plan to continue indefinite ly Bp checks twice annually. remains at goal on two medication s HCTZ VICKY Low back pain 322670074 M54.5 resolved. upper lumbar lower thoracic pain upon arising prob djd. rec iboprofen agreed to check liver enzymes renal fn per pr request, resonabkle as on lipitor high dose. denies h/o liver dz, hepatitis. Plantar fasciitis 908846 003 M72.2 due to pes planus has failed home treatment he had purchased a nonsense compressio n bandage i printed out a photo of the [employer] night splint for him to purchase recommende d podiatry input as well resolved due to pes planus written instructio ns from upto date, verbal translatio n as well as written Dr Hernadez instructio ns to pharmacist given Acute uppe r respiratory infection 79011720 J06.9 bothersome cough with bronchitis Educated patient [...] in 2-4 weeks. Active or passive immunization 647310905 Z23 [id number] , [facility], OFFICE [address] [place] [address] 06/07/2015 11:23:24 06/07/2015 14:53:24 Benign essential hypertension 6772806 I10 Chest pain 33660668 R07. 9 [id number] Yarelis Huerta MD , [facility], OFFICE [address] [place] [address] 07/08/2015 15:07:45 07/08/2015 16:20:01 Skin problem 190665275 R23.9 Benign ess ential hypertension 8909162 I10 07/2015 at goal on VICKY. AT PT'S REQUEST WILL CHANGE BACK TO LISINOPRIL . EKG NL. I THINK AN ETT IS INDICATED. I AM NOT READY TO BLAME AMLODIPINE FOR CHEST PRESSURE. DISCUSSED WITH PT VIA TRANLATOR. MORE THEN 50% OF THIS APPT WAS USED COUNSELING RE: NATURE OF ISSUE AND COORDINATI ON OF CARE. [id number] Kendy Garcia MD , [facility], OFFICE [address] [place] [address] 11/13/2015 15:11:07 11/13/2015 15:50:59 Shoulder joint pain 141043969 M25.519 intractabl e, steroidal intraartic ular injection was performed, see procedure note, FU in two wks Increased blood pressure 76444140 R03.0 w Hx HTN, on meds, after was rechecked by me at the end of the encounter, it was normal, poss pt was in pain and/or was someways anxious , counseled to monitor his BP and report if still elevated [id number] Yarelis Huerta MD , [facility], OFFICE [address] [place] [address] 11/18/2015 14:21:02 11/18/2015 15:40:33 Adult health examination 158491456 Z00.00 see Risk Assessment and Lifestyle Change Counseling section above Counseling 636593252 Z71 .9 Benign ess ential hypertension 0909631 I10 Blood pressure at goal Screening for malignant neoplasm of colon 003851611 Z12.11 due per pt 2018 Impotence 683710999 N52. 9 Impaired f asting glycemia 294622895 R73.01 below 126 for years [id number] Yarelis Huerta MD , [facility], OFFICE [address] [place] [address] 11/26/2015 08:43:52 11/26/2015 15:55:55 Low blood pressure 74148404 I95.9 symptomaat iciatrogen ic this summeragre ed [...] head pressure vision loss upon arising persists. [id number] Kendy Garcia MD , [facility], OFFICE [address] [place] [address] 11/29/2015 11:20:54 12/02/2015 12:00:50 Olecranon bursitis 525356514 M70.21 uncertain etiology, aspiration and then steroidal injection was performed, see procedure note [id number] Yarelis Huerta MD , [facility], OFFICE [address] [place] [address] 12/04/2015 14:10:58 12/04/2015 15:03:15 Headache 93822900 R51 4 times a day gets head gutierrez lasting few seconds.Pt disincline d to believe that this is not significan t. referral printed for pts grandson to be able to schedule appt Cough 65430863 R05 cough x many weeks, unclear if upper or lower mucuswill image and referi believe this is a habitual cough from minor environmen [facility] printed for pts grandson to be able to schedule appt [id number] Naz Lyons , [facility], OFFICE [address] [place] [address] 05/20/2016 08:53:44 05/20/2016 10:01:11 Headache 92420653 R51 historical .4 times a day gets head gutierrez lasting few seconds.Pt disincline d to believe that this is not significan t. referral printed for pts grandson to be able to schedule appt Cough 91861920 R05 pt states he has asthmai will [...] be able to schedule appt Olecranon bursitis 25348 0002 M70.21 nearly resolved. summer 2015.uncer tain etiology, aspiration and then steroidal injection was performed, see procedure note Low blood pressure 09841 003 I95.9 summer 2015.sympt omaticiatr ogenic this [...] upon arising persists. Benign ess ential hypertension 9345076 I10 usually at goal off medstoday 05/20/15 it is aberrantly elevatedhe blows out a rapid excuse, got poor sleepagree d to rto 2 weeks recheckhe has been a frustratin g case and i am reluctant to restart med Impotence 971960852 N52. 9 Impaired f asting glycemia 378080448 R73.01 below 126 for years Active or passive immunization 450180761 Z23 [id number] Yarelis Huerta MD , [facility], OFFICE [address] [place], [place] [address] 06/03/2016 07:45:10 06/03/2016 08:22:32 Headache 02478457 R51 historical .4 times a day gets head gutierrez lasting few seconds.Pt disincline d to believe that this is not significan t. referral printed for pts grandson to be able to schedule appt 12/2015 [facility] neurology Cough 35618137 R05 pt states he has asthma, likely [...] be able to schedule appt Olecranon bursitis 51700 0002 M70.21 nearly resolved. summer 2015.uncer tain etiology, aspiration and then steroidal injection was performed, see procedure note Low blood pressure 71157 003 I95.9 summer 2015.sympt omaticiatr ogenic this [...] upon arising persists. Benign ess ential hypertension 3380410 I10 06/03/16 remains at goal off any [...] and rather than increase dose, agreed with bleacher operator to change to norvasc 10mg rto 2-3 weeks 03/2015 at goal on lisinopril 20 only. 2014 remains at goal (<140/90)o n two medication s HCTZ VICKY. Understand s what meds are for. plan to continue indefinite ly Bp checks twice annually. remains at goal on two medication s HCTZ VICKY Impotence 589246444 N52. 9 Impaired f asting glycemia 505735856 R73.01 below 126 for years Mixed hyperlipidemia 267 573969 E78.2 lipidemia - 11/2015 LDL is just fine 128, at goal, off medication which he is disincline d to take.. Diet only. 03/2015 at goal below 100 on simvastati n 40. at goal below LDL 100, on lipitor 80 pt wishes FLP [id number] RABIA Calero, [facility], OFFICE [address] [place] [address] 12/08/2016 16:10:52 12/08/2016 17:00:47 Syncope and collapse 007168767 R55 5 days ago arose from chair, got up to grab door and passed out.has been generally feeling unwell.he is bradycardi c, PPM?(had negative nuclear 09/2015)rep orts sub sequent presyncope , has to lean on wall to prevent collapse during these events Headache 56483700 R51 historical .4 times a day gets head gutierrez lasting few seconds.Pt disincline d to believe that this is not significan t. referral printed for pts grandson to be able to schedule appt Cough 81289760 R05 05/2016 pt states he has asthmai [...] be able to schedule appt Olecranon bursitis 56344 0002 M70.21 nearly resolved. summer 2015.uncer tain etiology, aspiration and then steroidal injection was performed, see procedure note Low blood pressure 34570 003 I95.9 summer 2015.sympt omaticiatr ogenic this [...] upon arising persists. Benign ess ential hypertension 6675505 I10 usually at goal off medstoday 05/20/15 it is aberrantly elevatedhe blows out a rapid excuse, got poor sleepagree d to rto 2 weeks recheckhe has been a frustratin g case and i am reluctant to restart med Impotence 834203333 N52. 9 Impaired f asting glycemia 826927537 R73.01 below 126 for years [id number] Yarelis Huerta MD , [facility], OFFICE [address] [place] [address] 02/26/2017 09:46:39 02/26/2017 11:23:21 Adult health examination 852945717 Z00.00 see Risk Assessment and Lifestyle Change Counseling section above Counseling 883491760 Z71 .9 Active or passive immunization 954456137 Z23 Headache 98293532 R51 historical .4 times a day gets head gutierrez lasting few seconds.Pt disincline d to believe that this is not significan t. referral printed for pts ct to be able to schedule appt Cough 38244049 R05 05/2016 pt states he has asthmai will add proair to fluticason e.he is not forthcomin g with symptoms, looking for 'strong medicine'h e will need formal testing .cough x many weeks, unclear if upper or lower mucuswill image and referi believe this is a habitual cough from minor environ[facility] printed for pts grandson to be able to schedule appt Olecranon bursitis 73890 0002 M70.21 nearly resolved. summer 2015.uncmiladis palomo etiology, aspiration and then steroidal injection was performed, see procedure note Benign ess ential hypertension 0733756 I10 appears his intoleranc e of BP [...] and rather than increase dose, agreed with bleacher operator to change to norvasc 10mg rto 2-3 weeks 03/2015 at goal on lisinopril 20 only. remains at goal (<140/90)o n two medication s HCTZ VICKY. Understand s what meds are for. plan to continue indefinite ly Bp checks twice annually. remains at goal on two medication s HCTZ VICKY Impotence 002037742 N52. 9 Impaired f asting glycemia 838863261 R73.01 below 126 for years Mixed hyperlipidemia 267 274636 E78.2 lipidemia - 11/2015 LDL is just fine 128, at goal, off medication which he is disincline d to take.. Diet only. 03/2015 at goal below 100 on simvastati n 40. at goal below LDL 100, on lipitor 80 pt wishes FLP Sick sinus syndrome 3608 3008 I49.5 02/26/17.fatimah mcclure and his dtr phoned cardiology to decline PPM.with bleacher operator i showed him the 30 day event [...] to prevent collapse during these events Lightheadedness 75998925 8 R42 summer 2015.sympt omaticiatr ogenic this [...] loss upon arising persists. 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 told name of hamilton verdugo.see n with [id number] Yarelis Huerta MD , [facility], OFFICE [address] [place] [address] 05/24/2017 07:39:15 05/24/2017 08:30:35 Headache 83090818 R51 historical .4 times a day gets head gutierrez lasting few seconds.Pt disincline d to believe that this is not significan t. referral printed for pts grandson to be able to schedule appt Cough 33289517 R05 resolved. 05/2016 pt states he has asthmai will add proair to fluticason e.he is not forthcomin g with symptoms, looking for 'strong medicine'h e will need formal testing .cough x many weeks, unclear if upper or lower mucuswill image and referi believe this is a habitual cough from minor environmen [facility] printed for pts grandson to be able to schedule appt Olecranon bursitis 94387 0002 M70.21 nearly resolved. summer 2015.uncmiladis palomo etiology, aspiration and then steroidal injection was performed, see procedure note Benign ess ential hypertension 3183288 I10 BP at goal off med. [employer]INEER. appears his intoleranc e of BP med [...] and rather than increase dose, agreed with bleacher operator to change to norvasc 10mg rto 2-3 weeks 03/2015 at goal on lisinopril 20 only. remains at goal (<140/90)o n two medication s HCTZ VICKY. Understand s what meds are for. plan to continue indefinite ly Bp checks twice annually. remains at goal on two medication s HCTZ VICKY Impotence 357226923 N52. 9 Impaired f asting glycemia 678836343 R73.01 below 126 for years Mixed hyperlipidemia 267 030726 E78.2 lipidemia - 11/2015 LDL is just fine 128, at goal, off medication which he is disincline d to take.. Diet only. 03/2015 at goal below 100 on simvastati n 40. at goal below LDL 100, on lipitor 80 pt wishes FLP Sick sinus syndrome 3608 3008 I49.5 declines symptoms.1 /2018. 02/26/17.h e and his dtr phoned cardiology to decline PPM.with bleacher operator i showed him the 30 day event [...] to prevent collapse during these events Lightheadedness 98357131 8 R42 see above.summ er 2016.sympt omaticiatr [...] loss upon arising persists. Coronary arteriosclerosis in [place] artery 0109419467 107 I25.10 cath by AYE JAUREGUI and hamp [id number] showed 50% ladappropr iate meds added Hyperglycemia 76424275 R 73.9 A1c of 7.his diet is low sugarwill recheck labs today 05/2017DM discussed with pt. [id number] , [facility], OFFICE [address] [place] [address] 10/18/2017 08:03:46 10/18/2017 09:04:24 Headache 94695457 R51 historical .4 times a day gets head gutierrez lasting few seconds.Pt disincline d to believe that this is not significan t. referral printed for pts ct to be able to schedule appt Cough 43885080 R05 resolved. 05/2016 pt states he has asthmai will add proair to fluticason e.he is not forthcomin g with symptoms, looking for 'strong medicine'h e will need formal testing .cough x many weeks, unclear if upper or lower mucuswill image and referi believe this is a habitual cough from minor environmen [facility] printed for pts grandson to be able to schedule appt Olecranon bursitis 76038 0002 M70.21 nearly resolved. summer 2015.lizett palomo etiology, aspiration and then steroidal injection was performed, see procedure note Benign ess ential hypertension 2596420 I10 BP at goal, based on home [...] and rather than increase dose, agreed with bleacher operator to change to norvasc 10mg rto 2-3 weeks 03/2015 at goal on lisinopril 20 only. remains at goal (<140/90)o n two medication s HCTZ VICKY. Understand s what meds are for. plan to continue indefinite ly Bp checks twice annually. remains at goal on two medication s HCTZ VICKY Impotence 939064846 N52. 9 Mixed hyperlipidemia 267 485467 E78.2 LDL is at goal and he [...] Sick sinus syndrome 3608 3008 I49.5 through bleacher operator (video) declines symptoms..ther e is nothing more we can do for his safety- due to cultural fixed notions he has 02/26/17.h e and his dtr phoned cardiology to decline PPM.with bleacher operator i showed him the 30 day event [...] to prevent collapse during these events Lightheadedness 51563570 8 R42 pt through bleacher operator denies symptoms, 10/2017. see above.summ er 2015.sympt [...] loss upon arising persists. Coronary arteriosclerosis in [place] artery 8880817794 107 I25.10 assymptoma ticmed management is maximized with high dose statin (ator 40) and baby ASA cath by AYE JAUREGUI and hamp [id number] showed 50% ladappropr iate meds added Hyperglycemia 08555076 R 73.9 see dm below Type 2 alanis betes mellitus without complication 906957450 E11.9 10/2017 NEEDS EYE EXAM DM well controlled with diet only. Diabetes duscussed with pt through video bleacher operator , who offers that patients feeling that [...] shown only IFG max 113 for years [id number] Sabine Ventura MD , [facility], OFFICE [address] [place], [place] [address] 11/04/2017 09:51:08 11/04/2017 12:13:23 Sacroiliac joint pain 545222900 M53.3 This man bent over to pick [...] ( out all this week) Essential hypertension 68500027 I10 Elevated blood pressure not well controlled . Quite a few of his readings have been over 140/90. I did not notice this until he was gone.Plan: I will have staff notify him that we need to keep an eye on his blood pressure and schedule him for BP clinic. [id number] Yarelis Huerta MD , [facility], OFFICE [address] [place] [address] 11/08/2017 11:12:16 11/08/2017 12:25:25 Sacroiliac joint pain 734450693 M53.3 here with grandson wong rizvipain locus [...] ( out all this week) Essential hypertension 49793399 I10 Elevated blood pressure not well controlled . Quite a few of his readings have been over 140/90. I did not notice this until he was gone.Plan: I will have staff notify him that we need to keep an eye on his blood pressure and schedule him for BP clinic. [id number] MD NIKKIE Daniel, [facility], OFFICE [address] [place] [address] 11/15/2017 07:45:47 11/15/2017 09:18:15 Sacroiliac joint pain 371080948 M53.3 11/15/2017 he has returned to full [...] ( out all this week) Essential hypertension 17636207 I10 11/15/20172 mildly elevated blood pressures, out [...] pressure and schedule him for BP clinic. [id number] Yarelis Huerta MD , [facility], OFFICE [address] [place] [address] 03/16/2018 10:21:42 03/16/2018 11:25:13 Active or passive immunization 468665630 Z23 Sacroiliac joint pain 9967896 M53.3 here with grandson wong velásquez.pain locus [...] days ( out all this week) Headache 05437760 R51 historical .4 times a day gets head gutierrez lasting few seconds.Pt disincline d to believe that this is not significan t. referral printed for pts grandson to be able to schedule appt Cough 77837659 R05 resolved. 05/2016 pt states he has [...] be able to schedule appt Olecranon bursitis 23968 0002 M70.21 resolved. summer 2015.lizett palomo etiology, aspiration and then steroidal injection was performed, see procedure note Benign ess ential hypertension 1990125 I10 BP at goal, w/o Rx Elevated [...] and rather than increase dose, agreed with bleacher operator to change to norvasc 10mg rto 2-3 weeks 03/2015 at goal on lisinopril 20 only. remains at goal (<140/90)o n two medication s HCTZ VICKY. Understand s what meds are for. plan to continue indefinite ly Bp checks twice annually. remains at goal on two medication s HCTZ VICKY Impotence 440842929 N52. 9 Mixed hyperlipidemia 267 227582 E78.2 LDL is at goal and he [...] I49.5 not clinically evident 03/2018. 07/2017 through bleacher operator (video) declines symptoms..ther e is nothing more we can do for his safety- due to cultural fixed notions he has 02/26/17.h e and his dtr phoned cardiology to decline PPM.with bleacher operator i showed him the 30 day event [...] to prevent collapse during these events Lightheadedness 83650510 8 R42 pt through bleacher operator denies symptoms, 10/2017, 03/2018 see above.summ er [...] loss upon arising persists. Coronary arteriosclerosis in [place] artery 1667447681 107 I25.10 assymptoma ticmed management is maximized with high dose statin (ator 40) and baby [id number] showed 50% ladappropr iate meds added Type 2 alanis betes mellitus without complication 743278722 E11.9 03/2018 order labs for august 2017.no labs this 6 month period although is standing q 6 mo 10/2017 NEEDS EYE EXAM DM well controlled with diet only. Diabetes duscussed with pt through video bleacher operator , who offers that patient feels that [...] 113 for years Impotence of organic origin 356245128 N52.9 03/2018 refilled.funmi capps- pt wishes refill viagra presents empty bottle to me. [id number] Yarelis Huerta MD , [facility], OFFICE [address] [place], [place] [address] 05/31/2018 15:57:07 05/31/2018 18:00:35 Active or passive immunization 191706668 Z23 Benign ess ential hypertension 0003561 I10 slt high here very elevated at [...] and rather than increase dose, agreed with bleacher operator to change to norvasc 10mg rto 2-3 weeks 03/2015 at goal on lisinopril 20 only. remains at goal (<140/90)o n two medication s HCTZ VICKY. Understand s what meds are for. plan to continue indefinite ly Bp checks twice annually. remains at goal on two medication s HCTZ VICKY Type 2 alanis betes mellitus without complication 367352042 E11.9 03/2018 order labs for august 2017.no labs this 6 month period although is standing q 6 mo 10/2017 NEEDS EYE EXAM DM well controlled with diet only. Diabetes duscussed with pt through video bleacher operator , who offers that patient feels that [...] 113 for years Sacroiliac joint pain 20 8621364 M53.3 here with grandson wong velásquez.pain locus [...] days ( out all this week) Headache 92951303 R51 historical .4 times a day gets head gutierrez lasting few seconds.Pt disincline d to believe that this is not significan t. referral printed for pts grandson to be able to schedule appt Cough 95371277 R05 resolved. 05/2016 pt states he has [...] be able to schedule appt Olecranon bursitis 56748 0002 M70.21 resolved. summer 2015.uncmiladis palomo etiology, aspiration and then steroidal injection was performed, see procedure note Impotence 931737174 N52. 9 Mixed hyperlipidemia 267 213640 E78.2 LDL is at goal and he [...] I49.5 not clinically evident 03/2018. 07/2017 through bleacher operator (video) declines symptoms..ther e is nothing more we can do for his safety- due to cultural fixed notions he has 02/26/17.h ren and his dtr phoned cardiology to decline PPM.with bleacher operator i showed him the 30 day event [...] to prevent collapse during these events Lightheadedness 79926974 8 R42 pt through bleacher operator denies symptoms, 10/2017, 03/2018 see above.summ er [...] loss upon arising persists. Coronary arteriosclerosis in [place] artery 9751832760 107 I25.10 assymptoma ticmed management is maximized with high dose statin (ator 40) and baby ASA cath by AYE JAUREGUI and hamp [id number] showed 50% ladappropr iate meds added Impotence of organic origin 840872011 N52.9 03/2018 refilled.p rior- pt wishes refill viagra presents empty bottle to me. [id number] Yarelis Huerta MD , [facility], OFFICE [address] [place] [address] 07/01/2018 11:52:28 07/04/2018 12:00:31 Cough 24911659 R05 resolved. 05/2016 pt states he has asthmai will add proair to fluticason e.he is not forthcomin g with symptoms, looking for 'strong medicine'h e will need formal testing .cough x many weeks, unclear if upper or lower mucuswill image and referi believe this is a habitual cough from minor environmen [facility] printed for pts grandson to be able to schedule appt [id number] Yarelis Huerta MD , [facility], OFFICE [address] [place] [address] 09/14/2018 08:39:56 09/14/2018 16:40:06 Cough 28721648 R05 09/14/2018 past 2 dayscough and runny [...] grandson to be able to schedule appt [id number] Barbara Gamez, LEGAL ADMINISTRATIVE SECRETARY , [facility], OFFICE [address] [place], [place] [address] 03/27/2019 15:21:40 03/27/2019 16:26:59 Cough 63116344 R05 09/14/2018 past 2 dayscough and runny [...] to schedule appt Active or passive immunization 826460446 Z23 Benign ess ential hypertension 5725412 I10 slt high here very elevated at [...] and rather than increase dose, agreed with bleacher operator to change to norvasc 10mg rto 2-3 weeks 03/2015 at goal on lisinopril 20 only. remains at goal (<140/90)o n two medication s HCTZ VICKY. Understand s what meds are for. plan to continue indefinite ly Bp checks twice annually. remains at goal on two medication s HCTZ VICKY Type 2 alanis betes mellitus without complication 189651521 E11.9 2 a1c's for 2019 are at goal* 03/2018 order labs for august 2017.no labs this 6 month period although is standing q 6 mo 10/2017 NEEDS EYE EXAM DM well controlled with diet only. Diabetes duscussed with pt through video bleacher operator , who offers that patient feels that [...] 113 for years Sacroiliac joint pain 20 4607180 M53.3 here with grandson ashleycain velásquez.pain locus [...] days ( out all this week) Headache 13053789 R51 historical .4 times a day gets head gutierrez lasting few seconds.Pt disincline d to believe that this is not significan t. referral printed for pts grandson to be able to schedule appt Olecranon bursitis 42437 0002 M70.21 resolved. summer 2015.lizett palomo etiology, aspiration and then steroidal injection was performed, see procedure note Impotence 102539668 N52. 9 Mixed hyperlipidemia 267 553565 E78.2 LDL he is following guideline of [...] I49.5 not clinically evident 03/2018. 07/2017 through bleacher operator (video) declines symptoms..ther e is nothing more we can do for his safety- due to cultural fixed notions he has 02/26/17.h ren and his dtr phoned cardiology to decline PPM.with bleacher operator i showed him the 30 day event [...] to prevent collapse during these events Lightheadedness 75024585 8 R42 pt through bleacher operator denies symptoms, 10/2017, 03/2018 see above.summ er [...] loss upon arising persists. Coronary arteriosclerosis in [place] artery 0070974781 107 I25.10 assymptoma ticmed management is maximized with high dose statin (ator 40) and baby ASA cath by AYE JAUREGUI and hamp [id number] showed 50% ladappropr iate meds added Impotence of organic origin 136625550 N52.9 03/2018 refilled.p rior- pt wishes refill viagra presents empty bottle to me. Low back pain 614684544 M54.5 resolved. upper lumbar lower thoracic pain upon arising prob djd. rec iboprofen agreed to check liver enzymes renal fn per pr request, resonabkle as on lipitor high dose. denies h/o liver dz, hepatitis. Plantar fasciitis 377201 003 M72.2 due to pes planus has failed home treatment he had purchased a nonsense compressio n bandage i printed out a photo of the [employer] night splint for him to purchase recommende d podiatry input as well resolved due to pes planus written instructio ns from upto date, verbal translatio n as well as written Dr Hernadez instructio ns to pharmacist given Dermatophytosis 72434788 B35.9 . Dermatophy tosis of the perianal area - resolved w topicals B35.4: Tinea corporis [id number] MARY Tinoco FP, [facility], OFFICE [address] [place] [address] 04/27/2019 08:46:15 04/27/2019 09:47:47 Benign essential hypertension 3285945 I10 Pt has not taken his BP [...] with treatment plan Active or passive immunization 021127655 Z23 Sinus node dysfunction 62366376 I49.8 Pt was discharged with 30 day monitor to look for asymptomat ic PAF. Discussed with Pt, Pt's daughter and grandson to schedule a follow-up with cardiologi st Dr. Zamarripa . All questions were addressed. Pt understand s and agrees with treatment plan Left carot id artery stenosis [id number] 29176 I65.22 Pt's son reports Pt has a [...] carotid endarterec tonya. History of cerebrovascular accident 887343891 Z86.73 physical examinatio n today was unremarkab [...] to 80mg. Will continue both medication s. [id number] Yarelis Huerta MD , [facility], OFFICE [address] [place] [address] 03/20/2020 14:12:33 03/22/2020 11:14:55 Adult health examination 317733328 Z00.00 USPSTF guidelines reviewed and discussed with patient.FO B testImmuni zations UTD Counseling 694095631 Z71 .9 including cardiovasc ular risk reduction counseling Diet and exercise reviewed. Family and social interactio ns reviewed. Safety and injury prevention reviewed. Stress management reviewed. Depression screening 171 829403 Z13.89 depression screening tool administer ed, entered into emr, scored and discussed, time greater than 7.5 minutes Negatove depression screen Screening for alcohol abuse 521521968 Z13.39 An audit alcohol screening test was performed and scored. Patient was asked about alcohol use, advised about risks of alcohol, and personal risk was assessed. Discussed alcohol in moderatioo n Discussion including screening and scoring greater than 7.5 minutes Benign ess ential hypertension 6271195 I10 Continue Losartan as ordered. Pateint is compliant with medication sDiscussed healthy diet and exercise. Coronary arteriosclerosis 25361605 I25.10 Mixed hyperlipidemia 267 978338 E78.2 Heart healthy diet discussedE ncourgaed daily exercise. Transient cerebral ischemia 996207691 G45.9 Continue on AspirinPat ient no longer taking Plavix per most recent cardiology note Type 2 alanis betes mellitus without complication 904089496 E11.9 Discussed at length carbohydra te intake with patient. Doet and exercise controlled .Patient's A1c is 7.0No microalbum inuria. Sick sinus syndrome 3608 3008 I49.5 SP pacemaker Cough 74544525 R05 HydrationR inse mouth after inhaler use.Add claritin, follow up in one month for further evaluation [id number] Yasmin Chambers . MD LUNDY, [facility], OFFICE [address] [place] [address] 04/19/2020 09:28:00 04/19/2020 15:14:46 Mixed hyperlipidemia 481319707 E78.2 Heart healthy diet discussed Encouraged daily exercise. LDL 59. Continue Atorvastat in. Check LFT's Type 2 alanis betes mellitus without complication 136583239 E11.9 Discussed at length carbohydra te intake with patient. Diet and exercise controlled . Patient's A1c is 7.0 No microalbum inuria. Benign pro static hyperplasia 851435460 N40.1 Check PSA level. If elevated refer to urology. Follow up in one week to consider starting Flomax. Adequate fluid intake. Cough 99784075 R05 Pt presents with complaint of cough for several days. Pt doesn't have asthma and has no wheezing or signs of respirator y distress. Symptoms are most likely related to post nasal drip. Supportive measures reviewed including nasal saline and staying hydrated. Pt will follow up if symptoms worsen or if develops fever, increased sob, or increased sputum. [id number] Yarelis Huerta MD , [facility], OFFICE [address] [place] [address] 04/24/2020 08:49:26 04/25/2020 10:11:03 Insomnia 961749393 G47.00 asleep at 8, awakens at 2 and unable to return to sleep declines long acting sleep aid rec exercise 1 hr pre sleep Slowing of urinary stream 37832432 R39.12 04/2020 stop and start urine needs to void only 1-2 times at night no incontinen ce bph is mild, follow he reasonably declined medication Cough 33477428 R05 09/14/2018 past 2 dayscough and runny [...] a habitual cough from minor environmen [facility] for pts grandson to be able to schedule appt Benign ess ential hypertension 1589494 I10 04/24/2020 pt very concerned that his [...] and rather than increase dose, agreed with bleacher operator to change to norvasc 10mg rto 2-3 weeks 03/2015 at goal on lisinopril 20 only. remains at goal (<140/90)o n two medication s HCTZ VICKY. Understand s what meds are for. plan to continue indefinite ly Bp checks twice annually. remains at goal on two medication s HCTZ VICKY Type 2 alanis betes mellitus without complication 240267023 E11.9 04/2020 at goal diet only 10/2017 NEEDS EYE EXAM DM well controlled with diet only. Diabetes discussed with pt through video bleacher operator , who offers that patient feels that [...] 113 for years Sacroiliac joint pain 20 4929912 M53.3 historical ; here with grandson wong [...] days ( out all this week) Headache 96907669 R51.9 historical .4 times a day gets head gutierrez lasting few seconds.Pt disincline d to believe that this is not significan t. referral printed for pts grandson to be able to schedule appt Olecranon bursitis 60978 0002 M70.21 resolved. summer 2015.uncmiladis palomo etiology, aspiration and then steroidal injection was performed, see procedure note Impotence 302405963 N52. 9 Mixed hyperlipidemia 267 780126 E78.2 LDL is at goal for diabetic. [...] I49.5 not clinically evident 03/2018. 07/2017 through bleacher operator (video) declines symptoms..ther e is nothing more we can do for his safety- due to cultural fixed notions he has 02/26/17.h e and his dtr phoned cardiology to decline PPM.with bleacher operator i showed him the 30 day event [...] to prevent collapse during these events Lightheadedness 26147196 8 R42 pt through bleacher operator denies symptoms, 10/2017, 03/2018 see above.summ er [...] loss upon arising persists. Coronary arteriosclerosis in [place] artery 7278306567 107 I25.10 assymptoma ticmed management is maximized with high dose statin (ator 40) and baby ASA cath by AYE JAUREGUI and hamp [id number] showed 50% ladappropr iate meds added Impotence of organic origin 269142498 N52.9 03/2018 refilled.p rior- pt wishes refill viagra presents empty bottle to me. Low back pain 030325479 M54.5 resolved. upper lumbar lower thoracic pain upon arising prob djd. rec iboprofen agreed to check liver enzymes renal fn per pr request, resonabkle as on lipitor high dose. denies h/o liver dz, hepatitis. Plantar fasciitis 918766 003 M72.2 due to pes planus has failed home treatment he had purchased a nonsense compressio n bandage i printed out a photo of the [employer] night splint for him to purchase recommende d podiatry input as well resolved due to pes planus written instructio ns from upto date, verbal translatio n as well as written Dr Hernadez instructio ns to pharmacist given Dermatophytosis 34509939 B35.9 . Dermatophy tosis of the perianal area - resolved w topicals B35.4: Tinea corporis Screening for malignant neoplasm of prostate 385150046 Z12.5 1.32 at age 74 is very low risk indeed [id number] Lilly Serrano LPN , [facility], OFFICE [address] [place] [address] 04/24/2020 10:57:55 04/25/2020 10:11:37 [id number] Yarelis Huerta MD , [facility], OFFICE [address] [place] [address] 10/29/2020 13:20:10 10/29/2020 14:01:07 Benign essential hypertension 7827482 I10 BP at goal on current regimen, [...] and rather than increase dose, agreed with bleacher operator to change to norvasc 10mg rto 2-3 weeks 03/2015 at goal on lisinopril 20 only. remains at goal (<140/90)o n two medication s HCTZ VICKY. Understand s what meds are for. plan to continue indefinite ly Bp checks twice annually. remains at goal on two medication s HCTZ VICKY Mixed hyperlipidemia 267 828785 E78.2 LDL is at goal for diabetic. on high dose statin (ator 40).LDL 56 lipidemia - 11/2015 LDL is just fine 128, at goal, off medication which he is disincline d to take. . Diet only. 03/2015 at goal below 100 on simvastati n 40. at goal below LDL 100, on lipitor 80 pt wishes FLP Insomnia 613414146 G47.0 0 asleep at 8, awakens at 2 and unable to return to sleep declines long acting sleep aid rec exercise 1 hr pre sleep Slowing of urinary stream 50961836 R39.12 04/2020 stop and start urine needs to void only 1-2 times at night no incontinen ce bph is mild, follow he reasonably declined medication Cough 23373630 R05 09/14/2018 past 2 dayscough and runny [...] habitual cough from minor environmen [facility] printed for pts grandson to be able to schedule appt Type 2 alanis samuel mellitus without complication 566346111 E11.9 04/2020 at goal diet only6.8 =A1c 10/2017 NEEDS EYE EXAM DM well controlled with diet only. Diabetes discussed with pt through video bleacher operator , who offers that patient feels that [...] 113 for years Sacroiliac joint pain 20 9152532 M53.3 historical ; here with grandson wong [...] days ( out all this week) Headache 20374513 R51.9 historical .4 times a day gets head gutierrez lasting few seconds.Pt disincline d to believe that this is not significan t. referral printed for pts grandson to be able to schedule appt Olecranon bursitis 08599 0002 M70.21 resolved. summer 2015.lizett palomo etiology, aspiration and then steroidal injection was performed, see procedure note Impotence 724419539 N52. 9 Sick sinus syndrome 3608 3008 I49.5 not clinically evident 03/2018. 07/2017 through bleacher operator (video) declines symptoms..ther e is nothing more we can do for his safety- due to cultural fixed notions he has 02/26/17.h e and his dtr phoned cardiology to decline PPM.with bleacher operator i showed him the 30 day event [...] to prevent collapse during these events Lightheadedness 64230785 8 R42 pt through bleacher operator denies symptoms, 10/2017, 03/2018 see above.summ er [...] loss upon arising persists. Coronary arteriosclerosis in [place] artery 6370631488 107 I25.10 assymptoma ticmed management is maximized with high dose statin (ator 40) and baby ASA cath by AYE JAUREGUI and hamp [id number] showed 50% ladappropr iate meds added Impotence of organic origin 331350138 N52.9 03/2018 refilled.p rior- pt wishes refill viagra presents empty bottle to me. Low back pain 220783864 M54.5 resolved. upper lumbar lower thoracic pain upon arising prob djd. rec iboprofen agreed to check liver enzymes renal fn per pr request, resonabkle as on lipitor high dose. denies h/o liver dz, hepatitis. Plantar fasciitis 20271203 003 M72.2 due to pes planus has failed home treatment he had purchased a nonsense compressio n bandage i printed out a photo of the [employer] night splint for him to purchase recommende d podiatry input as well resolved due to pes planus written instructio ns from upto date, verbal translatio n as well as written Dr Hernadez instructio ns to pharmacist given Dermatophytosis 13938950 B35.9 . Dermatophy tosis of the perianal area - resolved w topicals B35.4: Tinea corporis Screening for malignant neoplasm of prostate 345124106 Z12.5 1.32 at age 74 is very low risk indeed [id number] ROCCO Humphreys , [facility], OFFICE [address] [place] [address] 01/21/2021 16:19:31 01/21/2021 16:59:33 Contact dermatitis due to plants, except food 47501584 L25.5 Patient with contact dermatitis from unknown [...] if this occurs. Pain in right knee 91586 57412 10233 M25.561 Refill as-needed naproxen for right knee painStates no longer taking ibuprofen, removed from medication list Benign ess ential hypertension 9705254 I10 On losartan 100 mg dailyBP not at goal today <130/80In visible discomfort from his rash as aboveWill have him return to the office in 3-4 days for BP check with nursingLim it NSAIDs i.e. naproxen, ibuprofenC ontinue to limit caffeine. [id number] Fina Duncan NP , [facility], [address] [place] [address] 04/02/2021 13:30:01 04/02/2021 14:15:29 Benign essential hypertension 9660655 I10 very highasympt omatichx if cvawill start amlodipine 5 mg in addition to losartan 100 mgclose f/u with RV next week Transient cerebral ischemia 602776396 G45.9 nd to carotid stenosis Cough 87321874 R05.9 x 10 yearsnever used flonase- has used flovent in pastwill try flonase, mucinexkee p well hydrated [id number] Yarelis Huerta MD , [facility], [address] [place] [address] 04/15/2021 10:01:40 04/22/2021 20:21:24 Essential hypertension 50832222 I10 04/2021 add metop . SBP 200 [...] for BP clinic. Active or passive immunization 879834714 Z23 [id number] Yarelis Huerta MD , [facility], [address] [place] [address] 08/13/2021 10:00:40 08/23/2021 12:34:34 Sinus node dysfunction 10470010 I49.8 Type 2 alanis betes mellitus without complication 887723429 E11.9 Remains at goal diet [id number]=9. 9 10/2017 NEEDS EYE EXAM DM well controlled with diet only. Diabetes discussed with pt through video bleacher operator , who offers that patient feels that [...] 113 for years Adult heal th examination 735541374 Z00.00 well examsee Risk Assessment and Lifestyle Change Counseling section above Counseling 863554519 Z71 .9 including cardiovasc ular risk reduction counseling Depression screening 171 978758 Z13.31 depression screening tool administer ed, entered into emr, scored and discussed, time greater than 7.5 minutes Screening for alcohol abuse 127459008 Z13.39 Essential hypertension 60473678 I10 08/2021 unclear compliance with metop yet BP atgoal. metop ER 50 and losartan 6153804/2021 add metop . SBP 200 then audible [...] and schedule him for BP clinic. Insomnia 406647640 G47.0 0 asleep at 8, awakens at 2 and unable to return to sleep declines long acting sleep aid rec exercise 1 hr pre sleep Slowing of urinary stream 39989806 R39.12 04/2020 stop and start urine needs to void only 1-2 times at night no incontinen ce bph is mild, follow he reasonably declined medication Cough 63247032 R05.9 09/14/2018 past 2 dayscough and runny [...] to schedule appt Benign ess ential hypertension 1851211 I10 04/24/2020 pt very concerned that his [...] and rather than increase dose, agreed with bleacher operator to change to norvasc 10mg rto 2-3 weeks 03/2015 at goal on lisinopril 20 only. remains at goal (<140/90)o n two medication s HCTZ VICKY. Understand s what meds are for. plan to continue indefinite ly Bp checks twice annually. remains at goal on two medication s HCTZ VICKY Sacroiliac joint pain 20 3757804 M53.3 historical ; here with grandson ashleycain [...] days ( out all this week) Headache 36962406 R51.9 historical .4 times a day gets head gutierrez lasting few seconds.Pt disincline d to believe that this is not significan t. referral printed for pts grandson to be able to schedule appt Olecranon bursitis 69837 0002 M70.21 resolved. summer 2015.uncer stacia etiology, aspiration and then steroidal injection was performed, see procedure note Impotence 720751090 N52. 9 Mixed hyperlipidemia 267 659361 E78.2 LDL is at goal for diabetic. [...] I49.5 not clinically evident 03/2018. 07/2017 through bleacher operator (video) declines symptoms..ther e is nothing more we can do for his safety- due to cultural fixed notions he has 02/26/17.h e and his dtr phoned cardiology to decline PPM.with bleacher operator i showed him the 30 day event [...] to prevent collapse during these events Lightheadedness 24495321 8 R42 pt through bleacher operator denies symptoms, 10/2017, 03/2018 see above.summ er [...] loss upon arising persists. Coronary arteriosclerosis in [place] artery 6577665847 107 I25.10 assymptoma ticmed management is maximized with high dose statin (ator 40) and baby ASA cath by AYE JAUREGUI and hamp [id number] showed 50% ladappropr iate meds added Impotence of organic origin 989660231 N52.9 03/2018 refilled.p rior- pt wishes refill viagra presents empty bottle to me. Low back pain 426679995 M54.51 resolved. upper lumbar lower thoracic pain upon arising prob djd. rec iboprofen agreed to check liver enzymes renal fn per pr request, resonabkle as on lipitor high dose. denies h/o liver dz, hepatitis. Plantar fasciitis 20271203 003 M72.2 due to pes planus has failed home treatment he had purchased a nonsense compressio n bandage i printed out a photo of the [employer] night splint for him to purchase recommende d podiatry input as well resolved due to pes planus written instructio ns from upto date, verbal translatio n as well as written Dr Hernadez instructio ns to pharmacist given Dermatophytosis 04504133 B35.9 . Dermatophy tosis of the perianal area - resolved w topicals B35.4: Tinea corporis Screening for malignant neoplasm of prostate 338468338 Z12.5 1.32 at age 74 is very low risk indeed Urinary incontinence 165 328860 R32 he reports recent onset of urinary urgencynot responsive to my suggestion of chronic treatment for prostatism agreed to initial workup- wishes to be tested for uti, so ordered [id number] Yarelis Huerta MD , [facility], OFFICE [address] [place] [address] 09/12/2021 17:08:31 10/28/2021 07:43:39 Disorder of rotator cuff 738550115 M75.82 see recent intake noteinject ed today as plannedtol erated karolina to anticipate 4 day until relief so that he will then be able to RTW Benign ess ential hypertension 4943460 I10 volatile BP,states i didnt take my [...] and rather than increase dose, agreed with bleacher operator to change to norvasc 10mg rto 2-3 weeks 03/2015 at goal on lisinopril 20 only. remains at goal (<140/90)o n two medication s HCTZ VICKY. Understand s what meds are for. plan to continue indefinite ly Bp checks twice annually. remains at goal on two medication s HCTZ VICKY [id number] AUGUST TOM PÉREZ DNP FP, [facility], OFFICE [address] [place] [address] [place] [address] 11/24/2021 14:47:18 11/24/2021 16:40:07 Animal bite of hand 440858380 S61.451A no concerns for infection- advised supportive care and watchful waiting- clean twice/kristian y, apply bacitracin and keep covered-re viewed signs concerning for infection and when to follow up-tetanus vaccine UTDdiscuss ed case with NS Benign ess ential hypertension 2746514 I10 BP not at goal-marija nue with losartan and metoprolol Sick sinus syndrome 3608 3008 I49.5 advised need for pacemakerh as declined this with CARDS [id number] Yarelis Huerta MD , [facility], OFFICE [address] [place], [place] [address] 02/06/2022 09:58:31 02/06/2022 10:54:40 Active or passive immunization 109953673 Z23 Disorder o f rotator cuff 669402377 M75.82 see recent intake noteinject ed today as plannedtol erated welltold to anticipate 4 day until relief so that he will then be able to RTW Benign ess ential hypertension 7909524 I10 128/72 here. at goal on losartan [...] and rather than increase dose, agreed with bleacher operator to change to norvasc 10mg rto 2-3 weeks 03/2015 at goal on lisinopril 20 only. remains at goal (<140/90)o n two medication s HCTZ VICKY. Understand s what meds are for. plan to continue indefinite ly Bp checks twice annually. remains at goal on two medication s HCTZ VICKY Sinus node dysfunction 27099878 I49.8 Type 2 alanis betes mellitus without complication 724867971 E11.9 Remains at goal diet spziQ3w=4. 9, 6.8 10/2017 NEEDS EYE EXAM DM well controlled with diet only. Diabetes discussed with pt through video bleacher operator , who offers that patient feels that [...] only IFG max 113 for years Counseling 946150851 Z71 .9 including cardiovasc ular risk reduction counseling Insomnia 831662518 G47.0 0 asleep at 8, awakens at 2 and unable to return to sleep declines long acting sleep aid rec exercise 1 hr pre sleep Slowing of urinary stream 25454499 R39.12 04/2020 stop and start urine needs to void only 1-2 times at night no incontinen ce bph is mild, follow he reasonably declined medication Cough 47017199 R05.9 09/14/2018 past 2 dayscough and runny [...] from minor environmen [facility] ferrpr printed for pts grandson to be able to schedule appt Sacroiliac joint pain 20 6694772 M53.3 historical ; here with grandson wong [...] days ( out all this week) Headache 42808198 R51.9 historical .4 times a day gets head gutierrez lasting few seconds.Pt disincline d to believe that this is not significan t. referral printed for pts grandson to be able to schedule appt Olecranon bursitis 03409 0002 M70.21 resolved. summer 2015.lizett palomo etiology, aspiration and then steroidal injection was performed, see procedure note Impotence 184513931 N52. 9 Mixed hyperlipidemia 267 719613 E78.2 LDL is at goal for diabetic. [...] I49.5 not clinically evident 03/2018. 07/2017 through bleacher operator (video) declines symptoms..ther e is nothing more we can do for his safety- due to cultural fixed notions he has 02/26/17.h e and his dtr phoned cardiology to decline PPM.with bleacher operator i showed him the 30 day event [...] to prevent collapse during these events Lightheadedness 45585678 8 R42 pt through bleacher operator denies symptoms, 10/2017, 03/2018 see above.summ er [...] loss upon arising persists. Coronary arteriosclerosis in [place] artery 5251922701 107 I25.10 assymptoma ticmed management is maximized with high dose statin (ator 40) and baby ASA cath by AYE JAUREGUI and hamp [id number] showed 50% ladappropr iate meds added Impotence of organic origin 365122252 N52.9 03/2018 refilled.p rior- pt wishes refill viagra presents empty bottle to me. Low back pain 508330018 M54.51 resolved. upper lumbar lower thoracic pain upon arising prob djd. rec iboprofen agreed to check liver enzymes renal fn per pr request, resonabkle as on lipitor high dose. denies h/o liver dz, hepatitis. Plantar fasciitis 20271203 003 M72.2 due to pes planus has failed home treatment he had purchased a nonsense compressio n bandage i printed out a photo of the [employer] night splint for him to purchase recommende d podiatry input as well resolved due to pes planus written instructio ns from upto date, verbal translatio n as well as written Dr Hernadez instructio ns to pharmacist given Dermatophytosis 31788424 B35.9 . Dermatophy tosis of the perianal area - resolved w topicals B35.4: Tinea corporis Screening for malignant neoplasm of prostate 791963916 Z12.5 1.32 at age 74 is very low risk indeed Urinary incontinence 165 639104 R32 by Hx Sciatica 41571873 M54.32 02/06/2022h e points to lower gluteal area bilaterall y left side and states through a bleacher operator that it hurts there sitting and radiates at times (unclear) down left leg Choking ca used by phlegm in larynx 01238582 T17.390S 01/2022 guaifenesi n ER 600told through bleacher operator that there is no cure , just mitigation Pain in right knee 77578 88453 31698 M25.561 01/2022 naproxen renewed for knee pain, to be taken prn [id number] AUGUST TOM PÉREZ DNP FP, [facility], OFFICE [address] [place], [place] [address] 02/17/2022 09:51:29 02/17/2022 10:36:38 Benign essential hypertension 0162268 I10 BP not at goal < 130/80did take his medication s this morning-on losartan 100mg dailyBMP UTD NL-will have him f/u with PCP in next month for BP Hemorrhoids 10629886 K64 .9 1 external hemorrhoid to 11 o'clock position-- discussed treatment with hydorcorti sone topically 2-4x/day, reviewed R/B/A-- increase dietary fiber--flor id strainingR TO within 24 hours for worsening symptoms [id number] Yarelis Huerta MD , [facility], OFFICE [address] [place], [place] [address] 03/24/2022 10:11:32 03/24/2022 10:42:18 Disorder of rotator cuff 291776537 M75.82 see recent intake noteinject ed today as plannedtol erated welltold to anticipate 4 day until relief so that he will then be able to RTW Benign ess ential hypertension 7481690 I10 128/72 here. at goal on losartan [...] and rather than increase dose, agreed with bleacher operator to change to norvasc 10mg rto 2-3 weeks 03/2015 at goal on lisinopril 20 only. remains at goal (<140/90)o n two medication s HCTZ VICKY. Understand s what meds are for. plan to continue indefinite ly Bp checks twice annually. remains at goal on two medication s HCTZ VICKY Urinary incontinence 165 593764 R32 by Hx Sinus node dysfunction 09489159 I49.8 Type 2 alanis betes mellitus without complication 789296586 E11.9 Remains at goal diet mdriT4b=2. 9, 6.8 10/2017 NEEDS EYE EXAM DM well controlled with diet only. Diabetes discussed with pt through video bleacher operator , who offers that patient feels that [...] only IFG max 113 for years Insomnia 911937212 G47.0 0 asleep at 8, awakens at 2 and unable to return to sleep declines long acting sleep aid rec exercise 1 hr pre sleep Slowing of urinary stream 32471786 R39.12 04/2020 stop and start urine needs to void only 1-2 times at night no incontinen ce bph is mild, follow he reasonably declined medication Sacroiliac joint pain 20 8144945 M53.3 historical ; here with grandson wong [...] days ( out all this week) Headache 87715187 R51.9 historical .4 times a day gets head gutierrez lasting few seconds.Pt disincline d to believe that this is not significan t. referral printed for pts grandson to be able to schedule appt Olecranon bursitis 78824 0002 M70.21 resolved. summer 2015.lizett palomo etiology, aspiration and then steroidal injection was performed, see procedure note Impotence 251989138 N52. 9 Mixed hyperlipidemia 267 097314 E78.2 LDL is at goal for diabetic. [...] I49.5 not clinically evident 03/2018. 07/2017 through bleacher operator (video) declines symptoms..ther e is nothing more we can do for his safety- due to cultural fixed notions he has 10/27/17.h ren and his dtr phoned cardiology to decline PPM.with bleacher operator i showed him the 30 day event [...] to prevent collapse during these events Lightheadedness 71084224 8 R42 pt through bleacher operator denies symptoms, 10/2017, 03/2018 see above.summ er [...] loss upon arising persists. 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 Low back pain 016879099 M54.51 resolved. upper lumbar lower thoracic pain upon arising prob djd. rec iboprofen agreed to check liver enzymes renal fn per pr request, resonabkle as on lipitor high dose. denies h/o liver dz, hepatitis. Plantar fasciitis 20271203 003 M72.2 due to pes planus has failed home treatment he had purchased a nonsense compressio n bandage i printed out a photo of the [employer] night splint for him to purchase recommende d podiatry input as well resolved due to pes planus written instructio ns from upto date, verbal translatio n as well as written Dr Hernadez instructio ns to pharmacist given Dermatophytosis 75832552 B35.9 . Dermatophy tosis of the perianal area - resolved w topicals B35.4: Tinea corporis Screening for malignant neoplasm of prostate 589226934 Z12.5 1.32 at age 74 is very low risk indeed Sciatica 69977583 M54.32 02/06/2022h e points to lower gluteal area bilaterall y left side and states through a bleacher operator that it hurts there sitting and radiates at times (unclear) down left leg Choking ca used by phlegm in larynx 24173049 T17.390S 01/2022 guaifenesi n ER 600told through bleacher operator that there is no cure , just mitigation Pain in right knee 14844 21650 12154 M25.561 01/2022 naproxen renewed for knee pain, to be taken prn Gluteal tendinitis 63560 003 M76.02 ft er ambulating distances he feels a baseball size artea of pain in left gluteal areait is non radiatingn o othert triggers of this painrefer PSS Hemorrhoids 97195895 K64 .9 03/2022 bothersome despite topoical steroidher e with who tells me that he had surgery for his hemorrhoid in [place] 30 years ago and wants this againrefer francisco Santos Ircardo , told is in [facility] and they state so long as they have an address they will go [place] GPS [id number] Yarelis Huerta MD , [facility], OFFICE [address] [place] [address] 07/06/2022 14:09:20 07/07/2022 08:35:40 Pain of right knee joint 7904065058 89923 M25.561 seen with present and assistance of phone bleacher operator past weekunable to walk due to painwarm and swollen no loss or painful RM, no fluid will image todaylikel y inject tomorrow- gout, oa flare or pseudogout [id number] Yarelis Huerta MD , [facility], OFFICE [address] [place] [address] 07/08/2022 11:49:57 07/09/2022 09:04:20 Impotence of organic origin 054748580 N52.9 requesting BLUE pill 100 mg, points to penis, ths viagra renewed 07/2022*2017 refilled.p rior-pt wishes refill viagrapres ents empty bottle to me. Patellofem oral osteoarthritis 637009609 M17.11 diagnose by imaginghe has a modest peripatell ar effusion and some warmthinje cted today usual manner split dose medial and high lateralfol low expectantl y [id number] Yarelis Huerta MD , [facility], OFFICE [address] [place] [address] 08/04/2022 09:55:43 08/04/2022 13:59:03 Impotence of organic origin 479419104 N52.9 requesting BLUE pill 100 mg, points to penis, ths viagra renewed 07/2022*2017 refilled.p rior-pt wishes refill viagrapres ents empty bottle to me. Patellofem oral osteoarthritis 302239685 M17.11 08/04/2022 refer ortho for recurrence - though less red warm and swollen reamains so to a much lesser degree and is a little painful and stiff barber in AM. Seen with benefit of Mandarin bleacher operator 07/08/2022 diagnosed by imaging:De generative changes that are most pronounced in the patellofem oral compartmen t he has a modest peripatell ar effusion and some warmthinje cted today usual manner split dose medial and high lateralfol low expectantl y Mixed hyperlipidemia 267 032557 E78.2 LDL is at goal for diabetic. [...] 80 pt wishes FLP Coronary arteriosclerosis in [place] artery 7601537064 107 I25.10 assymptoma ticmed management is maximized with high dose statin (ator 40) and baby ASA cath by AYE JAUREGUI and hamp [id number] showed 50% ladappropr iate meds added Sciatica 01877113 M54.32 02/06/2022h e points to lower gluteal area bilaterall y left side and states through a bleacher operator that it hurts there sitting and radiates at times (unclear) down left leg diclofenac Benign ess ential hypertension 2539165 I10 128/72 here. at goal on losartan [...] and rather than increase dose, agreed with bleacher operator to change to norvasc 10mg rto 2-3 weeks 03/2015 at goal on lisinopril 20 only. remains at goal (<140/90)o n two medication s HCTZ VICKY. Understand s what meds are for. plan to continue indefinite ly Bp checks twice annually. remains at goal on two medication s HCTZ VICKY Pain in right knee 81669 34099 36970 M25.561 01/2022 naproxen renewed for knee pain, to be taken prn [id number] Yarelis Huerta MD , [facility], OFFICE [address] [place] [address] 08/26/2022 10:45:00 08/28/2022 09:30:44 Impotence of organic origin 402049358 N52.9 requesting BLUE pill 100 mg, points to penis, ths viagra renewed 07/2022*2017 refilled.p jefry-pt wishes refill viagrapres ents empty bottle to me. Patellofem oral osteoarthritis 118951918 M17.11 08/26/2022 plans Hyaluronat e if approved, through Ortho *08/04/2022 refer ortho for recurrence - though less red warm and swollen reamains so to a much lesser degree and is a little painful and stiff barber in AM. Seen with benefit of Peter bleacher operator 07/08/2022 diagnosed by imaging:De generative changes that are most pronounced in the patellofem oral compartmen t he has a modest peripatell ar effusion and some warmthinje cted today usual manner split dose medial and high lateralfol low expectantl y Mixed hyperlipidemia 267 593323 E78.2 LDL is at goal for diabetic. [...] 80 pt wishes FLP Coronary arteriosclerosis in [place] artery 2253943828 107 I25.10 assymptoma ticmed management is maximized with high dose statin (ator 40) and baby ASA cath by AYE JAUREGUI and hamp [id number] showed 50% ladappropr iate meds added Sciatica 30428627 M54.32 plans epidural at [facility] 08/2022walk ing has been limited by choice due to feared and induced painHad CT due to PPM presence*1 he points to lower gluteal area bilaterall y left side and states through a bleacher operator that it hurts there sitting and radiates at times (unclear) down left leg diclofenac Benign ess ential hypertension 4696748 I10 08/26/2022 140/86, follow * 128/72 here. [...] and rather than increase dose, agreed with bleacher operator to change to norvasc 10mg rto 2-3 weeks 03/2015 at goal on lisinopril 20 only. remains at goal (<140/90)o n two medication s HCTZ VICKY. Understand s what meds are for. plan to continue indefinite ly Bp checks twice annually. remains at goal on two medication s HCTZ VICKY Pain in right knee 47502 18113 77500 M25.561 01/2022 naproxen renewed for knee pain, to be taken prn Choking ca used by phlegm in larynx 67686933 T17.390S renewed at dtrs request 3dtr told that there is no cure , just mitigation *01/2022 guaifenesi n ER 600told through bleacher operator that there is no cure , just mitigation Primary er ectile dysfunction 551196407 N52.9 Type 2 alanis betes mellitus without complication 214249772 E11.9 Remains at goal diet gzbjY5s=3. 9, 6.8 10/2017 NEEDS EYE EXAM DM well controlled with diet only. Diabetes discussed with pt through video bleacher operator , who offers that patient feels that [...] I49.5 not clinically evident 03/2018. 07/2017 through bleacher operator (video) declines symptoms..ther e is nothing more we can do for his safety- due to cultural fixed notions he has 02/26/17.h e and his dtr phoned cardiology to decline PPM.with bleacher operator i showed him the 30 day event [...] wall to prevent collapse during these events [id number] Yarelis Huerta MD , [facility], OFFICE [address] [place] [address] 02/22/2023 14:56:29 02/22/2023 16:30:00 Adult health examination 314677023 Z00.00 well examsee Risk Assessment and Lifestyle Change Counseling section above Depression screening 171 232324 Z13.31 depression screening tool administer ed Screening for alcohol abuse 105385216 Z13.39 Alcohol use screening tool administer ed Patellofem oral osteoarthritis 232437914 M17.11 Helped a little he has a [...] in AM. Seen with benefit of Mandarin bleacher operator 07/08/2022 diagnosed by imaging:De generative changes that are most pronounced in the patellofem oral compartmen t he has a modest peripatell ar effusion and some warmthinje cted today usual manner split dose medial and high lateralfol low expectantl y Mixed hyperlipidemia 267 015057 E78.2 LDL is at goal for diabetic. [...] 80 pt wishes FLP Coronary arteriosclerosis in [place] artery 4375107412 107 I25.10 assymptoma ticmed management is maximized with high dose statin (ator 40) and baby ASA cath by AYE JAUREGUI and hamp [id number] showed 50% ladappropr iate meds added Benign ess ential hypertension 8567391 I10 126/74 here. at goal on losartan [...] and rather than increase dose, agreed with bleacher operator to change to norvasc 10mg rto 2-3 weeks 03/2015 at goal on lisinopril 20 only. remains at goal (<140/90)o n two medication s Sciatica 99112311 M54.32 epidural at [facility] 08/2022 [place] Helped a little walking has been limited by choice due to feared and induced painHad CT due to PPM presence*1 he points to lower gluteal area bilaterall y left side and states through a bleacher operator that it hurts there sitting and radiates at times (unclear) down left leg diclofenac Pain in right knee 18618 44898 89212 M25.561 sanchez injected Euflexxa summer 2022*Coolren y [facility] Dr Stokes naproxen renewed for knee pain, to be taken prn Choking ca used by phlegm in larynx 73037614 T17.390S guaifenesi n ER 600 BID renewed at dtrs request 3dtr told that there is no cure , just mitigation *01/2022 guaifenesi n ER 600told through bleacher operator that there is no cure , just mitigation Impotence of organic origin 505318214 N52.9 requesting BLUE pill 100 mg, points to penis, ths viagra renewed 07/2022*2017 refilled.p rior-pt wishes refill viagrapres ents empty bottle to me. Primary er ectile dysfunction 358107415 N52.9 Type 2 alanis samuel mellitus without complication 793586846 E11.9 Remains at goal diet only, follow 7.1 (jan 2023)A1c=6 .9, 6.8, 7.1 (above his prior 7.0 max) 10/2017 NEEDS EYE EXAM DM well controlled with diet only. Diabetes discussed with pt through video bleacher operator , who offers that patient feels that [...] syndrome 3608 3008 I49.5 PPM checks in [facility] nnot clinically evident 03/2018. 07/2017 through bleacher operator (video) declines symptoms..ther e is nothing more we can do for his safety- due to cultural fixed notions he has 02/26/17.h ren and his dtr phoned cardiology to decline PPM.with bleacher operator i showed him the 30 day event [...] events Screening for malignant neoplasm of prostate 866755086 Z12.5 1.32 at age 74 is very low risk indeed Diabetic r etinal eye exam not done 4571437471 103 Z53.9 [id number] Chaya Pineda er, RN CHEMICAL DEPENDENCY FP, [facility], OFFICE [address] [place] [address] 03/12/2023 14:55:43 03/12/2023 17:15:55 Active or passive immunization 772855850 Z23 Pain in ri ght hip joint 3687447776 83113 M25.551 Acute pain to right hip while [...] pain Spinal pranay nosis of lumbar region 88630982 M48.061 severe spinal stenosis L3 to L5 per CT 07/23/22-- referred to PSS [id number] Romulo Clarke DPT Physical Therapy, [facility] [address] [facility] [address] 04/05/2023 08:45:41 04/12/2023 16:56:26 Hip pain 10680990 M25.180 [id number] Yarelis Huerta MD , [facility], OFFICE [address] [place] [address] 08/16/2023 14:09:35 08/16/2023 15:20:29 Type 2 diabetes mellitus without complication 406960609 E11.9 Remains at goal diet only, stable at 7 for nrqqoK7d=2 .9, 6.8, 7.1 (above his prior 7.0 max) 10/2017 NEEDS EYE EXAM DM well controlled with diet only. Diabetes discussed with pt through video bleacher operator , who offers that patient feels that [...] max 113 for years Transient cerebral ischemia 651294276 G45.9 Spinal pranay nosis of lumbar region 73816634 M48.061 Sinus node dysfunction 90290757 I49.8 Mixed hyperlipidemia 267 307998 E78.2 LDL is at goal for diabetic. he is following guideline of being on high dose statin (ator 40). lipidemia - 11/2015 LDL is just fine 128, at goal, off medication which he is disincline d to take. . Diet only. 03/2015 at goal below 100 on simvastati n 40. at goal below LDL 100, on lipitor 80 pt wishes FLP Coronary arteriosclerosis 47044804 I25.10 Benign pro static hyperplasia 616958392 N40.1 Benign ess ential hypertension 4936305 I10 126/74 here. at goal on losartan [...] and rather than increase dose, agreed with bleacher operator to change to norvasc 10mg rto 2-3 weeks 03/2015 at goal on lisinopril 20 only. 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 there is subtle blue stage hemorrhagc discolorat ion at the adjacent pulmlavage d by Vicki mascorro [facility] ounselled to observe for signs of infection, redness swelling discharge or pain and return to office should any of these occur [id number] Yarelis Huerta MD , [facility], OFFICE [address] [place] [address] 02/25/2024 10:02:37 02/25/2024 13:51:09 Adult health examination 478161109 Z00.00 well examsee Risk Assessment and Lifestyle Change Counseling section above Depression screening 171 420625 Z13.31 depression screening tool administer ed Screening for alcohol abuse 205414729 Z13.39 Alcohol use screening tool administer ed Active or passive immunization 428103301 Z23 Spinal pranay nosis of lumbar region 84636261 M48.061 at end of work day feel rle symptomsfo llowed [place] [facility], pt and dtr unsatisfie drefer to [facility] - they wish non surgical interventi on Intermitte nt claudication 23631370 I73.9 running hypotheses is his numbness sensation of both feet as he walksis due to his documented severe sinal stenosisCo uld this be vascular Primary er ectile dysfunction 926398490 N52.9 Sick sinus syndrome 3608 3008 I49.5 PPM May 2019- checks in [facility], later Sukumar 07/2017 through bleacher operator (video) declines symptoms..ther e is nothing more we can do for his safety- due to cultural fixed notions he has 02/26/17.h e and his dtr phoned cardiology to decline PPM.with bleacher operator i showed him the 30 day event [...] Type 2 alanis bettaurus mellitus without complication 025913725 E11.9 02/25/24 trended above 7.0 Begin Metformin pre dinner. D/W daughter at time of visit'*Rem ains at goal diet only, stable at 7 for coiqdG2l=9 .9, 6.8, 7.1 (above his prior 7.0 max) 10/2017 NEEDS EYE EXAM DM well controlled with diet only. Diabetes discussed with pt through video bleacher operator , who offers that patient feels that [...] max 113 for years Transient cerebral ischemia [id number] G45.9 Sinus node dysfunction [id number] I49.8 s/p PPM 2019 Coronary arteriosclerosis [id number] I25.10 Benign ess ential hypertension [id number] I10 126/74 here. at goal on losartan [...] and rather than increase dose, agreed with bleacher operator to change to norvasc 10mg rto 2-3 weeks 03/2015 at goal on lisinopril 20 only. remains at goal (<140/90)o n two medication s Benign pro static hyperplasia [id number] N40.1 [id number] Yarelis Huerta MD , [facility] [place], OFFICE [address] [place] [id number] 05/22/2024 10:31:35 05/22/2024 11:42:12 Dyspnea [id number] R06.00 c.o chest painin resp distress in office at resthe is working hard to breatherr =20L with rhonchiski n clammy and diaphoreti [facility] called for transport to [facility] with benefit of mandarin bleacher operator .RN notified for [facility] expect note Health Concerns Section Related Observation LastModified by Organization Detai ls LastModified Time None Recorded Concern Status LastModified by Organization Details LastModified Time None Recorded Advance Directives Directive None Recorded Payers Encounter Date Sequence Insurance Name Policy Number Policy Landry Covered Member ID Ladnry Member ID Guarantor Name 04/05/2023 2 [facility] [id number] 01 Sunday C C Katlin [id number] Chuncheng Katlin 04/05/2023 1 MEDICARE [place]: [employer] Chuncheng Katlin [id number] Chuncheng Katlin 08/16/2023 2 [facility] [id number] 01 Sunday C C Katlin [id number] Chuncheng Katlin 08/16/2023 1 MEDICARE [place]: [employer] Chuncheng Katlin [id number] Chuncheng Katlin 01/24/2024 2 [facility] [id number] 01 Sunday C C Katlin [id number] Chuncheng Katlin 01/24/2024 1 MEDIC[employer] [place]: [employer] Chuncheng Katlin [id number] Chuncheng Katlin 02/25/2024 2 [facility] [id number] 01 Sunday C C Katlin [id number] Chuncheng Katlin 02/25/2024 1 MEDICARE [employer]: [employer] Chuncheng Katlin [id number] Chuncheng Katlin 05/22/2024 2 [facility] [id number] 01 Sunday C C Katlin [id number] Chuncheng Katlin 05/22/2024 1 [place] [employer] Chuncheng Katlin [id number] Chuncheng Katlin Notes Date Note Type Note Provider Name and Address Organization Details Recorded Time 3 text/html Patient grandson is present as commercial project manager. Pt partially speaks lithuanian and able to understand PT. Pt's grandson [...] in being on floor. Romulo Clarke, DPT [address] [place] [address], [phone], [facility] [place] 04/10/2023 11:25:28 4 text/html Physical Exam/MaleReported bypatient.PHAPatient [...] ischemic heart disease; No peripheral vascular disease (54358); No diabetes; No carotid artery stenosis Associated [...] both bothered his stomach. Yarelis Huerta MD [address] [place] [address], [phone], [facility] [place] 08/16/2023 15:07:33 4 text/html Physical Exam/MaleReported bypatient.PHAPatient [...] Barriers to Careabsence of motivation; unseen 2012- late 2014 Context:Nonsmoker; No ischemic heart disease; No peripheral vascular disease (97573); No diabetes; No carotid artery stenosis Associated [...] Barriers to Careabsence of motivation; unseen 2012- late 2014 Self Care:not doing home bp monitoring [...] both bothered his stomach. Yarelis Huerta MD [address] [place] [address], [phone], [facility] [place] 02/25/2024 13:24:40
== END 2024-08-14 15:17 | disposition home or self-care (01) ==
LOC: HO.HPS 14:36
PROVIDERS: PCP Internal Medicine; Visit Provider Nurse Practitioner Family
DX: R05.3 Chronic cough (principal); J44.89 Other specified chronic obstructive pulmonary disease; Z91.09 Other allergy status, other than to drugs and biological substances
CPT/HCPCS: 99214

== ENCOUNTER → 2024-08-14 14:36 | Outpatient (BNVA) | payer MEDICARE, OTHER, SELFPAY | PROVIDERS: PCP Internal Medicine; Visit Provider Nurse Practitioner Family | DX: J44.89 Other specified chronic obstructive pulmonary disease (principal); R05.3 Chronic cough; Z91.09 Other allergy status, other than to drugs and biological substances | CPT/HCPCS: 99212 ==

== ENCOUNTER → 2024-10-03 23:59 | Outpatient (BNV) | payer MEDICARE, OTHER, SELFPAY ==
--- NOTE | 2024-10-05 20:37 | A.OFFVIS_ITS ---
Intake Visit Reasons: Remote device check- [facility] Allergies No Known Allergies [No Known Allergies*] Allergy (Verified 08/14/24 14:45) [facility] Medical History Essential hypertension Ischemic stroke Stenosis of left carotid artery Atherosclerotic cardiovascular disease Sick sinus syndrome Normally functioning cardiac pacemaker present Surgical History History of permanent cardiac pacemaker placement (~05/12/19) History of left-sided carotid endarterectomy (~05/15/19) History of cardiac catheterization (~2016) Family History Father No problems noted. Mother No problems noted. Social History Patient Tobacco Use Status: Former Tobacco user Tobacco use type: Cigarette Office Procedures Cardiac Device Check Cardiac Device Check Details: Date of service- 10/03/2024 ; Battery life >5 years; normal lead parameters; AP 33%; ROUSTABOUT PUSHER <1%; no significant arrhythmias. Overall normal device function. [id number] Cardiac Device Interrogation, pacemaker Procedure code (CPT) selection complete Assessment & Plan Assessment & Plan (1) Normally functioning cardiac pacemaker present: Code(s): Z95.0 - Presence of cardiac pacemaker Category: Medical (2) Sick sinus syndrome: Code(s): I49.5 - Sick sinus syndrome Category: Medical Plan x Coding Level of Care Code Procedure Only Diagnoses Normally functioning cardiac pacemaker present Z95.0 Sick sinus syndrome I49.5 CPT Codes Cardiac Device Check - Cardiac Device 12: [id number] Cardiac Device Interrogation, pacemaker ([id number])
== END ==
PROVIDERS: PCP Internal Medicine; Visit Provider Internal Medicine
DX: I49.5 Sick sinus syndrome (principal); Z95.0 Presence of cardiac pacemaker
CPT/HCPCS: 93294

== ENCOUNTER 2024-11-13 13:52 | Outpatient (AMB) | payer MEDICARE, OTHER, SELFPAY ==
--- NOTE | 2024-11-13 13:56 | A.OFFVIS_ITS ---
Vital Signs 11/13/24 13:59 Height 5 ft 4 in Weight 134 lb 14.766 oz BMI 23.2 BP 149/89 H Blood Pressure Location Rt brachial Position Sitting Respiration 18 Pulse 60 Pulse Source Pulse Oximeter Pulse Oximetry (%) 96 Oxygen Delivery Method Room Air Intake Visit Reasons: Asthma Jacquard Fixer Required: Yes Jacquard Fixer Name: family Allergies No Known Allergies (No Known Allergies*) Allergy (Verified 11/13/24 14:03) HPI HPI Asthma: Details: Emeka is a pleasant 78 year old male, former smoker, with approximately 15 pyh quit 30 years ago with underlying asthma COPD overlap syndrome, HTN, DMII and SSS s/p pacer. Today he is accompanied by his grandson. He reports good control of respiratory symptoms on Breo 200 mcg, rarely requiring nebulized therapy. He denies dyspnea, wheezing or chest tightness. He does endorse intermittent cough, occasionally with yellow sputum however infrequent. Denies chest congestion, fevers or chills. He denies any visits to urgent care or hospitalizations related to respiratory distress. [facility] Medical History Essential hypertension Ischemic stroke Stenosis of left carotid artery Atherosclerotic cardiovascular disease Sick sinus syndrome Normally functioning cardiac pacemaker present Surgical History History of permanent cardiac pacemaker placement (~05/12/19) History of left-sided carotid endarterectomy (~05/15/19) History of cardiac catheterization (~2016) Family History Father No problems noted. Mother No problems noted. Social History Patient Tobacco Use Status: Former Tobacco user Tobacco use type: Cigarette Review of Systems Const Denies chills, Denies excessive sweating, Denies fever(s), Denies headache(s) and Denies night sweats Eyes Denies dry eyes, Denies irritation and Denies itchy eyes ENT Reports Normal hearing present and Denies headache(s) Card Denies chest pain, Denies chest pain at rest, Denies chest pain with activity, Denies claudication, Denies leg edema, Denies dyspnea, Denies dyspnea on exertion, Denies orthopnea and Denies paroxysmal nocturnal dyspnea Resp Denies chest congestion, Reports cough, Denies hemoptysis, Denies excessive phle gm production, Denies pain on inspiration, Denies pain with cough, Denies dyspnea, Denies dyspnea on exertion, Denies stridor and Denies wheezing Musc Denies myalgias Neuro Reports Normal hearing present and Denies headache(s) Endo Denies excessive sweating Des/Lymph Denies lymphadenopathy Aller/Immun Denies itchy eyes, Denies seasonal rhinorrhea and Denies wheezing Physical Exam Vital Signs: Last Vital Signs Pulse 60 11/13/24 13:59 Resp 18 11/13/24 13:59 BP 149/89 H 11/13/24 13:59 Pulse Ox 96 11/13/24 13:59 Oxygen Delivery Method Room Air 11/13/24 13:59 BMI result Body Mass Index 23.2 Const General: cooperative, healthy appearing, comfortable, no acute distress, well developed and alert Orientation/consciousness: patient oriented x3 Limitations: no limitations HEENT Head: Yes normal to inspection, Yes normocephalic and Yes atraumatic Ears: hearing grossly normal bilaterally and external ears normal Eyes General: appearance normal, both eyes and all related structures Eyelids: Yes eyelids normal Sclerae: sclerae normal EOM: EOMs intact bilaterally Neck Neck: Yes normal visual inspection and Yes no lymphadenopathy Lymphatic: no lymphadenopathy noted Chest Chest palpation & inspection: normal inspection of the chest Resp Effort & Inspection: normal respiratory effort, able to speak in complete sentences, no audible wheezes, no cough, no stridor, not tachypneic, no tripod positioning and no use of accessory muscles Auscultation: crackles (faint inspiratory R>L) Cardio Jugular venous distension: no JVD Rate: regular rate Rhythm: regular rhythm Skin Other: warm, dry General skin exam: no rashes or lesions noted Neuro General: patient oriented x3 Cranial nerves: Yes Normal hearing present Cognition (Neuro): normal cognition Gait exam (Neuro): Normal gait present Extrem General: Yes normal to inspection, Yes capillary refill normal, Yes no clubbing, cyanosis or edema and Yes no pedal edema Psych Appearance: grossly normal and well kempt Speech and movement: Normal speech and movement present and Clear speech present Affect: normal affect Attitude: cooperative Thought process: Normal thought process present Thought content: Normal thought content present Insight: Good insight present (Psych) Judgement: Good judgement present (Psych) Assessment & Plan Assessment & Plan (1) Chronic cough: Code(s): R05.3 - Chronic cough Category: Medical (2) Asthma-COPD overlap syndrome: Code(s): J44.89 - Other specified chronic obstructive pulmonary disease Category: Medical (3) Environmental allergies: Code(s): Z91.09 - Other allergy status, other than to drugs and biological substances Category: Medical Plan At this time, Emeka reports good control of respiratory symptoms using Breo, albuterol MDI and DuoNeb PRN. On exam patient with inspiratory crackles R>L, will send for CXR to further evaluate, likely atlectasis due to poor inspiratory effort. Will call patient if abnormal results. All questions were answered and patient is in agreement of plan. Will follow up in 3-6 months or sooner if ne eded. Orders: Orders XR chest 2V Today R05.9 - Cough, unspecified Medications: Refilled fluticasone furoate-vilanterol 200-25 mcg/dose (Breo Ellipta) 1 inh inhalation DAILY 60 ea 11RF ipratropium-albuterol 0.5 mg-3 mg(2.5 mg base)/3 mL 3 mL inhalation Q6H PRN 90 mL 6RF wheezing J44.89 - Other specified chronic obstructive pulmonary disease Coding Level of Care Code Est Pt Level 4 (10922) Diagnoses Chronic cough R05.3 Asthma-COPD overlap syndrome J44.89 Environmental allergies Z91.09
[2024-11-13 13:59] VITALS: BP 149/89; PULSE 60; RESP 18; O2SAT 96; BMI 23.2
--- OUTSIDE RECORDS SUMMARY | 2024-11-13 15:07 | XMS_ITS | Data Portability ---
Demographics Address [address] [place] [address] Home Phone Mobile Phone Preferred Language zh Marital Status Voodoo Affiliation Unknown Race Ethnic Group Not or Lati no Author Organization [facility], , [facility] Address [address] [place] [address] Care Team Providers Care Photographer News Name Role Phone YARELIS HUERTA Primary Care Provider [phone] [facility] OTHER [facility] Orthopedic Surgeon [facility] O rthopedic Surgeon [facility] [employer] Professional Assessment Encounter Date Assessment Date Assessment LastModified [...] to toes PPM may 2019 referred to [facility] Gee, who had been following him annually since [facility], but pt wished to excliude vascuar claudication as cause for his tingling cold foot after standing a while. is likely SS but i am compplying with pt and dtr request also to [facility] at their request as [facility] not addressing his concerns. Begin metformin A1c 7.2 padmini Not available 02/25/2024 13:21:30 Plan of Treatment Reminders Order Date Submit Date Provider Last Modified By Organization Details Last Modified Time Details Appointments None recorde d. Lab influen za virus A + B + SARS-Co V-2 (COVID1 9) Ag panel, rapid IA, upper respira tory specime n 2024 025 [facility], [address] [facility], [place], [address], 5 11:13:07 Referral vascula r surgeon referra l - known to you from Carotid endarte rectomy , last seen 2022 running hypothe ses is his numbnes s sensati on of both feet as he walks is due to his documen valery severe sinal stenosi s Could this be vascula r carotid doppler s ordered 025 at [facility] with CC to Gerard 2023 024 RAQUEL Gee MD, [address] [place] [address] Dr,, Vishal, [place], [address], 5 15:24:06 physica l medicin e and rehabil itation referra l - 08/16/19 24 lumbar pain radiate s down left gluteal area needs mandari n interpr eter carries hx of spinal stenosi s known to [facility] for hip injecti on in past call gabriele Dalal who speaks bahamian phone [phone] 2023 [facility], [address] [place], [address], 13:54:28 Procedures None recorde d. Surgeries None recorde d. Imaging None recorde d. Medication Orders tadalaf il 20 mg tablet 2023 [facility], [address] [place], [address], 10:59:51 metform in ER 750 mg tablet, extende d release 24 hr 2023 [facility], [address] [place], [address], 13:24:22 Augment in 875 mg-125 mg tablet 2023 [facility], [address] [place], [address], 10:13:16 atorvas tatin 80 mg tablet 2023 [facility], [address] [place], [address], 15:00:45 aspirin 81 mg tablet, delayed release 2023 [facility], [address] [place], [address], 15:00:45 losarta n 100 mg tablet 2023 [facility], [address] [place], [address], 15:00:46 Patient TargetsNo targets recorded. Patient Instructions Encounter Date Encounter Id Patient Instructions Last Modified By Organization Details Last Modified Time 08/16/2023 [id number] high blood pressure: care instructions [email or web address] Not available 08/16/2023 15:00:42 learning about high blood pressure [email or web address] Not available 08/16/2023 15:00:42 02/25/2024 [id number] high blood pressure: care instructions [email or web address] Not available 02/25/2024 13:24:20 learning about high blood pressure [email or web address] Not available 02/25/2024 13:24:20 Reason for Referral Physical Medicine And Rehabi litation Referral for Lumbar radiculopathy 08/16/2023 lumbar pain radiates down left gluteal areaneeds mandarin interpretercarries hx of spinal stenosisknown to P[facility] for hip injection in pastcall daughter Mily Dalal who speaks englishphone [phone] Referring Physician: Yarelis Huerta [facility], Encounter Date: 08/16/2023 Vascular Surgeon Referral fo r Intermittent claudication known to you from Carotid endarterectomy, last seen 2022running hypotheses is his numbness sensation of both feet as he walksis due to his documented severe sinal stenosisCould this be vascularcarotid dopplers ordered 02/24/2025 at [facility] with CC to Gerard Referring Physician: Yarelis Huerta [facility], Encounter Date: 02/25/2024 Results Created Date Observation Date Name Description Value Unit Range Abnormal Flag Note LastModifiedBy Organization Detail LastModifiedTime 08/12/1908/12/2023 HGB A1C hemoglobin A1C 6.9 % 4.8-6. [...] furth er confi rmati on Not Available [address], [place], [address], 08/12/2023 12:48:18 08/12/19 24 08/12/2023 HGB A1C estimated average glucose 151.3 mg/dL Not Available [address], [address], 08/12/2023 12:48:18 08/12/19 24 08/12/2023 BASIC METAB OLIC PANEL glucose 119 mg/dL 70-100 high Not Available [address], [address], 08/12/2023 14:05:17 08/12/19 24 08/12/2023 BASIC METAB OLIC PANEL BUN 22 mg/dL 7-18 high Not Available [address], [address], 08/12/2023 14:05:17 08/12/19 24 08/12/2023 BASIC METAB OLIC PANEL creatinine 1.1 mg/dL 0.8-1. 3 Not Available [address], [address], 08/12/2023 14:05:17 08/12/19 24 08/12/2023 BASIC METAB OLIC PANEL B/C 20.0 ratio Not Available [address], [address], 08/12/2023 14:05:17 08/12/19 24 08/12/2023 BASIC METAB [...] borat ion (CKD- EPI) Equat ion (Salazar garces et. al 2020) as recom lina d by the Natio nal Kidne y Found ation . eGFR is based on age, serum creat inine , and sex. CKD-E PI does not calcu late eGFR by race, does not apply to child teo (age <18 years ), and shoul d not be used in pregn augie. Not Available [address], [address], 08/12/2023 14:05:17 08/12/19 24 08/12/2023 BASIC METAB OLIC PANEL sodium 141 mmol/ L 136-14 5 Not Available [address], [address], 08/12/2023 14:05:17 08/12/19 24 08/12/2023 BASIC METAB OLIC PANEL potassium 4.2 mmol/ L 3.5-5. 1 Not Available [address], [address], 08/12/2023 14:05:17 08/12/19 24 08/12/2023 BASIC METAB OLIC PANEL chloride 104 mmol/ L 96-107 Not Available [address], [address], 08/12/2023 14:05:17 08/12/19 24 08/12/2023 BASIC METAB OLIC PANEL anion gap 13.3 5.0-15 .0 Not Available [address], [address], 08/12/2023 14:05:17 08/12/19 24 08/12/2023 BASIC METAB OLIC PANEL CO2 24 mmol/ L 21-32 Not Available [address], [address], 08/12/2023 14:05:17 08/12/19 24 08/12/2023 BASIC METAB OLIC PANEL calcium 9.1 mg/dL 8.5-10 .3 Not Available [address], [address], 08/12/2023 14:05:17 08/12/19 24 08/12/2023 LIPID PANEL cholesterol 176 mg/dL <200 mg/dl Gisella able 200-2 39 mg/dl Borde rline High >240 mg/dl High Not Available [address], [address], 08/12/2023 14:05:18 08/12/19 24 08/12/2023 LIPID PANEL triglyceride s 159 mg/dL <150 mg/dL Dorene l 150-1 99 mg/dL Borde rline High 200-4 99 mg/dL High >500 mg/dL Very High Not Available [address], [address], 08/12/2023 14:05:18 08/12/19 24 08/12/2023 LIPID PANEL direct HDL 82 mg/dL <40 mg/dl - Major Risk for CHD >60 mg/dl - Negat kyle Risk for CHD Not Available [address], [address], 08/12/2023 14:05:18 08/12/19 24 08/12/2023 LDL - CALCU LATED LDL - calculated 62.2 RISK CATEG ORY LDL GOAL _ CHD or CHD Risk Equiv alent s <100 mg/dl (10-y ear risk >20%) 2+ Risk Facto rs <130 mg/dl (10-y ear risk <= 20%) 0-1 Risk Facto r <160 mg/dl Almo st all peopl e with 0-1 risk facto r have a 10 year risk <10%, thus 10 year risk asses ment in peopl e with 0-1 risk facto r is not neces juan pablo. Not Available [address], [address], 08/12/2023 14:05:19 08/12/19 24 08/12/2023 MICRO ALBUM IN/CR EATIN INE RATIO PANEL , URINE microalbumin 21.4 mg/L 1.3-20 .0 high Not Available [address], [address], 08/12/2023 14:45:45 08/12/19 24 08/12/2023 MICRO ALBUM IN/CR EATIN INE RATIO PANEL , URINE creatinine urine 68.4 mg/dL 30.0-1 25.0 Not Available [address], [address], 08/12/2023 14:45:45 08/12/19 24 08/12/2023 MICRO ALBUM IN/CR EATIN INE RATIO PANEL , URINE microalb/cre at ratio 31.3 mg/g_ creat 0.0-29 .0 high Not Available [address], [address], 08/12/2023 14:45:45 02/18/20 24 02/18/2024 HGB A1C hemoglobin A1C 7.2 % 4.8-6. [...] furth er confi rmati on Not Available [address], [address], 02/18/2024 12:02:02 02/18/20 24 02/18/2024 HGB A1C estimated average glucose 159.9 mg/dL Not Available [address], [address], 02/18/2024 12:02:02 02/18/20 24 02/21/2024 BASIC METAB OLIC PANEL glucose 135 mg/dL 70-100 high Not Available [address], [address], 02/21/2024 12:12:50 02/18/20 24 02/21/2024 BASIC METAB OLIC PANEL BUN 23 mg/dL 7-18 high Not Available [address], [address], 02/21/2024 12:12:50 02/18/20 24 02/21/2024 BASIC METAB OLIC PANEL creatinine 1.1 mg/dL 0.8-1. 3 Not Available [address], [address], 02/21/2024 12:12:50 02/18/20 24 02/21/2024 BASIC METAB OLIC PANEL B/C 20.9 ratio Not Available [address], [address], 02/21/2024 12:12:50 02/18/20 24 02/21/2024 BASIC METAB [...] be used in pregn augie. Not Available [address], [address], 02/21/2024 12:12:50 02/18/20 24 02/21/2024 BASIC METAB OLIC PANEL sodium 142 mmol/ L 136-14 5 Not Available [address], [address], 02/21/2024 12:12:50 02/18/20 24 02/21/2024 BASIC METAB OLIC PANEL potassium 4.3 mmol/ L 3.5-5. 1 Not Available [address], [address], 02/21/2024 12:12:50 02/18/2002/21/2024 BASIC METAB OLIC PANEL chloride 105 mmol/ L 96-107 Not Available [address], [address], 02/21/2024 12:12:50 02/18/2002/21/2024 BASIC METAB OLIC PANEL anion gap 9.5 5.0-15 .0 Not Available [address], [address], 02/21/2024 12:12:50 02/18/2002/21/2024 BASIC METAB OLIC PANEL CO2 28 mmol/ L 21-32 Not Available [address], [address], 02/21/2024 12:12:50 02/18/2002/21/2024 BASIC METAB OLIC PANEL calcium 9.4 mg/dL 8.5-10 .3 Not Available [address], [address], 02/21/2024 12:12:50 02/18/2002/21/2024 LIPID PANEL cholesterol 200 mg/dL <200 mg/dl Gisella able 200-2 39 mg/dl Borde rline High >240 mg/dl High Not Available [address], [address], 02/21/2024 12:12:52 02/18/2002/21/2024 LIPID PANEL triglyceride s 87 mg/dL <150 mg/dL Dorene l 150-1 99 mg/dL Borde rline High 200-4 99 mg/dL High >500 mg/dL Very High Not Available [address], [address], 02/21/2024 12:12:52 02/18/20 24 02/21/2024 LIPID PANEL direct HDL 84 mg/dL <40 mg/dl - Major Risk for CHD >60 mg/dl - Negat kyle Risk for CHD Not Available [address], [address], 02/21/2024 12:12:52 02/18/20 24 02/21/2024 LDL - CALCU LATED LDL - calculated 99 RISK CATEG ORY LDL GOAL _ CHD or CHD Risk Equiv alent s <100 mg/dl (10-y ear risk >20%) 2+ Risk Facto rs <130 mg/dl (10-y ear risk <= 20%) 0-1 Risk Facto r <160 mg/dl Almo st all peopl e with 0-1 risk facto r have a 10 year risk <10%, thus 10 year risk asses ment in peopl e with 0-1 risk facto r is not nik almeida. Not Available [address], [address], 02/21/2024 12:12:53 05/22/19 25 05/22/2024 POC FLU/S ARS flu A POC NEGATI VE Not Available [facility] [address] [place] [address], [address], 05/22/2024 11:09:14 05/22/19 25 05/22/2024 POC FLU/S ARS flu B POC NEGATI VE Not Available [facility] [address] [place] [address], [address], 05/22/2024 11:09:14 05/22/19 25 05/22/2024 POC FLU/S ARS sars POC NEGATI VE Not Available [address], [address], 05/22/2024 11:09:14 03/15/20 23 03/15/2023 XR, hip [...] Readin g Physic enrike: Regla Edwards ms [facility] (Imaging) [address], [place], [address], 08/16/2023 14:51:11 03/02/20 24 03/01/2024 US carot id duple x (bila teral ) US CAROTI D DUPLEX COMPLE TE (BILAT ERAL) Referr ing clinic enrike's provid ed indica tion for this examin ation in Epic: Outsid e Radiol ogy Order; hx caroti d endart erecto my TECHNI QUE: A duplex ultras ound evalua tion of the common caroti d, international sales representative al caroti d, spray drier operator helper al caroti d, verteb ral, and subcla [...] Systol ic: 74 Distal Diasto lic: 13 Paper Coating Supervisor al Caroti d Artery (cm/s) : Proxim al Systol ic: 94 Proxim al Diasto lic: 14 Mid Systol ic: 85 Mid Diasto lic: 16 Distal Systol ic: 68 Distal Diasto lic: 15 Skating Rink Ice Maker al Caroti d Artery (cm/s) : Systol [...] Systol ic: 72 Distal Diasto lic: 11 Paper Coating Supervisor al Caroti d Artery (cm/s) : Proxim al Systol ic: 78 Proxim al Diasto lic: 8 Mid Systol ic: 79 Mid Diasto lic: 13 Distal Systol ic: 76 Distal Diasto lic: 20 Skating Rink Ice Maker al Caroti d Artery (cm/s) : Systol ic: 88 Diasto lic: 6 Verteb ral Artery (cm/s) : Systol ic: 59 Diasto lic: 13 Subcla vian Artery (cm/s) : Not done ICA/CC A Ratio: 1.18 ICA Stenos is: Normal ICA Plaque : None Visual ized Abbrev iation s: CCA = Common Caroti d Artery . ICA = Paper Coating Supervisor al Caroti d Artery . ECA = Skating Rink Ice Maker al Caroti d Artery . Vert = [...] signif icant elevat ion throug hout the international sales representative al caroti d artery . No plaque is visual ized in the common caroti d artery . Unrema rkable spray drier operator helper al caroti d artery . Koffi grade flow is noted in the verteb ral artery . The subcla vian artery was not interr ogated . Left: Dopple r flow veloci ties and wavefo rm contou rs are within normal limits throug hout the international sales representative al caroti d artery , no plaque is visual ized. There is mild plaque visual ized in the common caroti d artery . Unrema rkable spray drier operator helper al caroti d artery . Koffi grade flow is noted in the verteb ral artery . The subcla vian artery was not interr ogated . IMPRES SIONS: Compar ed to the prior caroti d ultras ound of 2018. 1. <50% stenos is noted in the right international sales representative al caroti d artery . 2. No stenos is in the left international sales representative al caroti d artery . 3. No stenos is is noted in the common caroti d arteri es bilate rally. 4. Unrema rkable spray drier operator helper al caroti d arteri es bilate rally. 5. Antegr andrew flow in the bilate ral cervic al verteb ral arteri es. 6. The bilate ral subcla vian arteri es were not interr ogated STENOS IS: Paper Coating Supervisor al caroti d artery stenos is by duplex ultras onogra phy has been valida valery by compar ing findin gs with angiog raphic stenos is. NASCET method s were used, where the most severe stenos is repres ents the numera tor, and the normal international sales representative al caroti d artery diamet er distal [...] l plaque YARELIS VÁZQUEZ MAN YARELIS HERNANDEZ [facility] [address] [place] [address], [address], 05/18/2024 13:31:13 03/02/20 24 03/01/2024 nikolai MORRIS carot id arter y No observ ation record ed. [address], [address], 05/18/2024 13:31:13 06/27/19 25 06/27/2024 nikolai MRORIS carot id arter y No observ ation record ed. [facility] [address] [facility], [place], [address], 06/27/2024 17:27:00 Result Notes None recorded. Problems Name Problem SNOMED Code Status Onset Date Resolution Date Notes Provider Name and Address Organization Details Recorded Time Mixed hyperlipi demia 500518935 Active per 06/20/12 OV notes Not Available [facility] 2 08:12:09 Benign essential hypertens ion 9341575 Active per 06/20/12 OV notes Not Available [facility] 2 08:12:09 Sinus node dysfuncti on 96747170 Active 2016 PPM 2017, 37 sec pauses with presyncope Not Available [facility] 2 08:12:09 Hyperglyc emia 97958537 Active 2017 Not Available [facility] 2 08:12:09 Type 2 diabetes mellitus without complicat ion 467499333 Active 2017 Not Available [facility] 2 08:12:09 Transient cerebral ischemia 671330030 Active 201804/19/19 due to left carptid stenosis Not Available [facility] 2 08:12:09 Carotid endartere ctomy Active [address] Dela Cruz Not Available [facility] 2 08:12:09 Coronary arteriosc lerosis 46558342 Active 2019 [facility] cath [facility] Not Available [facility] 2 08:12:09 Benign prostatic hyperplas ia 403371414 Active 2019 Not Available [facility] 2 08:12:09 Cough 64735669 Active 2019 Chronic, resumed Flonase. Advised claritin and humidifica tion at night. Not Available [facility] 2 08:12:09 Spinal stenosis of lumbar region 39133930 Active [address] L3 to L5 Yarelis Huerta MD [address] [place] [address], [phone] , [facility] 3 19:49:32 Problem Notes None recorded. Procedures Surgical History Date Name Laterality Status Provider Name and Address Organization Details Recorded Time 02/25/20 Medicare Wellness Visit completed Barbara Gamez [facility] 02/25/2024 10:07:42 01/24/20 24 Wound Care completed Yarelis Huerta MD [address] [place] [address], [phone], [facility] 01/24/2024 10:54:24 04/05/20 [address]: PT Eval Low Complexity completed Romulo Clarke DPT [address] [place] [address], [phone], [facility] 04/05/2023 13:33:46 04/05/20 Treatment and Advice completed Romulo Clarke DPT [address] [place] [address], [phone], [facility] 04/10/2023 11:22:55 02/23/20 Medicare Wellness Visit completed Barbara Gamez [facility] 02/22/2023 15:04:12 07/09/19 23 Knee (Right) Injection completed Yarelis Huerta MD [address] [place] [address], [phone], [facility] 07/08/2022 12:18:19 11/25/19 22 Wound Care completed ISIDRA FIGUEROA DNP [address] [place] [address], [phone], [facility] 11/24/2021 15:34:43 09/13/19 22 Shoulder (Left) Injection completed Yarelis Huerta MD [address] [place] [address], [phone], [facility] 09/12/2021 17:39:07 08/14/19 22 Medicare Wellness Visit completed Barbara Gamez [facility] 08/13/2021 10:07:08 08/14/19 22 Alcohol use screening completed Barbara Gamez [facility] 08/13/2021 10:07:08 03/20/20 20 Medicare Wellness Visit completed Barbara Gamez [facility] 03/20/2020 14:14:00 11/18/20 20 prevention-cardiov ascular risk reduction counseling completed Barbara Gamez [facility] 03/20/2020 14:14:00 03/20/20 20 prevention-annual alcohol misuse screening completed Barbara Gamez [facility] 03/20/2020 14:14:00 04/27/20 19 Transitional care completed MARY Tinoco [address] [place] [address], [phone], [facility] 04/27/2019 12:27:47 11/29/19 16 Corticosteroid Injection completed Kendy Garcia MD [address] [place] [address], [phone], [facility] 11/29/2015 15:56:48 11/29/19 16 Aspiration Major Joint/Bursa completed Kendy Garcia MD [address] [place] [address], [phone], [facility] 11/29/2015 15:54:32 11/13/19 16 Shoulder (Right) Injection completed Kendy Garcia MD [address] [place] [address], [phone], [facility] 11/13/2015 15:56:26 Imaging Results None recorded. Procedure Notes None recorded. Medical Equipment None Reported. Allergies Allergen ID Allergen Name Allergen Category Reaction Reaction Severity Criticality Documentation Date Start Date Code Code System Note Provider Name and Address Organization Details Recorded Time 27203 Product containin g penicilli n (product) medicatio n rash Not available Not available 09/29/2011 48979 8001 SNOMED [facility]oh [facility] 09:21:20 Medications Name Sig Start [...] Available Not Available losartan 100 mg tablet TAKE ONE TABLET BY MOUTH EVERY DAY 2024 active Not Available Not Available Not Avai lable fluticaso ne propionat e 250 mcg/actua tion blister powder for inhalatio n Inhale 1 puff twice a day by inhalati on route for 30 days. 02/26 completed Not Available Not Available Not Available fluticaso ne propionat e 50 mcg/actua tion nasal spray,siobhan pension Atkins 2 sprays every day by intranas al [...] in Arterial blood by Pulse oximetry Systolic And Diastolic Provider Name and Address Organization Details Last Updated DateTime 5 167.64 cm 22.3 kg/m2 35586.4 5 g 101 /min 94 % 94 % 180/110 mm[Hg] Barbara Gamez [facility] 5 10:48:47 Date Recorded Body height Body mass index (BMI) Body weight Oxygen saturation Oxygen saturation in Arterial blood by Pulse oximetry Heart rate Systolic And Diastolic Provider Name and Address Organization Details Last Updated DateTime 4 167.64 cm 22.9 kg/m2 24063.8 2 g 98 % 98 % 70 /min 124/78 mm[Hg] Barbara Gamez [facility] 4 14:27:47 Date Recorded Body height Body mass index (BMI) Body weight Systolic And Diastolic Provider Name and Address Organization Details Last Updated DateTime 01/24/2024 167.64 cm 22.5 kg/m2 39179.04 g 122/74 mm[Hg] Barbara Gamez [facility] 01/24/2024 10:28:17 Date Recorded Body height Body mass index (BMI) Body weight Heart rate Oxygen saturation Oxygen saturation in Arterial blood by Pulse oximetry Systolic And Diastolic Provider Name and Address Organization Details Last Updated DateTime 4 167.64 cm 22.9 kg/m2 74588.8 2 g 54 /min 95 % 95 % 166/94 mm[Hg] Barbara Gamez [facility] 4 10:17:35 Social History Question Answer Notes LastModified by Organizat ion Details LastModified Time Tobacco Smoking Status Former Smoker quit 20 years ago; 02/17/22 MAYI Drew MA [facility] 02/17/2022 10:05:46 Do You Wear A Helmet When Biking? Yes Information not available 11/13/2015 What Is Your Level Of Caffeine Consumption? Moderate 1-2 Tea [email or web address] Information not available 03/20/2020 How Much Tobacco Do You Chew? None Information not available 11/13/2015 What Type Of Diet Are You Following? REGULAR Information not available 11/13/2015 Have There Been Any Changes To Your Family Or Social Situation? No Information not available 08/13/2021 How Many Days In The Past Year Have You Had A Heavy Drinking Consumption (4+ Female, 5+ Male)? 0 Information not available 05/10/2012 Are There Any Guns Present In Your Home? No Information not available 11/13/2015 Do You Use Insect Repellent Routinely? No Information not available 08/13/2021 Live Alone Or [...] Most Recent Tobacco Screening? 02/17/2022 02/17/22 MAYI [email or web address] Information not available 02/17/2022 How Many Children Do You Have? 3 Information not available 08/13/2021 What Is Your Current Pack Years? 10packyears [email or web address] Information not available 11/19/2023 What Is Your Relationship Status? Information not available 08/13/2021 Do You Use Your Seat Belt Or Car Seat Routinely? Yes [email or web address] Information not available 02/25/2024 Seat Belts Used Routinely Yes Information not available 11/13/2015 Are You Sexually Active? Yes Information not available 11/13/2015 Smoke Alarm In Home Yes Information not available 11/13/2015 Do You Have Smoke And Carbon Monoxide Detectors In Your Home? Yes [email or web address] Information not available 08/13/2021 Are You Passively Exposed To Smoke? No [email or web address] Information not available 08/13/2021 General Stress Level Low Information not available 11/13/2015 Do You Use Sunscreen Routinely? No Information not available 11/13/2015 Sex: Male Functional Status Question Answer Note LastModified by Organizat ion Details LastModified Time Do you or have you ever used any other forms of tobacco or nicotine? No [email or web address] Information not available 02/17/2022 What is your level of alcohol consumption? Moderate 1 daily 02/17/22 MAYI [email or web address] Information not available 02/17/2022 Are you currently employed? No retired 2021 [email or web address] Information not available 08/13/2021 What is your exercise level? Moderate daily walks [email or web address] Information not available 02/22/2023 Mental Status None recorded. Family History Nothing Reported Notes:M and Father lived to mid 80's. Medical History Condition Response Hyperlipidemia Y Hypertension Y Immunizations Vaccine Type Date Status Note Provider Nam e and Address Organization Details Recorded Time Influenza, split virus, trivalent, preservative 2 completed Not Available [facility] 05/20/2019 02:18:35 Influenza, high-dose, trivalent, PF 5 completed Not Available [facility] 05/20/2019 02:25:04 Influenza, high-dose, trivalent, PF 7 completed Not Available [facility] 05/20/2019 02:32:27 Influenza, high-dose, trivalent, PF 7 completed Not Available [facility] 05/20/2019 02:33:35 Pneumococcal conjugate PCV 13 7 completed Not Available [facility] 05/20/2019 02:22:05 Influenza, high-dose, trivalent, PF 8 completed Not Available [facility] 05/20/2019 02:23:29 Influenza, high-dose, trivalent, PF 9 completed Not Available [facility] 05/20/2019 02:24:34 pneumococcal polysaccharide PPV23 9 completed Not Available [facility] 05/20/2019 02:27:07 Tdap 9 completed Not Available [facility] 05/20/2019 02:26:03 Influenza, high-dose, quadrivalent, PF 1 completed VERONICA Davalos, [facility] 04/15/2021 10:31:20 Influenza, split virus, quadrivalent, preservative 0 completed Thais Johnson DNP [address] [place] [address], [phone], [facility] 03/20/2020 14:39:44 Influenza, high-dose, quadrivalent, PF 2 completed Yarelis Huerta MD [address] [place], [address], [facility] 02/06/2022 10:43:37 Influenza, high-dose, quadrivalent, PF 3 completed Chaya Small NP [address] [place], [address], [facility] 03/12/2023 17:07:35 Influenza, high-dose, trivalent, PF 4 completed Yarelis Huerta MD [address] [place], [address], [facility] 02/25/2024 13:18:10 COVID-19, mRNA, LNP-S, PF, 100 mcg/0.5mL dose or 50 mcg/0.25mL dose 1 completed Barbara Gamez CMA null, [facility] 03/07/2021 14:58:06 COVID-19, mRNA, LNP-S, PF, 100 mcg/0.5mL dose or 50 mcg/0.25mL dose 2 completed Barbara Gamez CMA null, [facility] 08/15/2021 08:35:08 Past Encounters Encounter ID Performer Location Encounter Start Date Encounter Closed Date Diagnosis/Indication Diagnosis SNOMED-CT Code Diagnosis ICD10 Code Diagnosis Note [id number] MD NIKKIE Daniel, [facility], OFFICE [address] [place] [address] 09/29/2011 15:09:24 09/29/2011 16:19:31 [id number] Yarelis Huerta MD , [facility], OFFICE [address] [place] [address] 11/09/2011 15:08:07 11/10/2011 09:17:32 [id number] [facility] , [facility], [address]ICE [address] [place] [address] 01/26/2012 14:11:21 01/27/2012 08:05:23 [id number] MD NIKKIE Daniel, [facility], OFFICE [address] [place] [address] 02/15/2012 08:56:43 02/15/2012 09:36:33 [id number] Yarelis Huerta MD , [facility], OFFICE [address] [place] [address] 05/10/2012 13:23:04 05/11/2012 09:33:22 [id number] Yarelis Huerta MD , [facility], OFFICE [address] [place] [address] 06/10/2012 08:37:22 06/10/2012 09:52:12 [id number] Benson Garcia DPM Podiatry, [facility] [address] [facility] [place] [address] 07/05/2012 14:39:49 07/06/2012 16:03:00 [id number] Yarelis Huerta MD , [facility], OFFICE [address] [place] [address] 03/13/2015 15:23:42 03/13/2015 16:09:37 Mixed hyperlipidemia 303189710 E78.2 03/2015 at goal below 100 on simvastati n 40. at goal on lipitor 80 pt wishes FLP Benign ess ential hypertension 8826833 I10 03/2015 at goal on lisinopril 20 only. remains at goal (<140/90)o n two medication s HCTZ VICKY. Understand s what meds are for. plan to continue indefinite ly Bp checks twice annually. remains at goal on two medication s HCTZ VICKY Plantar fasciitis 484051 003 M72.2 due to pes planus has failed home treatment he had purchased a nonsense compressio n bandage i printed out a photo of the [employer] night splint for him to purchase recommende d podiatry input as well resolved due to pes planus written instructio ns from upto date, verbal translatio n as well as written Dr Hernadez instructio ns to pharmacist given Acute uppe r respiratory infection 07923074 J06.9 bothersome cough with bronchitis Educated patient [...] resolve in 2-4 weeks. Low back pain 633355871 M54.5 resolved. upper lumbar lower thoracic pain upon arising prob djd. rec iboprofen agreed to check liver enzymes renal fn per pr request, resonabkle as on lipitor high dose. denies h/o liver dz, hepatitis. 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 Dermatophy tosis of the perianal area 093419720 B35.4 resolved w topicals [id number] Yarelis Huerta MD , [facility], OFFICE [address] [place] [address] 04/09/2015 15:11:16 04/13/2015 09:50:23 Dermatophytosis of the perianal area 954483839 B35.4 resolved w topicals Mixed hyperlipidemia 267 322009 E78.2 03/2015 at goal below 100 on simvastati n 40. at goal on lipitor 80 pt wishes FLP Impotence of organic origin 040108187 N52.9 prior- pt wishes refill viagra presents empty bottle to me. Benign ess ential hypertension 2881352 I10 04/2015 still not at goal, pt frustrated with lisinopril and rather than increase dose, agreed with core cutter to change to norvasc 10mg rto 2-3 weeks 03/2015 at goal on lisinopril 20 only. remains at goal (<140/90)o n two medication s HCTZ VICKY. Understand s what meds are for. plan to continue indefinite ly Bp checks twice annually. remains at goal on two medication s HCTZ VICKY Low back pain 282273245 M54.5 resolved. upper lumbar lower thoracic pain upon arising prob djd. rec iboprofen agreed to check liver enzymes renal fn per pr request, resonabkle as on lipitor high dose. denies h/o liver dz, hepatitis. Plantar fasciitis 352813 003 M72.2 due to pes planus has failed home treatment he had purchased a nonsense compressio n bandage i printed out a photo of the [employer] night splint for him to purchase recommende d podiatry input as well resolved due to pes planus written instructio ns from upto date, verbal translatio n as well as written Dr Hernadez instructio ns to pharmacist given Acute uppe r respiratory infection 74891453 J06.9 bothersome cough with bronchitis Educated patient [...] in 2-4 weeks. Active or passive immunization 835786371 Z23 [id number] Ian Suárez MD , [facility], OFFICE [address] [place] [address] 06/07/2015 11:23:24 06/07/2015 14:53:24 Benign essential hypertension 4955401 I10 Chest pain 16188909 R07. 9 [id number] Yarelis Huerta MD , [facility], OFFICE [address] [place] [address] 07/08/2015 15:07:45 07/08/2015 16:20:01 Skin problem 193206990 R23.9 Benign ess ential hypertension 7011281 I10 07/2015 at goal on VICKY. AT PT'S REQUEST WILL CHANGE BACK TO LISINOPRIL . EKG NL. I THINK AN ETT IS INDICATED. I AM NOT READY TO BLAME AMLODIPINE FOR CHEST PRESSURE. DISCUSSED WITH PT VIA TRANLATOR. MORE THEN 50% OF THIS APPT WAS USED COUNSELING RE: NATURE OF ISSUE AND COORDINATI ON OF CARE. [id number] Kendy Garcia MD , [facility], [address]ICE [address] [place] [address] 11/13/2015 15:11:07 11/13/2015 15:50:59 Shoulder joint pain 219001978 M25.519 intractabl e, steroidal intraartic ular injection was performed, see procedure note, FU in two wks Increased blood pressure 48638400 R03.0 w Hx HTN, on meds, after was rechecked by me at the end of the encounter, it was normal, poss pt was in pain and/or was someways anxious , counseled to monitor his BP and report if still elevated [id number] Yarelis Huerta MD , [facility], [address]ICE [address] [place] [address] 11/18/2015 14:21:02 11/18/2015 15:40:33 Adult health examination 992276098 Z00.00 see Risk Assessment and Lifestyle Change Counseling section above Counseling 847074675 Z71 .9 Benign ess ential hypertension 9038399 I10 Blood pressure at goal Screening for malignant neoplasm of colon 683034265 Z12.11 due per pt 2018 Impotence 636503656 N52. 9 Impaired f asting glycemia 934489201 R73.01 below 126 for years [id number] Yarelis Huerta MD , [facility], [address]ICE [address] [place] [address] 11/26/2015 08:43:52 11/26/2015 15:55:55 Low blood pressure 65613669 I95.9 symptomaat iciatrogen ic this summeragre ed [...] head pressure vision loss upon arising persists. [id number] Kendy Garcia MD , [facility], [address]ICE [address] [place] [address] 11/29/2015 11:20:54 12/02/2015 12:00:50 Olecranon bursitis 067517013 M70.21 uncertain etiology, aspiration and then steroidal injection was performed, see procedure note [id number] Yarelis Huerta MD , [facility], [address]ICE [address] [place] [address] 12/04/2015 14:10:58 12/04/2015 15:03:15 Headache 52952583 R51 4 times a day gets head gutierrez lasting few seconds.Pt disincline d to believe that this is not significan t. referral printed for pts grandson to be able to schedule appt Cough 02084772 R05 cough x many weeks, unclear if upper or lower mucuswill image and referi believe this is a habitual cough from minor environmen vinod exposurere ferral printed for pts grandson to be able to schedule appt [id number] Yarelis Huerta MD , [facility], [address] [place], [place] [address] 05/20/2016 08:53:44 05/20/2016 10:01:11 Headache 80091740 R51 historical .4 times a day gets head gutierrez lasting few seconds.Pt disincline d to believe that this is not significan t. referral printed for pts grandson to be able to schedule appt Cough 49442083 R05 pt states he has asthmai will [...] be able to schedule appt Olecranon bursitis 94956 0002 M70.21 nearly resolved. summer 2015.uncer tain etiology, aspiration and then steroidal injection was performed, see procedure note Low blood pressure 61820 003 I95.9 summer 2015.sympt omaticiatr ogenic this [...] upon arising persists. Benign ess ential hypertension 8769272 I10 usually at goal off medstoday 05/20/15 it is aberrantly elevatedhe blows out a rapid excuse, got poor sleepagree d to rto 2 weeks recheckhe has been a frustratin g case and i am reluctant to restart med Impotence 574701266 N52. 9 Impaired f asting glycemia 450838303 R73.01 below 126 for years Active or passive immunization 892693422 Z23 [id number] Yarelis Huerta MD , [facility], OFFICE [address] [place], [place] [address] 06/03/2016 07:45:10 06/03/2016 08:22:32 Headache 64180624 R51 historical .4 times a day gets head gutierrez lasting few seconds.Pt disincline d to believe that this is not significan t. referral printed for pts ct to be able to schedule appt 12/2015 [facility] Cough 73506406 R05 pt states he has asthma, likely RADi will add proair to fluticason e.he is not forthcomin g with symptoms, looking for 'strong medicine'h e will need formal testing .cough x many weeks, unclear if upper or lower mucuswill image and referi believe this is a habitual cough from minor environmen [facility] f[facility] printed for pts ct to be able to schedule appt Olecranon bursitis 16689 0002 M70.21 nearly resolved. summer 2015.uncer tain etiology, aspiration and then steroidal injection was performed, see procedure note Low blood pressure 44835 003 I95.9 summer 2015.sympt omaticiatr ogenic this [...] upon arising persists. Benign ess ential hypertension 9288097 I10 06/03/16 remains at goal off any [...] and rather than increase dose, agreed with core cutter to change to norvasc 10mg rto 2-3 weeks 03/2015 at goal on lisinopril 20 only. 2014 remains at goal (<140/90)o n two medication s HCTZ VICKY. Understand s what meds are for. plan to continue indefinite ly Bp checks twice annually. remains at goal on two medication s HCTZ VICKY Impotence 555767460 N52. 9 Impaired f asting glycemia 960074831 R73.01 below 126 for years Mixed hyperlipidemia 267 394557 E78.2 lipidemia - 11/2015 LDL is just fine 128, at goal, off medication which he is disincline d to take.. Diet only. 03/2015 at goal below 100 on simvastati n 40. at goal below LDL 100, on lipitor 80 pt wishes FLP [id number] Yarelis Huerta MD , [facility], [address]ICE [address] [place] [address] 12/08/2016 16:10:52 12/08/2016 17:00:47 Syncope and collapse 081261840 R55 5 days ago arose from chair, got up to grab door and passed out.has been generally feeling unwell.he is bradycardi c, PPM?(had negative nuclear 09/2015)rep orts sub sequent presyncope , has to lean on wall to prevent collapse during these events Headache 56569896 R51 historical .4 times a day gets head gutierrez lasting few seconds.Pt disincline d to believe that this is not significan t. referral printed for pts grandson to be able to schedule appt Cough 31793580 R05 05/2016 pt states he has asthmai will add proair to fluticason e.he is not forthcomin g with symptoms, looking for 'strong medicine'h e will need formal testing .cough x many weeks, unclear if upper or lower mucuswill image and referi believe this is a habitual cough from minor environmen [facility] ferril printed for pts grandson to be able to schedule appt Olecranon bursitis 08095 0002 M70.21 nearly resolved. summer 2015.uncer tain etiology, aspiration and then steroidal injection was performed, see procedure note Low blood pressure 74148 003 I95.9 summer 2015.sympt omaticiatr ogenic this [...] upon arising persists. Benign ess ential hypertension 3516103 I10 usually at goal off medstoday 05/20/15 it is aberrantly elevatedhe blows out a rapid excuse, got poor sleepagree d to rto 2 weeks recheckhe has been a frustratin g case and i am reluctant to restart med Impotence 072857012 N52. 9 Impaired f asting glycemia 429253485 R73.01 below 126 for years [id number] Yarelis Huerta MD , [facility], [address] [place] [address] 02/26/2017 09:46:39 02/26/2017 11:23:21 Adult health examination 447180956 Z00.00 see Risk Assessment and Lifestyle Change Counseling section above Counseling 759100053 Z71 .9 Active or passive immunization 830665754 Z23 Headache 82792691 R51 historical .4 times a day gets head gutierrez lasting few seconds.Pt disincline d to believe that this is not significan t. referral printed for pts grandson to be able to schedule appt Cough 35195654 R05 05/2016 pt states he has asthmai will add proair to fluticason e.he is not forthcomin g with symptoms, looking for 'strong medicine'h e will need formal testing .cough x many weeks, unclear if upper or lower mucuswill image and referi believe this is a habitual cough from minor environmen [facility] ferril printed for pts grandson to be able to schedule appt Olecranon bursitis 98199 0002 M70.21 nearly resolved. summer 2015.uncer tain etiology, aspiration and then steroidal injection was performed, see procedure note Benign ess ential hypertension 4532117 I10 appears his intoleranc e of BP [...] and rather than increase dose, agreed with core cutter to change to norvasc 10mg rto 2-3 weeks 03/2015 at goal on lisinopril 20 only. remains at goal (<140/90)o n two medication s HCTZ VICKY. Understand s what meds are for. plan to continue indefinite ly Bp checks twice annually. remains at goal on two medication s HCTZ VICKY Impotence 076294048 N52. 9 Impaired f asting glycemia 790312012 R73.01 below 126 for years Mixed hyperlipidemia 267 865157 E78.2 lipidemia - 11/2015 LDL is just fine 128, at goal, off medication which he is disincline d to take.. Diet only. 03/2015 at goal below 100 on simvastati n 40. at goal below LDL 100, on lipitor 80 pt wishes FLP Sick sinus syndrome 3608 3008 I49.5 02/26/17.fatimah mcclure and his dtr phoned cardiology to decline PPM.with core cutter i showed him the 30 day event [...] to prevent collapse during these events Lightheadedness 71058532 8 R42 summer 2015.sympt omaticiatr ogenic this [...] loss upon arising persists. 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 told name of hamilton verdugo.see n with [id number] Yarelis Huerta MD , [facility], [address] [place] [address] 05/24/2017 07:39:15 05/24/2017 08:30:35 Headache 46276754 R51 historical .4 times a day gets head gutierrez lasting few seconds.Pt disincline d to believe that this is not significan t. referral printed for pts grandson to be able to schedule appt Cough 37447348 R05 resolved. 05/2016 pt states he has asthmai will add proair to fluticason e.he is not forthcomin g with symptoms, looking for 'strong medicine'h e will need formal testing .cough x many weeks, unclear if upper or lower mucuswill image and referi believe this is a habitual cough from minor environmen [facility] printed for pts grandson to be able to schedule appt Olecranon bursitis 10820 0002 M70.21 nearly resolved. summer 2015.uncer tain etiology, aspiration and then steroidal injection was performed, see procedure note Benign ess ential hypertension 9419663 I10 BP at goal off med. 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 remains at goal (<140/90)o n two medication s HCTZ VICKY. Understand s what meds are for. plan to continue indefinite ly Bp checks twice annually. remains at goal on two medication s HCTZ VICKY Impotence 944856289 N52. 9 Impaired f asting glycemia 698245010 R73.01 below 126 for years Mixed hyperlipidemia 267 077598 E78.2 lipidemia - 11/2015 LDL is just fine 128, at goal, off medication which he is disincline d to take.. Diet only. 03/2015 at goal below 100 on simvastati n 40. at goal below LDL 100, on lipitor 80 pt wishes FLP Sick sinus syndrome 3608 3008 I49.5 declines symptoms.. 02/26/17.fatimah mcclure and his dtr phoned cardiology to decline PPM.with core cutter i showed him the 30 day event [...] to prevent collapse during these events Lightheadedness 32403184 8 R42 see above.summ er 2016.sympt omaticiatr [...] loss upon arising persists. Coronary arteriosclerosis in [place] artery 0959533051 107 I25.10 cath by AYE JAUREGUI and hamp [id number] showed 50% ladappropr iate meds added Hyperglycemia 63441996 R 73.9 A1c of 7.his diet is low sugarwill recheck labs today 05/2017DM discussed with pt. [id number] Yarelis Huerta MD , [facility], [address]ICE [address] [place] [address] 10/18/2017 08:03:46 10/18/2017 09:04:24 Headache 89903815 R51 historical .4 times a day gets head gutierrez lasting few seconds.Pt disincline d to believe that this is not significan t. referral printed for pts grandson to be able to schedule appt Cough 25948174 R05 resolved. 05/2016 pt states he has [...] be able to schedule appt Olecranon bursitis 68453 0002 M70.21 nearly resolved. summer 2015.uncer tain etiology, aspiration and then steroidal injection was performed, see procedure note Benign ess ential hypertension 4713905 I10 BP at goal, based on home reported pressureso ff med on own., none since 2016again mentions usual excuse of poor sleep last [...] and rather than increase dose, agreed with core cutter to change to norvasc 10mg rto 2-3 weeks 03/2015 at goal on lisinopril 20 only. remains at goal (<140/90)o n two medication s HCTZ VICKY. Understand s what meds are for. plan to continue indefinite ly Bp checks twice annually. remains at goal on two medication s HCTZ VICKY Impotence 629562867 N52. 9 Mixed hyperlipidemia 267 272474 E78.2 LDL is at goal and he [...] Sick sinus syndrome 3608 3008 I49.5 through core cutter (video) declines symptoms..ther e is nothing more we can do for his safety- due to cultural fixed notions he has 02/26/17.h ren and his dtr phoned cardiology to decline PPM.with core cutter i showed him the 30 day event [...] to prevent collapse during these events Lightheadedness 71090416 8 R42 pt through core cutter denies symptoms, 10/2017. see above.summ er 2015.sympt [...] loss upon arising persists. Coronary arteriosclerosis in [place] artery 3673704352 107 I25.10 assymptoma ticmed management is maximized with high dose statin (ator 40) and baby ASA cath by AYE JAUREGUI and hamp [id number] showed 50% ladappropr iate meds added Hyperglycemia 38288262 R 73.9 see dm below Type 2 alanis betes mellitus without complication 584320772 E11.9 10/2017 NEEDS EYE EXAM DM well controlled with diet only. Diabetes duscussed with pt through video core cutter , who offers that patients feeling that [...] shown only IFG max 113 for years [id number] Sabine Ventura MD , [facility], [address] [place] [address] 11/04/2017 09:51:08 11/04/2017 12:13:23 Pain of sacroiliac joint 038213400 M53.3 This man bent over to pick [...] ( out all this week) Essential hypertension 18272199 I10 Elevated blood pressure not well controlled . Quite a few of his readings have been over 140/90. I did not notice this until he was gone.Plan: I will have staff notify him that we need to keep an eye on his blood pressure and schedule him for BP clinic. [id number] Yarelis Huerta MD , [facility], [address] [place] [address] 11/08/2017 11:12:16 11/08/2017 12:25:25 Pain of sacroiliac joint 683625208 M53.[address] rizvipain locus has shifted to L5 S1 area he ambulates fine but reasonably is asking for few more days off. cont nsaids and we will reassess wednesday the . U allison edmondson completed no lift 10 bend squat etc. [...] ( out all this week) Essential hypertension 98713719 I10 Elevated blood pressure not well controlled . Quite a few of his readings have been over 140/90. I did not notice this until he was gone.Plan: I will have staff notify him that we need to keep an eye on his blood pressure and schedule him for BP clinic. [id number] Yarelis Huerta MD , [facility], [address] [place] [address] 11/15/2017 07:45:47 11/15/2017 09:18:15 Pain of sacroiliac joint 127296114 M53.3 11/15/2017 he has returned to full activity at homeRTW note written , august RWW 11/16/ with ct rizvipain locus has shifted to L5 S1 area he ambulates fine but reasonably is asking for few more days off. cont nsaids and we will reassess wednesday the . U allison edmondson completed no lift 10 bend squat etc. [...] ( out all this week) Essential hypertension 45245933 I10 11/15/20172 mildly elevated blood pressures, out [...] pressure and schedule him for BP clinic. [id number] Yarelis Huerta MD , [facility], [address] [place], [place] [address] 03/16/2018 10:21:42 03/16/2018 11:25:13 Active or passive immunization 203766951 Z23 Pain of sa croiliac joint 258636161 M53.3 here with grandson wong velásquez.pain locus [...] days ( out all this week) Headache 04964268 R51 historical .4 times a day gets head gutierrez lasting few seconds.Pt disincline d to believe that this is not significan t. referral printed for pts grandson to be able to schedule appt Cough 14030677 R05 resolved. 05/2016 pt states he has asthmai will add proair to fluticason e.he is not forthcomin g with symptoms, looking for 'strong medicine'h e will need formal testing .cough x many weeks, unclear if upper or lower mucuswill image and referi believe this is a habitual cough from minor environmen [facility] zak printed for pts grandson to be able to schedule appt Olecranon bursitis 37088 0002 M70.21 resolved. summer 2015.lizett palomo etiology, aspiration and then steroidal injection was performed, see procedure note Benign ess ential hypertension 5774901 I10 BP at goal, w/o Rx Elevated [...] and rather than increase dose, agreed with core cutter to change to norvasc 10mg rto 2-3 weeks 03/2015 at goal on lisinopril 20 only. remains at goal (<140/90)o n two medication s HCTZ VICKY. Understand s what meds are for. plan to continue indefinite ly Bp checks twice annually. remains at goal on two medication s HCTZ VICKY Impotence 952285385 N52. 9 Mixed hyperlipidemia 267 950586 E78.2 LDL is at goal and he [...] I49.5 not clinically evident 03/2018. 07/2017 through core cutter (video) declines symptoms..ther ren is nothing more we can do for his safety- due to cultural fixed notions he has 02/26/17.fatimah mcclure and his dtr phoned cardiology to decline PPM.with core cutter i showed him the 30 day event [...] to prevent collapse during these events Lightheadedness 60705496 8 R42 pt through core cutter denies symptoms, 10/2017, 03/2018 see above.summ er [...] loss upon arising persists. Coronary arteriosclerosis in [place] artery 5805825452 107 I25.10 assymptoma ticmed management is maximized with high dose statin (ator 40) and baby ASA cath by AYE JAUREGUI and hamp [id number] showed 50% ladappropr iate meds added Type 2 alanis betes mellitus without complication 430646901 E11.9 03/2018 order labs for august 2017.no labs this 6 month period although is standing q 6 mo 10/2017 NEEDS EYE EXAM DM well controlled with diet only. Diabetes duscussed with pt through video core cutter , who offers that patient feels that [...] 113 for years Impotence of organic origin 698643494 N52.9 03/2018 refilled.p jefry- pt wishes refill viagra presents empty bottle to me. [id number] Yarelis Huerta MD , [facility] [place], OFFICE [address] [place], [place] [address] 05/31/2018 15:57:07 05/31/2018 18:00:35 Active or passive immunization 500164146 Z23 Benign ess ential hypertension 7734917 I10 slt high here very elevated at [...] and rather than increase dose, agreed with core cutter to change to norvasc 10mg rto 2-3 weeks 03/2015 at goal on lisinopril 20 only. remains at goal (<140/90)o n two medication s HCTZ VICKY. Understand s what meds are for. plan to continue indefinite ly Bp checks twice annually. remains at goal on two medication s HCTZ VICKY Type 2 alanis betes mellitus without complication 710570614 E11.9 03/2018 order labs for august 2017.no labs this 6 month period although is standing q 6 mo 10/2017 NEEDS EYE EXAM DM well controlled with diet only. Diabetes duscussed with pt through video core cutter , who offers that patient feels that [...] shown only IFG max 113 for years Pain of sa croiliac joint 565812612 M53.3 here with grandpedro velásquez.pain locus has shifted to L5 S1 [...] days ( out all this week) Headache 48923061 R51 historical .4 times a day gets head gutierrez lasting few seconds.Pt disincline d to believe that this is not significan t. referral printed for pts ct to be able to schedule appt Cough 82802156 R05 resolved. 05/2016 pt states he has asthmai will add proair to fluticason e.he is not forthcomin g with symptoms, looking for 'strong medicine'h e will need formal testing .cough x many weeks, unclear if upper or lower mucuswill image and referi believe this is a habitual cough from minor environmen [facility] ferril printed for pts ct to be able to schedule appt Olecranon bursitis 16955 0002 M70.21 resolved. summer 2015.lizett palomo etiology, aspiration and then steroidal injection was performed, see procedure note Impotence 994387666 N52. 9 Mixed hyperlipidemia 267 006291 E78.2 LDL is at goal and he [...] I49.5 not clinically evident 03/2018. 07/2017 through core cutter (video) declines symptoms..ther e is nothing more we can do for his safety- due to cultural fixed notions he has 02/26/17.h e and his dtr phoned cardiology to decline PPM.with core cutter i showed him the 30 day event [...] to prevent collapse during these events Lightheadedness 22429105 8 R42 pt through core cutter denies symptoms, 10/2017, 03/2018 see above.summ er [...] loss upon arising persists. 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 [id number] Yarelis Huerta MD , [facility] [place], [address] [place] [address] 07/01/2018 11:52:28 07/04/2018 12:00:31 Cough 53445531 R05 resolved. 05/2016 pt states he has [...] grandson to be able to schedule appt [id number] Yarelis Huerta MD , [facility], [address] [place] [address] 09/14/2018 08:39:56 09/14/2018 16:40:06 Cough 59600206 R05 09/14/2018 past 2 dayscough and runny [...] grandson to be able to schedule appt [id number] Yarelis Huerta MD , [facility] [place], [address] [place] [address] 03/27/2019 15:21:40 03/27/2019 16:26:59 Cough 73616002 R05 09/14/2018 past 2 dayscough and runny nosebegan as allergic sneeze r/w otc antihistam jayleenhe ran out flovent, reminded to pickup refill [...] a habitual cough from minor environ[facility] printed for pts grandson to be able to schedule appt Active or passive immunization 165456892 Z23 Benign ess ential hypertension 0809012 I10 slt high here very elevated at [...] and rather than increase dose, agreed with core cutter to change to norvasc 10mg rto 2-3 weeks 03/2015 at goal on lisinopril 20 only. remains at goal (<140/90)o n two medication s HCTZ VICKY. Understand s what meds are for. plan to continue indefinite ly Bp checks twice annually. remains at goal on two medication s HCTZ VICKY Type 2 alanis baker mellitus without complication 697599758 E11.9 2 a1c's for 2019 are at goal* 03/2018 order labs for august 2017.no labs this 6 month period although is standing q 6 mo 10/2017 NEEDS EYE EXAM DM well controlled with diet only. Diabetes duscussed with pt through video core cutter , who offers that patient feels that [...] shown only IFG max 113 for years Pain of sa croiliac joint 298213314 M53.3 here with grandson wong rizvipain locus [...] days ( out all this week) Headache 01919966 R51 historical .4 times a day gets head gutierrez lasting few seconds.Pt disincline d to believe that this is not significan t. referral printed for pts grandson to be able to schedule appt Olecranon bursitis 48784 0002 M70.21 resolved. summer 2015.uncmiladis palomo etiology, aspiration and then steroidal injection was performed, see procedure note Impotence 437739677 N52. 9 Mixed hyperlipidemia 267 559406 E78.2 LDL he is following guideline of [...] I49.5 not clinically evident 03/2018. 07/2017 through core cutter (video) declines symptoms..ther e is nothing more we can do for his safety- due to cultural fixed notions he has 02/26/17.h e and his dtr phoned cardiology to decline PPM.with core cutter i showed him the 30 day event [...] to prevent collapse during these events Lightheadedness 25850860 8 R42 pt through core cutter denies symptoms, 10/2017, 03/2018 see above.summ er [...] loss upon arising persists. Coronary arteriosclerosis in [place] artery 7994834329 107 I25.10 assymptoma ticmed management is maximized with high dose statin (ator 40) and baby ASA cath by AYE JAUREGUI and hamp [id number] showed 50% ladappropr iate meds added Impotence of organic origin 426517641 N52.9 03/2018 refilled.p rior- pt wishes refill viagra presents empty bottle to me. Low back pain 424348897 M54.5 resolved. upper lumbar lower thoracic pain upon arising prob djd. rec iboprofen agreed to check liver enzymes renal fn per pr request, resonabkle as on lipitor high dose. denies h/o liver dz, hepatitis. Plantar fasciitis 446737 003 M72.2 due to pes planus has failed home treatment he had purchased a nonsense compressio n bandage i printed out a photo of the [employer] night splint for him to purchase recommende d podiatry input as well resolved due to pes planus written instructio ns from upto date, verbal translatio n as well as written Dr Hernadez instructio ns to pharmacist given Dermatophytosis 55439226 B35.9 . Dermatophy tosis of the perianal area - resolved w topicals B35.4: Tinea corporis [id number] Ian Suárez MD , [facility] [place], [address] [place] [address] 04/27/2019 08:46:15 04/27/2019 09:47:47 Benign essential hypertension 9693095 I10 Pt has not taken his BP [...] with treatment plan Active or passive immunization 157834727 Z23 Sinus node dysfunction 63179222 I49.8 Pt was discharged with 30 day monitor to look for asymptomat ic PAF. Discussed with Pt, Pt's daughter and grandson to schedule a follow-up with cardiologi st Dr. Zamarripa . All questions were addressed. Pt understand s and agrees with treatment plan Left carot id artery stenosis 4980377228 15158 I65.22 Pt's son reports Pt has a [...] carotid endarterec tonya. History of cerebrovascular accident 852907358 Z86.73 physical examinatio n today was unremarkab [...] to 80mg. Will continue both medication s. [id number] Yasmin Chambers . , [facility] [place], [address] [place] [address] 03/20/2020 14:12:33 03/22/2020 11:14:55 Adult health examination 521824492 Z00.00 USPSTF guidelines reviewed and discussed with patient.FO B testImmuni zations UTD Counseling 335281207 Z71 .9 including cardiovasc ular risk reduction counseling Diet and exercise reviewed. Family and social interactio ns reviewed. Safety and injury prevention reviewed. Stress management reviewed. Depression screening 171 119313 Z13.89 depression screening tool administer ed, entered into emr, scored and discussed, time greater than 7.5 minutes Negatove depression screen Screening for alcohol abuse 639973466 Z13.39 An audit alcohol screening test was performed and scored. Patient was asked about alcohol use, advised about risks of alcohol, and personal risk was assessed. Discussed alcohol in moderatioo n Discussion including screening and scoring greater than 7.5 minutes Benign ess ential hypertension 5310753 I10 Continue Losartan as ordered. Pateint is compliant with medication sDiscussed healthy diet and exercise. Coronary arteriosclerosis 92579701 I25.10 Mixed hyperlipidemia 267 640370 E78.2 Heart healthy diet discussedE ncourgaed daily exercise. Transient cerebral ischemia 466032857 G45.9 Continue on AspirinPat ient no longer taking Plavix per most recent cardiology note Type 2 alanis betes mellitus without complication 480883707 E11.9 Discussed at length carbohydra te intake with patient. Doet and exercise controlled .Patient's A1c is 7.0No microalbum inuria. Sick sinus syndrome 3608 3008 I49.5 SP pacemaker Cough 17691928 R05 HydrationR inse mouth after inhaler use.Add claritin, follow up in one month for further evaluation [id number] Yasmin Chambers . , [facility] [place], [address] [place] [address] 04/19/2020 09:28:00 04/19/2020 15:14:46 Mixed hyperlipidemia 881279520 E78.2 Heart healthy diet discussed Encouraged daily exercise. LDL 59. Continue Atorvastat in. Check LFT's Type 2 alanis betes mellitus without complication 636622976 E11.9 Discussed at length carbohydra te intake with patient. Diet and exercise controlled . Patient's A1c is 7.0 No microalbum inuria. Benign pro static hyperplasia 489196843 N40.1 Check PSA level. If elevated refer to urology. Follow up in one week to consider starting Flomax. Adequate fluid intake. Cough 57901981 R05 Pt presents with complaint of cough for several days. Pt doesn't have asthma and has no wheezing or signs of respirator y distress. Symptoms are most likely related to post nasal drip. Supportive measures reviewed including nasal saline and staying hydrated. Pt will follow up if symptoms worsen or if develops fever, increased sob, or increased sputum. [id number] Yarelis Huerta MD , [facility] [place], [address] [place] [address] 04/24/2020 08:49:26 04/25/2020 10:11:03 Insomnia 751350308 G47.00 asleep at 8, awakens at 2 and unable to return to sleep declines long acting sleep aid rec exercise 1 hr pre sleep Slowing of urinary stream 18779596 R39.12 04/2020 stop and start urine needs to void only 1-2 times at night no incontinen ce bph is mild, follow he reasonably declined medication Cough 32973940 R05 09/14/2018 past 2 dayscough and runny [...] a habitual cough from minor environmen [facility] ferral printed for pts grandson to be able to schedule appt Benign ess ential hypertension 5274459 I10 04/24/2020 pt very concerned that his [...] and rather than increase dose, agreed with core cutter to change to norvasc 10mg rto 2-3 weeks 03/2015 at goal on lisinopril 20 only. remains at goal (<140/90)o n two medication s HCTZ VICKY. Understand s what meds are for. plan to continue indefinite ly Bp checks twice annually. remains at goal on two medication s HCTZ VICKY Type 2 alanis betes mellitus without complication 520136862 E11.9 04/2020 at goal diet only 10/2017 NEEDS EYE EXAM DM well controlled with diet only. Diabetes discussed with pt through video core cutter , who offers that patient feels that [...] shown only IFG max 113 for years Pain of sa croiliac joint 794585171 M53.3 historical ; here with grandson wong [...] days ( out all this week) Headache 79476915 R51.9 historical .4 times a day gets head gutierrez lasting few seconds.Pt disincline d to believe that this is not significan t. referral printed for pts grandson to be able to schedule appt Olecranon bursitis 55701 0002 M70.21 resolved. summer 2015.lizett palomo etiology, aspiration and then steroidal injection was performed, see procedure note Impotence 312281343 N52. 9 Mixed hyperlipidemia 267 666247 E78.2 LDL is at goal for diabetic. [...] I49.5 not clinically evident 03/2018. 07/2017 through core cutter (video) declines symptoms..ther e is nothing more we can do for his safety- due to cultural fixed notions he has 02/26/17.h e and his dtr phoned cardiology to decline PPM.with core cutter i showed him the 30 day event [...] to prevent collapse during these events Lightheadedness 05964099 8 R42 pt through core cutter denies symptoms, 10/2017, 03/2018 see above.summ er [...] loss upon arising persists. Coronary arteriosclerosis in [place] artery 4795921250 107 I25.10 assymptoma ticmed management is maximized with high dose statin (ator 40) and baby ASA cath by AYE JAUREGUI and hamp [id number] showed 50% ladappropr iate meds added Impotence of organic origin 927628846 N52.9 03/2018 refilled.p rior- pt wishes refill viagra presents empty bottle to me. Low back pain 493726911 M54.5 resolved. upper lumbar lower thoracic pain upon arising prob djd. rec iboprofen agreed to check liver enzymes renal fn per pr request, resonabkle as on lipitor high dose. denies h/o liver dz, hepatitis. Plantar fasciitis 20271203 003 M72.2 due to pes planus has failed home treatment he had purchased a nonsense compressio n bandage i printed out a photo of the [employer] night splint for him to purchase recommende d podiatry input as well resolved due to pes planus written instructio ns from upto date, verbal translatio n as well as written Dr Hernadez instructio ns to pharmacist given Dermatophytosis 58908318 B35.9 . Dermatophy tosis of the perianal area - resolved w topicals B35.4: Tinea corporis Screening for malignant neoplasm of prostate 319432662 Z12.5 1.32 at age 74 is very low risk indeed [id number] Yarelis Huerta MD , [facility] [place], [address] [place] [address] 04/24/2020 10:57:55 04/25/2020 10:11:37 [id number] Yarelis Huerta MD , [facility] [place], [address] [place] [address] 10/29/2020 13:20:10 10/29/2020 14:01:07 Benign essential hypertension 3328916 I10 BP at goal on current regimen, [...] and rather than increase dose, agreed with core cutter to change to norvasc 10mg rto 2-3 weeks 03/2015 at goal on lisinopril 20 only. remains at goal (<140/90)o n two medication s HCTZ VICKY. Understand s what meds are for. plan to continue indefinite ly Bp checks twice annually. remains at goal on two medication s HCTZ VICKY Mixed hyperlipidemia 267 623106 E78.2 LDL is at goal for diabetic. on high dose statin (ator 40).LDL 56 lipidemia - 11/2015 LDL is just fine 128, at goal, off medication which he is disincline d to take. . Diet only. 03/2015 at goal below 100 on simvastati n 40. at goal below LDL 100, on lipitor 80 pt wishes FLP Insomnia 248133569 G47.0 0 asleep at 8, awakens at 2 and unable to return to sleep declines long acting sleep aid rec exercise 1 hr pre sleep Slowing of urinary stream 64024750 R39.12 04/2020 stop and start urine needs to void only 1-2 times at night no incontinen ce bph is mild, follow he reasonably declined medication Cough 03843941 R05 09/14/2018 past 2 dayscough and runny [...] Type 2 alanis betes mellitus without complication 537922457 E11.9 04/2020 at goal diet only6.8 =A1c 10/2017 NEEDS EYE EXAM DM well controlled with diet only. Diabetes discussed with pt through video core cutter , who offers that patient feels that [...] shown only IFG max 113 for years Pain of sa croiliac joint 490815348 M53.3 historical ; here with grandson wong [...] days ( out all this week) Headache 75393866 R51.9 historical .4 times a day gets head gutierrez lasting few seconds.Pt disincline d to believe that this is not significan t. referral printed for pts grandson to be able to schedule appt Olecranon bursitis 18333 0002 M70.21 resolved. summer 2015.uncmiladis palomo etiology, aspiration and then steroidal injection was performed, see procedure note Impotence 595775971 N52. 9 Sick sinus syndrome 3608 3008 I49.5 not clinically evident 03/2018. 07/2017 through core cutter (video) declines symptoms..ther e is nothing more we can do for his safety- due to cultural fixed notions he has 02/26/17.h e and his dtr phoned cardiology to decline PPM.with core cutter i showed him the 30 day event [...] to prevent collapse during these events Lightheadedness 75066652 8 R42 pt through core cutter denies symptoms, 10/2017, 03/2018 see above.summ er [...] loss upon arising persists. Coronary arteriosclerosis in [place] artery 7180484384 107 I25.10 assymptoma ticmed management is maximized with high dose statin (ator 40) and baby ASA cath by AYE JAUREGUI and hamp [id number] showed 50% ladappropr iate meds added Impotence of organic origin 136717774 N52.9 03/2018 refilled.p rior- pt wishes refill viagra presents empty bottle to me. Low back pain 333312867 M54.5 resolved. upper lumbar lower thoracic pain upon arising prob djd. rec iboprofen agreed to check liver enzymes renal fn per pr request, resonabkle as on lipitor high dose. denies h/o liver dz, hepatitis. Plantar fasciitis 20271203 003 M72.2 due to pes planus has failed home treatment he had purchased a nonsense compressio n bandage i printed out a photo of the [employer] night splint for him to purchase recommende d podiatry input as well resolved due to pes planus written instructio ns from upto date, verbal translatio n as well as written Dr Hernadez instructio ns to pharmacist given Dermatophytosis 83160650 B35.9 . Dermatophy tosis of the perianal area - resolved w topicals B35.4: Tinea corporis Screening for malignant neoplasm of prostate 487875066 Z12.5 1.32 at age 74 is very low risk indeed [id number] Yarelis Huerta MD , [facility] [place], [address] [place] [address] 01/21/2021 16:19:31 01/21/2021 16:59:33 Contact dermatitis due to plants, except food 59182701 L25.5 Patient with contact dermatitis from unknown [...] if this occurs. Pain in right knee 13408 65603 89619 M25.561 Refill as-needed naproxen for right knee painStates no longer taking ibuprofen, removed from medication list Benign ess ential hypertension 0397056 I10 On losartan 100 mg dailyBP not at goal today <130/80In visible discomfort from his rash as aboveWill have him return to the office in 3-4 days for BP check with nursingLim it NSAIDs i.e. naproxen, ibuprofenC ontinue to limit caffeine. [id number] Zara Farias D.O. , [facility] [place], [address] [place] [address] 04/02/2021 13:30:01 04/02/2021 14:15:29 Benign essential hypertension 1953731 I10 very highasympt omatichx if cvawill start amlodipine 5 mg in addition to losartan 100 mgclose f/u with RV next week Transient cerebral ischemia 716861334 G45.9 nd to carotid stenosis Cough 21641659 R05.9 x 10 yearsnever used flonase- has used flovent in pastwill try flonase, mucinexkee p well hydrated [id number] Yarelis Huerta MD , [facility] [place], [address] [place] [address] 04/15/2021 10:01:40 04/22/2021 20:21:24 Essential hypertension 36679940 I10 04/2021 add metop . SBP 200 [...] for BP clinic. Active or passive immunization 050763719 Z23 [id number] Yarelis Huerta MD , [facility] [place], [address] [place], [place] [address] 08/13/2021 10:00:40 08/23/2021 12:34:34 Sinus node dysfunction 07485050 I49.8 Type 2 alanis betes mellitus without complication 948451247 E11.9 Remains at goal diet hybxD8v=0. 9 10/2017 NEEDS EYE EXAM DM well controlled with diet only. Diabetes discussed with pt through video core cutter , who offers that patient feels that [...] 113 for years Adult heal th examination 977798209 Z00.00 well examsee Risk Assessment and Lifestyle Change Counseling section above Counseling 831308380 Z71 .9 including cardiovasc ular risk reduction counseling Depression screening 171 153789 Z13.31 depression screening tool administer ed, entered into emr, scored and discussed, time greater than 7.5 minutes Screening for alcohol abuse 607486075 Z13.39 Essential hypertension 41646351 I10 08/2021 unclear compliance with metop yet BP atgoal. metop ER 50 and losartan 9810104/2021 add metop . SBP 200 then audible [...] and schedule him for BP clinic. Insomnia 554746537 G47.0 0 asleep at 8, awakens at 2 and unable to return to sleep declines long acting sleep aid rec exercise 1 hr pre sleep Slowing of urinary stream 80110805 R39.12 04/2020 stop and start urine needs to void only 1-2 times at night no incontinen ce bph is mild, follow he reasonably declined medication Cough 15246059 R05.9 09/14/2018 past 2 dayscough and runny [...] to schedule appt Benign ess ential hypertension 8156183 I10 04/24/2020 pt very concerned that his [...] and rather than increase dose, agreed with core cutter to change to norvasc 10mg rto 2-3 weeks 03/2015 at goal on lisinopril 20 only. remains at goal (<140/90)o n two medication s HCTZ VICKY. Understand s what meds are for. plan to continue indefinite ly Bp checks twice annually. remains at goal on two medication s HCTZ VICKY Pain of sa croiliac joint 581022776 M53.3 historical ; here with grandson wong [...] days ( out all this week) Headache 69247301 R51.9 historical .4 times a day gets head gutierrez lasting few seconds.Pt disincline d to believe that this is not significan t. referral printed for pts grandson to be able to schedule appt Olecranon bursitis 24971 0002 M70.21 resolved. summer 2015.lizett palomo etiology, aspiration and then steroidal injection was performed, see procedure note Impotence 478965607 N52. 9 Mixed hyperlipidemia 267 173039 E78.2 LDL is at goal for diabetic. [...] I49.5 not clinically evident 03/2018. 07/2017 through core cutter (video) declines symptoms..ther e is nothing more we can do for his safety- due to cultural fixed notions he has 02/26/17.h ren and his dtr phoned cardiology to decline PPM.with core cutter i showed him the 30 day event [...] to prevent collapse during these events Lightheadedness 70298442 8 R42 pt through core cutter denies symptoms, 10/2017, 03/2018 see above.summ er [...] loss upon arising persists. Coronary arteriosclerosis in [place] artery 5849684827 107 I25.10 assymptoma ticmed management is maximized with high dose statin (ator 40) and baby ASA cath by AYE JAUREGUI and hamp [id number] showed 50% ladappropr iate meds added Impotence of organic origin 747809465 N52.9 03/2018 refilled.p rior- pt wishes refill viagra presents empty bottle to me. Low back pain 508439773 M54.51 resolved. upper lumbar lower thoracic pain upon arising prob djd. rec iboprofen agreed to check liver enzymes renal fn per pr request, resonabkle as on lipitor high dose. denies h/o liver dz, hepatitis. Plantar fasciitis 20271203 003 M72.2 due to pes planus has failed home treatment he had purchased a nonsense compressio n bandage i printed out a photo of the [employer] night splint for him to purchase recommende d podiatry input as well resolved due to pes planus written instructio ns from upto date, verbal translatio n as well as written Dr Hernadez instructio ns to pharmacist given Dermatophytosis 10270647 B35.9 . Dermatophy tosis of the perianal area - resolved w topicals B35.4: Tinea corporis Screening for malignant neoplasm of prostate 422077779 Z12.5 1.32 at age 74 is very low risk indeed Urinary incontinence 165 844802 R32 he reports recent onset of urinary urgencynot responsive to my suggestion of chronic treatment for prostatism agreed to initial workup- wishes to be tested for uti, so ordered [id number] Yarelis Huerta MD , [facility], OFFICE [address] [place], [place] [address] 09/12/2021 17:08:31 10/28/2021 07:43:39 Disorder of rotator cuff 443895212 M75.82 see recent intake noteinject ed today as plannedtol erated welltold to anticipate 4 day until relief so that he will then be able to RTW Benign ess ential hypertension 6786977 I10 volatile BP,states i didnt take my [...] and rather than increase dose, agreed with core cutter to change to norvasc 10mg rto 2-3 weeks 03/2015 at goal on lisinopril 20 only. remains at goal (<140/90)o n two medication s HCTZ VICKY. Understand s what meds are for. plan to continue indefinite ly Bp checks twice annually. remains at goal on two medication s HCTZ VICKY [id number] Zara Farias D.O. , [facility] [place], [address] [place] [address] 11/24/2021 14:47:18 11/24/2021 16:40:07 Animal bite of hand 349143065 S61.451A no concerns for infection- advised supportive care and watchful waiting- clean twice/kristian y, apply bacitracin and keep covered-re viewed signs concerning for infection and when to follow up-tetanus vaccine UTDdiscuss ed case with NS Benign ess ential hypertension 6430577 I10 BP not at goal-marija nue with losartan and metoprolol Sick sinus syndrome 3608 3008 I49.5 advised need for pacemakerh as declined this with CARDS [id number] Yarelis Huerta MD , [facility] [place], [address] [place] [address] 02/06/2022 09:58:31 02/06/2022 10:54:40 Active or passive immunization 826361448 Z23 Disorder o f rotator cuff 551484687 M75.82 see recent intake noteinject ed today as plannedtol erated sanchotold to anticipate 4 day until relief so that he will then be able to RTW Benign ess ential hypertension 1291247 I10 128/72 here. at goal on losartan [...] and rather than increase dose, agreed with core cutter to change to norvasc 10mg rto 2-3 weeks 03/2015 at goal on lisinopril 20 only. remains at goal (<140/90)o n two medication s HCTZ VICKY. Understand s what meds are for. plan to continue indefinite ly Bp checks twice annually. remains at goal on two medication s HCTZ VICKY Sinus node dysfunction 39008057 I49.8 Type 2 alanis betes mellitus without complication 502452103 E11.9 Remains at goal diet spukN3q=9. 9, 6.8 10/2017 NEEDS EYE EXAM DM well controlled with diet only. Diabetes discussed with pt through video core cutter , who offers that patient feels that [...] only IFG max 113 for years Counseling 667328726 Z71 .9 including cardiovasc ular risk reduction counseling Insomnia 647464024 G47.0 0 asleep at 8, awakens at 2 and unable to return to sleep declines long acting sleep aid rec exercise 1 hr pre sleep Slowing of urinary stream 65182441 R39.12 04/2020 stop and start urine needs to void only 1-2 times at night no incontinen ce bph is mild, follow he reasonably declined medication Cough 88278024 R05.9 09/14/2018 past 2 dayscough and runny [...] a habitual cough from minor environmen [facility] ferril printed for pts grandson to be able to schedule appt Pain of sa croiliac joint 381837056 M53.3 historical ; here with grandson wong [...] days ( out all this week) Headache 85375081 R51.9 historical .4 times a day gets head gutierrez lasting few seconds.Pt disincline d to believe that this is not significan t. referral printed for pts grandson to be able to schedule appt Olecranon bursitis 34720 0002 M70.21 resolved. summer 2015.lizett palomo etiology, aspiration and then steroidal injection was performed, see procedure note Impotence 742709135 N52. 9 Mixed hyperlipidemia 267 784993 E78.2 LDL is at goal for diabetic. [...] I49.5 not clinically evident 03/2018. 07/2017 through core cutter (video) declines symptoms.1 /2018.ther e is nothing more we can do for his safety- due to cultural fixed notions he has 02/26/17.h ren and his dtr phoned cardiology to decline PPM.with core cutter i showed him the 30 day event [...] to prevent collapse during these events Lightheadedness 13116738 8 R42 pt through core cutter denies symptoms, 10/2017, 03/2018 see above.summ er [...] loss upon arising persists. Coronary arteriosclerosis in [place] artery 2010375799 107 I25.10 assymptoma ticmed management is maximized with high dose statin (ator 40) and baby ASA cath by AYE JAUREGUI and hamp [id number] showed 50% ladappropr iate meds added Impotence of organic origin 660630059 N52.9 03/2018 refilled.p rior- pt wishes refill viagra presents empty bottle to me. Low back pain 562579389 M54.51 resolved. upper lumbar lower thoracic pain upon arising prob djd. rec iboprofen agreed to check liver enzymes renal fn per pr request, resonabkle as on lipitor high dose. denies h/o liver dz, hepatitis. Plantar fasciitis 180931 003 M72.2 due to pes planus has failed home treatment he had purchased a nonsense compressio n bandage i printed out a photo of the [employer] night splint for him to purchase recommende d podiatry input as well resolved due to pes planus written instructio ns from upto date, verbal translatio n as well as written Dr Hernadez instructio ns to pharmacist given Dermatophytosis 24924810 B35.9 . Dermatophy tosis of the perianal area - resolved w topicals B35.4: Tinea corporis Screening for malignant neoplasm of prostate 043791490 Z12.5 1.32 at age 74 is very low risk indeed Urinary incontinence 165 950695 R32 by Hx Sciatica 18277537 M54.32 02/06/2022h e points to lower gluteal area bilaterall y left side and states through a core cutter that it hurts there sitting and radiates at times (unclear) down left leg Choking ca used by phlegm in larynx 73069399 T17.390S 01/2022 guaifenesi n ER 600told through core cutter that there is no cure , just mitigation Pain in right knee 22871 35705 00568 M25.561 01/2022 naproxen renewed for knee pain, to be taken prn [id number] Zara Farias D.OAmelia , [facility] [place], [address] [place] [address] 02/17/2022 09:51:29 02/17/2022 10:36:38 Benign essential hypertension 5090183 I10 BP not at goal < 130/80did take his medication s this morning-on losartan 100mg dailyBMP UTD NL-will have him f/u with PCP in next month for BP Hemorrhoids 57013827 K64 .9 1 external hemorrhoid to 11 o'clock position-- discussed treatment with hydorcorti sone topically 2-4x/day, reviewed R/B/A-- increase dietary fiber--flor id strainingR TO within 24 hours for worsening symptoms [id number] Yarelis Huerta MD , [facility] [place], [address] [place] [address] 03/24/2022 10:11:32 03/24/2022 10:42:18 Disorder of rotator cuff 391634447 M75.82 see recent intake noteinject ed today as plannedtol erated welltold to anticipate 4 day until relief so that he will then be able to RTW Benign ess ential hypertension 0864892 I10 128/72 here. at goal on losartan [...] and rather than increase dose, agreed with core cutter to change to norvasc 10mg rto 2-3 weeks 03/2015 at goal on lisinopril 20 only. remains at goal (<140/90)o n two medication s HCTZ VICKY. Understand s what meds are for. plan to continue indefinite ly Bp checks twice annually. remains at goal on two medication s HCTZ VICKY Urinary incontinence 165 054255 R32 by Hx Sinus node dysfunction 54777411 I49.8 Type 2 alanis betes mellitus without complication 586688151 E11.9 Remains at goal diet kuvpS0c=8. 9, 6.8 10/2017 NEEDS EYE EXAM DM well controlled with diet only. Diabetes discussed with pt through video core cutter , who offers that patient feels that [...] only IFG max 113 for years Insomnia 058089144 G47.0 0 asleep at 8, awakens at 2 and unable to return to sleep declines long acting sleep aid rec exercise 1 hr pre sleep Slowing of urinary stream 63072644 R39.12 04/2020 stop and start urine needs to void only 1-2 times at night no incontinen ce bph is mild, follow he reasonably declined medication Pain of sa croiliac joint 333028594 M53.3 historical ; here with grandson wong [...] days ( out all this week) Headache 04052432 R51.9 historical .4 times a day gets head gutierrez lasting few seconds.Pt disincline d to believe that this is not significan t. referral printed for pts grandson to be able to schedule appt Olecranon bursitis 67690 0002 M70.21 resolved. summer 2015.uncmiladis palomo etiology, aspiration and then steroidal injection was performed, see procedure note Impotence 794505271 N52. 9 Mixed hyperlipidemia 267 608260 E78.2 LDL is at goal for diabetic. [...] I49.5 not clinically evident 03/2018. 07/2017 through core cutter (video) declines symptoms..ther e is nothing more we can do for his safety- due to cultural fixed notions he has 02/26/17.h ren and his dtr phoned cardiology to decline PPM.with core cutter i showed him the 30 day event [...] to prevent collapse during these events Lightheadedness 20886059 8 R42 pt through core cutter denies symptoms, 10/2017, 03/2018 see above.summ er [...] loss upon arising persists. Coronary arteriosclerosis in [place] artery 2592711289 107 I25.10 assymptoma ticmed management is maximized with high dose statin (ator 40) and baby ASA cath by AYE JAUREGUI and hamp [id number] showed 50% ladappropr iate meds added Impotence of organic origin 854087038 N52.9 03/2018 refilled.p rior- pt wishes refill viagra presents empty bottle to me. Low back pain 447395530 M54.51 resolved. upper lumbar lower thoracic pain upon arising prob djd. rec iboprofen agreed to check liver enzymes renal fn per pr request, resonabkle as on lipitor high dose. denies h/o liver dz, hepatitis. Plantar fasciitis 20271203 003 M72.2 due to pes planus has failed home treatment he had purchased a nonsense compressio n bandage i printed out a photo of the [employer] night splint for him to purchase recommende d podiatry input as well resolved due to pes planus written instructio ns from upto date, verbal translatio n as well as written Dr Hernadez instructio ns to pharmacist given Dermatophytosis 43474309 B35.9 . Dermatophy tosis of the perianal area - resolved w topicals B35.4: Tinea corporis Screening for malignant neoplasm of prostate 153391873 Z12.5 1.32 at age 74 is very low risk indeed Sciatica 02967949 M54.32 02/06/2022h e points to lower gluteal area bilaterall y left side and states through a core cutter that it hurts there sitting and radiates at times (unclear) down left leg Choking ca used by phlegm in larynx 16907457 T17.390S 01/2022 guaifenesi n ER 600told through core cutter that there is no cure , just mitigation Pain in right knee 40963 67038 43369 M25.561 01/2022 naproxen renewed for knee pain, to be taken prn Gluteal tendinitis 75099 003 M76.02 ft er ambulating distances he feels a baseball size artea of pain in left gluteal areait is non radiatingn o othert triggers of this painrefer PSS Hemorrhoids 85923911 K64 .9 03/2022 bothersome despite topoical steroidher e with who tells me that he had surgery for his hemorrhoid in [place] 30 years ago and wants this againrefer francisco Silva , told is in [facility] and they state so long as they have an address they will go [place] GPS [id number] Yarelis Huerta MD , [facility] [place], [address] [place] [address] 07/06/2022 14:09:20 07/07/2022 08:35:40 Pain of right knee joint 7779197964 92145 M25.561 seen with present and assistance of phone core cutter past weekunable to walk due to painwarm and swollen no loss or painful RM, no fluid will image todaylikel y inject tomorrow- gout, oa flare or pseudogout [id number] Yarelis Huerta MD , [facility] [place], [address] [place] [address] 07/08/2022 11:49:57 07/09/2022 09:04:20 Impotence of organic origin 264801718 N52.9 requesting BLUE pill 100 mg, points to penis, ths viagra renewed 07/2022*2017 refilled.p rior-pt wishes refill viagrapres ents empty bottle to me. 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 Patellofem oral osteoarthritis 865464415 M17.11 08/04/2022 refer ortho for recurrence - though less red warm and swollen reamains so to a much lesser degree and is a little painful and stiff barber in AM. Seen with benefit of Mandarin core cutter 07/08/2022 diagnosed by imaging:De generative changes that are most pronounced in the patellofem oral compartmen t he has a modest peripatell ar effusion and some warmthinje cted today usual manner split dose medial and high lateralfol low expectantl y Mixed hyperlipidemia 267 920693 E78.2 LDL is at goal for diabetic. [...] 80 pt wishes FLP Coronary arteriosclerosis in [place] artery 8906472292 107 I25.10 assymptoma ticmed management is maximized with high dose statin (ator 40) and baby ASA cath by AYE JAUREGUI and hamp [id number] showed 50% ladappropr iate meds added Sciatica 72820412 M54.32 02/06/2022h e points to lower gluteal area bilaterall y left side and states through a core cutter that it hurts there sitting and radiates at times (unclear) down left leg diclofenac Benign ess ential hypertension 1236819 I10 128/72 here. at goal on losartan [...] and rather than increase dose, agreed with core cutter to change to norvasc 10mg rto 2-3 weeks 03/2015 at goal on lisinopril 20 only. remains at goal (<140/90)o n two medication s HCTZ VICKY. Understand s what meds are for. plan to continue indefinite ly Bp checks twice annually. remains at goal on two medication s HCTZ VICKY Pain in right knee 70470 31890 07372 M25.561 01/2022 naproxen renewed for knee pain, to be taken prn [id number] Yarelis Huerta MD FP, [facility] [place], [address] [place] [address] 08/26/2022 10:45:00 08/28/2022 09:30:44 Impotence of organic origin 361922622 N52.9 requesting BLUE pill 100 mg, points to penis, ths viagra renewed 07/2022*2017 refilled.p rior-pt wishes refill viagrapres ents empty bottle to me. Patellofem oral osteoarthritis 406842446 M17.11 08/26/2022 plans Hyaluronat e if approved, through Ortho *08/04/2022 refer ortho for recurrence - though less red warm and swollen reamains so to a much lesser degree and is a little painful and stiff barber in AM. Seen with benefit of Mandarin core cutter 07/08/2022 diagnosed by imaging:De generative changes that are most pronounced in the patellofem oral compartmen t he has a modest peripatell ar effusion and some warmthinje cted today usual manner split dose medial and high lateralfol low expectantl y Mixed hyperlipidemia 267 417441 E78.2 LDL is at goal for diabetic. [...] 80 pt wishes FLP Coronary arteriosclerosis in [place] artery 3974938537 107 I25.10 assymptoma ticmed management is maximized with high dose statin (ator 40) and baby ASA cath by AYE JAUREGUI and hamp [id number] showed 50% ladappropr iate meds added Sciatica 13456242 M54.32 plans epidural at [facility] 08/2022walk ing has been limited by choice due to feared and induced painHad CT due to PPM presence*1 he points to lower gluteal area bilaterall y left side and states through a core cutter that it hurts there sitting and radiates at times (unclear) down left leg diclofenac Benign ess ential hypertension 9386335 I10 08/26/2022 140/86, follow * 128/72 here. [...] and rather than increase dose, agreed with core cutter to change to norvasc 10mg rto 2-3 weeks 03/2015 at goal on lisinopril 20 only. remains at goal (<140/90)o n two medication s HCTZ VICKY. Understand s what meds are for. plan to continue indefinite ly Bp checks twice annually. remains at goal on two medication s HCTZ VICKY Pain in right knee 43516 74521 73229 M25.561 01/2022 naproxen renewed for knee pain, to be taken prn Choking ca used by phlegm in larynx 81396842 T17.390S renewed at dtrs request 3dtr told that there is no cure , just mitigation *01/2022 guaifenesi n ER 600told through core cutter that there is no cure , just mitigation Primary er ectile dysfunction 151947098 N52.9 Type 2 alanis betes mellitus without complication 363048818 E11.9 Remains at goal diet esvzC9y=4. 9, 6.8 10/2017 NEEDS EYE EXAM DM well controlled with diet only. Diabetes discussed with pt through video core cutter , who offers that patient feels that [...] I49.5 not clinically evident 03/2018. 07/2017 through core cutter (video) declines symptoms..ther e is nothing more we can do for his safety- due to cultural fixed notions he has 02/26/17.h e and his dtr phoned cardiology to decline PPM.with core cutter i showed him the 30 day event [...] wall to prevent collapse during these events [id number] Yarelis Huerta MD , [facility] [place], [address] [place], [place] [address] 02/22/2023 14:56:29 02/22/2023 16:30:00 Adult health examination 692119591 Z00.00 well examsee Risk Assessment and Lifestyle Change Counseling section above Depression screening 171 945842 Z13.31 depression screening tool administer ed Screening for alcohol abuse 180855450 Z13.39 Alcohol use screening tool administer ed Patellofem oral osteoarthritis 733767086 M17.11 Helped a little he has a [...] in AM. Seen with benefit of Mandarin core cutter 07/08/2022 diagnosed by imaging:De generative changes that are most pronounced in the patellofem oral compartmen t he has a modest peripatell ar effusion and some warmthinje cted today usual manner split dose medial and high lateralfol low expectantl y Mixed hyperlipidemia 267 257088 E78.2 LDL is at goal for diabetic. [...] 80 pt wishes FLP Coronary arteriosclerosis in [place] artery 1601060224 107 I25.10 assymptoma ticmed management is maximized with high dose statin (ator 40) and baby ASA cath by AYE JAUREGUI and hamp [id number] showed 50% ladappropr iate meds added Benign ess ential hypertension 4218901 I10 126/74 here. at goal on losartan [...] and rather than increase dose, agreed with core cutter to change to norvasc 10mg rto 2-3 weeks 03/2015 at goal on lisinopril 20 only. remains at goal (<140/90)o n two medication s Sciatica 13812905 M54.32 epidural at [facility] 08/2022 [place] Helped a little walking has been limited by choice due to feared and induced painHad CT due to PPM presence*1 he points to lower gluteal area bilaterall y left side and states through a core cutter that it hurts there sitting and radiates at times (unclear) down left leg diclofenac Pain in right knee 52450 25249 78660 M25.561 sanchez injected Euflexxa summer 2022*[facility] Stokes naproxen renewed for knee pain, to be taken prn Choking ca used by phlegm in larynx 62841007 T17.390S guaifenesi n ER 600 BID renewed at dtrs request 3dtr told that there is no cure , just mitigation *01/2022 guaifenesi n ER 600told through core cutter that there is no cure , just mitigation Impotence of organic origin 358917892 N52.9 requesting BLUE pill 100 mg, points to penis, ths viagra renewed 07/2022*2017 refilled.p rior-pt wishes refill viagrapres ents empty bottle to me. Primary er ectile dysfunction 995373876 N52.9 Type 2 alanis betes mellitus without complication 122509220 E11.9 Remains at goal diet only, follow 7.1 (jan 2023)A1c=6 .9, 6.8, 7.1 (above his prior 7.0 max) 10/2017 NEEDS EYE EXAM DM well controlled with diet only. Diabetes discussed with pt through video core cutter , who offers that patient feels that [...] syndrome 3608 3008 I49.5 PPM checks in [facility] nnot clinically evident 03/2018. 07/2017 through core cutter (video) declines symptoms..ther e is nothing more we can do for his safety- due to cultural fixed notions he has 02/26/17.h ren and his dtr phoned cardiology to decline PPM.with core cutter i showed him the 30 day event [...] events Screening for malignant neoplasm of prostate 683400542 Z12.5 1.32 at age 74 is very low risk indeed Diabetic r etinal eye exam not done 6054267116 103 Z53.9 [id number] Yasmin Cisneros MD , [facility], [address] [place] [address] 03/12/2023 14:55:43 03/12/2023 17:15:55 Active or passive immunization 184225295 Z23 Pain of ri ght hip joint 8923950929 01926 M25.551 Acute pain to right hip while [...] pain Spinal pranay nosis of lumbar region 56011417 M48.061 severe spinal stenosis L3 to L5 per CT 07/23/22-- referred to PSS [id number] [facility], [facility] [address] [place] [address] 04/05/2023 08:45:41 04/12/2023 16:56:26 Pain of hip region 47288398 M25.771 [id number] Yarelis Huerta MD , [facility] [place], [address] [place] [address] 08/16/2023 14:09:35 08/16/2023 15:20:29 Type 2 diabetes mellitus without complication 310261707 E11.9 Remains at goal diet only, stable at 7 for geyjaR5o=4 .9, 6.8, 7.1 (above his prior 7.0 max) 10/2017 NEEDS EYE EXAM DM well controlled with diet only. Diabetes discussed with pt through video core cutter , who offers that patient feels that [...] max 113 for years Transient cerebral ischemia 758276220 G45.9 Spinal pranay nosis of lumbar region 50299130 M48.061 Sinus node dysfunction 79432842 I49.8 Mixed hyperlipidemia 267 798330 E78.2 LDL is at goal for diabetic. he is following guideline of being on high dose statin (ator 40). lipidemia - 11/2015 LDL is just fine 128, at goal, off medication which he is disincline d to take. . Diet only. 03/2015 at goal below 100 on simvastati n 40. at goal below LDL 100, on lipitor 80 pt wishes FLP Coronary arteriosclerosis 42918358 I25.10 Benign pro static hyperplasia 161056601 N40.1 Benign ess ential hypertension 9511805 I10 126/74 here. at goal on losartan [...] and rather than increase dose, agreed with core cutter to change to norvasc 10mg rto 2-3 weeks 03/2015 at goal on lisinopril 20 only. remains at goal (<140/90)o n two medication s Lumbar radiculopathy 128 403439 M54.16 08/16/2023l umbar pain radiates down left gluteal areaneeds mandarin interprete rcarries hx of spinal stenosiskn own to PSS for hip injection in past call daughter Mily Dalal who speaks englishpho ne 122-400- 1999 Coronary arteriosclerosis in [place] artery 2028126139 107 I25.10 assymptoma ticmed management is maximized with high dose statin (ator 40) and baby ASA cath by AYE JAUREGUI and hamp [id number] showed 50% ladappropr iate meds added Microalbum inuric diabetic nephropathy [id number] E11.21 appropriat yanni on lsratan 30433 on 2 occasions [id number] Yarelis Huerta MD , [facility] [place], OFFICE [address] [place] [address] 01/24/2024 09:52:27 01/24/2024 11:19:19 Puncture wound of hand [id number] S61.431A left thumb, small bleeding puncture wound visible to the observer when holding palm up- liws between IP joint and nailno signs of infection. there is subtle blue stage hemorrhagc discolorat ion at the adjacent pulmlavage d by RNaugmenti n discussedc ounselled to observe for signs of infection, redness swelling discharge or pain and return to office should any of these occur [id number] Yarelis Huerta MD , [facility] [place], OFFICE [address] [place] [address] 02/25/2024 10:02:37 02/25/2024 13:51:09 Adult health examination [id number] Z00.00 well examsee Risk Assessment and Lifestyle Change Counseling section above Depression screening 171 467459 Z13.31 depression screening tool administer ed Screening for alcohol abuse [id number] Z13.39 Alcohol use screening tool administer ed Active or passive immunization 061521501 Z23 Spinal pranay nosis of lumbar region 03396099 M48.061 at end of work day feel rle symptomsfo llowed Lanse spine, pt [facility] wish non surgical interventi on Intermitte nt claudication 06152712 I73.9 running hypotheses is his numbness sensation of both feet as he walksis due to his documented severe sinal stenosisCo uld this be vascular Primary er ectile dysfunction 474100712 N52.9 Sick sinus syndrome 3608 3008 I49.5 PPM May 2019- checks in [place], later Sukumar 07/2017 through core cutter (video) declines symptoms..ther e is nothing more we can do for his safety- due to cultural fixed notions he has 02/26/17.h ren and his dtr phoned cardiology to decline PPM.with core cutter i showed him the 30 day event [...] Type 2 alanis betes mellitus without complication 056931172 E11.9 02/25/24 trended above 7.0 Begin Metformin pre dinner. D/W daughter at time of visit'*Rem ains at goal diet only, stable at 7 for iuydrP8v=4 .9, 6.8, 7.1 (above his prior 7.0 max) 10/2017 NEEDS EYE EXAM DM well controlled with diet only. Diabetes discussed with pt through video core cutter , who offers that patient feels that [...] max 113 for years Transient cerebral ischemia [id number] G45.9 Sinus node dysfunction 95946026 I49.8 s/p PPM 2019 Coronary arteriosclerosis 14318679 I25.10 Benign ess ential hypertension 1645153 I10 126/74 here. at goal on losartan [...] and rather than increase dose, agreed with core cutter to change to norvasc 10mg rto 2-3 weeks 03/2015 at goal on lisinopril 20 only. remains at goal (<140/90)o n two medication s Benign pro static hyperplasia 199307598 N40.1 [id number] Yarelis Huerta MD , [facility] [place], OFFICE [address] [place] [address] 05/22/2024 10:31:35 05/22/2024 11:42:12 Dyspnea 200415190 R06.00 c.o chest painin resp distress in office at resthe is working hard to breatherr =20L with rhonchiski n clammy and diaphoreti [facility] called for transport to [facility] with benefit of mandarin core cutter .RN notified for Balwinder lanza note Health Concerns Section Related Observation LastModified by Organization Detai ls LastModified Time None Recorded Concern Status LastModified by Organization Details LastModified Time None Recorded Advance Directives Directive None Recorded Payers Insurance Date Sequence Insurance Name Policy Number Policy Landry Covered Member ID Landry Member ID Guarantor Name 06/18/2024 2 [facility] [id number] 01 Sunday Dalal [id number] Emeka Dalal 01/24/2024 1 MEDICARE [place]: [employer] [facility] [id number] [facility] [place] 05/22/2024 1 MEDICARE [place]: [facility] [id number] [facility] [place] Notes Date Note Type Note Provider Name and Address Organization Details Recorded Time 3 text/html Patient grandson is present as frame feeder. Pt partially speaks bahamian and able to understand PT. Pt's grandson [...] disease. Possible right trochanteric bursitis.Patient Specific Functional Score:10 Percent limitation in walking.10 Percent limitation in being on floor. Romulo Clarke, DPT [address] [place] [address], [phone], [facility] 04/10/2023 11:25:28 4 text/html Physical Exam/MaleReported bypatient.PHAPatient [...] ischemic heart disease; No peripheral vascular disease (85500); No diabetes; No carotid artery stenosis Associated [...] both bothered his stomach. Yarelis Huerta MD [address] [place] [address], [phone], [facility] 08/16/2023 15:07:33 4 text/html Physical Exam/MaleReported bypatient.PHAPatient [...] ischemic heart disease; No peripheral vascular disease (21247); No diabetes; No carotid artery stenosis Associated [...] both bothered his stomach. Yarelis Huerta MD [address] [place] [address], [phone], [facility] 02/25/2024 13:24:40
== END 2024-11-13 14:19 | disposition home or self-care (01) ==
LOC: HO.HPS 13:52
PROVIDERS: PCP Internal Medicine; Visit Provider Nurse Practitioner Family
DX: R05.3 Chronic cough (principal); J44.89 Other specified chronic obstructive pulmonary disease; Z91.09 Other allergy status, other than to drugs and biological substances
CPT/HCPCS: 99214

== ENCOUNTER 2024-11-13 14:20 | Outpatient (REF) | payer MEDICARE, OTHER, SELFPAY ==
--- NOTE | ~2024-11-13 | XR_ITS ---
EXAMINATION: XR CHEST 2 VIEWS HISTORY: R05.9 - Cough, unspecified COMPARISON: Comparison is made with the prior examination dated 11/13/2024. FINDINGS: PA and lateral views of the chest are submitted. A left subclavian dual-chamber pacemaker is unchanged in position. The lungs are expanded and clear. There is no pleural effusion, pneumothorax, or pulmonary vascular congestion. The heart is normal in size. There is mild degenerative disc disease of the spine. XR/XR chest 2V IMPRESSION: No acute cardiopulmonary abnormality. Electronically signed by: Magen Redding MD 11/13/2024 03:01 PM EDT
== END 2024-11-13 14:21 | disposition home or self-care (01) ==
LOC: HO.XRAY 14:20
PROVIDERS: PCP Internal Medicine; Visit Provider Nurse Practitioner Family
DX: R05.3 Chronic cough (principal); J44.89 Other specified chronic obstructive pulmonary disease; Z91.09 Other allergy status, other than to drugs and biological substances
CPT/HCPCS: 71046; 99212

== ENCOUNTER → 2024-11-13 14:23 | Outpatient (BNV) | payer MEDICARE, OTHER, SELFPAY | PROVIDERS: PCP Internal Medicine; Visit Provider Radiology Diagnostic Radiology | DX: R05.9 Cough, unspecified (principal) | CPT/HCPCS: 71046 ==

== ENCOUNTER → 2025-01-02 23:59 | Outpatient (BNV) | payer MEDICARE, OTHER, SELFPAY ==
--- NOTE | 2025-01-10 10:07 | A.OFFVIS_ITS ---
Intake Visit Reasons: Remote device check- [facility] Allergies No Known Allergies (No Known Allergies*) Allergy (Verified 11/13/24 14:03) [facility] Medical History Essential hypertension Ischemic stroke Stenosis of left carotid artery Atherosclerotic cardiovascular disease Sick sinus syndrome Normally functioning cardiac pacemaker present Surgical History History of permanent cardiac pacemaker placement (~05/12/19) History of left-sided carotid endarterectomy (~05/15/19) History of cardiac catheterization (~2016) Family History Father No problems noted. Mother No problems noted. Social History Patient Tobacco Use Status: Former Tobacco user Tobacco use type: Cigarette Office Procedures Cardiac Device Check Cardiac Device Check Details: Date of service- 01/02/2025 ; Battery life >5 years; normal lead parameters; AP 33%; CANTEEN MANAGER <1%; no significant arrhythmias. Overall normal device function. [id number] Cardiac Device Interrogation, pacemaker Procedure code (CPT) selection complete Assessment & Plan Assessment & Plan (1) Normally functioning cardiac pacemaker present: Code(s): Z95.0 - Presence of cardiac pacemaker Category: Medical (2) Sick sinus syndrome: Code(s): I49.5 - Sick sinus syndrome Category: Medical Plan x Coding Level of Care Code Procedure Only Diagnoses Normally functioning cardiac pacemaker present Z95.0 Sick sinus syndrome I49.5 CPT Codes Cardiac Device Check - Cardiac Device 12: [id number] Cardiac Device Interrogation, pacemaker ([id number])
== END ==
PROVIDERS: PCP Internal Medicine; Visit Provider Internal Medicine
DX: I49.5 Sick sinus syndrome (principal); Z95.0 Presence of cardiac pacemaker
CPT/HCPCS: 93294

== ENCOUNTER → 2025-04-23 12:17 | Outpatient (BNV) | payer MEDICARE, OTHER, SELFPAY | PROVIDERS: PCP Internal Medicine; Visit Provider Internal Medicine | DX: I49.5 Sick sinus syndrome (principal) | CPT/HCPCS: 93294 ==